=== PATIENT | female | born 1980 | race Caucasian/White ===

== ENCOUNTER 2016-04-23 16:40 | Inpatient (IN) | payer OTHER ==
[~2016-04-23] VITALS: Ht 167.6 cm; Wt 68.0 kg
[~2016-04-23 16:40] MED LIST: ASCO500C6 PO; CASTOR TOPICAL; CHOL500011 PO; CYAN100085 PO; FISH12002 PO; FURO40TA4 PO; IODINE PO; IRON 18 MG PO; LACT10SO27 PO; LACT1CAP38 PO; LEVO25TA5 PO; LIPOIC ACID PO; MULT1CAP33 PO; ONDA-53 PO; POTA-62 PO; RIFA550T3 PO; SPIR50TA2 PO; TRAM50TA2 PO; Tumeric PO; VALA100026 PO
[2016-04-23 16:44] VITALS: BP 109/74; PULSE 116; RESP 20; O2SAT 98
[2016-04-23] MEDS ORDERED: Ondansetron 8 mg ODT Tablet ONE (17:56)
[2016-04-23] MEDS ORDERED: 0.9% Sodium Chloride 1,000 ML IV ONE (17:56)
[2016-04-23] MEDS ORDERED: Ondansetron 2 mg/mL 2 mL Inj IV PRN (18:00)
--- NOTE | 2016-04-23 18:03 | ED.REPORT ---
HPI-Abd Pain F Under 40 Date of Service Apr 23, 2016 ED Provider: Rodolfo Gil DO History of Present Illness: Patient is a 35 y.o. F with end stage liver disease, liver cirrhosis, anemia. Onset last 2 days initially thought it was gas, now hurts all day long, feels bloated with diarrhea on lactulose, cannot walk, loss of focus due to pain, feels full. Made worse with movement, bending over, eating, Liver disease assocated with gastric bypass, and assocaited with ETOH Last meal fruit and toast 11 AM Last week started to have nausea went to Given Zofran and Hydrocodone 5-325 (taken 15-20 pills) 04/09 and 04/11 IV transfusion PRBC for anemia. Nursing Notes Stated Complaint: ABDOMINAL PAIN Chief Complaint: Female Abdominal Pain Nursing Notes Reviewed: Yes Allergies: Coded Allergies: No Known Allergies (Verified Allergy, Unknown, 04/09/16) Scheduled ([Iron 18 mg tablet]) 2 TAB PO DAILY ([Lipoic Acid]) 100 MG PO BID Ascorbic Acid (Vitamin C) 500 Mg Capsule.er 500 MG PO DAILY Cholecalciferol (Vitamin D3) (Vitamin D3) 5,000 Unit Tablet 5,000 UNIT PO DAILY Cyanocobalamin (Vitamin B-12) (Vitamin B-12) 1,000 Mcg/1 Ml Drops 1 DROP PO DAILY Fish Oil/Borage/Flax/Om3,6,9#1 ([place] 3-6-9 1,200 mg Softgel) 1,200 Mg Capsule 3 TAB PO DAILY Furosemide (Furosemide) 40 Mg Tablet 40 MG PO DAILY L. Rhamnosus GG/Inulin (Culturelle Capsule) 10 Billion Cell-200 Mg Cap.sprink 1 EACH PO DAILY Levothyroxine (Levothyroxine) 25 Mcg Tablet 25 MCG PO DAILY Multivitamin (Multivitamins) 1 Each Capsule 1 EACH PO DAILY Ondansetron (Ondansetron) 4 Mg Tablet 4 MG PO q12hrs Potassium Chloride ER (Potassium Chloride ER) 20 Meq Tablet.er 20 MEQ PO DAILY TAKE WITH FOOD Rifaximin (Xifaxan) 550 Mg Tablet 550 MG PO BID Spironolactone (Spironolactone) 50 Mg Tablet 50 MG PO DAILY Scheduled PRN Hydromorphone PF (Hydromorphone PF) 1 Mg/1 Ml Syringe 1 MG IVPUSH Q4H PRN PRN For Pain Tramadol (Tramadol) 50 Mg Tablet 50 MG PO q8 PRN PRN For Pain diphenhydrAMINE HCl (Benadryl) 25 Mg Capsule 25 MG PO Q6H PRN PRN For Itching oxyCODONE (oxyCODONE) 5 Mg Tablet 5-10 MG PO Q4H PRN PRN For Moderate Pain Miscellaneous Medications Lactulose (Lactulose) 10 Gm/15 Ml Solution 10 GM PO General Time Seen by MD: 17:45 Chief Complaint Abdominal pain, Nausea, Vomiting mild Past Medical History Past Medical History Liver cirrhosis Anemia hyporthyrodism Past Surgical History Gastric bypass Smoking History Unknown if Ever Smoker Social History Alcohol Use: Denies alcohol use Review of Systems Basic Review of Systems Eyes: Vision NL, No discharge Hematologic: No bleeding Allergy / Immune: No allergy Neurologic: NL mental status, No weakness, No numbness Psychiatric: Normal thought content Constitutional: Reports: Chills, Denies: Fever Respiratory: Reports: Dyspnea on exertion, Denies: Hemoptysis Cardiovascular: Denies: Chest pain GI: Reports: Abdominal pain, Anorexia, Diarrhea, Nausea, Vomiting, Denies: Bloody/tarry stool, Constipation, Dysphagia, Hematemesis, Hematochezia, Melena, Mucousy stool, Rectal pain Female: Denies: Dysuria, Flank pain, Pelvic pain Musculoskeletal: Reports: Back pain Complete sys rev & neg: except as marked. Physical Exam Initial Vital Signs Initial VS: Reviewed Head / Eyes: Atraumatic, Normocephalic, PERRL ENT: Mucous membranes moist Neck: Supple, Non-tender Lymphatic: No lymphadenopathy Extremities: Vascular intact, Neuro intact, No swelling, No tenderness Neurologic: Alert, Oriented, Nonfocal Psychiatric: Mood/affect normal, Behavior normal, Normal thought content General/Constitutional: Awake, Alert, No acute distress, Well appearing Respiratory / Chest: Breath sounds NL, Breath sounds = bilat, No respiratory distress, No rales, No rhonchi, No wheezing Cardiovascular: Heart rate NL, Regular rhythm, Heart sounds NL, Peripheral circulation NL Abdomen: Soft, McBurney's non-tender, No hernia, No palpable mass Tenderness/Guarding/Rebound: Positive: Guarding involuntary, Rebound diffuse, Tender diffuse, Tender epigastric Bowel Sounds / Distention: Positive: Bowel sounds hypoactive, Distention moderate (positive fluid wave) Trauma - General: Positive: Ecchymosis (present on abdomen, spider angioma present, no caput medusa) Head / Eyes: PERRL, EOMI Conjunctiva / Sclera: Positive: Icteric Color / Condition: Positive: Jaundice present Neurologic: Oriented X3, Speech NL, No motor deficits, No sensory deficits, Cerebellar NL Interpretation & Diagnostics Lab Results Interpretation Result Diagram: 05/08/16 0807 05/08/16 0807 Test 04/23/16 18:15 04/23/16 20:00 04/23/16 23:19 04/23/16 23:46 Lipase 20U/L (13-60) Urine Color [place] (YELLOW) Urine Appearance Cloudy (CLEAR,HAZY) Urine pH (5.0-8.0) Urine Specific [place] 1.018 (1.003-1.035) Urine Protein mg/dL (NEG,TRACE) Urine Glucose (UA) mg/dL (NEGATIVE) Urine Ketones mg/dL (NEGATIVE) Urine Occult Blood (NEGATIVE) Urine Nitrite (NEGATIVE) Urine Bilirubin Large (NEGATIVE) Urine Ictotest Positive (Negative) Urine Urobilinogen mg/dL (NORMAL) Urine Leukocyte Esterase (NEGATIVE) Urine RBC 0-2/hpf (0-2) Urine WBC 0-5/hpf (0-5) Urine Epithelial Cells Moderate/hpf (NONE-MOD) Urine Crystals Amorphous urates (NONE Urine Bacteria None/hpf (NONE-FEW) Urine Hyaline Casts None/lpf (NONE) Urine Granular Casts None seen (NONE SEEN) Urine Waxy Casts None seen (NONE SEEN) Urine Red Blood Cell Casts None seen (NONE SEEN) Urine White Blood Cell Casts None seen (NONE SEEN) Urine Mucus None seen (None Seen) Urine Trichomonas None seen (NONE SEEN) Urine Yeast None (NONE SEEN) Urinalysis Comment Color interference Urine Culture Reflexed Not indicated Body Fluid Albumin 0.4g/dL (.) Body Fluid Lactate Dehydrogenase 55U/L Peritoneal Fluid Glucose 105mg/dL Lactic Acid Level 1.9mmol/L (0.4-2.0) ECG Interpretation ECG Interpretation: Rate 102 NSR Normal [place] Do not agree with computer: No significant T wave abnormalities Time: 18:57 Interpreted by: ED physician CT Abd / Pelvis Interpretation IMPRESSION: Moderate ascites within the abdomen and pelvis. Cirrhosis, portal hypertension, varices. Varices are seen extending cephalad through the gastrohepatic ligament into the periesophageal lower chest. No definite acute disease is found. Mild anasarca, mild secondary mural thickening of the colon and small bowel. At the lung bases there is alveolar consolidation posteriorly. This could represent sequela of reduced inspiratory volume and retention of pulmonary secretions. Dictated by: Arley Glass M.D. on 04/23/2016 at 21:38 Approved by: Arley Glass M.D. on 04/23/2016 at 21:55 Interpretation / Wet Read by: Interpret - Radiologist US Focused non-OB Pelvis pocket of peritoneal fluid LLQ of abdomen Exam Performed by: ED physician Exam Type: Diagnostic Exam Interpreted by: ED physician, ED resident Procedures Procedure Notes: Diagnostic paracentesis Consent for operation or procedure: Risks and benefits discussed with patient and consent obtained Anesthesia: 5 cc of Lidocaine Patient positioned supine. Abdomen examined with ultrasound for appropriate site placement. Site marked and prepared with Chloraprep swab. Site draped with sterile dressing. Wheel of lidocaine placed. Lidocaine then introduced deep to the peritoneum. Paracentesis needle was placed through the skin into the abdominal cavity. The needle was withdrawn and the site cleaned and bandaged with bandaid. Samples were sent to the lab for analysis. Yellow colored was fluid removed Amount of fluid removed: 25 cc Estimated Blood Loss: minimal Complications: The patient tolerated the procedure well without complications. Plan: Await cell cout to determine if meets admission criteria for antibiotic threatment for SBP Re-Eval/Medical Decision Med Decision/Clinical Course Med Decision/Clinical Course: 35 y.o. F with know history of liver disease and anemia, recent exposure to Acetomenophen. Presented with two day history of worsening abdominal pain and bloating. Patient recently seen by UC for nausea and vomiting wher patient was given Zofran and Hydrocodone. Moderate ammount of ascieties noted an exam with positive fluid wave, postive peritoneal signs, no signs of encephalopathy physical exam. Symptoms are worrisome for spontaneous bacterial peritonitis, patient will be worked up for enteric infection, sepesis. Patient meets criteria for admission to hospital and IV antibiotic therapy for SBP. DDx spontaneous bacterial peroitonitis, ascietis due to liver disease, acute on chronic liver failure, diverticulitis, peritoneal abscess, maligancy, r/o pancreatitis CBC showed signs of anemia not significaly reduced from patient's baseline -ordered Crossmatch and Hold CMP AST elevated ALT normal Albumin low 2.5 Billirubin elevated, no significant elevation from base line Lipase 20 Lactic Acid elevated Procalcitonin elevated UA ordered negative for infection + billirubin Blood cultures ordered, pending CT abdomen and pelvis with contrast ordered to look for signs of infection Plan to complete diagnostic paracentesis of abdomen post CT Re-Evaluation/Progress #1: Time of Eval: 18:00 Patient Status: Condition unchanged Evaluation: Capillary refill delayed Re-Evaluation/Progress Note: Pain and nausea moderate relief with Zofran and Hydromorphone Re-Evaluation/Progress #2: Time of Eval: 19:00 Patient Status: Condition unchanged Re-Evaluation/Progress Note: Pain contines to be moderately controlled with medication VS stable Re-Evaluation/Progress #3: Time of Eval: 20:00 Re-Evaluation/Progress Note: Pain moderately controlled Repeat abdominal US shows collection of fluid LLQ Will wait to proceed with paracentesis until after CT Re-Evaluation/Progress #4: Time of Eval: 21:00 Patient Status: Condition improved Re-Evaluation/Progress Note: Pain well controlled Nausea well controlled Patient stated that her appetite is returning wet read of CT postive signs of perihepatic ascitic fluid Wating for formal CT report before making final decision for paracentesis Procalcitonin elevated 0.23 Re-Evaluation/Progress #5: Time of Eval: 00:15 Patient Status: Condition improved Re-Evaluation/Progress Note: Pain well controlled Nausea controlled Lab results for ascitic fluid postive for WBC consistent with SBP Discussed with patient need to start IV antibiotic therapy with Ceftrixone and need for admission to hospital for observation and treatment. Consultation #1: Referral / Consult Name: Ceasar Gonzalez MD Consulted With: On-call physician (GI) Requested Call at: 22:24 Call Returned at: 22:24 Application Lead: Will see patient, Agrees with plan Note: Reccomends diagnositic paracentesis Agrees with decision to admit for observation to start antibiotic therapy if cell counts return with diagnostic criteria for SBP Consultation #2: Consulted With: Hospitalist Requested Call at: 23:30 Call Returned at: 23:30 Application Lead: Will see patient, Agrees with eval, Agrees with plan, Accepts admit Note: Reccomend await results of periotneal fluid analysis and repeat lactic acid prior to decision on admission Counseled Regarding: Diagnosis, Lab results, Need for follow-up Discharge & Departure Primary Impression: Spontaneous bacterial peritonitis Additional Impressions: Abdominal pain Abdominal location: generalized Qualified Code: R10.84 - Generalized abdominal pain Ascites due to alcoholic cirrhosis Nausea Transaminitis Disposition: ADMITTED TO HOSPITAL Referrals: Michele Hernandez DO (PCP) Attending Statment I was saw and examined this patient with Dr. Salvador Timmons and I agree with the documentation as above. I was also present for the paracentesis procedure which I supervised and assisted Dr. Timmons with. SALVADOR TIMMONS DO Apr 23, 2016 18:03 AndRodolfo medina DO May 09, 2016 07:30 Urine Culture Reflexed Not indicated Body Fluid Total Protein 0.8g/dL Body Fluid Source Peritoneal fluid Body Fluid Color Yellow (Clear) Body Fluid Appearance Hazy Body Fluid WBC 1190/mm3 Body Fluid RBC 840/mm3 Body Fluid Polynuclear WBCs 72% Body Fluid Lymphocytes 4% Body Fluid Monocytes 20% Body Fluid Eosinophils 0% Body Fluid Basophils 0% Body Fluid Lactate Dehydrogenase 55U/L Peritoneal Fluid Glucose 105mg/dL Test 04/23/16 23:46 Lactic Acid Level 1.9mmol/L (0.4-2.0) ECG Interpretation ECG Interpretation: Rate 102 NSR Normal [place] Do not agree with computer: No significant T wave abnormalities Time: 18:57 Interpreted by: ED physician CT Abd / Pelvis Interpretation IMPRESSION: Moderate ascites within the abdomen and pelvis. Cirrhosis, portal hypertension, varices. Varices are seen extending cephalad through the gastrohepatic ligament into the periesophageal lower chest. No definite acute disease is found. Mild anasarca, mild secondary mural thickening of the colon and small bowel. At the lung bases there is alveolar consolidation posteriorly. This could represent sequela of reduced inspiratory volume and retention of pulmonary secretions. Dictated by: Arley Glass M.D. on 04/23/2016 at 21:38 Approved by: Arley Glass M.D. on 04/23/2016 at 21:55 Interpretation / Wet Read by: Interpret - Radiologist US Focused non-OB Pelvis pocket of peritoneal fluid LLQ of abdomen Exam Performed by: ED physician Exam Type: Diagnostic Exam Interpreted by: ED physician, ED resident Procedures Procedure Notes: Diagnostic paracentesis Consent for operation or procedure: Risks and benefits discussed with patient and consent obtained Anesthesia: 5 cc of Lidocaine Patient positioned supine. Abdomen examined with ultrasound for appropriate site placement. Site marked and prepared with Chloraprep swab. Site draped with sterile dressing. Wheel of lidocaine placed. Lidocaine then introduced deep to the peritoneum. Paracentesis needle was placed through the skin into the abdominal cavity. The needle was withdrawn and the site cleaned and bandaged with bandaid. Samples were sent to the lab for analysis. Yellow colored was fluid removed Amount of fluid removed: 25 cc Estimated Blood Loss: minimal Complications: The patient tolerated the procedure well without complications. Plan: Await cell cout to determine if meets admission criteria for antibiotic threatment for SBP Re-Eval/Medical Decision Med Decision/Clinical Course Med Decision/Clinical Course: 35 y.o. F with know history of liver disease and anemia, recent exposure to Acetomenophen. Presented with two day history of worsening abdominal pain and bloating. Patient recently seen by UC for nausea and vomiting wher patient was given Zofran and Hydrocodone. Moderate ammount of ascieties noted an exam with positive fluid wave, postive peritoneal signs, no signs of encephalopathy physical exam. Symptoms are worrisome for spontaneous bacterial peritonitis, patient will be worked up for enteric infection, sepesis. Patient meets criteria for admission to hospital and IV antibiotic therapy for SBP. DDx spontaneous bacterial peroitonitis, ascietis due to liver disease, acute on chronic liver failure, diverticulitis, peritoneal abscess, maligancy, r/o pancreatitis CBC showed signs of anemia not significaly reduced from patient's baseline -ordered Crossmatch and Hold CMP AST elevated ALT normal Albumin low 2.5 Billirubin elevated, no significant elevation from base line Lipase 20 Lactic Acid elevated Procalcitonin elevated UA ordered negative for infection + billirubin Blood cultures ordered, pending CT abdomen and pelvis with contrast ordered to look for signs of infection Plan to complete diagnostic paracentesis of abdomen post CT Re-Evaluation/Progress #1: Time of Eval: 18:00 Patient Status: Condition unchanged Evaluation: Capillary refill delayed Re-Evaluation/Progress Note: Pain and nausea moderate relief with Zofran and Hydromorphone Re-Evaluation/Progress #2: Time of Eval: 19:00 Patient Status: Condition unchanged Re-Evaluation/Progress Note: Pain contines to be moderately controlled with medication VS stable Re-Evaluation/Progress #3: Time of Eval: 20:00 Re-Evaluation/Progress Note: Pain moderately controlled Repeat abdominal US shows collection of fluid LLQ Will wait to proceed with paracentesis until after CT Re-Evaluation/Progress #4: Time of Eval: 21:00 Patient Status: Condition improved Re-Evaluation/Progress Note: Pain well controlled Nausea well controlled Patient stated that her appetite is returning wet read of CT postive signs of perihepatic ascitic fluid Wating for formal CT report before making final decision for paracentesis Procalcitonin elevated 0.23 Re-Evaluation/Progress #5: Time of Eval: 00:15 Patient Status: Condition improved Re-Evaluation/Progress Note: Pain well controlled Nausea controlled Lab results for ascitic fluid postive for WBC consistent with SBP Discussed with patient need to start IV antibiotic therapy with Ceftrixone and need for admission to hospital for observation and treatment. Consultation #1: Referral / Consult Name: Ceasar Gonzalez MD Consulted With: On-call physician (GI) Requested Call at: 22:24 Call Returned at: 22:24 Application Lead: Will see patient, Agrees with plan Note: Reccomends diagnositic paracentesis Agrees with decision to admit for observation to start antibiotic therapy if cell counts return with diagnostic criteria for SBP Consultation #2: Consulted With: Hospitalist Requested Call at: 23:30 Call Returned at: 23:30 Application Lead: Will see patient, Agrees with eval, Agrees with plan, Accepts admit Note: Reccomend await results of periotneal fluid analysis and repeat lactic acid prior to decision on admission Counseled Regarding: Diagnosis, Lab results, Need for follow-up Discharge & Departure Primary Impression: Abdominal pain Abdominal location: generalized Qualified Code: R10.84 - Generalized abdominal pain Additional Impressions: Ascites due to alcoholic cirrhosis Nausea Transaminitis Spontaneous bacterial peritonitis Disposition: ADMITTED TO HOSPITAL Referrals: Michele Hernandez DO (PCP) SALVADOR TIMMONS DO Apr 23, 2016 18:03
[2016-04-23] MEDS ORDERED: Ondansetron 8 mg ODT Tablet PO ONE (18:25)
[2016-04-23] MEDS ORDERED: Iohexol 300 mg/mL 30 mL Inj PO ONE (18:25)
[2016-04-23 18:32] LABS: EOSINOPHILS % (AUTO) 1.2 % (0-5)
[2016-04-23 18:40] LABS: BASOPHILS % (AUTO) 0.8 % (0-3); MONOCYTES % (AUTO) 17.4 % (4-12); Mean Corpuscular Hemoglobin 39.9 pg (27.0-35.0); Mean Corpuscular Volume 117.7 fL (81-100); NEUTROPHILS % (AUTO) 58.8 % (40-74); Platelet Count 113 bil/L (150-400)
[2016-04-23 18:58] LABS: Magnesium 1.7 mg/dL (1.6-2.6)
[2016-04-23] MEDS: HYDROmorphone 0.5 mg/0.5 mL iSecure Syringe IVPUSH PRN ×3 (18:58→23:42)
[2016-04-23 19:02] VITALS: BP 115/62; PULSE 98; RESP 13; O2SAT 99
[2016-04-23 20:38] LABS: APPEARANCE,URINE CLOUDY (CLEAR,HAZY); COLOR,URINE ORANGE (YELLOW)
[2016-04-23 20:39] LABS: ICTOTEST,URINE POSITIVE (Negative)
[2016-04-23 20:43] LABS: INR 1.54 ratio
[2016-04-23 20:57] VITALS: BP 109/54; PULSE 100; RESP 16; O2SAT 98
[2016-04-23] MEDS ORDERED: Potassium Chloride 20 mEq/15 mL 15mL Oral Soln PO ONE (21:20)
--- NOTE | 2016-04-23 21:57 | DRSVH ---
PROCEDURE: CT ABDOMEN AND PELVIS WITH CONTRAST ([id number]) INDICATIONS: abd pain TECHNIQUE: After the administration of oral and intravenous contrast, 5 mm thick sections acquired from the diap hragms to the symphysis. 5 mm thick coronal and sagittal reformats were performed. For radiation do se reduction, the following was used: automated exposure control, adjustment of mA and/or kV accordi ng to patient size. COMPARISON: None. FINDINGS: Image quality: Excellent. ABDOMEN: Lung bases: Lung bases are clear except for alveolar opacification with air bronchograms at each garth g base posteriorly, potentially a manifestation of pneumonia. Heart size is normal. Solid organs: Liver and spleen are asymmetric in size and enhancement, with mildly cirrhotic nodular margination of the liver and splenomegaly with the coronal length of the 16.0 cm. There is evidence of portal hypertension as indicated by varices extending through the gastrohepatic ligament into the esophageal margins. Gallbladder contains sludge. Biliary system is non-dilated. Pancreas enhances normally. No adrenal nodules. Kidneys are normal in size and enhancement, without hydronephrosis. Peritoneum and bowel: Stomach, small bowel, and colon loops are normal in caliber and wall thickness . No free air. A there is moderate ascites, without evidence of peritoneal enhancement or thickenin g. There is mild edema involving the small bowel and the colon, but this likely is related to anasar ca. Nodes and vessels: No retroperitoneal or mesenteric adenopathy. Aorta and inferior vena cava are no rmal in caliber. Miscellaneous: No ventral hernias. PELVIS: Genitourinary: Bladder wall thickness is normal. Miscellaneous: No inguinal hernias or adenopathy. Moderate ascites is present within the pelvis. Bones: No suspicious bony lesions. No vertebral body compression fractures. IMPRESSION: Moderate ascites within the abdomen and pelvis. Cirrhosis, portal hypertension, varices . Varices are seen extending cephalad through the gastrohepatic ligament into the periesophageal low er chest. No definite acute disease is found. Mild anasarca, mild secondary mural thickening of the colon and small bowel. At the lung bases there is alveolar consolidation posteriorly. This could represent sequela of reduc ed inspiratory volume and retention of pulmonary secretions. Dictated by: Arley Glass M.D. on 04/23/2016 at 21:38 Approved by: Arley Glass M.D. on 04/23/2016 at 21:55
[2016-04-23 23:42] VITALS: BP 112/51; PULSE 92; RESP 16; O2SAT 95
[2016-04-23 23:47] LABS: BFWBC 1190 /mm3
[2016-04-24] VITALS (11 sets, daily range): BP systolic 97–119; BP diastolic 51–97; PULSE 87–99; RESP 12–20; O2SAT 88–99
[2016-04-24] LABS: MONOCYTES,BODY FLUID 20 %; OTHER CELLS,BODY FLUID 4
[2016-04-24] MEDS ORDERED: cefTRIAXone Inj 1,000 MG in Dextrose 5% Minibag Plus 50 ML IV ONE (00:15)
[2016-04-24] MEDS ORDERED: Ondansetron 2 mg/mL 2 mL Inj IVPUSH PRN (00:20)
[2016-04-24] MEDS ORDERED: Alum-Mag Hydrox-Simeth 30 mL Suspension PO PRN ×2 (00:20→13:00)
[2016-04-24] MEDS: 0.9% Sodium Chloride 1,000 ML IV SCH ×2 (00:57→10:18)
[2016-04-24] MEDS ORDERED: ALBUMIN IV ONE (01:10)
--- NOTE | 2016-04-24 02:36 | NUR ---
Admit to room 248-2 Report received from Sherry Beavers AT 0025. Pt arrived on unit approximately at 0035 via gurney and transferred self without without difficulty to bed. No complaints at this time. Admission and med rec done by this RN. VSLopez. IV ABX ceftriaxone running on arrival. Hourly rounding in place.
--- NOTE | 2016-04-24 03:04 | PCM.HPMED ---
Subjective Date of Service Apr 24, 2016 Primary Provider: Admitting Physician: Dewey Singer MD Primary Care Physician: Michele Hernandez DO Attending Physician: Dewey Singer MD Admit Status: From the Emergency Department Chief Complaint: Abdominal pain, nausea History of Present Illness: 35-year-old female with history of end-stage liver disease, Rajan-en-Y gastric bypass surgery over 10 years ago presents with 1 week of nausea and abdominal pain acutely increasing in the last 2 days with abdominal distention. 2016 patient was seen in urgent care for nausea with dry heaves. She was given prescriptions for ondansetron and hydrocodone with acetaminophen. She had been doing okay with this treatment however in the last 2 days her abdomen has become more distended, she has had difficulty moving and bending. She has increased pain with eating and feels much more bloated. The day before admission patient was in pain the whole day. Pain level reaches 7.5/10 at its worst and at the time of examination abdominal pain level is 5.5/10. Patient has chronic anemia and has most recently had packed RBC blood transfusions on April 09 and April 11. Patient has been experiencing chills however this is more chronic than acute, she has been taking lactulose daily for which she has diarrhea not more than 3 episodes in a day. She did experience some mild lightheadedness related to her pain and pain medication and feels generally but not focally weak. 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 Real at [facility] in [place]. Review of Systems: A comprehensive review of systems was conducted with the patient and found to be negative except as above in the History of Present Illness. Allergies Coded Allergies: No Known Allergies (Verified Allergy, Unknown, 04/09/16) Home Medications 1. Lactulose 2. Tramadol 3. Furosemide 4. Spironolactone 5. Levothyroxine 6. Ondansetron 7. Xifaxan 8. Potassium 9. Vitamin C 10. Vitamin D 11. Vitamin B12 12. Fish oil 13. Culturelle Stools 14. Multivitamin 15. Iron PMH 1. End-stage liver disease 2. Liver cirrhosis 3. Anemia 4. Hypothyroidism Surgical History Rajan-en-Y gastric bypass surgery ~2005 Family History Hypothyroidism Social History Hx Alcohol Use: Yes Alcoholic Drinks Per Day: 1 drink 3 times per week, most recently greater than 1 month ago Hx Substance Use: No Hx Tobacco Use: No Smoking Status: Never Smoker Exam Vital Signs Vital Sign - Last Date Time Temp Pulse Resp B/P Pulse Ox O2 Delivery O2 Flow Rate FiO2 04/24/16 00:40 36.4 98 20 103/64 95 Room Air Exam General: No acute distress, well-developed, well-nourished, appropriately interactive HEENT: Normocephalic, atraumatic. External ears without defect. Pupils equal, round, and reactive to light and accommodation. Icteric sclerae, moist conjunctivae, and no lid lag. Oropharynx free of erythema, moist mucosa. Neck: Supple with full range of motion. No jugular venous distension. No bruits. No lymphadenopathy or thyromegaly. Cardiovascular: Regular rate and rhythm with III/ systolic murmur heard best at upper left sternal border. No rubs, or gallops appreciated Pulmonary: Clear to auscultation bilaterally with no crackles, wheezes, or rhonchi. Normal respiratory effort with no use of accessory muscles. Abdomen: Bowel tones present. Soft, mildly tender in lower quadrants bilaterally , distended. No masses appreciated. Extremities: Pale bruises over upper and lower extremities bilaterally no clubbing, cyanosis, edema, or lymphadenopathy appreciated. Skin: Patient appears yellow from jaundice. Normal temperature, turgor, and texture; no rash, ulcers, or subcutaneous nodules appreciated. Neurological: Cranial nerves grossly intact. Coordination, and sensory function within normal limits. No known gait impairment. Psychiatric: Normal mood and affect. Alert and oriented to person, place, and time. Lab and Diagnostics Labs Repeat lactic acid 1.9 Pro-calcitonin 0.30 Total bilirubin 13.6 Result Diagram: 04/23/16181404/23/161814 X-Rays, CTs and MRIs PROCEDURE: CT ABDOMEN AND PELVIS WITH CONTRAST ([id number]) IMPRESSION: Moderate ascites within the abdomen and pelvis. Cirrhosis, portal hypertension, varices. Varices are seen extending cephalad through the gastrohepatic ligament into the periesophageal lower chest. No definite acute disease is found. Mild anasarca, mild secondary mural thickening of the colon and small bowel. At the lung bases there is alveolar consolidation posteriorly. This could represent sequela of reduced inspiratory volume and retention of pulmonary secretions. Dictated by: Arley Glass M.D. 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 1. Spontaneous bacterial peritonitis, present on admission, acute Absolute neutrophil count greater than 850 Ceftriaxone 1 g given in the emergency department, 2 g daily ordered IV albumin given, 100 g. An additional dose of 70 g could be given on day 3 however this will be up to the discretion of GI and the hospitalist team. Dr. Gonzalez of GI consulted from the emergency department. GI consult ordered. Blood cultures pending, urine and sputum cultures ordered Pain control with IV hydromorphone 0.5 every 4 when necessary, home tramadol held for acute IV pain management this could be restarted when appropriate 2. End-stage liver disease, present on admission, acute on chronic Per outpatient records since November 2015 bilirubin levels have ranged from 10.1 -15.5 Continue lactulose 10 g daily this could be increased up to 30 g daily if patient is having formed stools per outpatient recommendation Continue rifaximin INR 1.54 Continue to monitor, CBC and CMP in the morning. Continue vitamin B 12 3. Ascites, present on admission, acute on chronic Paracentesis in emergency department extracted 25 mL of fluid, continue to monitor for necessity of therapeutic paracentesis Continue furosemide, potassium, and spironolactone 4. Hypothyroidism Continue levothyroxine High risk meds include IV Dilaudid DVT prophylaxis: SCDs, pharmacologic prophylaxis held due to advanced liver disease When necessary GI, bowel, pain medications ordered Patient Status: Patient is admitted under observation status with expected length of stay less than 2 midnights due to severity of presenting symptoms, and complexity of treatment plan. Pain Evaluation: Adequate Pain Control GI Prophylaxis: Not indicated VTE Prophylaxis: SCDs VTE Mechanical Devices: Intermittant Pneumatic CD Resuscitation Status: CPR: Attempt Resuscitation Attending Statement The patient was seen and examined together with Dr. Viera on 04/24 and I agree with the history, exam and plan as outlined in the note above. Shellie Viera DO Apr 24, 2016 01:51 Dewey Singer MD Apr 24, 2016 03:41
[2016-04-24] MEDS ORDERED: [UNRECOGNIZED DRUG - CODE] PO (03:58)
[2016-04-24] MEDS: Ondansetron 2 mg/mL 2 mL Inj IVPUSH PRN ×2 (06:30→15:11)
[2016-04-24] MEDS: HYDROmorphone 0.5 mg/0.5 mL iSecure Syringe IVPUSH PRN ×5 (06:39→23:30)
[2016-04-24] MEDS: Lactulose 20 Gm/30 mL 30 mL Syrup PO SCH (08:23)
[2016-04-24] MEDS: Lactobacillus Rhamnosus 10 Bil Unit Capsule PO SCH (08:24)
[2016-04-24] MEDS ORDERED: Cefotaxime Inj 2,000 MG in Dextrose 5% 100 ML IV SCH ×2 (08:30→18:00)
[2016-04-24] MEDS ORDERED: cefTRIAXone 2,000 mg/D5W 50 mL IV Minibag Plus IV SCH ×2 (08:30)
--- NOTE | 2016-04-24 08:32 | NUR ---
Isolation 0740 pt placed on contact isolation as she is reporting recent history of shingles w/o completion of antiviral course. to notify Addendum: 04/24/16 at 1538 by VIVI SEAY RN Per , pt does not need to be on contact isolation.
[2016-04-24 09:03] LABS: BASOPHILS % (AUTO) 1.1 % (0-3); EOSINOPHILS % (AUTO) 3.1 % (0-5); MONOCYTES % (AUTO) 15.4 % (4-12); Mean Corpuscular Hemoglobin 39.2 pg (27.0-35.0); Mean Corpuscular Volume 119.6 fL (81-100); NEUTROPHILS % (AUTO) 49.8 % (40-74); Platelet Count 94 bil/L (150-400)
[2016-04-24 09:19] LABS: INR 1.65 ratio
[2016-04-24 09:49] LABS: Magnesium 1.9 mg/dL (1.6-2.6); Phosphorus 3.3 mg/dL (2.5-4.9)
--- NOTE | 2016-04-24 09:56 | NUR ---
Labs/status notified that pt reports history of shingles about a week ago without completion of her course of oral antiviral. discussed with pt at bedside. notified of H&H 08/14.3 at 0925. to order PRBCs and to DC IV fluids.
[2016-04-24] MEDS: Potassium Chloride 20 mEq SR Tablet PO SCH (10:07)
--- NOTE | 2016-04-24 14:24 | NUR ---
Social Work-assessment: Data:EMR Reviewed. Pt is on day 1 of hospitalization for generalized abd pain per H&P. Pt's insurance is Let out of [facility] and PCP is Michele Hernandez DO. EMR Reviewed. SW met with pt at bedside to discuss discharge planning, SW role explained. Pt resides at home with her mom and grandfather in [place] where she remains independent with ADLs. Pt's mother helps her get to doctors appointment. SW discussed DPOA/ advanced directive paperwork, pt declining at this time. Per RN notes, pt has been up independent in his room. Pt's mother to provide transport home. SW provided phone number and plan on white board in room. No anticipated discharge needs. SW will continue to follow if needs arise. Assessment:Pt who is independent at baseline. Plan:Pt to discharge home when medically stable via POV. No anticipated discharge needs. SW will continue to follow if needs arise. ADA Silva
--- NOTE | 2016-04-24 15:39 | NUR ---
Status 1535 notified that pt is tolerating current PRBC transfusion, BP's trending low today. aware of K 3.3 this am - pt on kdur and aldactone with lasix. Notified that GI did stop by to see pt this afternoon.
--- NOTE | 2016-04-24 16:54 | CONS ---
[address] [address] CONSULTATION REPORT PATIENT: GAVI MARINELLI : 1980 MR#: [id number] ADMIT: 04/23/2016 JOB ID: [id number] DATE OF SERVICE: 04/24/16 It was a pleasure seeing this patient at [facility] GI service for evaluation for cirrhosis and spontaneous bacterial peritonitis. HISTORY OF PRESENT ILLNESS: This is a 35-year-old lady with end-stage liver disease who had gastric bypass surgery over 10 years ago and she had alcohol use after that. She has been followed by the sql programmer analyst in [facility] down at [place], [place] and has initiated transplant evaluation. She had an EGD in December of last year by that doctor and patient does notre call the result. However, I was informed that her baseline hemoglobin is around 8 and when the patient came to the ED, the numbers are essentially baseline per patient and ED doctor. However, she had 1-week history of nausea and abdominal pain which was slowly getting worse. In the two days prior to admission, abdominal pain was getting worse and she noticed increased abdominal distention. She went to urgent care for these problems and she was given Zofran and hydrocodone with Tylenol. This seemed to help the pain, however, it still caused her to be nauseated, difficulty moving, bending and because things were not getting any better, the patient came to the emergency department. In the emergency department, her pain was about 7-8/10 at its worst. She does have history of underlying chronic anemia and, again, last EGD in December 2015, and she had transfusion back on April 09 and on April 11, and her forester silviculture is Dr. Real at [facility] in [place]. In terms of her further review of system, she did experience some lightheadedness, dizziness, as well as some diarrhea as well. When I saw her this morning, she has significant improvement of her abdominal pain, improvement in nausea. She is not vomiting. No chest pain, shortness of breath, however, she was recently told she had shingles and she is being treated for this. PAST MEDICAL HISTORY: 1. End-stage liver disease with cirrhosis complicated with most likely portal hypertensive gastropathy with anemia requiring occasional blood transfusion. 2. Hypothyroidism. PAST SURGICAL HISTORY: 1. Rajan-en-Y gastric bypass. 2. Family history of hypothyroidism. SOCIAL HISTORY: Drinks one drink three times per week. Most recent was more than a month ago. Denies use of substance abuse, tobacco use. Never smoked. PHYSICAL EXAMINATION: Patient is alert, oriented, does appear comfortable. Temp 36.7, pulse 98, respiration 14, blood pressure 103/55. No asterixis . Head and neck: Does have icterus. Lungs: Clear. Cardiovascular: Regular rate and rhythm. Normal S1, S2. Abdomen: Mildly distended. Diffuse tenderness. No guarding. Decreased bowel sounds. Extremities: No pitting edema of the ankles. Skin: Shows some jaundice. MEDICATIONS: Include: 1. Hydromorphone. 2. Ceftriaxone 2 g. 3. Potassium. 4. Lasix. 5. Spironolactone. 6. Lactobacillus. 7. Rifaximin. 8. Lactulose. 9. B12. 10. Synthroid. 11. Zofran. 12. Valtrex. 13. Maalox. 14. Senna. LABORATORY DATA: Platelets are 94,000, hemoglobin 6, white count 5500. INR 1.65, BUN 8, creatinine 0.46, potassium 3.3, AST 17, ALT 63, alk phos 6.7, total bili 11.7, AST 51. Body fluids: Her white count from the peritoneal cavity os 1190. PMN 72%, albumin is pending, total protein is 0.8. She had a CT of the abdomen which showed moderate amount of fluid, cirrhosis, varices, mild anasarca, and some mural thickening of the colon and the small bowel considered to be from ascites. IMPRESSION: This is a lady with end-stage liver disease who has been followed by a forester silviculture down in [place]. She has cirrhosis presumed to be alcohol. With last alcohol more than a month ago, according to the ED note and to the hospitalist documentation. Unfortunately, we do not have any extensive history about her liver since she has been followed by the doctor in [place], but it does appear that she has evidence of spontaneous bacterial peritonitis. She was written for cefotaxime 2 g every 8 hours but it was not formulary. Therefore it was switched to ceftriaxone 2 g per day. On exam, she has no asterixis. Alert and oriented x3. Agree with Rifaximin 550 twice a day and lactulose. If she has diarrhea, would check Clostridium difficile. She does not have diarrhea currently. In terms of her SBP, ceftriaxone for five days. Then on the day before we stop the IV antibiotics, would recommend retapping to make sure the PMNs have decreased to less than 250 cells per cc. Because her total bilirubin is elevated at 11.7, I would recommend albumin 1.5 g/kg body weight today of albumin infusion and 1 g/kg per body weight on day number three. This is to prevent hepatorenal syndrome. There was a decrease in hemoglobin, but she denies any blood in the stools or black stools. I suspect that she probably has portal hypertensive gastropathy. Would like to get the result of the esophagogastroduodenoscopy report from December 2015. If the patient does not develop melena or unstable hemoglobin, would not proceed with an upper endoscopy. In the meantime, due to possible portal hypertensive gastroscopy and possible slow oozing, would consider acid suppression using Prilosec 20 mg twice a day. Finally, the patient will need antibiotic prophylaxis for spontaneous bacterial peritonitis (SBP) due to her total protein being only 0.8, and, of course, with a new diagnosis of SBP she could be given either Bactrim or Cipro. Kidney function currently is stable. Once the spontaneous bacterial peritonitis resolves, if she does have esophageal varices, propranolol should be started. However, we do not have that information, therefore, I will defer this to her primary forester silviculture in [place]. SOFI
--- NOTE | 2016-04-24 17:59 | NUR ---
GI 1700 GI aware that pt has not had BM today. states this is ok. Plan is to monitor SBP and continue IV antibiotics. Monitor labs. Pt stable this afternoon. to start pt on protonix.
[2016-04-24] MEDS: Pantoprazole 20 mg ER24 Tablet PO SCH (20:49)
--- NOTE | 2016-04-24 21:30 | NUR ---
Pain Patient states pain continuous 5/10 with temporary relief with ordered dilaudid text page obtained order for PO oxy as well w/effect
[2016-04-25] VITALS (9 sets, daily range): BP systolic 106–127; BP diastolic 48–73; PULSE 78–96; RESP 16–20; O2SAT 93–98
[2016-04-25] MEDS: HYDROmorphone 0.5 mg/0.5 mL iSecure Syringe IVPUSH PRN ×5 (05:26→22:36)
[2016-04-25 07:34] LABS: BASOPHILS % (AUTO) 2.6 % (0-3); EOSINOPHILS % (AUTO) 3.3 % (0-5); MONOCYTES % (AUTO) 13.9 % (4-12); Magnesium 1.7 mg/dL (1.6-2.6); Mean Corpuscular Hemoglobin 37.2 pg (27.0-35.0); Mean Corpuscular Volume 110.9 fL (81-100); NEUTROPHILS % (AUTO) 44.3 % (40-74); Phosphorus 3.1 mg/dL (2.5-4.9); Platelet Count 86 bil/L (150-400)
[2016-04-25] MEDS: cefTRIAXone 2,000 mg/D5W 50 mL IV Minibag Plus IV SCH ×2 (08:30)
[2016-04-25] MEDS: Pantoprazole 20 mg ER24 Tablet PO SCH ×2 (09:33→20:34)
[2016-04-25] MEDS: Potassium Chloride 20 mEq SR Tablet PO SCH (10:20)
[2016-04-25] MEDS: Lactulose 20 Gm/30 mL 30 mL Syrup PO SCH (10:22)
[2016-04-25] MEDS: Lactobacillus Rhamnosus 10 Bil Unit Capsule PO SCH (10:22)
[2016-04-25] MEDS ORDERED: 0.9% Sodium Chloride 250 ML ONE (11:04)
--- NOTE | 2016-04-25 12:34 | PCM.PNMED ---
Subjective Date of Service Apr 25, 2016 Subjective Patient notes improvement in abdominal discomfort. Denies any fevers chills. Denies any nausea or vomiting. Exam Vital Signs Vital Sign - Last Date Time Temp Pulse Resp B/P Pulse Ox O2 Delivery O2 Flow Rate FiO2 04/25/16 12:07 36.5 79 18 113/69 04/25/16 10:57 93 Room Air 04/24/16 06:03 2.00 Intake and Output 04/24/16 04/24/16 04/25/16 Cumulative From/Thru 14:59 22:59 06:59 04/23/16 16:44 - 04/25/16 06:18 Intake Total 970 ml 447 ml 2187 ml Output Total 1300 ml 450 ml 400 ml 2700 ml Balance -1300 ml 520 ml 47 ml -513 ml Intake Oral 550 ml 447 ml 1197 ml IV Total 20 ml 590 ml Packed Cells 400 ml 400 ml Output Urine Total 1300 ml 450 ml 400 ml 2700 ml # Bowel Movements 0 0 Exam Constitutional l: Jaundice young female in no acute distress Head: Normocephalic, atraumatic. . Eyes: PERRLADC. Icteric sclerae, Mouth: No lesions. Neck: Supple with full range of motion. No jugular venous distension. Cardiovascular: Regular rate and rhythm with III/ systolic murmur Pulmonary: Clear to auscultation bilaterally except some decreased breath sounds at her right base Abdomen: Soft, mildly distended, no tenderness to palpation, bowel sounds present Extremities: SCDs are on her lower extremities, no pedal edema appreciated Skin: Jaundice, no rashes noted Neurological: Alert and oriented 3, motor strength is intact bilaterally Psychiatric: Normal mood and affect. Lab and Diagnostics Laboratory Tests 72 Hours Test 04/23/16 18:15 04/23/16 20:00 04/23/16 23:09 04/23/16 23:19 White Blood Count 6.6th/mm3 (3.8-10.1) Red Blood Count 1.98mil/mm3 (3.90-5.20) Hemoglobin 7.9g/dL (12.0-15.6) Hematocrit 23.3% (35.0-46.0) Mean Corpuscular Volume 117.7fL (81-100) Mean Corpuscular Hemoglobin 39.9pg (27.0-35.0) Mean Corpuscular Hemoglobin Concent 33.9% (32.0-37.0) Red Cell Distribution Width 22.5% (12.3-15.4) Platelet Count 113bil/L (150-400) Neutrophils (%) (Auto) 58.8% (40-74) Lymphocytes (%) (Auto) 21.5% (14-46) Monocytes (%) (Auto) 17.4% (4-12) Eosinophils (%) (Auto) 1.2% (0-5) Basophils (%) (Auto) 0.8% (0-3) Prothrombin Time 16.6sec (8.1-12.5) Prothromb Time International Ratio 1.54ratio Sodium Level 131mEq/L (134-144) Potassium Level 3.3mEq/L (3.5-5.2) Chloride Level 94mEq/L (97-108) Carbon Dioxide Level 22mmol/L (18-29) Blood Urea Nitrogen 8mg/dL (6-20) Creatinine 0.51mg/dL (0.57-1.00) Estimat Glomerular Filtration Rate 199mL/min (>59) Glucose Level 117mg/dL (60-99) Lactic Acid Level 2.8mmol/L (0.4-2.0) Calcium Level 7.8mg/dL (8.5-10.1) Magnesium Level 1.7mg/dL (1.6-2.6) Total Bilirubin 13.6mg/dL (0.0-1.2) Aspartate Amino Transf (AST/SGOT) 67U/L (0-50) Alanine Aminotransferase (ALT/SGPT) 22U/L (0-32) Alkaline Phosphatase 87U/L (25-150) Total Protein 7.2g/dL (6.4-8.4) Albumin 2.5g/dL (3.4-5.0) Lipase 20U/L (13-60) Procalcitonin 0.23ng/mL (0.00-0.08) Urine Color [place] (YELLOW) Urine Appearance Cloudy (CLEAR,HAZY) Urine pH (5.0-8.0) Urine Specific [place] 1.018 (1.003-1.035) Urine Protein mg/dL (NEG,TRACE) Urine Glucose (UA) mg/dL (NEGATIVE) Urine Ketones mg/dL (NEGATIVE) Urine Occult Blood (NEGATIVE) Urine Nitrite (NEGATIVE) Urine Bilirubin Large (NEGATIVE) Urine Ictotest Positive (Negative) Urine Urobilinogen mg/dL (NORMAL) Urine Leukocyte Esterase (NEGATIVE) Urine RBC 0-2/hpf (0-2) Urine WBC 0-5/hpf (0-5) Urine Epithelial Cells Moderate/hpf (NONE-MOD) Urine Crystals Amorphous urates (NONE Urine Bacteria None/hpf (NONE-FEW) Urine Hyaline Casts None/lpf (NONE) Urine Granular Casts None seen (NONE SEEN) Urine Waxy Casts None seen (NONE SEEN) Urine Red Blood Cell Casts None seen (NONE SEEN) Urine White Blood Cell Casts None seen (NONE SEEN) Urine Mucus None seen (None Seen) Urine Trichomonas None seen (NONE SEEN) Urine Yeast None (NONE SEEN) Urinalysis Comment Color interference Urine Culture Reflexed Not indicated Body Fluid Total Protein 0.8g/dL Body Fluid Source Peritoneal fluid Body Fluid Color Yellow (Clear) Body Fluid Appearance Hazy Body Fluid WBC 1190/mm3 Body Fluid RBC 840/mm3 Body Fluid Polynuclear WBCs 72% Body Fluid Lymphocytes 4% Body Fluid Monocytes 20% Body Fluid Eosinophils 0% Body Fluid Basophils 0% Body Fluid Lactate Dehydrogenase 55U/L Peritoneal Fluid Glucose 105mg/dL Test 04/23/16 23:46 04/24/16 08:35 04/25/16 06:53 Lactic Acid Level 1.9mmol/L (0.4-2.0) Procalcitonin 0.30ng/mL (0.00-0.08) 0.23ng/mL (0.00-0.08) 0.12ng/mL (0.00-0.08) White Blood Count 5.5th/mm3 (3.8-10.1) 5.8th/mm3 (3.8-10.1) Red Blood Count 1.53mil/mm3 (3.90-5.20) 1.83mil/mm3 (3.90-5.20) Hemoglobin 6.0g/dL (12.0-15.6) 6.8g/dL (12.0-15.6) Hematocrit 18.3% (35.0-46.0) 20.3% (35.0-46.0) Mean Corpuscular Volume 119.6fL (81-100) 110.9fL (81-100) Mean Corpuscular Hemoglobin 39.2pg (27.0-35.0) 37.2pg (27.0-35.0) Mean Corpuscular Hemoglobin Concent 32.8% (32.0-37.0) 33.5% (32.0-37.0) Red Cell Distribution Width 22.6% (12.3-15.4) % (12.3-15.4) Platelet Count 94bil/L (150-400) 86bil/L (150-400) Neutrophils (%) (Auto) 49.8% (40-74) 44.3% (40-74) Lymphocytes (%) (Auto) 30.2% (14-46) 35.6% (14-46) Monocytes (%) (Auto) 15.4% (4-12) 13.9% (4-12) Eosinophils (%) (Auto) 3.1% (0-5) 3.3% (0-5) Basophils (%) (Auto) 1.1% (0-3) 2.6% (0-3) Prothrombin Time 17.8sec (8.1-12.5) Prothromb Time International Ratio 1.65ratio Sodium Level 135mEq/L (134-144) 135mEq/L (134-144) Potassium Level 3.3mEq/L (3.5-5.2) 3.6mEq/L (3.5-5.2) Chloride Level 97mEq/L (97-108) 101mEq/L (97-108) Carbon Dioxide Level 24mmol/L (18-29) 24mmol/L (18-29) Blood Urea Nitrogen 8mg/dL (6-20) 6mg/dL (6-20) Creatinine 0.46mg/dL (0.57-1.00) 0.38mg/dL (0.57-1.00) Estimat Glomerular Filtration Rate 224mL/min (>59) 279mL/min (>59) Glucose Level 92mg/dL (60-99) 85mg/dL (60-99) Calcium Level 8.3mg/dL (8.5-10.1) 8.0mg/dL (8.5-10.1) Phosphorus Level 3.3mg/dL (2.5-4.9) 3.1mg/dL (2.5-4.9) Magnesium Level 1.9mg/dL (1.6-2.6) 1.7mg/dL (1.6-2.6) Total Bilirubin 11.7mg/dL (0.0-1.2) 9.5mg/dL (0.0-1.2) Aspartate Amino Transf (AST/SGOT) 51U/L (0-50) 47U/L (0-50) Alanine Aminotransferase (ALT/SGPT) 17U/L (0-32) 13U/L (0-32) Alkaline Phosphatase 63U/L (25-150) 61U/L (25-150) Total Protein 6.7g/dL (6.4-8.4) 5.6g/dL (6.4-8.4) Albumin 3.3g/dL (3.4-5.0) 2.7g/dL (3.4-5.0) Result Diagram: 04/25/16 0653 04/25/1653 X-Rays, CTs and MRIs PROCEDURE: CT ABDOMEN AND PELVIS WITH CONTRAST ([id number]) IMPRESSION: Moderate ascites within the abdomen and pelvis. Cirrhosis, portal hypertension, varices. Varices are seen extending cephalad through the gastrohepatic ligament into the periesophageal lower chest. No definite acute disease is found. Mild anasarca, mild secondary mural thickening of the colon and small bowel. At the lung bases there is alveolar consolidation posteriorly. This could represent sequela of reduced inspiratory volume and retention of pulmonary secretions. Dictated by: Arley Glass M.D. 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 1. Spontaneous bacterial peritonitis, present on admission, acute Absolute neutrophil count greater than 850 Ceftriaxone 1 g given in the emergency department, 2 g daily ordered IV albumin given, 100 g yesterday. An additional dose of 70 g could be given on day [address] Gonzalez of GI consulted from the emergency department. GI consult ordered. Blood cultures pending, urine and sputum cultures ordered Pain control with IV hydromorphone 0.5 every 4 when necessary, As per GI: n terms of her SBP, I have noticed the patient was on cefotaxime. Since cefotaxime was already given, I would just continue the cefotaxime instead of the ceftriaxone. This should be continued for five days. Then on the day before we stop the IV antibiotics, would recommend retapping to make sure the PMNs have decreased to less than 250 cells per cc. Because her total bilirubin is elevated at 11.7, I would recommend albumin 1.5 g/kg body weight today of albumin infusion and 1 g/kg per body weight on day number three. This is to prevent hepatorenal syndrome. 2. End-stage liver disease, present on admission, acute on chronic Per outpatient records since November 2015 bilirubin levels have ranged from 10.1 -15.5 Continue lactulose 10 g daily this could be increased up to 30 g daily if patient is having formed stools per outpatient recommendation Continue rifaximin INR 1.54 Continue to monitor, CBC and CMP in the morning. Continue vitamin B 12 3. Ascites, present on admission, acute on chronic Paracentesis in emergency department extracted 25 mL of fluid, continue to monitor for necessity of therapeutic paracentesis Continue furosemide, potassium, and spironolactone 4. Hypothyroidism Continue levothyroxine High risk meds include IV Dilaudid DVT prophylaxis: SCDs, pharmacologic prophylaxis held due to advanced liver disease When necessary GI, bowel, pain medications ordered Patient Status: Patient is admitted under observation status with expected length of stay less than 2 midnights due to severity of presenting symptoms, and complexity of treatment plan. GI Prophylaxis: Not indicated VTE Prophylaxis: SCDs VTE Mechanical Devices: Intermittant Pneumatic CD Resuscitation Status: CPR: Attempt Resuscitation Time spent 30 minutes Latasha Boone MD Apr 25, 2016 12:34
[2016-04-25] MEDS ORDERED: Triamcinolone 0.1% 30 Gm Cream TOPICAL PRN (14:20)
--- NOTE | 2016-04-25 16:36 | PCM.PNMED ---
Subjective Date of Service Apr 25, 2016 Subjective Patient still complains of abdominal discomfort which is better than her statement however no significant improvement versus yesterday. She has no bowel movement for the past 24 hours. Exam Vital Signs Vital Sign - Last Date Time Temp Pulse Resp B/P Pulse Ox O2 Delivery O2 Flow Rate FiO2 04/25/16 16:24 Supplement Oxygen 04/25/16 15:32 36.7 91 18 108/67 04/25/16 10:57 93 04/24/16 06:03 2.00 Intake and Output 04/24/16 04/24/16 04/25/16 Cumulative From/Thru 15:00 23:00 07:00 04/23/16 16:44 - 04/25/16 06:18 Intake Total 970 ml 447 ml 2187 ml Output Total 1300 ml 450 ml 400 ml 2700 ml Balance -1300 ml 520 ml 47 ml -513 ml Intake Oral 550 ml 447 ml 1197 ml IV Total 20 ml 590 ml Packed Cells 400 ml 400 ml Output Urine Total 1300 ml 450 ml 400 ml 2700 ml # Bowel Movements 0 0 Exam Physical examination: Patient is alert oriented comfortable. Head and neck icterus Lungs clear Cardiovascular regular rate and rhythm, S1-S2 Abdomen soft diffuse tenderness no guarding rebound or firmness increased distention with normoactive bowel sounds Skin shows jaundice Lab and Diagnostics Result Diagram: 04/25/1665204/25/16652 X-Rays, CTs and MRIs PROCEDURE: CT ABDOMEN AND PELVIS WITH CONTRAST ([id number]) IMPRESSION: Moderate ascites within the abdomen and pelvis. Cirrhosis, portal hypertension, varices. Varices are seen extending cephalad through the gastrohepatic ligament into the periesophageal lower chest. No definite acute disease is found. Mild anasarca, mild secondary mural thickening of the colon and small bowel. At the lung bases there is alveolar consolidation posteriorly. This could represent sequela of reduced inspiratory volume and retention of pulmonary secretions. Dictated by: Arley Glass M.D. 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 Minimal evidence of encephalopathy. Agree with Rifaximin 550 twice a day and lactulose. If she has diarrhea, would check Clostridium difficile. She does not have diarrhea currently. In terms of her SBP, ceftriaxone for five days. Then on the day before we stop the IV antibiotics, would recommend retapping to make sure the PMNs have decreased to less than 250 cells per cc. Because her total bilirubin is elevated at 11.7, I would recommend albumin 1.5 g/kg body weight today of albumin infusion and 1 g/kg per body weight on day number three. This is to prevent hepatorenal syndrome. Again there seems to be evidence of anemia. However there is no stool output. Therefore she is having issues with GI bleeding. There was evidence of slight increase in abdominal distention with persistent abdominal pain and hemoglobin that is not responding appropriately after 1 unit of blood. This raises the possibility that there could be a bleeding into the abdomen however if that is the case will see tachycardia decreased blood pressure etc. However there is minimal evidence that would support bleeding into the peritoneum. Continue Prilosec 20 mg twice a day. We will see how things are tomorrow and if there is increased distention with lack of hemoglobin response, consider doing a CT scan of the abdomen to see if there is any kind of retroperitoneal bleeding or bleeding into the peritoneum. Finally, the patient will need antibiotic prophylaxis for spontaneous bacterial peritonitis (SBP) due to her total protein being only 0.8, and, of course, with a new diagnosis of SBP she could be given either Bactrim or Cipro. GI Prophylaxis: Not indicated VTE Prophylaxis: SCDs VTE Mechanical Devices: Intermittant Pneumatic CD Resuscitation Status: CPR: Attempt Resuscitation Ceasar Gonzalez MD Apr 25, 2016 16:36 4. Hypothyroidism Continue levothyroxine High risk meds include IV Dilaudid DVT prophylaxis: SCDs, pharmacologic prophylaxis held due to advanced liver disease When necessary GI, bowel, pain medications ordered Patient Status: Patient is admitted under observation status with expected length of stay less than 2 midnights due to severity of presenting symptoms, and complexity of treatment plan. GI Prophylaxis: Not indicated VTE Prophylaxis: SCDs VTE Mechanical Devices: Intermittant Pneumatic CD Resuscitation Status: CPR: Attempt Resuscitation Ceasar Gonzalez MD Apr 25, 2016 16:36
[2016-04-25] MEDS: Ondansetron 2 mg/mL 2 mL Inj IVPUSH PRN (17:29)
--- NOTE | 2016-04-25 18:51 | NUR ---
Pain/nausea Pt c/o generalized abdominal pain up to "6/10" after activity. She is receiving IV dilaudid q4 hours and PO oxycodone q4 hours with good results. Provider is aware. She is also complaining of nausea and has been given zofran x2 during this shift. Her nausea is intermittent and she is having dry heaves. She is tolerating a general diet.
[2016-04-25 22:55] LABS: BASOPHILS % (AUTO) 2.1 % (0-3); EOSINOPHILS % (AUTO) 2.4 % (0-5); MONOCYTES % (AUTO) 13.4 % (4-12); Mean Corpuscular Hemoglobin 36.8 pg (27.0-35.0); NEUTROPHILS % (AUTO) 53.2 % (40-74); Platelet Count 92 bil/L (150-400)
[2016-04-26 00:33] VITALS: BP 116/71; PULSE 90; RESP 16; O2SAT 98
[2016-04-26] MEDS: HYDROmorphone 0.5 mg/0.5 mL iSecure Syringe IVPUSH PRN ×2 (05:43→10:35)
[2016-04-26 05:52] VITALS: BP 105/61; PULSE 88; RESP 16; O2SAT 96
--- NOTE | 2016-04-26 06:01 | NUR ---
Pain / Sedation Pt has had minimal nausea, but consistently reports pain of 6/10. Oxycodone and dilaudid have been given regularly. However during the night, pt presented with increasing sedation and disorientation upon waking. Educated patient about sedative effects of narcotics, pt conveys understanding of only taking when needed. VSS and pt is sleeping well despite less pain meds tonight.
[2016-04-26] MEDS: Ondansetron 2 mg/mL 2 mL Inj IVPUSH PRN ×4 (08:17→20:10)
[2016-04-26] MEDS: Pantoprazole 20 mg ER24 Tablet PO SCH ×2 (10:49→19:52)
[2016-04-26] MEDS: Potassium Chloride 20 mEq SR Tablet PO SCH (10:49)
[2016-04-26] MEDS: Lactobacillus Rhamnosus 10 Bil Unit Capsule PO SCH (10:50)
[2016-04-26] MEDS: Lactulose 20 Gm/30 mL 30 mL Syrup PO SCH (10:51)
[2016-04-26] MEDS: cefTRIAXone 2,000 mg/D5W 50 mL IV Minibag Plus IV SCH ×2 (10:52)
[2016-04-26] MEDS ORDERED: Albumin 25% 50 GM in IV Premix 1 EACH IV ONE (11:05)
[2016-04-26] MEDS: Polyethylene Glycol (PEG) 17 Gm Powder PO SCH (11:08)
--- NOTE | 2016-04-26 11:55 | NUR ---
Social Work Note Continued Discharge Planning: D/A: The Pt is a 35 y/o female that was admitted on 04/23/16 for generalized abdominal pain, R/O spontaneous bacterial peritonitis. The Pt lives mostly independent with her mother and grandfather on [place], with her mother assisting with transportation to medical appointments. GI consultation completed, recommending five days of IV antibiotics with the possibility of a CT scan. SW will continue to follow. P: The Pt is not ready to discharge and will need an additional five days of IV antibiotics in the hospital. SW will continue to follow.
[2016-04-26] MEDS ORDERED: 0.9% Sodium Chloride 250 ML ONE (12:30)
[2016-04-26] MEDS ORDERED: Furosemide 10 mg/mL 4 mL Inj IVPUSH ONE (13:20)
--- NOTE | 2016-04-26 13:26 | PCM.PNMED ---
Subjective Date of Service Apr 26, 2016 Subjective Patient is a low bit more lethargic and confused today per patient and mother who is at bedside. Patient also notes low bit more upper abdominal pain and feels like she is little bit more distended. We did discover that her dose of lactulose here is 10 g but at home she takes 30 g. Did not have a bowel movement since yesterday. Exam Vital Signs Vital Sign - Last Date Time Temp Pulse Resp B/P Pulse Ox O2 Delivery O2 Flow Rate FiO2 04/26/16 08:38 Supplement Oxygen 04/26/16 05:52 36.9 88 16 105/61 96 04/24/16 06:03 2.00 Intake and Output 04/25/16 04/25/16 04/26/16 Cumulative From/Thru 14:59 22:59 06:59 04/23/16 16:44 - 04/26/16 06:52 Intake Total 2325 ml 800 ml 5312 ml Output Total 1800 ml 450 ml 4950 ml Balance 525 ml 350 ml 362 ml Intake Oral 1500 ml 800 ml 3497 ml IV Total 500 ml 1090 ml Packed Cells 325 ml 725 ml Output Urine Total 1800 ml 450 ml 4950 ml # Bowel Movements 1 1 2 Exam Constitutional: Slightly little bit more drowsy than yesterday but is answering questions appropriately Head, normocephalic atraumatic Eyes: Sclerae are anicteric Mouth: No lesions Chest: Decreased breath sounds at her bases Cor: Regular rate and rhythm S1-S2 with 3/6 systolic ejection murmur Abdomen: Slight tenderness in the epigastrium no rebound no guarding slightly distended bowel sounds are present Extremity: Trace pedal edema Neuro: She is alert but slightly drowsier than yesterday and oriented 3, motor strength intact bilaterally Lab and Diagnostics Result Diagram: 04/25/16 2245 04/26/16 1145 X-Rays, CTs and MRIs PROCEDURE: CT ABDOMEN AND PELVIS WITH CONTRAST ([id number]) IMPRESSION: Moderate ascites within the abdomen and pelvis. Cirrhosis, portal hypertension, varices. Varices are seen extending cephalad through the gastrohepatic ligament into the periesophageal lower chest. No definite acute disease is found. Mild anasarca, mild secondary mural thickening of the colon and small bowel. At the lung bases there is alveolar consolidation posteriorly. This could represent sequela of reduced inspiratory volume and retention of pulmonary secretions. Dictated by: Arley Glass M.D. 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 1. Spontaneous bacterial peritonitis, present on admission, acute Absolute neutrophil count greater than 850 Ceftriaxone 1 g given in the emergency department, 2 g daily ordered IV albumin given, 100 g yesterday. An additional dose of 70 g could be given on day [address] Gonzalez of GI consulted from the emergency department. GI consult ordered. Blood cultures pending, urine and sputum cultures ordered Pain control with IV hydromorphone 0.5 every 4 when necessary, As per GI: In terms of her SBP, I have noticed the patient was on cefotaxime. Since cefotaxime was already given, I would just continue the cefotaxime instead of the ceftriaxone. This should be continued for five days. Then on the day before we stop the IV antibiotics, would recommend retapping to make sure the PMNs have decreased to less than 250 cells per cc. Because her total bilirubin is elevated at 11.7, I would recommend albumin 1.5 g/kg body weight today of albumin infusion and 1 g/kg per body weight on day number three. This is to prevent hepatorenal syndrome. We will proceed with albumin 50 g infusion today as per GI. We will give IV Lasix with associated to get a unit of PRBCs yesterday. 2. End-stage liver disease, present on admission, acute on chronic Per outpatient records since November 2015 bilirubin levels have ranged from 10.1 -15.5 Continue lactulose 10 g daily this could be increased up to 30 g daily if patient is having formed stools per outpatient recommendation Continue rifaximin INR 1.54 Continue to monitor, CBC and CMP in the morning. Daily ammonia monitoring Continue vitamin B 12 3. Ascites, present on admission, acute on chronic Paracentesis in emergency department extracted 25 mL of fluid, continue to monitor for necessity of therapeutic paracentesis Continue furosemide, potassium, and spironolactone 4. Hypothyroidism Continue levothyroxine 5. Elevated ammonia level today consistent with hepatic encephalopathy, acute, not present on admission We will go ahead and give lactulose 30 g by mouth every hour until has 2-3 loose stools and then change dosing to 30 g 3 times a day Check daily ammonia levels and follow clinically High risk meds include IV Dilaudid DVT prophylaxis: SCDs, pharmacologic prophylaxis held due to advanced liver disease When necessary GI, bowel, pain medications ordered Patient Status: Patient is admitted under observation status with expected length of stay less than 2 midnights due to severity of presenting symptoms, and complexity of treatment plan. GI Prophylaxis: Not indicated VTE Prophylaxis: SCDs VTE Mechanical Devices: Intermittant Pneumatic CD Resuscitation Status: CPR: Attempt Resuscitation Time spent GI Prophylaxis: Not indicated VTE Prophylaxis: SCDs VTE Mechanical Devices: Intermittant Pneumatic CD Resuscitation Status: CPR: Attempt Resuscitation Time spent 30 minutes Latasha Boone MD Apr 26, 2016 13:26
[2016-04-26 14:12] VITALS: BP 113/65; PULSE 91; RESP 18; O2SAT 96
[2016-04-26] MEDS: Lactulose 20 Gm/30 mL 30 mL Syrup PO PRN ×2 (16:12→19:53)
--- NOTE | 2016-04-26 16:46 | DRSVH ---
[facility] [address] [place] [address] Echocardiogram Report Name: GAVI MARINELLI EStudy Date: 04/26/2016 Height: 66 in Hospital Exam Location: [facility] Weight: 150 lb Gender: Female BSA: 1.8 m2 : 1980 Age: 35 yrs BP: 105/61 mmHg Reason For Study: SYSTOLIC MURMUR Ordering Physician: HOSPITALIST [facility] Performed By: Trevon Hernandez Referring Physician: Michele Hernandez Interpretation Summary 1) Normal left ventricular thickness, size, wall motion, diastolic function, and systolic function (EF 60-65%). 2) Normal right ventricular size and function. 3) Mildly increased flow through the LVOT, but no obstruction present. Suspect this is due to high flow state (i.e anemia). 4) No significant valvular abnormalities. 5) Incidental finding of abdominal ascites is noted. 6) No prior Echo available for comparison. Procedure: A two-dimensional transthoracic echocardiogram with color flow and Doppler was performed. The study quality was technically good. There is no prior echocardiogram noted for this patient. The patient was in normal sinus rhythm during the exam. Left Ventricle: The left ventricle is normal in size. There is normal left ventricular wall thickness. The LVOT velocity is 1.75 m/s. The left ventricular outflow velocity with valsalva is .80 m/s. The ejection fraction is estimated to be 60-65%. There are no focal wall motion abnormalities. Right Ventricle: The right ventricle is normal in size and function. Atria: The left atrium is severely dilated. Right atrial size is normal. The interatrial septum is intact with no evidence for an atrial septal defect. Mitral Valve: The mitral valve is normal in structure and function. There is trace mitral regurgitation. Aortic Valve: The aortic valve is normal in structure and function. The aortic valve is trileaflet. The aortic valve opens well. No aortic regurgitation is present. Tricuspid Valve: The tricuspid valve is normal in structure and function. No tricuspid regurgitation. Pulmonary artery pressures cannot be estimated because of the lack of a measurable TR jet velocity. Pulmonic Valve: The pulmonic valve is normal in structure and function. There is trace pulmonic regurgitation. Great Vessels: The aortic root is normal size. The dimensions of the ascending aorta are normal. No Doppler or imaging evidence of an aortic coarctation. The pulmonary artery is normal size. The IVC is of normal diameter and collapses greater than 50% with a sniff. This suggests a low right atrial pressure of 3 mm Hg. Pericardium/ Pleura There is no pericardial effusion. There is no pleural effusion. Incidental finding of abdominal ascites is noted. MMode/2D Measurements & Calculations LVIDd: 5.9 cm RA long axis LVOT diam: 2.2 cm LVIDs: 3.6 cm LA A2 area: 28.1 cm AoV Opening FS: 38.8 % LA A4 area: 31.1 cm RA area EPSS: 1.1 cm LA length (vol) Ao root diam IVSd: 0.74 cm : 17.8 cm LVPWd: 0.70 cm LA vol: 121.6 ml RA vol Aortic Jxn: 2.4 cm LA vol index : 48.2 ml asc Aorta Diam RA : 27.2 mm2 Ao Arch Diam (Prox IVC diam: 1.9 cm Trans): 2.5 cm LV bowser. diameter/BSA LV sys. diameter/BSA RVD1 (basal) (cm/m^2): 3.3 (cm/m^2): 2.0 Doppler Measurements & Calculations Ao V2 max MV E max cuong MV E/A: 1.5 PA V2 max : 203.2 cm/sec : 90.2 cm/sec Med Peak E' Cuong : 100.2 cm/sec Ao max P.5 mmHg MV A max cuong PA mean PG Ao mean P.0 mmHg : 60.6 cm/sec E/E' med: 7.5 LVOT Max Cuong Lat Peak E' Cuong PA Accel Time : 175.8 cm/sec : 0.11 sec E/E' lat: 6.0 GER(I,D): 2.9 cm E/e' average sev ratio: 0.79 Pulm A Revs Dur MV A dur : 0.12 sec MV dec time Ao V2 mean LV V1 max PG PA V2 mean : 0.20 sec : 142.8 cm/sec : 72.5 cm/sec Ao V2 VTI: 45.4 cm LV V1 VTI : 35.8 cm GER(V,D): 3.2 cm2 GER indexed to BSA Pulm Jaun Revs Dur - MV A (cm^2/m^2): 1.6 Dur: -0.02 msec Reading Physician:04:45 PM
--- NOTE | 2016-04-26 16:50 | PCM.PNMED ---
Subjective Date of Service Apr 26, 2016 Subjective GI service progress note: This is a 35-year-old female with end-stage liver disease with initiation of transplant evaluation, alcoholism, chronic anemia with history of transfusions, hypothyroidism, and history of Rajan-en-Y gastric bypass who presented to the GI service on 04/24/2016 for abdominal pain and distention. CT of her abdomen during this hospital stay showed moderate amount of fluid, cirrhosis, varices, mild anasarca, mural thickening of the colon in the small bowel from ascites. Patient is on ceftriaxone 2 g per day (day 3 of 5) for spontaneous bacterial peritonitis. Today, the patient states her abdominal pain is still present but improved since admit. She states her abdomen is still distended but denies any worsening of this. She states that she did have a small, soft bowel movement yesterday that was not black or red. She has had nausea but no vomiting. She denies any fevers, chills, shortness of breath, chest pain or pressure. Earlier today, it was reported that she was not more drowsy and confused. however currently she is back to baseline. I saw her at 4:46 PM. She has not had any bowel movement. Exam Vital Signs Vital Sign - Last Date Time Temp Pulse Resp B/P Pulse Ox O2 Delivery O2 Flow Rate FiO2 04/26/16 05:52 36.9 88 16 105/61 96 Room Air 04/24/16 06:03 2.00 Intake and Output 04/25/16 04/25/16 04/26/16 Cumulative From/Thru 15:00 23:00 07:00 04/23/16 16:44 - 04/26/16 06:52 Intake Total 2325 ml 800 ml 5312 ml Output Total 1800 ml 450 ml 4950 ml Balance 525 ml 350 ml 362 ml Intake Oral 1500 ml 800 ml 3497 ml IV Total 500 ml 1090 ml Packed Cells 325 ml 725 ml Output Urine Total 1800 ml 450 ml 4950 ml # Bowel Movements 1 1 2 Exam General: No acute distress, appropriately interactive HEENT: Normocephalic, atraumatic. External ears without defect. Scleral icterus present. Neck: Supple with full range of motion. Cardiovascular: Regular rate and rhythm, 3/6 holosystolic murmur heard best at right sternal borer. No rubs, or gallops appreciated Pulmonary: Clear to auscultation bilaterally with no crackles, wheezes, or rhonchi. Normal respiratory effort with no use of accessory muscles. Abdomen: Bowel tones hypoactive, Abdomen distended but unchanged. Diffuse tenderness present without rebound or guarding. this is actually some improvement from yesterday. Skin: Normal temperature, turgor, and texture. Crusted over lesions on left lower back without erythema that do not cross the midline and follow dermatomal pattern. The crusted over lesions are not tender to palpation. Neurological: Cranial nerves grossly intact. . Psychiatric: Normal mood and affect. Alert and oriented to person, place, and time. Lab and Diagnostics Result Diagram: 04/25/16 2245 04/25/16 0653 X-Rays, CTs and MRIs PROCEDURE: CT ABDOMEN AND PELVIS WITH CONTRAST ([id number]) IMPRESSION: Moderate ascites within the abdomen and pelvis. Cirrhosis, portal hypertension, varices. Varices are seen extending cephalad through the gastrohepatic ligament into the periesophageal lower chest. No definite acute disease is found. Mild anasarca, mild secondary mural thickening of the colon and small bowel. At the lung bases there is alveolar consolidation posteriorly. This could represent sequela of reduced inspiratory volume and retention of pulmonary secretions. Dictated by: Arley Glass M.D. on 04/23/2016 at 21:38 Assessment & Plan This is a 35-year-old female with history of end-stage liver disease, Rajan-en-Y gastric bypass surgery over 10 years ago presents with 1 week of nausea and abdominal pain acutely increasing in the last 2 days with abdominal distention. End-stage liver disease: -Rifaximin 500mg BID and Lactulose was increased today. -If diarrhea persistent: cdiff test needed. Spontaneous bacterial peritonitis: -Ceftriaxone day 3/5. -Tomorrow will need to retab to make sure PMNs are < 250 cell/cc.when re- tapping her, recommend therapeutic. -Bilirubin 11.7. Reccomend Albumin 1.0 g/kg body weight. -Will need prophylaxis for SBP as total protein only .8. Either Bactrim or Cipro. Chronic anemia: -Patient had received two units PRBC's this hospital stay. -Continue Prilosec 20mg BID. - Hemoglobin responded appropriately. No blood in the stools or black stools reported. Constipation Advanced to increase activity and give her one more enema every shift for 3 shifts or till BM. I have Seen and examined this patient at 4:46 PM today. GI Prophylaxis: Not indicated VTE Prophylaxis: SCDs VTE Mechanical Devices: Intermittant Pneumatic CD Resuscitation Status: CPR: Attempt Resuscitation Justo Renae DO Apr 26, 2016 07:56 Ceasar Gonzalez MD Apr 26, 2016 16:50
--- NOTE | 2016-04-26 17:44 | NUR ---
GI Pt complaining of nausea intermittently, and occasionally having dry heaves. Given zofran x2 today with good results. She had not had a BM yet this shift and was given PRN lactulose and then had one small BM after. Encouraged pt to get up and ambulate. Plan is to give pt an enema. Addendum: 04/26/16 at 1835 by FRANCI KEE RN Enema given. Pt had one small, soft BM after. Continue to monitor.
[2016-04-26 18:21] VITALS: BP 113/67; PULSE 91; RESP 17; O2SAT 94
[2016-04-26 22:22] VITALS: BP 114/58; PULSE 92; RESP 16; O2SAT 95
--- NOTE | 2016-04-27 05:37 | NUR ---
GI Pt had immediate emesis after taking evening medications, zofran effective for nausea, and ok from MD Nelson to give oxycodone dose early to replace lost oxy. Pt had moderate sized BM soon after, states some abd relief post void. Pt has reported less pain this shift r/t GI than in past days. Pt states they are feeling better.
[2016-04-27 06:00] VITALS: BP 92/46; PULSE 98; RESP 16; O2SAT 94
[2016-04-27 07:22] LABS: BASOPHILS % (AUTO) 1.5 % (0-3); EOSINOPHILS % (AUTO) 2.6 % (0-5); MONOCYTES % (AUTO) 13.3 % (4-12); Mean Corpuscular Hemoglobin 35.9 pg (27.0-35.0); Mean Corpuscular Volume 110.3 fL (81-100); NEUTROPHILS % (AUTO) 50.4 % (40-74); Platelet Count 76 bil/L (150-400)
[2016-04-27] MEDS ORDERED: 0.9% Sodium Chloride 100 ML ONE (08:21)
[2016-04-27 08:25] VITALS: BP 110/64; PULSE 101; O2SAT 95
--- NOTE | 2016-04-27 08:25 | PCM.PNMED ---
Subjective Date of Service Apr 27, 2016 Subjective GI service progress note: This is a 35-year-old female with end-stage liver disease with initiation of transplant evaluation, alcoholism, chronic anemia with history of transfusions, hypothyroidism, and history of Rajan-en-Y gastric bypass who presented to the GI service on 04/24/2016 for abdominal pain and distention. CT of her abdomen during this hospital stay showed moderate amount of fluid, cirrhosis, varices, mild anasarca, mural thickening of the colon in the small bowel from ascites. Patient is on ceftriaxone 2 g per day (day 4 of 5) for spontaneous bacterial peritonitis. Retap planned for today. Today, the patient states that her abdominal pain is at baseline. She states that her abdominal distension has decreased.. She has had two bowel movements overnight described as diarrhea. She denies any fevers, chills, shortness of breath, chest pain or pressure. Yesterday, it was reported that she was somewhat drowsy and confused. She is currently at baseline. Exam Vital Signs Vital Sign - Last Date Time Temp Pulse Resp B/P Pulse Ox O2 Delivery O2 Flow Rate FiO2 04/27/16 06:00 37.2 98 16 92/46 94 Room Air 04/24/16 06:03 2.00 Intake and Output 04/26/16 04/26/16 04/27/16 Cumulative From/Thru 15:00 23:00 07:00 04/23/16 16:44 - 04/27/16 06:34 Intake Total 1237 ml 400 ml 6949 ml Output Total 3200 ml 650 ml 8800 ml Balance -1963 ml -250 ml -1851 ml Intake Oral 960 ml 400 ml 4857 ml IV Total 277 ml 1367 ml Packed Cells 725 ml Output Urine Total 3200 ml 600 ml 8750 ml Emesis 50 ml 50 ml # Bowel Movements 2 3 7 Exam General: No acute distress, appropriately interactive HEENT: Normocephalic, atraumatic. External ears without defect. Scleral icterus present. Neck: Supple with full range of motion. Cardiovascular: Regular rate and rhythm, 3/6 holosystolic murmur heard best at right sternal borer. No rubs, or gallops appreciated Pulmonary: Clear to auscultation bilaterally with no crackles, wheezes, or rhonchi. Normal respiratory effort with no use of accessory muscles. Abdomen: Bowel tones hypoactive, Abdomen distended but unchanged. Diffuse tenderness present without rebound or guarding and this is somewhat improved since yesterday. Skin: Normal temperature, turgor, and texture. Crusted over lesions on left lower back without erythema that do not cross the midline and follow dermatomal pattern. The crusted over lesions are not tender to palpation. Neurological: Cranial nerves grossly intact. . Psychiatric: Normal mood and affect. Alert and oriented to person, place, and time. Lab and Diagnostics Result Diagram: 04/27/16 0700 04/27/16 0700 X-Rays, CTs and MRIs PROCEDURE: CT ABDOMEN AND PELVIS WITH CONTRAST ([id number]) IMPRESSION: Moderate ascites within the abdomen and pelvis. Cirrhosis, portal hypertension, varices. Varices are seen extending cephalad through the gastrohepatic ligament into the periesophageal lower chest. No definite acute disease is found. Mild anasarca, mild secondary mural thickening of the colon and small bowel. At the lung bases there is alveolar consolidation posteriorly. This could represent sequela of reduced inspiratory volume and retention of pulmonary secretions. Dictated by: Arley Glass M.D. on 04/23/2016 at 21:38 Assessment & Plan This is a 35-year-old female with history of end-stage liver disease, Rajan-en-Y gastric bypass surgery over 10 years ago presents with 1 week of nausea, abdominal pain, and abdominal distension that is improving. End-stage liver disease: -Rifaximin 500mg BID and Lactulose was increased today. -Will order cdiff Spontaneous bacterial peritonitis: -Ceftriaxone day 3/5. -Will retap today to make sure PMNs are < 250 cell/cc.when re-tapping her, recommend therapeutic. -Bilirubin 11.7. Recommend Albumin 1.0 g/kg body weight. -Will need prophylaxis for SBP as total protein only .8. Either Bactrim or Cipro. Chronic anemia: -Overnight hemoglobin dropped to 7.0 (from 8.9 yesterday). However repeat hemoglobin came back 9. -Patient had received two units PRBC's this hospital stay. -Continue Prilosec 20mg BID. Constipation Advanced to increase activity and give her one more enema every shift for 3 shifts or till BM. I have seen and examined this patient. Agree with above. GI Prophylaxis: Not indicated VTE Prophylaxis: SCDs VTE Mechanical Devices: Intermittant Pneumatic CD Resuscitation Status: CPR: Attempt Resuscitation Justo Renae DO Apr 27, 2016 08:25 Ceasar Gonzalez MD Apr 28, 2016 16:00
[2016-04-27] MEDS: cefTRIAXone 2,000 mg/D5W 50 mL IV Minibag Plus IV SCH ×2 (08:29)
[2016-04-27] MEDS: Polyethylene Glycol (PEG) 17 Gm Powder PO SCH (08:30)
[2016-04-27] MEDS ORDERED: Lactulose 20 Gm/30 mL 30 mL Syrup PO SCH (08:30)
[2016-04-27] MEDS: Lactulose 20 Gm/30 mL 30 mL Syrup PO SCH ×3 (08:31→20:04)
[2016-04-27] MEDS: Pantoprazole 20 mg ER24 Tablet PO SCH ×2 (08:31→20:22)
[2016-04-27] MEDS: Potassium Chloride 20 mEq SR Tablet PO SCH (08:32)
[2016-04-27] MEDS: Lactobacillus Rhamnosus 10 Bil Unit Capsule PO SCH (08:33)
[2016-04-27] MEDS: Ondansetron 2 mg/mL 2 mL Inj IVPUSH PRN ×2 (08:43→20:24)
[2016-04-27 09:12] LABS: INR 1.54 ratio
[2016-04-27 10:10] VITALS: BP 113/67; PULSE 90; RESP 12; O2SAT 96
--- NOTE | 2016-04-27 10:48 | NUR ---
Rounds notified of 4 loose/soft bm's over past [address] order for cdiff. MD to d/c miralax. Continues on rifaximin and lactulose 30gm TID. aware of plt 76 - notified of pt gums bleeding. Notified that pt reports itching, generalized, and requests cream other than steroid that is currently at bedside. Pain controlled with po oxycodone. Paracentesis ordered for today. Addendum: 04/27/16 at 1137 by VIVI SEAY RN Per felisha SIMS to whitcel sputum culture at this time. Addendum: 04/27/16 at 1256 by VIVI SEAY RN Due to cdiff pending, pt on contact precautions
[2016-04-27] MEDS ORDERED: diphenhydrAMINE 25 mg Capsule PO PRN (11:15)
--- NOTE | 2016-04-27 11:50 | PCM.PNMED ---
Subjective Date of Service Apr 27, 2016 Subjective Patient generally felt better Afebrile overnight Denied nausea vomiting, c/o mild abdominal pain, RUQ to rt flank Denied black or bloody stools Plan to get therapeutic/diagnostic paracentesis today Day4 of Rocephin today Complaint GENERALIZED itchiness, not controlled with topical steroid had frequent BM with lactulose, didn't report particular smells, color changes of stool Exam Vital Signs Vital Sign - Last Date Time Temp Pulse Resp B/P Pulse Ox O2 Delivery O2 Flow Rate FiO2 04/27/16 10:10 36.6 90 12 113/67 96 Room Air 04/24/16 06:03 2.00 Intake and Output 04/26/16 04/26/16 04/27/16 Cumulative From/Thru 15:00 23:00 07:00 04/23/16 16:44 - 04/27/16 06:34 Intake Total 1237 ml 400 ml 6949 ml Output Total 3200 ml 650 ml 8800 ml Balance -1963 ml -250 ml -1851 ml Intake Oral 960 ml 400 ml 4857 ml IV Total 277 ml 1367 ml Packed Cells 725 ml Output Urine Total 3200 ml 600 ml 8750 ml Emesis 50 ml 50 ml # Bowel Movements 2 3 7 Exam Young female pleasant Jaundiced, icteric sclera, no flapping tremors Alert and oriented 3 Comfortable laying down on the bed no JVD, MMM, no LAD RRR, nl s1, s2 no mrg CTAB, no w,c S,ND,NT,normoactive BS+ warm, no edema, pulses 2/2 IVs and Medications Medications Reviewed: Medications were reviewed in detail Lab and Diagnostics Result Diagram: 04/27/16 0700 04/27/16 0700 X-Rays, CTs and MRIs PROCEDURE: CT ABDOMEN AND PELVIS WITH CONTRAST ([id number]) IMPRESSION: Moderate ascites within the abdomen and pelvis. Cirrhosis, portal hypertension, varices. Varices are seen extending cephalad through the gastrohepatic ligament into the periesophageal lower chest. No definite acute disease is found. Mild anasarca, mild secondary mural thickening of the colon and small bowel. At the lung bases there is alveolar consolidation posteriorly. This could represent sequela of reduced inspiratory volume and retention of pulmonary secretions. Dictated by: Arley Glass M.D. 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 acute, active 1. Spontaneous bacterial peritonitis, present on admission, acute, Absolute neutrophil count greater than 850 -s/p Ceftriaxone 1 g started, 4/5days course today, clinically improving. -IV albumin given, 100 g on D1,D3 -appreciate GI input -Pain control with IV hydromorphone 0.5 every 4 when necessary, -plan per GI is to get repeat paracentesis today to verify clearance, also for therapeutic purpose 2. decompensated End-stage liver disease, present on admission, acute on chronic. Per outpatient records since November 2015 bilirubin levels have ranged from 10.1-15.5, -INR stable today, No signs of HE -Continue lactulose 10 g daily this could be increased up to 30 g daily if patient is having formed stools per outpatient recommendation -Continue rifaximin -Continue to monitor, CBC and CMP in the morning. Daily ammonia monitoring -Continue vitamin B 12 3. Ascites, present on admission, acute on chronic Paracentesis in emergency department extracted 25 mL of fluid, continue to monitor for necessity of therapeutic paracentesis Continue furosemide, potassium, and spironolactone -plan as above 4. Elevated ammonia level today consistent with hepatic encephalopathy, acute, not present on admission -lactulose 30 g 3 times a day Check daily ammonia levels and follow clinically chronic, stable 5. Hypothyroidism Continue levothyroxine High risk meds include IV Dilaudid DVT prophylaxis: SCDs, pharmacologic prophylaxis held due to advanced liver disease When necessary GI, bowel, pain medications ordered dispo: finish abx tomorrow, if stable then consider d/c tomorrow home diet: 2g sodium Full Code GI Prophylaxis: Not indicated VTE Prophylaxis: SCDs VTE Mechanical Devices: Intermittant Pneumatic CD Resuscitation Status: CPR: Attempt Resuscitation Time spent 35min Eric Merrill MD Apr 27, 2016 11:50
--- NOTE | 2016-04-27 13:38 | NUR ---
Social Work Note - Readiness for Discharge: D/A: The Pt is a 35 y/o female that is on day 4 of hospitalization for generalization abdominal pain, r/o spontaneous bacterial peritonitis, as per EMR. GI involved, recommending 5 days of IV antibiotics in the hospital and will likely be ready for discharge this Monday. No SW needs identified at this time, SW to follow if needs arise. P: Pt not medically stable for discharge, in need of 5 days of IV antibiotics in the hospital. Pt will likely be ready for D/C on 29 April. No SW needs identified at this time, SW to follow if needs arise. Susan Lares, [employer] Certified [employer] ADA Silva
[2016-04-27 13:40] VITALS: BP 109/65; PULSE 90; RESP 11; O2SAT 99
--- NOTE | 2016-04-27 15:07 | NUR ---
NUTRITION ASSESSMENT: ASSESS: 35 YO female admitted for generalized abd. pain with spontaneous bacterial peritonitis. Pt to have repeat paracentesis today. Pt with po intake of 25-50% of meals. PMHx: Decompensated ESLD, Ascites, hepatic encephalopathy, liver cirrhosis, anveen-en-y gastric bypass surgery in 2005. LABS: Reviewed. K+ 3.4, total bili 9.0, Ammonia 106, Alb 2.8 MEDS: Reviewed. GI: BM x 3 today. CURRENT WT: 68.1 kg. DIET: Heart Healthy, 2 gm sodium. PO 25-50% of meals. EST. NEEDS: 0174-7940 kcals (30-35 kcals/kg BW), 80-100 g protein (1.2-1.5 g/kg BW) NUTRITION DIAGNOSIS: 1.) Increased nutrient needs related to increased demand for nutrients as evidenced by acute on chronic liver disease. 2.) Inadequate oral intake related to decreased appetite as evidenced by po intake of 25-50% of meals x 4 days. NUTRITION INTERVENTION: 1.) Will start sending Ensure at breakfast, magic cup a lunch and Gelatein plus at dinner to encourage adequate po intake. MONITOR / EVAL: PO intake, labs, nutritional status. Follow per moderate nutritional risk guidelines. Addendum: 04/27/16 at [address] Will send Ensure at breakfast and lunch and gelatein plus at dinner as pt with lactose allergy and magic cups contain lactose.
--- NOTE | 2016-04-27 15:57 | NUR ---
Paracentesis Per US, unable to do paracentesis today but Syd can do tomorrow. notified via cook page. also notified that no labs with paracentesis have been ordered. Cell count with diff of ascitic fluid ordered. Verified that US saw order for tomorrow am. States that paracentesis will be at 1300 04/28/16.
--- NOTE | 2016-04-27 16:32 | NUR ---
GI Per GI, pt should have 3 to 5 loose stools/day on lactulose. Hospitalist notified that pt reports already having 6 to 7 loose stools during day shift with current lactulose dosing. MD to add comment to specify when to hold medication. MD aware that paracentesis scheduled for tomorrow at 1300, per US.
[2016-04-27 18:31] VITALS: BP 114/62; PULSE 94; RESP 12; O2SAT 94
[2016-04-27 20:16] VITALS: BP 114/67; PULSE 93; RESP 15; O2SAT 96
[2016-04-27] MEDS: diphenhydrAMINE 25 mg Capsule PO PRN (22:46)
[2016-04-28 01:44] VITALS: BP 101/59; PULSE 99; RESP 12; O2SAT 93
--- NOTE | 2016-04-28 03:57 | NUR ---
PAIN P: Pt receiving 10mg Roxicodone q4h PRN, though pt requesting as often as can be given. Pt received dose at 1730. Pt c/o 6.5/10 pain at 1930. I: Contacted MD for one time dose of 5mg Roxicodone, given at 2000. E: Pt reported slight decrease in pain, but enough to get to 2130. Pt requested at 0130 pain medications when vitals were to be taken. Pt requesting again at 0530. Will continue to assess pain. Hourly rounding in place.
[2016-04-28 06:05] VITALS: BP 94/51; PULSE 89; RESP 14; O2SAT 93
[2016-04-28 07:29] LABS: EOSINOPHILS % (AUTO) 3.2 % (0-5); MONOCYTES % (AUTO) 15.2 % (4-12); Mean Corpuscular Hemoglobin 37.4 pg (27.0-35.0); Mean Corpuscular Volume 112.3 fL (81-100); NEUTROPHILS % (AUTO) 48.7 % (40-74); Platelet Count 85 bil/L (150-400)
--- NOTE | 2016-04-28 07:30 | NUR ---
lactulose/pain p - 0730 notified that pt is reporting 9 to 10 loose stools in the past 24 hours. Currently on 30gm lactulose TID and rifaximin. 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 usually 5/10 pain to abdomen. i - MD states he will update lactulose dosing/frequency. No change to pain regimen at this time. e - will continue to monitor and educate pt on need to report changes in bowel movements/frequency and pain management
[2016-04-28 07:54] LABS: Phosphorus 3.9 mg/dL (2.5-4.9)
[2016-04-28] MEDS ORDERED: 0.9% Sodium Chloride 100 ML ONE (08:22)
[2016-04-28 08:30] VITALS: BP 101/52; PULSE 82; RESP 10; O2SAT 93
[2016-04-28] MEDS: Polyethylene Glycol (PEG) 17 Gm Powder PO SCH (08:30)
[2016-04-28] MEDS: cefTRIAXone 2,000 mg/D5W 50 mL IV Minibag Plus IV SCH ×2 (08:35)
[2016-04-28] MEDS: Ondansetron 2 mg/mL 2 mL Inj IVPUSH PRN ×3 (08:36→22:01)
[2016-04-28] MEDS: Potassium Chloride 20 mEq SR Tablet PO SCH (08:37)
[2016-04-28] MEDS: Lactobacillus Rhamnosus 10 Bil Unit Capsule PO SCH (08:37)
[2016-04-28] MEDS: Pantoprazole 20 mg ER24 Tablet PO SCH ×2 (08:38→19:32)
[2016-04-28] MEDS: Lactulose 20 Gm/30 mL 30 mL Syrup PO SCH ×2 (10:50→19:31)
--- NOTE | 2016-04-28 10:58 | PCM.PNMED ---
Subjective Date of Service Apr 28, 2016 Subjective pt remained stable overnight, afebrile, Pain was relatively controlled but still required q4 oxycodone 10mg plan to get paracentesis at 1pm today, benadryl helped her itchiness, bilirubin trended down day5 of Ceftriaxone today pt had more than 8BM yesterday with lactulose so dose was changed to 20g bid Exam Vital Signs Vital Sign - Last Date Time Temp Pulse Resp B/P Pulse Ox O2 Delivery O2 Flow Rate FiO2 04/28/16 08:30 36.7 82 10 101/52 93 Room Air 04/24/16 06:03 2.00 Intake and Output 04/27/16 04/27/16 04/28/16 Cumulative From/Thru 15:00 23:00 07:00 04/23/16 16:44 - 04/28/16 06:07 Intake Total 1270 ml 520 ml 8739 ml Output Total 750 ml 500 ml 50731 ml Balance 520 ml 20 ml -1311 ml Intake Oral 1200 ml 480 ml 6537 ml IV Total 70 ml 40 ml 1477 ml Packed Cells 725 ml Output Urine Total 750 ml 500 ml 73017 ml Emesis 50 ml # Bowel Movements 7 2 16 Exam Young female pleasant Jaundiced, icteric sclera, no flapping tremors Alert and oriented 3 Comfortable laying down on the bed no JVD, MMM, no LAD RRR, nl s1, s2 no mrg CTAB, no w,c S,ND,mild diffuse tenderness,normoactive BS+ warm, no edema, pulses 2/2 IVs and Medications Medications Reviewed: Medications were reviewed in detail Lab and Diagnostics Result Diagram: 04/28/1664404/28/1645 X-Rays, CTs and MRIs PROCEDURE: CT ABDOMEN AND PELVIS WITH CONTRAST ([id number]) IMPRESSION: Moderate ascites within the abdomen and pelvis. Cirrhosis, portal hypertension, varices. Varices are seen extending cephalad through the gastrohepatic ligament into the periesophageal lower chest. No definite acute disease is found. Mild anasarca, mild secondary mural thickening of the colon and small bowel. At the lung bases there is alveolar consolidation posteriorly. This could represent sequela of reduced inspiratory volume and retention of pulmonary secretions. Dictated by: Arley Glass M.D. 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 acute, active 1. Spontaneous bacterial peritonitis, present on admission, acute, Absolute neutrophil count greater than 850 -s/p Ceftriaxone 1 g started, 5/5days course finishing today, clinically improving, will switch to ppx dose with qd tomorrow. -s/p IV albumin given, 100 g on D1,D3, recommended albumin infusion again after 2nd tap per GI -appreciate GI input -Pain control with IV hydromorphone 0.5 every 4 when necessary, -Repeat paracentesis today to verify clearance of infection, also for therapeutic purpose 2. decompensated End-stage liver disease, present on admission, acute on chronic. Per outpatient records since November 2015 bilirubin levels have ranged from 10.1-15.5, -INR stable, No signs of HE -Continue lactulose 20 g bid titrate to BM>3/d -Continue rifaximin -Continue to monitor, CBC and CMP in the morning. Daily ammonia monitoring -Continue vitamin B 12 3. Ascites, present on admission, acute on chronic Paracentesis in emergency department extracted 25 mL of fluid, continue to monitor for necessity of therapeutic paracentesis Continue furosemide, potassium, and spironolactone -plan as above 4. Elevated ammonia level today consistent with hepatic encephalopathy, acute, not present on admission -lactulose as above chronic, stable 5. Hypothyroidism, continue levothyroxine High risk meds include IV Dilaudid DVT prophylaxis: SCDs, pharmacologic prophylaxis held due to advanced liver disease When necessary GI, bowel, pain medications ordered dispo: given persistent sx, procedure planned will monitor one more day in house , possible d/c in 1-2days. diet: 2g sodium Full Code GI Prophylaxis: Not indicated VTE Prophylaxis: SCDs VTE Mechanical Devices: Intermittant Pneumatic CD Resuscitation Status: CPR: Attempt Resuscitation Time spent 35min Eric Merrill MD Apr 28, 2016 10:58
--- NOTE | 2016-04-28 11:02 | NUR ---
pain p - pt reporting increased RLQ pain 08/06. tearful. has been requiring around the clock prn oxycodone. RR assessed to be 10, sats stable on RA, no lethargy, A&Ox4 i - MD notified regarding pain and RR. MD to order 1mg morphine IV. To continue to monitor sats. Educated pt on RR. Addendum: 04/28/16 at 1149 by VIVI SEAY RN E - pt states improved pain following IV morphine. Did have episode of emesis at 1145. Had been earlier pre-medicated with 8 of zofran. pt states feeling ok after episode of emesis and beleives it may have been triggered by eating. will continue to monitor, respiratory status stable
[2016-04-28 12:17] VITALS: BP 113/68; PULSE 76; RESP 10; O2SAT 96
--- NOTE | 2016-04-28 13:43 | NUR ---
emesis P - pt has had 2 episodes of nausea with emesis (no otis blood noted) today I - 1300 GI notified and examined pt at bedside. 8 of zofran given. E - pt states nausea is improved, will continue to monitor
--- NOTE | 2016-04-28 14:13 | NUR ---
paracentesis per US, not enough fluid to perform exam. GI notified at 1405. Also notified GI of episodes of emesis w/o bleeding, current lactulose dose/frequency, continued abdominal pain, negative cdiff. GI assessed pt at bedside. To continue to monitor. Addendum: 04/28/16 at 1516 by VIVI SEAY RN hospitalist notified of inability to complete paracentesis at 1430. Notified that pt has not yet had a BM today as well as episodes of emesis, notified that miralax was held this MD santiago to discontinue medication. to continue to monitor.
--- NOTE | 2016-04-28 14:46 | PCM.PNMED ---
Subjective Date of Service Apr 28, 2016 Subjective GI service progress note: This is a 35-year-old female with end-stage liver disease with initiation of transplant evaluation, alcoholism, chronic anemia with history of transfusions, hypothyroidism, and history of Rajan-en-Y gastric bypass who presented to the GI service on 04/24/2016 for abdominal pain and distention. CT of her abdomen during this hospital stay showed moderate amount of fluid, cirrhosis, varices, mild anasarca, mural thickening of the colon in the small bowel from ascites. Patient is on ceftriaxone 2 g per day (day of 5) for spontaneous bacterial peritonitis. Retap was planned for today but fluid was not sufficient. Today, the patient states that her abdominal pain is somewhat worse. She states that her abdominal distension is unchanged.. She has had two bowel movements overnight that are described as diarrhea. She had two episodes of vomiting without blood that occurred after morphine. She denies any fevers, chills, shortness of breath, chest pain or pressure, melena, hematochezia. Exam Vital Signs Vital Sign - Last Date Time Temp Pulse Resp B/P Pulse Ox O2 Delivery O2 Flow Rate FiO2 04/28/16 12:17 36.4 76 10 113/68 96 Room Air 04/24/16 06:03 2.00 Intake and Output 04/27/16 04/27/16 04/28/16 Cumulative From/Thru 14:59 22:59 06:59 04/23/16 16:44 - 04/28/16 06:07 Intake Total 1270 ml 520 ml 8739 ml Output Total 750 ml 500 ml 00054 ml Balance 520 ml 20 ml -1311 ml Intake Oral 1200 ml 480 ml 6537 ml IV Total 70 ml 40 ml 1477 ml Packed Cells 725 ml Output Urine Total 750 ml 500 ml 13188 ml Emesis 50 ml # Bowel Movements 7 2 16 Exam General: No acute distress, appropriately interactive HEENT: Normocephalic, atraumatic. External ears without defect. Scleral icterus present. Neck: Supple with full range of motion. Cardiovascular: Regular rate and rhythm, 3/6 holosystolic murmur heard best at right sternal borer. No rubs, or gallops appreciated Pulmonary: Clear to auscultation bilaterally with no crackles, wheezes, or rhonchi. Normal respiratory effort with no use of accessory muscles. Abdomen: Bowel tones hypoactive, Abdomen distended but unchanged. Diffuse tenderness present without rebound or guarding and this is similar to yesterday. Skin: Normal temperature, turgor, and texture. Crusted over lesions on left lower back without erythema that do not cross the midline and follow dermatomal pattern. The crusted over lesions are not tender to palpation. Neurological: Cranial nerves grossly intact. . Psychiatric: Normal mood and affect. Alert and oriented to person, place, and time. Lab and Diagnostics Result Diagram: 04/28/1664404/28/16644 X-Rays, CTs and MRIs PROCEDURE: CT ABDOMEN AND PELVIS WITH CONTRAST ([id number]) IMPRESSION: Moderate ascites within the abdomen and pelvis. Cirrhosis, portal hypertension, varices. Varices are seen extending cephalad through the gastrohepatic ligament into the periesophageal lower chest. No definite acute disease is found. Mild anasarca, mild secondary mural thickening of the colon and small bowel. At the lung bases there is alveolar consolidation posteriorly. This could represent sequela of reduced inspiratory volume and retention of pulmonary secretions. Dictated by: Arley Glass M.D. 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 End-stage liver disease: -Rifaximin 500mg BID and Lactulose was increased today. -Cdiff negative Spontaneous bacterial peritonitis: -Ceftriaxone day 5. -Patient was not able to be retapped today as there was not enough fluid. We have reviewed the ultrasound with radiology and they will repeat looking for fluid around liver. When we do retap goal is for PMNs to be < 250 cell/cc.when re-tapping her, recommend therapeutic. -Bilirubin 11.7. Recommend Albumin 1.0 g/kg body weight. -Will need prophylaxis for SBP as total protein only .8. Either Bactrim or Cipro. Chronic anemia: -Overnight hemoglobin today 7.6. Will recheck. -Patient had received two units PRBC's this hospital stay. -Continue Prilosec 20mg BID. - No blood in the stools or black stools reported. Constipation: -Patient had multiple bowel movements overnight. I have seen and examined the patient. Agree with above. GI Prophylaxis: Not indicated VTE Prophylaxis: SCDs VTE Mechanical Devices: Intermittant Pneumatic CD Resuscitation Status: CPR: Attempt Resuscitation Justo Renae DO Apr 28, 2016 14:45 Ceasar Gonzalez MD May 04, 2016 09:04
--- NOTE | 2016-04-28 17:22 | NUR ---
Bowel movement P - pt states no bowel movement this shift I - GI notified. Per Dr. Juan (taking over for Dr. Gonzalez), continue to monitor and give scheduled lactulose this evening, reassess in am. Pt notified of plan. E- No enema or additional lactulose at this time. No further nausea/vomiting at this time.
--- NOTE | 2016-04-28 17:24 | DRSVH ---
PROCEDURE: US ABDOMEN, LIMITED ([id number]) INDICATIONS: SBP retap recommended by GI TECHNIQUE: Real-time focused scanning was performed of the abdomen, with image documentation. COMPARISON: None. FINDINGS: All 4 quadrants were scanned and there is trace ascites within the pelvis. IMPRESSION: Trace ascites within the pelvis and no paracentesis was performed. Dictated by: Syd Llanes RRA Interpreted: Sumi Horton MD on 04/28/2016 at 17:15 Transcribed by: DESTINY on 04/28/2016 at 17:15 Approved by: Sumi Horton MD, PhD on 04/29/2016 at 15:19
[2016-04-28 17:25] VITALS: BP 105/68; PULSE 85; RESP 10; O2SAT 95
--- NOTE | 2016-04-28 19:02 | NUR ---
GI update Per request of this evening, pt to have repeat diagnostic US around the liver for paracentesis tomorrow 04/29/16. Dr. Gonzalez aware of no BM yet today. Notified of results of repeat H&H this afternoon - improved. Per Dr. Gonzalez, does not want any further H&H unless pt has blood in stool or vomit. MD aware of continued abdominal pain today, and notified that pt was able to ambulate in halls. Notified Dr. Gonzalez that both IV rocephin and po cipro ordered for tomorrow am. Per Dr. gonzalez he would like pt to receive IV antibiotic, not po. All above information communicated to night court magistrate. TORB placed in chart for repeat US.
--- NOTE | 2016-04-28 20:31 | NUR ---
Abdominal USD received phone call from Beatrice of [facility] department at 1929, regarding results of repeat abdominal USD, reported "trace fluid seen on RUQ and no fluid on LUQ", will inform AM shift. Addendum: 04/29/16 at 0436 by MELVI BURROUGHS RN Abdominal USD 1929, received phone call from Beatrice from [facility], regarding request to do repeat abd USD,around liver, as per Dr. Gonzalez's request, stated that it was done earlier today, order placed for am abdominal USD.
[2016-04-28 22:09] VITALS: BP 115/62; PULSE 93; RESP 14; O2SAT 95
[2016-04-28] MEDS: diphenhydrAMINE 25 mg Capsule PO PRN (23:22)
[2016-04-29 05:57] VITALS: BP 110/61; PULSE 101; RESP 14; O2SAT 94
[2016-04-29 07:38] LABS: BASOPHILS % (AUTO) 1.8 % (0-3); EOSINOPHILS % (AUTO) 2.4 % (0-5); MONOCYTES % (AUTO) 15.9 % (4-12); Mean Corpuscular Hemoglobin 37.2 pg (27.0-35.0); Mean Corpuscular Volume 113.8 fL (81-100); NEUTROPHILS % (AUTO) 50.2 % (40-74); Platelet Count 79 bil/L (150-400)
[2016-04-29] MEDS: Ondansetron 2 mg/mL 2 mL Inj IVPUSH PRN ×3 (07:38→21:18)
[2016-04-29 07:45] VITALS: BP 98/54; PULSE 82; RESP 16; O2SAT 94
[2016-04-29 08:20] LABS: Phosphorus 3.8 mg/dL (2.5-4.9)
[2016-04-29] MEDS: Pantoprazole 20 mg ER24 Tablet PO SCH ×2 (08:21→20:13)
[2016-04-29] MEDS: Potassium Chloride 20 mEq SR Tablet PO SCH (08:22)
[2016-04-29] MEDS: Lactulose 20 Gm/30 mL 30 mL Syrup PO SCH ×3 (08:23→20:14)
[2016-04-29] MEDS: Lactobacillus Rhamnosus 10 Bil Unit Capsule PO SCH (08:23)
[2016-04-29] MEDS: cefTRIAXone 2,000 mg/D5W 50 mL IV Minibag Plus IV SCH ×2 (08:24)
[2016-04-29] MEDS: Polyethylene Glycol (PEG) 17 Gm Powder PO SCH (08:30)
--- NOTE | 2016-04-29 10:24 | DRSVH ---
PROCEDURE: US ABDOMEN, LIMITED ([id number]) INDICATIONS: REPEAT DX US AROUND LIVER FOR PARACENTESIS TECHNIQUE: Real-time focused scanning was performed of the abdomen, with image documentation. COMPARISON: [facility], , [facility], 04/28/2016, 13:19. FINDINGS: Compared to prior examination, there appears to be more fluid present within the pelvis whi ch may be amenable to ultrasound guided diagnostic paracentesis. Small amount of perihepatic fluid r edemonstrated. IMPRESSION: Slight increase in volume of fluid within the pelvis and fluid is possibly amenable to pa racentesis. Dictated by: Syd POWER Interpreted: Elizabet Greene MD on 04/29/2016 at 10:22 Transcribed by: KATRINA on 04/29/2016 at 10:23 Approved by: Elizabet Greene M.D. on 04/29/2016 at 14:55
--- NOTE | 2016-04-29 11:55 | PCM.PNMED ---
Subjective Date of Service Apr 29, 2016 Subjective Patient still complaining of sharp pain on the right flank and back which she has shingles pt has poor appetite, no n/v overnight plan to repeat paracentesis today, it was canceled yesterday because of trace ascites h/h dropped gain, had huge soft dark BM overnight Exam Vital Signs Vital Sign - Last Date Time Temp Pulse Resp B/P Pulse Ox O2 Delivery O2 Flow Rate FiO2 04/29/16 07:45 36.3 82 16 98/54 94 Room Air 04/24/16 06:03 2.00 Intake and Output 04/28/16 04/28/16 04/29/16 Cumulative From/Thru 15:00 23:00 07:00 04/23/16 16:44 - 04/29/16 05:59 Intake Total 970 ml 250 ml 9959 ml Output Total 700 ml 1200 ml 81671 ml Balance 270 ml -950 ml -1991 ml Intake Oral 900 ml 250 ml 7687 ml IV Total 70 ml 1547 ml Packed Cells 725 ml Output Urine Total 300 ml 1200 ml 11296 ml Emesis 400 ml 450 ml # Voids 2 2 # Bowel Movements 16 Exam Young female pleasant Jaundiced, icteric sclera, no flapping tremors Alert and oriented 3 Comfortable laying down on the bed no JVD, MMM, no LAD RRR, nl s1, s2 no mrg CTAB, no w,c S,ND,NTnormoactive BS+ warm, no edema, pulses 2/2 Rt flank, healed scattered rash, no crust, opened lesions IVs and Medications Medications Reviewed: Medications were reviewed in detail Lab and Diagnostics Result Diagram: 04/29/1615 04/29/16 0715 X-Rays, CTs and MRIs PROCEDURE: CT ABDOMEN AND PELVIS WITH CONTRAST ([id number]) IMPRESSION: Moderate ascites within the abdomen and pelvis. Cirrhosis, portal hypertension, varices. Varices are seen extending cephalad through the gastrohepatic ligament into the periesophageal lower chest. No definite acute disease is found. Mild anasarca, mild secondary mural thickening of the colon and small bowel. At the lung bases there is alveolar consolidation posteriorly. This could represent sequela of reduced inspiratory volume and retention of pulmonary secretions. Dictated by: Arley Glass M.D. 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 acute, active #Spontaneous bacterial peritonitis, present on admission, acute, Absolute neutrophil count greater than 850 -s/p Ceftriaxone 1 g started, 5/5days course finishing today, clinically improving, will switch to ppx dose with [id number] qd tomorrow. -s/p IV albumin given, 100 g on D1,D3, recommended albumin infusion per GI -appreciate GI input -Pain control with IV hymorphone 0.5 every 4 when necessary, -Repeat paracentesis today to verify clearance of infection, also for therapeutic purpose #Decompensated End-stage liver disease, present on admission, acute on chronic. Per outpatient records since November 2015 bilirubin levels have ranged from 10.1 -15.5, -INR stable, No signs of HE -Continue lactulose 20 g bid titrate to BM>3/d -Continue rifaximin -Continue to monitor, CBC and CMP in the morning. Daily ammonia monitoring -Continue vitamin B 12 #Ascites, present on admission, acute on chronic Paracentesis in emergency department extracted 25 mL of fluid, continue to monitor for necessity of therapeutic paracentesis Continue furosemide, potassium, and spironolactone -plan as above #Elevated ammonia level today consistent with hepatic encephalopathy, acute, not present on admission, lactulose as above #VZV infection, POA, continue valtrex, will finish 7days course #acute on chronic anemia, POA, will send FOBT today given possible GIB, transfuse target hgb>7, chronic, stable #Hypothyroidism, continue levothyroxine High risk meds include IV Dilaudid DVT prophylaxis: SCDs, pharmacologic prophylaxis held due to advanced liver disease When necessary GI, bowel, pain medications ordered dispo: given persistent sx, procedure planned, possible d/c in 1-2days. diet: 2g sodium Full Code GI Prophylaxis: Not indicated VTE Prophylaxis: SCDs VTE Mechanical Devices: Intermittant Pneumatic CD Resuscitation Status: CPR: Attempt Resuscitation Time spent 35min Eric Merrill MD Apr 29, 2016 11:55
--- NOTE | 2016-04-29 13:34 | PCM.PNMED ---
Subjective Date of Service Apr 29, 2016 Subjective GI service progress note: This is a 35-year-old female with end-stage liver disease with appointment at [facility] in [place] in two weeks for transplant evaluation, alcoholism, chronic anemia with history of transfusions, hypothyroidism, and history of Rajan -en-Y gastric bypass who presented to the GI service on 04/24/2016 for abdominal pain and distention. CT of her abdomen during this hospital stay showed moderate amount of fluid, cirrhosis, varices, mild anasarca, mural thickening of the colon in the small bowel from ascites. SBP and patient completed course of ceftriaxone . Retap was planned for yesterday but fluid was not sufficient. They will try again today. I visited the patient in the afternoon and she stated that her abdominal pain had improved. In the evening, Dr. Juan and I saw the patient who described right upper quadrant pain. She states that her abdominal distension is unchanged.. She had several bowel movements overnight. She had some nausea this morning. She denies any fevers, chills, shortness of breath, chest pain or pressure, melena, hematochezia. Exam Vital Signs Vital Sign - Last Date Time Temp Pulse Resp B/P Pulse Ox O2 Delivery O2 Flow Rate FiO2 04/29/16 09:00 Supplement Oxygen 04/29/16 07:45 36.3 82 16 98/54 94 04/24/16 06:03 2.00 Intake and Output 04/28/16 04/28/16 04/29/16 Cumulative From/Thru 15:00 23:00 07:00 04/23/16 16:44 - 04/29/16 05:59 Intake Total 970 ml 250 ml 9959 ml Output Total 700 ml 1200 ml 49512 ml Balance 270 ml -950 ml -1991 ml Intake Oral 900 ml 250 ml 7687 ml IV Total 70 ml 1547 ml Packed Cells 725 ml Output Urine Total 300 ml 1200 ml 11651 ml Emesis 400 ml 450 ml # Voids 2 2 # Bowel Movements 16 Exam General: No acute distress, appropriately interactive HEENT: Normocephalic, atraumatic. External ears without defect. Scleral icterus present. Neck: Supple with full range of motion. Cardiovascular: Regular rate and rhythm, 3/6 holosystolic murmur heard best at right sternal borer. No rubs, or gallops appreciated Pulmonary: Clear to auscultation bilaterally with no crackles, wheezes, or rhonchi. Normal respiratory effort with no use of accessory muscles. Abdomen: Bowel tones hypoactive, Abdomen distended but unchanged. Mild tenderness in right upper quadrant without rebound or guarding.. Skin: Normal temperature, turgor, and texture. Crusted over lesions on left lower back without erythema that do not cross the midline and follow dermatomal pattern. The crusted over lesions are not tender to palpation. Neurological: Cranial nerves grossly intact. . Psychiatric: Normal mood and affect. Alert and oriented to person, place, and time. Lab and Diagnostics Result Diagram: 04/29/1671404/29/16714 X-Rays, CTs and MRIs PROCEDURE: CT ABDOMEN AND PELVIS WITH CONTRAST ([id number]) IMPRESSION: Moderate ascites within the abdomen and pelvis. Cirrhosis, portal hypertension, varices. Varices are seen extending cephalad through the gastrohepatic ligament into the periesophageal lower chest. No definite acute disease is found. Mild anasarca, mild secondary mural thickening of the colon and small bowel. At the lung bases there is alveolar consolidation posteriorly. This could represent sequela of reduced inspiratory volume and retention of pulmonary secretions. Dictated by: Arley Glass M.D. 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 End-stage liver disease: -Rifaximin 500mg BID and Lactulose was increased today. -Cdiff negative Abdominal pain: -This is likely due to gallbladder. Initial CT showed slude in the gallbladder. She also has had weight loss and received ceftriaxone which all can lead to gallbladder pathology. -Recommend U/S of the abdomen tomorrow. If pain worsens would recommend HIDA scan. -Patient is receiving valacyclovir for zoster. If pain persists would further evaluate rash. Chronic macrocytic anemia: -Vit B12, Folate, TSH ordered. -Could consider outpatient hematology referral. Spontaneous bacterial peritonitis: -Ceftriaxone stopped. She received 6 days of this. -Retap showed resolution of SBP -Will need prophylaxis for SBP as total protein only .8. Either Bactrim or Cipro. Chronic anemia: -Overnight hemoglobin today 7.8. CBC in am. -Patient had received two units PRBC's this hospital stay. -Continue Prilosec 20mg BID. Constipation: -Patient had bowel movements overnight. GI Prophylaxis: Not indicated VTE Prophylaxis: SCDs VTE Mechanical Devices: Intermittant Pneumatic CD Resuscitation Status: CPR: Attempt Resuscitation Attending Statement Patient seen and examined. Agree with assessment and plan as described by Dr Renae. SBP resolved. Stopped the ceftriaxone. Known for inducing biliary sludge. Right back and flank symptoms could be gallbladder. Shingles possible but perhaps less likely. Recommend u/s if symptoms persist +/- HIDA. Recommend macrocytic anemia w/u. Please do not submit a physician charge for this follow up note. Justo Renae DO Apr 29, 2016 13:34 Santi Juan MD Apr 29, 2016 22:07
--- NOTE | 2016-04-29 14:56 | NUR ---
Social Work Note - Continued Discharge Planning: D/A: The Pt is a 35 y/o female that is now on day 6 of hospitalization for generalized abdominal pain, r/o SBP. The Pt was discussed in rounds, today is day 5 of IV ABX. Paracentesis to be completed today. Radiology involved. SW will continue to follow. PT: The Pt is not ready for discharge, paracentesis to be completed today. Pt will likely discharge home with family to provide POV transportation when medically stable. SW will continue to follow. [employer] Technician BETTE Thibodeaux
--- NOTE | 2016-04-29 15:12 | NUR ---
GI Pt complained of nausea in the morning before breakfast and she was given IV zofran x1. She reported this was helpful. She had one loose BM so far this shift and a stool sample was sent to the lab to check for occult blood. No observable signs of blood in her stool. Given lactulose TID as per orders. Pt is having a poor appetite and for the most part eats around 25% of her meals. Addendum: 04/29/16 at 1840 by FRANCI KEE RN Stool sample positive for occult blood. Hospitalist notified.
--- NOTE | 2016-04-29 15:44 | DRSVH ---
PROCEDURE: US GUIDED PARACENTESIS, PRIMARY ([id number]) INDICATIONS: ascites TECHNIQUE: The indications, alternatives, benefits, risks, and complications of the procedure were explained to the patient. Written informed consent was obtained and placed in the chart. The abdomen and pelvis were examined sonographically, and an appropriate site was chosen for paracentesis. The skin was pre pared and draped in the usual sterile fashion, and 1% lidocaine was infiltrated from the skin down th rough the peritoneal surface. A 19-gauge catheter-covered needle was then introduced into the perito arun space, the catheter was advanced and the needle was withdrawn, and thereafter peritoneal fluid w as withdrawn. The catheter was then removed and a dressing was applied. The fluid was discarded if the clinician did not order diagnostic testing of the fluid. COMPARISON: None. FINDINGS: Access site: Left lower quadrant Needle: One-Step centesis catheter with introducer needle. Fluid volume and description: 60 cc of clear peritoneal fluid Fluid sent for diagnostic testing: Multiple chemistries. Medications: 1% lidocaine for local anaesthesia. Complications: None. IMPRESSION: Successful ultrasound-guided paracentesis. Dictated by: Syd POWER Interpreted: Elizabet Greene MD on 04/29/2016 at 15:35 Approved by: Syd POWER Interpreted: Elizabet Greene MD on 04/29/2016 at 15:36
[2016-04-29 17:25] VITALS: BP 100/66; PULSE 89; RESP 14; O2SAT 98
[2016-04-29 18:16] LABS: BFWBC 290 /mm3; MONOCYTES,BODY FLUID 52 %; OTHER CELLS,BODY FLUID 14
--- NOTE | 2016-04-29 21:21 | NUR ---
NAUSEA/PAIN Per pt request, received 4 mg Zofran at 2014 to prevent nausea r/t medications. Gave pt lactulose first and pt vomited 5 minutes after that drinking that. Pt waited 10 minutes, then took rest of medications at 2029. At 2114, pt vomited again. Vomit consisted of undigested food, greeny-orange in color, no otis blood. Gave pt another 4 mg of Zofran to prevent further nausea. Overall, pt reports no nausea until immediately before vomiting and also reports no vomit previously with medication administration, only nausea. Pt consistently takes 10 mg Roxicodone q4h. At shift change, pt had breakthrough roy, onetime morphine dose ordered. Gave Roxicodone at 2029. Reassess at 2114, pt continues to have 5-6/[address] Nelson. No response yet. Will continue to monitor for need for increased pain medications. Addendum: 04/30/16 at 0006 by KIEL OLSON RN Pt has not vomited since 2114. ordered 0.5mg dilaudid IV for breakthrough pain. Gave one dose to pt at 0. Hourly rounding in place.
[2016-04-29 21:45] VITALS: BP 106/60; PULSE 82; RESP 14; O2SAT 100
[2016-04-29] MEDS: diphenhydrAMINE 25 mg Capsule PO PRN (21:46)
[2016-04-29] MEDS: HYDROmorphone 0.5 mg/0.5 mL iSecure Syringe IVPUSH PRN (23:28)
[2016-04-30 06:12] VITALS: BP 110/63; PULSE 94; RESP 14; O2SAT 95
[2016-04-30 07:18] LABS: BASOPHILS % (AUTO) 1.7 % (0-3); EOSINOPHILS % (AUTO) 2.6 % (0-5); MONOCYTES % (AUTO) 18.2 % (4-12); Mean Corpuscular Hemoglobin 38.1 pg (27.0-35.0); Mean Corpuscular Volume 114.9 fL (81-100); Platelet Count 79 bil/L (150-400)
[2016-04-30] MEDS: HYDROmorphone 0.5 mg/0.5 mL iSecure Syringe IVPUSH PRN (07:25)
[2016-04-30] MEDS: Ondansetron 2 mg/mL 2 mL Inj IVPUSH PRN ×2 (07:25→15:08)
[2016-04-30] MEDS: Lactulose 20 Gm/30 mL 30 mL Syrup PO SCH ×3 (08:00→21:07)
[2016-04-30] MEDS: Pantoprazole 20 mg ER24 Tablet PO SCH ×2 (08:01→19:41)
[2016-04-30] MEDS: Potassium Chloride 20 mEq SR Tablet PO SCH (08:01)
[2016-04-30] MEDS: Lactobacillus Rhamnosus 10 Bil Unit Capsule PO SCH (08:05)
[2016-04-30] MEDS: Polyethylene Glycol (PEG) 17 Gm Powder PO SCH (08:06)
[2016-04-30 08:25] LABS: Magnesium 2.1 mg/dL (1.6-2.6); Phosphorus 3.8 mg/dL (2.5-4.9)
[2016-04-30 08:55] VITALS: BP 110/63; PULSE 86; RESP 16; O2SAT 95
--- NOTE | 2016-04-30 09:53 | PCM.PNMED ---
Subjective Date of Service Apr 30, 2016 Subjective pt was still symptomatic yesterday with nausea, vomiting, lt flank pain, required additional pain med tried gabapentin with morphine, which helped Exam Vital Signs Vital Sign - Last Date Time Temp Pulse Resp B/P Pulse Ox O2 Delivery O2 Flow Rate FiO2 04/30/16 06:12 37.1 94 14 110/63 95 Room Air 04/24/16 06:03 2.00 Intake and Output 04/29/16 04/29/16 04/30/16 Cumulative From/Thru 15:00 23:00 07:00 04/23/16 16:44 - 04/30/16 06:12 Intake Total 1014 ml 770 ml 23431 ml Output Total 1000 ml 1800 ml 09053 ml Balance 14 ml -1030 ml -3007 ml Intake Oral 960 ml 720 ml 9367 ml IV Total 54 ml 50 ml 1651 ml Packed Cells 725 ml Output Urine Total 1000 ml 1100 ml 43750 ml Stool Total 300 ml 300 ml Emesis 400 ml 850 ml # Voids 1 3 # Bowel Movements 1 17 Exam Young female pleasant Jaundiced, icteric sclera, no flapping tremors Alert and oriented 3 Comfortable laying down on the bed no JVD, MMM, no LAD RRR, nl s1, s2 no mrg CTAB, no w,c S,ND,NTnormoactive BS+ warm, no edema, pulses 2/2 Rt flank, healed scattered rash, no crust, opened lesions IVs and Medications Medications Reviewed: Medications were reviewed in detail Lab and Diagnostics Result Diagram: 04/29/16 1340 04/30/16 0656 X-Rays, CTs and MRIs PROCEDURE: CT ABDOMEN AND PELVIS WITH CONTRAST ([id number]) IMPRESSION: Moderate ascites within the abdomen and pelvis. Cirrhosis, portal hypertension, varices. Varices are seen extending cephalad through the gastrohepatic ligament into the periesophageal lower chest. No definite acute disease is found. Mild anasarca, mild secondary mural thickening of the colon and small bowel. At the lung bases there is alveolar consolidation posteriorly. This could represent sequela of reduced inspiratory volume and retention of pulmonary secretions. Dictated by: Arley Glass M.D. 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 acute, active #abdominal pain from Spontaneous bacterial peritonitis, present on admission, acute, Absolute neutrophil count greater than 850, repeat paracentesis 3 showed [id number]. -in general pain improved but still symptomatic, might be med induced-CFX, valtrex, biliary tract dz given sludge, shingles -s/p Ceftriaxone 1 g for 5days course, switched to ppx dose with qd, repeat tap showed resolved BP, clinically stable -s/p IV albumin given, 100 g on D1,D3, recommended albumin infusion per GI -appreciate GI input -Pain control with IV hymorphone 0.5 every 4 when necessary, #Decompensated End-stage liver disease, present on admission, acute on chronic. Per outpatient records since November 2015 bilirubin levels have ranged from 10.1 -15.5, -INR stable, bilirubin trending down, no signs of HE -Continue lactulose 20 g bid titrate to BM>3/d -Continue rifaximin -Continue to monitor, CBC and CMP in the morning. Daily ammonia monitoring -Continue vitamin B 12 #Ascites, present on admission, acute on chronic, s/p Paracentesis on admission , repeated 04/29 diagnostic, trace ascites on repeat US. -Continue furosemide, potassium, and spironolactone -plan as above #Elevated ammonia level today consistent with hepatic encephalopathy, acute, not present on admission, lactulose as above #VZV infection, POA, continue valtrex, finish 10days course today, this seems causing more pain as postherpetic neuralgia -try gabapentin 400 tid if it helps. #acute on chronic anemia, POA, will send FOBT today given possible GIB, transfuse target hgb>7, chronic, stable #Hypothyroidism, continue levothyroxine High risk meds include IV Dilaudid DVT prophylaxis: SCDs, pharmacologic prophylaxis held due to advanced liver disease When necessary GI, bowel, pain medications ordered dispo: given persistent sx, procedure planned, possible d/c in 1-2days. diet: 2g sodium Full Code ADDENDUM>I was reported about new findings on abd US which shows acalculus cholecystitis. discussed with night RN Humberto, Pt is still clinically stable, eating her diner at the moment. Given stable hemodynamics, no fever, it is unlikely emergent case, will speak to surgeon tomorrow AM for possible surgery despite high risks from cirrhosis, will obtain INR tomorrow morning as well, keep in NPO after MN. If pt becomes acute ill with fever, hypotension, acute abdomen on exam, Gen surg has to be contacted STAT. GI Prophylaxis: Not indicated VTE Prophylaxis: SCDs VTE Mechanical Devices: Intermittant Pneumatic CD Resuscitation Status: CPR: Attempt Resuscitation Time spent 35min Eric Merrill MD Apr 30, 2016 08:34
--- NOTE | 2016-04-30 10:30 | NUR ---
US US mckenzie came to room to perform ultrasound on pt. Mckenzie said she is unable to perform scan due to the fact that the patient ate breakfast. Mckenzie stated patient needed to be NPO from food 6hrs prior to scan. Mckenzie said she would come back at 1830 today to perform ultrasound scan. Dr Guadarrama paged and made aware of this change. Addendum: 04/30/16 at 1844 by JS ESTEBAN RN Radiologist called and reported pt has cholecystitis. Pg dr guadarrama with results.
[2016-04-30 15:13] VITALS: BP 109/70; PULSE 75; RESP 16; O2SAT 98
--- NOTE | 2016-04-30 15:19 | PROG NOTE ---
[address] [address] PROGRESS NOTE PATIENT: GAVI MARINELLI : 1980 MR#: [id number] ADMIT: 04/23/2016 JOB ID: [id number] DATE: 04/30/2016 SUBJECTIVE: No significant events overnight. The patient is still having some right upper quadrant and right flank discomfort. She ate breakfast this morning and does not recall a major fluctuation in the symptoms with the meal but this derailed her ultrasound and she is now n.p.o. and waiting for ultrasound later on this afternoon. OBJECTIVE: Vitals are stable. The patient is conversational, in no distress. Has some mild discomfort in the right upper quadrant on exam. No guarding. LABORATORY DATA: White count is 3.5. Hemoglobin is 7.4. MCV is almost 115. Platelets are 79. B12 and folate are pending. TSH was normal at 2.010. Creatinine is 0.3. Bilirubin is 8.9. AST was 55, ALT 16, alk phos 52, albumin 2.9. Procalcitonin level was 0.8. No INR was done today. Total protein in the fluid from her tap yesterday was 2.1. ASSESSMENT AND RECOMMENDATIONS: A 35-year-old female with cirrhosis. Etiology of her cirrhosis is unknown to me. There is a report that it was alcohol related and that she last had alcohol a month ago. I did not directly question her on these issues. She reports a remote Rajan-en-Y gastric bypass from years ago. She recently had SBP and this has spontaneously resolved. Based on her low protein in the fluid on her tap at admission, she is being treated with prophylactic antibiotic at this point. As to the severe macrocytic anemia, there is no evidence of any GI bleeding at this point. 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 At the very least, B12 and folate are pending and I would suggest she have a hematology consultation at some point here. As to the right upper quadrant and right back discomfort ultrasound is pending for today. Depending on the findings, she may still need a HIDA scan as previously outlined. Based on the latest numbers we have in the chart for her, her discriminant function is 27.8. This should certainly continue to be followed, with a complete set of labs including CMP, PT/INR, CBC daily. Please note that today's note is a no-charge visit. Please do not apply a physician charge for today for me.
[2016-04-30] MEDS: HYDROmorphone 1 mg/mL Inj IVPUSH PRN ×2 (16:56→23:37)
[2016-04-30 17:26] VITALS: BP 112/65; PULSE 83; RESP 18; O2SAT 98
--- NOTE | 2016-04-30 18:43 | DRSVH ---
PROCEDURE: US ABDOMEN, LIMITED ([id number]) INDICATIONS: RUQ, Rt flank pain possible cholecystitis TECHNIQUE: Real-time focused scanning was performed of the abdomen, with image documentation. COMPARISON: [facility], , ABDOMEN LTD, 04/29/2016, 7:19. FINDINGS: Sludge is present within the gallbladder lumen. Gallbladder wall is thickened measuring 3. 1 mm. Patient exhibits tenderness over the gallbladder. Small amount of pericholecystic fluid. IMPRESSION: Gallbladder sludge. Findings suggestive of cholecystitis. Findings discussed with the patient's nurse , Zulma, on 04.30.16 at 1842 hrs. She understood the urgent nature of the findings and agreed to commun icate them to the patient's clinician as soon as possible. Dictated by: Brennan Hazel M.D. on 04/30/2016 at 18:39 Approved by: Brennan Hazel M.D. on 04/30/2016 at 18:42
[2016-04-30] MEDS ORDERED: HYDROmorphone 1 mg/mL Inj IVPUSH PRN (19:00)
--- NOTE | 2016-04-30 19:30 | NUR ---
NPO/Diagnosis Dr Merrill called and placed pt on NPO status due to potential surgery in am. Also was told it was okay to tell patient diagnosis since he would not be up to do it himself tonight. Pt teaching was done about diagnosis and was "relieved that they know what is going on with her". Pt stated she wants to get better for travel to [facility] next Monday.
[2016-04-30 23:00] VITALS: BP 110/65; PULSE 81; RESP 17; O2SAT 97
[2016-05-01 03:01] VITALS: BP 110/64; PULSE 89; RESP 17; O2SAT 96
[2016-05-01] MEDS: HYDROmorphone 1 mg/mL Inj IVPUSH PRN ×5 (04:06→22:18)
[2016-05-01 06:33] VITALS: BP 114/56; PULSE 86; RESP 16; O2SAT 96
[2016-05-01 07:17] LABS: BASOPHILS % (AUTO) 2.5 % (0-3); EOSINOPHILS % (AUTO) 2.5 % (0-5); MONOCYTES % (AUTO) 13.9 % (4-12); Mean Corpuscular Hemoglobin 37.9 pg (27.0-35.0); Mean Corpuscular Volume 116.3 fL (81-100); NEUTROPHILS % (AUTO) 46.1 % (40-74); Platelet Count 92 bil/L (150-400)
[2016-05-01 07:27] VITALS: BP 122/58; PULSE 92; RESP 14; O2SAT 96
[2016-05-01 07:35] LABS: INR 1.5 ratio
[2016-05-01] MEDS: Potassium Chloride 20 mEq SR Tablet PO SCH (07:41)
[2016-05-01] MEDS: Pantoprazole 20 mg ER24 Tablet PO SCH ×2 (07:42→20:37)
[2016-05-01] MEDS: Lactulose 20 Gm/30 mL 30 mL Syrup PO SCH ×3 (07:43→20:30)
[2016-05-01] MEDS: Lactobacillus Rhamnosus 10 Bil Unit Capsule PO SCH (07:46)
[2016-05-01] MEDS: Polyethylene Glycol (PEG) 17 Gm Powder PO SCH (07:47)
[2016-05-01 08:30] LABS: Phosphorus 3.7 mg/dL (2.5-4.9)
[2016-05-01] MEDS: Ondansetron 2 mg/mL 2 mL Inj IVPUSH PRN ×2 (09:52→14:07)
--- NOTE | 2016-05-01 10:00 | NUR ---
Nausea pain C/o nausea. PRN 4 mg Zofran given as ordered with effective results. Dr. Juan at bed side. family at bed side.
--- NOTE | 2016-05-01 10:49 | NUR ---
Loose stool Patient refused scheduled Miralax this morning and received scheduled Lactulose as ordered. 2 loose stools after Lactulose given. Paged Dr Merrill. awaiting call back.
--- NOTE | 2016-05-01 11:14 | NUR ---
New orders New orders received for fluids, discontinue Miralax, and hold 1430 Lactulose due to loose stool, Keep NPO.
[2016-05-01] MEDS: Dextrose 5% 0.45% NaCl 1,000 ML IV SCH (11:44)
[2016-05-01 11:55] VITALS: BP 116/68; PULSE 85; O2SAT 96
--- NOTE | 2016-05-01 13:21 | PCM.PNMED ---
Subjective Date of Service May 01, 2016 Subjective pt still has persistent pain on RUQ, relatively tolerated meds, diet last night kept NPO after MN given cholecystitis on US consulted this AM Exam Vital Signs Vital Sign - Last Date Time Temp Pulse Resp B/P Pulse Ox O2 Delivery O2 Flow Rate FiO2 05/01/16 07:27 37.0 92 14 122/58 96 Room Air Intake and Output 04/30/16 04/30/16 05/01/16 Cumulative From/Thru 15:00 23:00 07:00 04/23/16 16:44 - 05/01/16 06:33 Intake Total 600 ml 700 ml 89194 ml Output Total 1400 ml 200 ml 51332 ml Balance -800 ml 500 ml -3307 ml Intake Oral 600 ml 700 ml 10241 ml IV Total 1651 ml Packed Cells 725 ml Output Urine Total 650 ml 200 ml 18287 ml Stool Total 600 ml 900 ml Emesis 150 ml 1000 ml # Voids 3 # Bowel Movements 1 18 Exam Young female pleasant Jaundiced, icteric sclera, no flapping tremors Alert and oriented 3 Comfortable laying down on the bed no JVD, MMM, no LAD RRR, nl s1, s2 no mrg CTAB, no w,c S,ND,NTnormoactive BS+ warm, no edema, pulses 2/2 Rt flank, healed scattered rash, no crust, opened lesions IVs and Medications Medications Reviewed: Medications were reviewed in detail Lab and Diagnostics Result Diagram: 04/30/16 0656 05/01/16 0650 X-Rays, CTs and MRIs PROCEDURE: CT ABDOMEN AND PELVIS WITH CONTRAST ([id number]) IMPRESSION: Moderate ascites within the abdomen and pelvis. Cirrhosis, portal hypertension, varices. Varices are seen extending cephalad through the gastrohepatic ligament into the periesophageal lower chest. No definite acute disease is found. Mild anasarca, mild secondary mural thickening of the colon and small bowel. At the lung bases there is alveolar consolidation posteriorly. This could represent sequela of reduced inspiratory volume and retention of pulmonary secretions. Dictated by: Arley Glass M.D. 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 acute, active #abdominal pain from SBP and acalculous cholecystitis, present on admission, acute, underwent paracentesis on adm, met criteria for SBP, started on abx, Repeat paracentesis 04/29 showed [id number]. patient had persistent RUQ pain after finishing abx for SBP, found to have acalculous cholecystitis on 04/30, likely explains her persistent sx. -appreciate GI, general surgery input -s/p Ceftriaxone 1 g for 5days course, switched to ppx dose with qd, repeat tap showed resolved BP, clinically stable -s/p IV albumin given, 100 g on D1,D3, recommended albumin infusion per GI -Pain control with IV hymorphone 0.5 every 4 when necessary, #Decompensated End-stage liver disease, present on admission, acute on chronic. Per outpatient records since November 2015 bilirubin levels have ranged from 10.1 -15.5, -INR stable, bilirubin trending down, no signs of HE -Continue lactulose 20 g bid titrate to BM>3/d -Continue rifaximin -Continue to monitor, CBC and CMP in the morning. Daily ammonia monitoring -Continue vitamin B 12 #Ascites, present on admission, acute on chronic, s/p Paracentesis on admission , repeated 04/29 diagnostic, trace ascites on repeat US. -Continue furosemide, potassium, and spironolactone -plan as above #Elevated ammonia level today consistent with hepatic encephalopathy, acute, not present on admission, lactulose as above #VZV infection, POA, continue valtrex, finish 10days course today, this seems causing more pain as postherpetic neuralgia -try gabapentin 400 tid if it helps. #acute on chronic anemia, POA, will send FOBT today given possible GIB, transfuse target hgb>7, chronic, stable #Hypothyroidism, continue levothyroxine High risk meds include IV Dilaudid DVT prophylaxis: SCDs, pharmacologic prophylaxis held due to advanced liver disease When necessary GI, bowel, pain medications ordered dispo: based on surgery vs no surgery diet: 2g sodium Full Code GI Prophylaxis: Not indicated VTE Prophylaxis: SCDs VTE Mechanical Devices: Intermittant Pneumatic CD Resuscitation Status: CPR: Attempt Resuscitation Time spent 35min Eric Merrill MD May 01, 2016 09:52
--- NOTE | 2016-05-01 13:36 | NUR ---
New Orders Verbal orders received to resume heart healthy diet. patient is aware.
--- NOTE | 2016-05-01 16:20 | NUR ---
Nausea Nausea twice this shift so far after having few bites of lunch and after walking in the [address]. Dr guadarrama aware. PRN anti-emetic given with effective results.
[2016-05-01 16:33] VITALS: BP 105/68; PULSE 94; RESP 15; O2SAT 100
--- NOTE | 2016-05-01 18:09 | CONS ---
[address] [address] CONSULTATION REPORT PATIENT: GAVI MARINELLI : 1980 MR#: [id number] ADMIT: 04/23/2016 JOB ID: [id number] DATE OF SERVICE: 05/01/2016 REASON FOR CONSULTATION: Kindly asked by Dr. Juan and the hospital service to see this 35-year-old female with possible gallbladder disease. HISTORY OF PRESENT ILLNESS: The patient has been in the hospital since the , treated for what was thought to be spontaneous bacterial peritonitis in the setting of end-stage liver disease. There is now some consideration as to whether her SBP was secondary to gallstone disease. She has a history of a Rajan-en-Y gastric bypass in [place] several years ago with good weight loss results. She does not remember being told whether or not she had steatohepatitis at that time. However, my understanding is that she has end-stage liver disease primarily related to alcohol intake which is now down to one drink three times per week with her last drink having been five weeks ago. She tells me that she has chronic right upper quadrant pain not related to diet, sometimes affected by position. She was treated with ceftriaxone for spontaneous bacterial peritonitis this admission. Her baseline liver disease is followed by Dr. Real, her university relations vice president up in [place], with reported bilirubin of 10-15 back in 2016, known portal hypertension. According to Dr. Juan, she has not seen a liver transplantation team yet and that given her alcohol use five weeks ago she would not be very high up on the list. Currently, she tells me that she has been eating without abdominal pain, that her abdominal pain is focused primarily on the right and somewhat back towards the shoulder blade. PAST MEDICAL HISTORY: As above. Rajan-en-Y gastric bypass around 2015, known hypothyroidism, liver cirrhosis with end-stage liver disease presumably secondary to alcohol use. MEDICATIONS: 1. Lactulose. 2. Tramadol. 3. Furosemide. 4. Spironolactone. 5. Levothyroxine. 6. Ondansetron. 7. Xifaxan. 8. Potassium. 9. Multiple vitamins. ALLERGIES: None. SOCIAL HISTORY: The patient is seen in the hospital with her mother at the bedside. Negative tobacco. PHYSICAL EXAMINATION: Jaundiced woman in no acute distress, though she becomes tearful as we talked. PHYSICAL EXAMINATION: Vital signs: Temperature is 37, pulse is 85, blood pressure is 116/68, room air saturation is 96, BMI is 24. She is jaundiced. Her abdomen is soft, with a well-healed upper midline incision without hernias. She is not tender to the left of the midline. On the right side, both in the upper and lower abdomen, she is mildly tender to palpation, no real Enriquez's sign, no tenderness to percussion. I cannot palpate her gallbladder though her liver edge does seem firm. LABORATORY DATA: Hematocrit is 23, white count is 4.3, platelet count is 92,000. INR is 1.5, bilirubin is 9.3, AST is 68, ALT is 19, alkaline phosphatase is 64, total ammonia is 101, albumin is 3.3. IMAGING: CT scan from April 23 demonstrates moderate ascites, cirrhosis with evidence of portal hypertension with varices in the abdomen. She did have an abdominal ultrasound on April 30 that demonstrated gallbladder sludge and a gallbladder wall that was thickened to 3.11 mm. IMPRESSION AND PLAN: I am not convinced that the patient has either acute or chronic cholecystitis. She certainly has calculous disease with her sludge, but the gallbladder wall thickening at 3.1 mm is consistent with chronic ascites as well as acute or chronic inflammation. I am not certain of the usefulness of a HIDA scan in this case as I believe that she does not have completely obstructed cystic duct but that result of the HIDA scan will likely be affected by her cholestasis as well as the narcotics that she has received for pain. I have spent half an hour with her and her mother going over the risks of gallbladder surgery in a setting like this, explaining that there is no promise that it would address all of her right upper quadrant and right abdominal pain, and also the fact that this being Monday afternoon I would not take on such a challenging case even if I thought she would benefit from the surgery. I have recommended after discussion with Dr. Juan that we place her on IV Zosyn to see if this resolves her right upper quadrant pain. One of my partners will see her tomorrow and at that time give further consideration to either HIDA scan versus surgery versus transfer to a tertiary care where they have TIPS available in anticipation of probable surgery. Thirty minutes were spent with the patient and mother in [id number] discussion as well as coordination of care with Dr. Juan and hospitalist service.
--- NOTE | 2016-05-01 18:26 | PROG NOTE ---
[address] [address] PROGRESS NOTE PATIENT: GAVI MARINELLI : 1980 MR#: [id number] ADMIT: 04/23/2016 JOB ID: [id number] DATE: 05/01/2016 SUBJECTIVE: The patient was intermittently tearful. Her mom was at the bedside. She is still having intermittent right upper quadrant discomfort. Her ultrasound demonstrated sludge in the gallbladder with a wall thick at 3.1 mm. There is tenderness over the gallbladder with a small amount of pericholecystic fluid. OBJECTIVE: Vitals are stable. The patient is tearful at times. Still has some tenderness in the right upper quadrant region. LABORATORY DATA: White count 4.3, hemoglobin 7.7, platelets 92, INR 1.50, bilirubin 9.3, creatinine 0.30. Sodium 136, albumin 3.3. Ultrasound as above. ASSESSMENT AND PLAN: A 35-year-old female with cirrhosis. She has a history of alcohol abuse and last drank five weeks ago. She is status post Rajan-en-Y bypass. She was recently successfully treated for spontaneous bacterial peritonitis and I think in hind site this is probably a consequence of gallbladder dysfunction and cholecystitis. Her current discriminant function is 28. I asked Dr. Hernandez if he would mind consulting with the patient and her mom. I explained that surgery would be far from ideal in her as she would be at higher risk for complications of surgery and even dying as a consequence of surgery. I would leave HIDA scan imaging for confirmation of acute cholecystitis versus another trial of antibiotic to the discretion of Dr. Hernandez. Her macrocytic anemia workup is still pending. This quite conceivably could all just be simply a function of her alcohol use. Dr. Gonzalez should be returning tomorrow to continue GI care while in-house.
--- NOTE | 2016-05-01 18:32 | NUR ---
Full liquid Diet Patient is not tolerating heart healthy diet, has been nauseated and vomited twice this shift. PRN Zofran given as ordered with effective results. Paged Dr guadarrama and received orders for Full liquid diet. patient aware. Doctor also aware that patient had 4-5 loose stools this shift and orders to hold Lactulose tonight. C/o pain to abdomen 08/06. PRN pain management has been effective.
[2016-05-01 22:15] VITALS: BP 115/67; PULSE 94; RESP 16; O2SAT 98
[2016-05-01] MEDS: diphenhydrAMINE 25 mg Capsule PO PRN (22:18)
--- NOTE | 2016-05-02 01:29 | NUR ---
Pain/Nausea Pt has had 6/10 pain, pt states that pain is managed though, and is requesting dilaudid and oxycodone as if scheduled. Pt not exhibiting oversedation and is tolerating narcs well. Pt hasn't had any c/o nausea tonight, and has been able to slowly eat and drink w/o issue.
[2016-05-02 06:08] VITALS: BP 110/64; PULSE 84; RESP 18; O2SAT 98
[2016-05-02 07:36] LABS: BASOPHILS % (AUTO) 1.4 % (0-3); EOSINOPHILS % (AUTO) 2.6 % (0-5); MONOCYTES % (AUTO) 11.4 % (4-12); Mean Corpuscular Hemoglobin 38.5 pg (27.0-35.0); Mean Corpuscular Volume 116.5 fL (81-100); Platelet Count 89 bil/L (150-400)
[2016-05-02 07:58] LABS: Magnesium 1.9 mg/dL (1.6-2.6)
[2016-05-02] MEDS: Dextrose 5% 0.45% NaCl 1,000 ML IV SCH (08:37)
[2016-05-02] MEDS: Pantoprazole 20 mg ER24 Tablet PO SCH ×2 (08:37→20:55)
--- NOTE | 2016-05-02 09:02 | PCM.PNSURG ---
Subjective Date of Service: May 02, 2016 Visit Information: Reason for Visit: Generlized Abd Pain, r/o Spontaneous Bacterial Peritonitis Date of Admission: Apr 23, 2016 at 23:47 Hospital Day #9 Subjective: Patient is doing well this morning, pain improved s/p paracentesis. Continues to have intermittent RUQ pain not related to meals. She is tolerating a liquid diet and endorses right sided pain secondary to recent diagnosis of shingles on that side. Postop General: No Complaints Pain Management: IV Push, Good Pain Control Objective Vital Sign- Last 8 Hours Date Time Temp Pulse Resp B/P Pulse Ox O2 Delivery O2 Flow Rate FiO2 05/02/16 06:08 37.0 84 18 110/64 98 Room Air Intake and Output- Last 8 Hour 05/02/16 Cumulative From/Thru 07:00 04/23/16 16:44 - 05/02/16 06:08 Intake Total 1082 ml 83810 ml Output Total 39615 ml Balance 1082 ml -2075 ml Intake Oral 500 ml 68649 ml IV Total 582 ml 2233 ml Packed Cells 725 ml Output Urine Total 67165 ml Stool Total 900 ml Emesis 1000 ml # Voids 3 6 # Bowel Movements 1 22 General: Alert, Oriented X3 Abdomen: Soft (mildly tender to palpation on the right, no rebound or guarding. ), Non-distended, No masses Extremities: Warm Catheters: None Result Diagram: 05/02/16 0700 05/02/16 0700 Lab & Micro Results: Laboratory Tests Test 05/01/16 11:05 05/02/16 07:00 Sodium Level 136mEq/L (134-144) 135mEq/L (134-144) Potassium Level 3.7mEq/L (3.5-5.2) 4.0mEq/L (3.5-5.2) Chloride Level 101mEq/L (97-108) 102mEq/L (97-108) Carbon Dioxide Level 19mmol/L (18-29) 22mmol/L (18-29) Blood Urea Nitrogen 3mg/dL (6-20) 3mg/dL (6-20) Creatinine < 0.30mg/dL (0.57-1.00) 0.30mg/dL (0.57-1.00) Estimat Glomerular Filtration Rate 367mL/min (>59) 367mL/min (>59) Glucose Level 94mg/dL (60-99) 102mg/dL (60-99) Calcium Level 8.8mg/dL (8.5-10.1) 8.6mg/dL (8.5-10.1) Total Bilirubin 9.3mg/dL (0.0-1.2) 8.6mg/dL (0.0-1.2) Aspartate Amino Transf (AST/SGOT) 68U/L (0-50) 56U/L (0-50) Alanine Aminotransferase (ALT/SGPT) 19U/L (0-32) 16U/L (0-32) Alkaline Phosphatase 64U/L (25-150) 60U/L (25-150) Ammonia 101ug/dL (18-53) Total Protein 7.0g/dL (6.4-8.4) 6.3g/dL (6.4-8.4) Albumin 3.3g/dL (3.4-5.0) 3.0g/dL (3.4-5.0) White Blood Count 4.9th/mm3 (3.8-10.1) Red Blood Count 2.00mil/mm3 (3.90-5.20) Hemoglobin 7.7g/dL (12.0-15.6) Hematocrit 23.3% (35.0-46.0) Mean Corpuscular Volume 116.5fL (81-100) Mean Corpuscular Hemoglobin 38.5pg (27.0-35.0) Mean Corpuscular Hemoglobin Concent 33.0% (32.0-37.0) Red Cell Distribution Width % (12.3-15.4) Platelet Count 89bil/L (150-400) Neutrophils (%) (Auto) 54.0% (40-74) Lymphocytes (%) (Auto) 30.4% (14-46) Monocytes (%) (Auto) 11.4% (4-12) Eosinophils (%) (Auto) 2.6% (0-5) Basophils (%) (Auto) 1.4% (0-3) Phosphorus Level 4.0mg/dL (2.5-4.9) Magnesium Level 1.9mg/dL (1.6-2.6) Microbiology 04/23/16 Blood Culture - Final, Complete NO GROWTH AFTER 5 DAYS 04/29/16 Gram Stain - Final, Resulted 04/29/16 Culture & Sensitivity - Preliminary, Resulted 04/29/16 Anaerobic Culture - Preliminary, Resulted 04/29/16 Stool Occult Blood (ANGELINA) - Final, Complete 04/23/16 Urine Culture - Final, Complete No growth (<1,000 organisms/mL) Diagnostics: US ABDOMEN, LIMITED (04/30/16) IMPRESSION: Gallbladder sludge. Findings suggestive of cholecystitis. Findings discussed with the patient's nurse, Zulma, on 04.30.16 at 1842 hrs. She understood the urgent nature of the findings and agreed to communicate them to the patient's clinician as soon as possible. Dictated by: Brennan Hazel M.D. on 04/30/2016 at 18:39 Approved by: Brennan Hazel M.D. on 04/30/2016 at 18:42 . Assessment & Plan Impression 35 y/o female with end-stage liver disease secondary to alcohol use and gastric bypass admitted on 04/24 for SBP now with persistent RUQ pain and concern for cholecystitis due to gallbladder sludge and wall thickening on US. Problems: Plan Possible chronic cholecystitis in setting of end-stage liver disease with portal hypertension and varices, thrombocytopenia and a MELD score of 19. Abdominal ultrasound showing gallbladder sludge and mild wall thickening consistent with chronic ascites as well as acute or chronic inflammation. Patient notes improvement in abdominal pain following paracentesis and pain is unrelated to meals. Clinical picture further complicated by recent diagnosis of shingles on the right side consistent with patient's pain pattern. Due to the multifactorial nature of her pain and indeterminate imaging findings of cholecystitis, recommend advancing diet as tolerated and follow up evaluation as an outpatient with possible referral to the [facility] for definitive surgical intervention and/or transplant. VTE Prophylaxis: SCDs Resuscitation Status: CPR: Attempt Resuscitation Attending Statement: I personally interviewed and examined the pt, and I agree with Dr. Hayward's assessment and plan. MELD score of 19. Abx for SBP. Cayla Hayward DO May 02, 2016 09:02 Elvin Marcum MD May 02, 2016 17:26
--- NOTE | 2016-05-02 09:29 | PCM.PNMED ---
Subjective Date of Service May 02, 2016 Subjective pt was able to tolerated liquid diet, w/o n,v still on almost standing dilaudid, oxycodone for pain c/o mild Rt flank/RUQ pain, hasn't resolved consulted surgery yesterday Exam Vital Signs Vital Sign - Last Date Time Temp Pulse Resp B/P Pulse Ox O2 Delivery O2 Flow Rate FiO2 05/02/16 06:08 37.0 84 18 110/64 98 Room Air Intake and Output 05/01/16 05/01/16 05/02/16 Cumulative From/Thru 15:00 23:00 07:00 04/23/16 16:44 - 05/02/16 06:08 Intake Total 950 ml 1082 ml 54019 ml Output Total 800 ml 01167 ml Balance 150 ml 1082 ml -2075 ml Intake Oral 950 ml 500 ml 40998 ml IV Total 582 ml 2233 ml Packed Cells 725 ml Output Urine Total 800 ml 73216 ml Stool Total 900 ml Emesis 1000 ml # Voids 3 6 # Bowel Movements 3 1 22 Exam Young female pleasant Jaundiced, icteric sclera, no flapping tremors Alert and oriented 3 Comfortable laying down on the bed no JVD, MMM, no LAD RRR, nl s1, s2 no mrg CTAB, no w,c S,ND,NTnormoactive BS+ warm, no edema, pulses 2/2 Rt flank, healed scattered rash, no crust, opened lesions IVs and Medications Medications Reviewed: Medications were reviewed in detail Lab and Diagnostics Result Diagram: 05/02/16 0700 05/02/16 0700 X-Rays, CTs and MRIs PROCEDURE: CT ABDOMEN AND PELVIS WITH CONTRAST ([id number]) IMPRESSION: Moderate ascites within the abdomen and pelvis. Cirrhosis, portal hypertension, varices. Varices are seen extending cephalad through the gastrohepatic ligament into the periesophageal lower chest. No definite acute disease is found. Mild anasarca, mild secondary mural thickening of the colon and small bowel. At the lung bases there is alveolar consolidation posteriorly. This could represent sequela of reduced inspiratory volume and retention of pulmonary secretions. Dictated by: Arley Glass M.D. 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 acute, active #abdominal pain from SBP and acalculous cholecystitis, present on admission, acute, underwent paracentesis on adm, met criteria for SBP, started on abx, Repeat paracentesis 04/29 showed VCG185. patient had persistent RUQ pain after finishing abx for SBP, found to have acalculous cholecystitis on 04/30, likely explains her persistent sx. -appreciate GI, general surgery input, no surgery given no good benefit,high risks, recommended medical management, possible HIDA scan. -s/p Ceftriaxone 1 g for 5days course, switched to ppx dose with [id number] qd, repeat tap showed resolved BP, clinically stable, will consider zosyn if that helps after discussion with GI today. -s/p IV albumin given, 100 g on D1,D3, recommended albumin infusion per GI -Pain control with IV hymorphone 0.5 every 4 when necessary, encouraged to limit iv pain meds today to get ready for d/c -empirically started Ursodiol 05/01 despite no clear benefits, appreciate GI input. #Decompensated End-stage liver disease, present on admission, acute on chronic. Per outpatient records since November 2015 bilirubin levels have ranged from 10.1 -15.5, -INR stable, bilirubin trending down, no signs of HE -Continue lactulose 20 g bid titrate to BM>3/d -Continue rifaximin -Continue to monitor, CBC and CMP in the morning. Daily ammonia monitoring -Continue vitamin B 12 #Ascites, present on admission, acute on chronic, s/p Paracentesis on admission , repeated 04/29 diagnostic, trace ascites on repeat US. -Continue furosemide, potassium, and spironolactone -plan as above #Elevated ammonia level today consistent with hepatic encephalopathy, acute, not present on admission, lactulose as above #VZV infection, POA, continue valtrex, finish 10days course today, tried gabapentin, minimally helped Rt flank pain, so stopped. #acute on chronic anemia, POA, will send FOBT today given possible GIB, transfuse target hgb>7, chronic, stable #Hypothyroidism, continue levothyroxine High risk meds include IV Dilaudid DVT prophylaxis: SCDs, pharmacologic prophylaxis held due to advanced liver disease When necessary GI, bowel, pain medications ordered dispo: d/c in 1-2days if symptoms controlled diet: 2g sodium Full Code GI Prophylaxis: Not indicated VTE Prophylaxis: SCDs VTE Mechanical Devices: Intermittant Pneumatic CD Resuscitation Status: CPR: Attempt Resuscitation Time spent 35min Eric Merrill MD May 02, 2016 09:23
[2016-05-02] MEDS: Potassium Chloride 20 mEq SR Tablet PO SCH (10:16)
[2016-05-02] MEDS: Lactobacillus Rhamnosus 10 Bil Unit Capsule PO SCH (10:17)
[2016-05-02] MEDS: Lactulose 20 Gm/30 mL 30 mL Syrup PO SCH ×2 (10:17→13:57)
[2016-05-02] MEDS: Ondansetron 2 mg/mL 2 mL Inj IVPUSH PRN (10:25)
[2016-05-02] MEDS: HYDROmorphone 1 mg/mL Inj IVPUSH PRN ×4 (10:30→23:28)
[2016-05-02 14:24] VITALS: BP 141/98; PULSE 96; RESP 18; O2SAT 100
--- NOTE | 2016-05-02 15:00 | NUR ---
Social Work Note - Continued Discharge Planning: D/A: The Pt is now on day 9 of hospitalization for generalized abdominal pain, r/o SBP. The Pt discussed in rounds today, Pt is not ready for discharge at this time. reports that he will follow-up with GI today. Updated surgery progress notes from 05/02/16 recommend follow-up evaluation as an OtPt with possible referral to the for definitive surgical intervention and/or transplant. SW will continue to follow. P: The Pt is not medically ready for discharge at this time, Pt likely to discharge home with family providing POV transportation when medically stable. SW will continue to follow. Susan Lares MSW Senior Credit Officer ADA Silva
--- NOTE | 2016-05-02 16:30 | NUR ---
NUTRITION FOLLOW-UP: ASSESS: 35 YO female admitted for generalized abd. pain with spontaneous bacterial peritonitis. Pt s/p paracentesis. Pt was on a full liquid diet but since pt has been tolerating full liquid diet without nausea, diet has been advanced to soft today. PMHx: Decompensated ESLD, Ascites, hepatic encephalopathy, liver cirrhosis, naveen-en-y gastric bypass surgery in 2005. LABS: Reviewed. Ammonia 103 (05/01), Alb 3.0 (05/02) MEDS: Reviewed. GI: BM x 1 today. CURRENT WT: 68 kg. DIET: Soft, Heart Healthy, 2 gm sodium, Ensure at breakfast and lunch, gelatein plus at dinner. PO intake 25-50% of meals. EST. NEEDS: 3254-3723 kcals (30-35 kcals/kg BW), 80-100 g protein (1.2-1.5 g/kg BW) NUTRITION DIAGNOSIS: 1.) Increased nutrient needs related to increased demand for nutrients as evidenced by acute on chronic liver disease--PERSISTS. 2.) Inadequate oral intake related to decreased appetite as evidenced by po intake of 25-50% of meals x 9 days-PERSISTS. NUTRITION INTERVENTION: 1.) Continue to send Ensure at breakfast and lunch, gelatein plus at dinner. MONITOR / EVAL: PO intake, labs, nutritional status. Follow per moderate nutritional risk guidelines.
[2016-05-02] MEDS: Ondansetron 8 mg ODT Tablet PO SCH (16:43)
[2016-05-02] MEDS ORDERED: Piperacillin-Tazo 3.375 Gm Inj 3.375 GM in Dextrose 5% Minibag Plus 50 ML IV ONE (16:55)
--- NOTE | 2016-05-02 17:19 | PCM.PNMED ---
Subjective Date of Service May 02, 2016 Subjective Complains of abdominal pain. Decreased appetite. No significant improvement of the abdominal pain. Over the weekend, cholecystitis diagnosed. Exam Vital Signs Vital Sign - Last Date Time Temp Pulse Resp B/P Pulse Ox O2 Delivery O2 Flow Rate FiO2 05/02/16 16:49 Supplement Oxygen 05/02/16 14:24 36.9 96 18 141/98 100 Intake and Output 05/01/16 05/01/16 05/02/16 Cumulative From/Thru 15:00 23:00 07:00 04/23/16 16:44 - 05/02/16 06:08 Intake Total 950 ml 1082 ml 43625 ml Output Total 800 ml 67562 ml Balance 150 ml 1082 ml -2075 ml Intake Oral 950 ml 500 ml 47167 ml IV Total 582 ml 2233 ml Packed Cells 725 ml Output Urine Total 800 ml 46602 ml Stool Total 900 ml Emesis 1000 ml # Voids 3 6 # Bowel Movements 3 1 22 Exam Patient is alert and oriented comfortable Head and neck icterus Lungs clear Cardiovascular regular rate and rhythm normal S1 and S2 Abdomen soft and distended upper quadrant tenderness no guarding rebound firmness normoactive bowel sounds Skin jaundice Lab and Diagnostics Result Diagram: 05/02/16 0700 05/02/16 0700 X-Rays, CTs and MRIs PROCEDURE: CT ABDOMEN AND PELVIS WITH CONTRAST ([id number]) IMPRESSION: Moderate ascites within the abdomen and pelvis. Cirrhosis, portal hypertension, varices. Varices are seen extending cephalad through the gastrohepatic ligament into the periesophageal lower chest. No definite acute disease is found. Mild anasarca, mild secondary mural thickening of the colon and small bowel. At the lung bases there is alveolar consolidation posteriorly. This could represent sequela of reduced inspiratory volume and retention of pulmonary secretions. Dictated by: Arley Glass M.D. 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 She has a diagnosis of acute cholecystitis based on ultrasound with thickened gallbladder wall with pericholecystic fluids. It appears she may have developed this or during hospitalization or the cholecystitis overly when CT was done CT did not reveal evidence of cholecystitis last week. Currently she is receiving antibiotics however she still having pain. SBP has resolved based on cell count. Neurologically patient is alert and oriented 3. Continue lactulose and rifaximin. She still has the abdominal pain most likely due to her cholecystitis. Ultrasound showing thickened gallbladder wall with pericholecystic fluid. Surgery was referred and I spoke with Dr. Marcum who is covering the surgical service. If the patient wants surgery, recommend transfer to tertiary care center. I spoke to the patient about transfer however she did not want to be transferred. I talked for about interventional radiology putting a drain on the gallbladder. Options were discussed in detail. Pros and cons were discussed about each method including surgery interventional radiology and antibiotics.She wants to try antibiotics first. Treatment of choices cholecystectomy. Next best is IR. However she wants to try antibiotics first. Please consider HIDA scan however I will defer this to the surgical services. SBP - patient will need prophylaxis. Consider Cipro or Bactrim orally as outpatient. Have her follow-up with her primary profiler hand in [place]. She denies blood in the stools or black stools. Hemoglobin stable. Minimal evidence of GI bleeding. GI Prophylaxis: Not indicated VTE Prophylaxis: SCDs VTE Mechanical Devices: Intermittant Pneumatic CD Resuscitation Status: CPR: Attempt Resuscitation Ceasar Gonzalez MD May 02, 2016 17:19
--- NOTE | 2016-05-02 18:13 | NUR ---
Nausea Pt continuing to have nausea. Given IV zofran before breakfast and the patient was able to tolerate about 25% of her breakfast tray. She had some dry heaving after taking her oral medications. She had only taken a few bites of lunch before taking her oxycodone and then she vomited. Doctor aware. Pt complained that drinking lactulose was increasing her nausea. Hospitalist discontinued lactulose and added scheduled zofran before meals. Pt was given PO zofran prior to dinner. Diet was advanced to general per the patient's request. Will monitor for s/s of nausea.
[2016-05-02] MEDS ORDERED: 0.9% Sodium Chloride 250 ML ONE (19:06)
[2016-05-02 20:58] VITALS: BP 111/62; PULSE 89; RESP 17; O2SAT 99
[2016-05-03] MEDS ORDERED: Piperacillin-Tazo 3.375 Gm Inj 3.375 GM in Dextrose 5% Minibag Plus 50 ML IV SCH (00:30)
[2016-05-03] MEDS: diphenhydrAMINE 25 mg Capsule PO PRN (00:51)
[2016-05-03 01:54] VITALS: BP 118/66; PULSE 95; RESP 18; O2SAT 98
[2016-05-03] MEDS: Dextrose 5% 0.45% NaCl 1,000 ML IV SCH ×2 (03:00→23:00)
[2016-05-03 05:56] VITALS: BP 98/67; PULSE 87; RESP 17; O2SAT 98
--- NOTE | 2016-05-03 06:22 | NUR ---
NPO Pt NPO since midnight. Last narcotic was given at 0200 for HIDA scan which requires 6 hours without before procedure can be done. Pt handling pain well so far.
[2016-05-03] MEDS: Ondansetron 8 mg ODT Tablet PO SCH ×3 (07:44→17:45)
--- NOTE | 2016-05-03 07:45 | NUR ---
Nuc Med Nuc med tech called and stated they would be up in about an hour and half to take pt down for scan. They asked if all her meds could be held. Told them I would still give her Zofran, and Synthroid. Tech was ok with that. Will call pharmacy when she returns to have her Zosen re timed. Addendum: 05/03/16 at 0842 by JS ESTEBAN RN Pt transported to Nuc [facility] via .
[2016-05-03 08:10] LABS: Vitamin B12 >1999 pg/mL (211-946)
[2016-05-03 08:48] LABS: BASOPHILS % (AUTO) 1.6 % (0-3); EOSINOPHILS % (AUTO) 3.2 % (0-5); Mean Corpuscular Hemoglobin 38.6 pg (27.0-35.0); Mean Corpuscular Volume 118.3 fL (81-100); NEUTROPHILS % (AUTO) 56.7 % (40-74); Platelet Count 93 bil/L (150-400)
[2016-05-03 09:18] LABS: Magnesium 1.9 mg/dL (1.6-2.6); Phosphorus 3.8 mg/dL (2.5-4.9)
--- NOTE | 2016-05-03 09:49 | PCM.PNMED ---
Subjective Date of Service May 03, 2016 Exam Vital Signs Vital Sign - Last Date Time Temp Pulse Resp B/P Pulse Ox O2 Delivery O2 Flow Rate FiO2 05/03/16 05:56 36.7 87 17 98/67 98 Room Air Intake and Output 05/02/16 05/02/16 05/03/16 Cumulative From/Thru 15:00 23:00 07:00 04/23/16 16:44 - 05/03/16 05:56 Intake Total 1864 ml 862 ml 05243 ml Output Total 1100 ml 1400 ml 32157 ml Balance 764 ml -538 ml -1849 ml Intake Oral 880 ml 600 ml 55190 ml IV Total 984 ml 262 ml 3479 ml Packed Cells 725 ml Output Urine Total 800 ml 1400 ml 68628 ml Stool Total 900 ml Emesis 300 ml 1300 ml # Voids 6 # Bowel Movements 22 Lab and Diagnostics Result Diagram: 05/03/16 0840 05/03/16 0840 X-Rays, CTs and MRIs PROCEDURE: CT ABDOMEN AND PELVIS WITH CONTRAST ([id number]) IMPRESSION: Moderate ascites within the abdomen and pelvis. Cirrhosis, portal hypertension, varices. Varices are seen extending cephalad through the gastrohepatic ligament into the periesophageal lower chest. No definite acute disease is found. Mild anasarca, mild secondary mural thickening of the colon and small bowel. At the lung bases there is alveolar consolidation posteriorly. This could represent sequela of reduced inspiratory volume and retention of pulmonary secretions. Dictated by: Arley Glass M.D. on 04/23/2016 at 21:38 Assessment & Plan GASTROENTEROLOGY PROGRESS NOTE Ms. Odell is a pleasant 35 year old woman with an unfortunate history of end stage liver disease with cirrhosis complicated with portal hypertension, varices , splenomegaly, and ascites secondary to alcohol intake, with a distant history of Rajan-en-Y gastric bypass, that presented to [facility] 04/24/2016 with severe abdominal pain, nausea, and vomiting. She was admitted for evaluation and treatment for suspected SBP. She was later found to have acute cholecystitis based on ultrasound that revealed a thickened gallbladder wall with pericholecystic fluid and sludge Assessments - Abdominal pain likely secondary to underlying gallbladder disease - Acute cholecystitis - Spontaneous bacterial peritonitis - Cirrhosis, portal hypertension, varices, secondary to end stage liver disease due to alcohol consumption - MELD 20; 19.6% est 3-month mortality Plan - Await results of HIDA completed 05/03/16 - SBP prophylaxis: Cipro or Bactrim for outpatient - Follow up with outpatient GI in [place], with consideration for outpatient referral request to - Continue Zosyn - Continue Lasix, Aldactone, ursodiol Discussions have been made with patient regarding transfer to a tertiary care center, and at this time, she declines. She wishes to pursue with antibiotics, and then possibly gallbladder drain placement with IR. Patient is a high-risk candidate for interventions, and she is high risk for developing sepsis. Thank you for this most interesting consult, we will happily follow along with you while the patient is hospitalized. Total time: 45 minutes GI Prophylaxis: Not indicated VTE Prophylaxis: SCDs VTE Mechanical Devices: Intermittant Pneumatic CD Resuscitation Status: CPR: Attempt Resuscitation Kathryn Mishra DO May 03, 2016 09:49
[2016-05-03] MEDS: Lactobacillus Rhamnosus 10 Bil Unit Capsule PO SCH (10:54)
[2016-05-03] MEDS: Pantoprazole 20 mg ER24 Tablet PO SCH ×2 (10:55→19:54)
[2016-05-03] MEDS: Potassium Chloride 20 mEq SR Tablet PO SCH (10:58)
[2016-05-03] MEDS: Piperacillin-Tazo 3.375 Gm Inj 3.375 GM in Dextrose 5% Minibag Plus 50 ML IV SCH ×2 (11:16→19:54)
[2016-05-03 11:39] VITALS: BP 133/77; PULSE 85; RESP 16; O2SAT 100
--- NOTE | 2016-05-03 11:47 | PCM.PNMED ---
Subjective Date of Service May 03, 2016 Subjective nausea and vomiting improved with pre meal zofran and lactulose being held. still has persistent pain on RUQ, opioid were held prior to HIDA scan this AM trial of zosyn started, cipro was stopped this AM explained difficult situation, pt seemed to understand. Exam Vital Signs Vital Sign - Last Date Time Temp Pulse Resp B/P Pulse Ox O2 Delivery O2 Flow Rate FiO2 05/03/16 11:39 37.0 85 16 133/77 100 Room Air Intake and Output 05/02/16 05/02/16 05/03/16 Cumulative From/Thru 15:00 23:00 07:00 04/23/16 16:44 - 05/03/16 05:56 Intake Total 1864 ml 862 ml 32032 ml Output Total 1100 ml 1400 ml 67519 ml Balance 764 ml -538 ml -1849 ml Intake Oral 880 ml 600 ml 54710 ml IV Total 984 ml 262 ml 3479 ml Packed Cells 725 ml Output Urine Total 800 ml 1400 ml 21112 ml Stool Total 900 ml Emesis 300 ml 1300 ml # Voids 6 # Bowel Movements 22 Exam Young female pleasant Jaundiced, icteric sclera, no flapping tremors Alert and oriented 3 Comfortable laying down on the bed no JVD, MMM, no LAD RRR, nl s1, s2 no mrg CTAB, no w,c S,ND,NTnormoactive BS+ warm, no edema, pulses 2/2 Rt flank, healed scattered rash, no crust, opened lesions IVs and Medications Medications Reviewed: Medications were reviewed in detail Lab and Diagnostics Result Diagram: 05/03/16 0840 05/03/16 0840 X-Rays, CTs and MRIs PROCEDURE: CT ABDOMEN AND PELVIS WITH CONTRAST ([id number]) IMPRESSION: Moderate ascites within the abdomen and pelvis. Cirrhosis, portal hypertension, varices. Varices are seen extending cephalad through the gastrohepatic ligament into the periesophageal lower chest. No definite acute disease is found. Mild anasarca, mild secondary mural thickening of the colon and small bowel. At the lung bases there is alveolar consolidation posteriorly. This could represent sequela of reduced inspiratory volume and retention of pulmonary secretions. Dictated by: Arley Glass M.D. 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 acute, active #abdominal pain from SBP and acalculous cholecystitis, present on admission, acute, underwent paracentesis on adm, met criteria for SBP, started on abx, Repeat paracentesis 04/29 showed [id number]. patient had persistent RUQ pain after finishing abx for SBP, found to have acalculous cholecystitis on 04/30, likely explains her persistent sx. -appreciate GI, general surgery input, no surgery given no good benefit,high risks, recommended medical management, HIDA scan today to confirm -s/p Ceftriaxone 1 g for 5days course, switched to ppx dose with qd, repeat tap showed resolved BP, clinically stable, zosyn trial started 05/03 likely to continue 1-2days to see any clinical improvement. -s/p IV albumin given, 100 g on D1,D3, recommended albumin infusion per GI -Pain control with IV hymorphone 0.5 every 4 when necessary, encouraged to limit iv pain meds today to get ready for d/c -empirically started Ursodiol 05/01 despite no clear benefits, appreciate GI input. #Decompensated End-stage liver disease, present on admission, acute on chronic. Per outpatient records since November 2015 bilirubin levels have ranged from 10.1 -15.5, -INR stable, bilirubin trending down, no signs of HE -held lactulose today, given possibility causing n/v, will resume if pt starts developing of signs of HE -Continue rifaximin -Continue to monitor, CBC and CMP in the morning. Daily ammonia monitoring -Continue vitamin B 12 #Ascites, present on admission, acute on chronic, s/p Paracentesis on admission , repeated 04/29 diagnostic, trace ascites on repeat US. -Continue furosemide, potassium, and spironolactone -plan as above #Elevated ammonia level today consistent with hepatic encephalopathy, acute, not present on admission, lactulose as above #VZV infection, POA, continue valtrex, finish 10days course today, tried gabapentin, minimally helped Rt flank pain, so stopped. #acute on chronic anemia, POA, will send FOBT today given possible GIB, transfuse target hgb>7, chronic, stable #Hypothyroidism, continue levothyroxine High risk meds include IV Dilaudid DVT prophylaxis: SCDs, pharmacologic prophylaxis held due to advanced liver disease When necessary GI, bowel, pain medications ordered dispo: d/c in 1-2days, with follow up with vs transfer to tertiary hospital diet: 2g sodium Full Code GI Prophylaxis: Not indicated VTE Prophylaxis: SCDs VTE Mechanical Devices: Intermittant Pneumatic CD Resuscitation Status: CPR: Attempt Resuscitation Time spent 35min Eric Merrill MD May 03, 2016 11:47
--- NOTE | 2016-05-03 12:14 | NUR ---
Social Work Note - Continued Discharge Planning: D/A: The Pt is a 35 y/o female that is now on day 10 of hospitalization for generalized abdominal pain. Progress note from 05/02 reflects that surgery, radiology, and antibiotics were discussed with the Pt, Pt is choosing to try antibiotics first. Also recommending for the Pt to follow-up with her case hardener in [place]. Pt discussed in rounds, Pt is not ready for discharge and will be placed on a trial of Zosyn for 1-2 days with the possibility of transfer to a tertiary facility. SW will continue to follow. P: Pt is not ready for discharge at this time, Pt placed on trial of Zosyn for 1-2 days. SW will continue to follow. Susan Lares, SKID MACHINE OPERATOR Associate Financial Representative Steffanie Ryan
--- NOTE | 2016-05-03 13:28 | PCM.PNMED ---
Subjective Date of Service May 03, 2016 Subjective GASTROENTEROLOGY PROGRESS NOTE Overnight: no acute events Today: Patient returned from HIDA scan, reports that she feels well. Denies any nausea, vomiting, fever, chills. Tolerating po intake well. States abdominal pain is still present of RUQ region, but much improved. Worsens with movement, does not worsen with po intake. States she is in good spirits, and reports that her mentation is clearer. Exam Vital Signs Vital Sign - Last Date Time Temp Pulse Resp B/P Pulse Ox O2 Delivery O2 Flow Rate FiO2 05/03/16 05:56 36.7 87 17 98/67 98 Room Air Intake and Output 05/02/16 05/02/16 05/03/16 Cumulative From/Thru 15:00 23:00 07:00 04/23/16 16:44 - 05/03/16 05:56 Intake Total 1864 ml 862 ml 02725 ml Output Total 1100 ml 1400 ml 10871 ml Balance 764 ml -538 ml -1849 ml Intake Oral 880 ml 600 ml 31162 ml IV Total 984 ml 262 ml 3479 ml Packed Cells 725 ml Output Urine Total 800 ml 1400 ml 33618 ml Stool Total 900 ml Emesis 300 ml 1300 ml # Voids 6 # Bowel Movements 22 Exam General: AAOx3, pleasant and cooperative; no acute distress HENT: Atraumatic, sclera icteric; mucus membranes moist Cardiac: Regular rate and rhythm Respiratory: Clear to auscultation bilaterally; adequate air flow all [place] Abdomen: Soft, nondistended; mild tenderness RUQ and RLQ Extremities: No edema Skin: Jaundiced; Multiple sites ecchymosis BLLE, BLUE; resolving herpetic lesions of right rib line/right side abdomen without active bleeding r surrounding erythema Neuro: CNII-XII grossly intact; speech without slur; Facial expressions symmetric Psych: Appropriate mood, affect, and responses to questioning Lab and Diagnostics Result Diagram: 05/03/16 0840 05/03/16 0840 X-Rays, CTs and MRIs PROCEDURE: CT ABDOMEN AND PELVIS WITH CONTRAST ([id number]) IMPRESSION: Moderate ascites within the abdomen and pelvis. Cirrhosis, portal hypertension, varices. Varices are seen extending cephalad through the gastrohepatic ligament into the periesophageal lower chest. No definite acute disease is found. Mild anasarca, mild secondary mural thickening of the colon and small bowel. At the lung bases there is alveolar consolidation posteriorly. This could represent sequela of reduced inspiratory volume and retention of pulmonary secretions. Dictated by: Arley Glass M.D. on 04/23/2016 at 21:38 Assessment & Plan GASTROENTEROLOGY PROGRESS NOTE Ms. Odell is a pleasant 35 year old woman with an unfortunate history of end stage liver disease with cirrhosis complicated with portal hypertension, varices , splenomegaly, and ascites secondary to alcohol intake, with a distant history of Rajan-en-Y gastric bypass, that presented to [facility] 04/24/2016 with severe abdominal pain, nausea, and vomiting. She was admitted for evaluation and treatment for suspected SBP. She was later found to have acute cholecystitis based on ultrasound that revealed a thickened gallbladder wall with pericholecystic fluid and sludge. Assessments - Abdominal pain likely secondary to underlying gallbladder disease, complicated with existing shingles outbreak and possible post-herpetic neuralgia - Acute and chronic cholecystitis - Spontaneous bacterial peritonitis - Cirrhosis, portal hypertension, varices, secondary to end stage liver disease due to alcohol consumption - MELD 20; 19.6% est 3-month mortality Plan - Await results of HIDA completed 05/03/16 - SBP prophylaxis: Cipro or Bactrim for outpatient - Follow up with outpatient GI in [place], with consideration for outpatient referral request to - Continue Zosyn - Continue Lasix, Aldactone, ursodiol, rifaximin - Appreciate time and recommendations from surgical team as case progresses Discussions have been made with patient regarding transfer to a tertiary care center, and at this time, she declines. She wishes to pursue with antibiotics, and then possibly gallbladder drain placement with IR, if indicated. Patient is a high-risk candidate for interventions, and she is high risk for developing sepsis. Current stable. Thank you for this most interesting consult, we will happily follow along with you while the patient is hospitalized. Total time: 45 minutes I have seen and examined the patient with the resident. HIDA scan was reviewed. EF of 1%. Abdominal pain was reproduced with CCK. It appears the gallbladder is not working. Again I expressed to her that she should be transferred to a tertiary care center and evaluated for cholecystitis and abdominal pain by surgery service or IR service. She continues to have abdominal pain and uses dialogue at every 4 hours and abdominal examination shows tenderness in the right upper quadrant and epigastric area with positive Enriquez sign. She said she will think about it and get back to the hospitalist service team. I informed the hospitalist service team Dr. guadarrama and he agreed to speak with the patient and arrange transfer if the patient wishes. Pain Evaluation: Adequate Pain Control GI Prophylaxis: Not indicated VTE Prophylaxis: SCDs VTE Mechanical Devices: Intermittant Pneumatic CD Resuscitation Status: CPR: Attempt Resuscitation Kathryn Mishra DO May 03, 2016 09:50 Ceasar Gonzalez MD May 04, 2016 09:09
[2016-05-03] MEDS: HYDROmorphone 1 mg/mL Inj IVPUSH PRN ×3 (13:37→21:33)
[2016-05-03 14:05] VITALS: BP 116/66; PULSE 83; RESP 16; O2SAT 97
--- NOTE | 2016-05-03 15:13 | DRSVH ---
PROCEDURE: NM HIDA SCAN WITH CCK PHARMACEUTICAL: 5.4 mCi Tc-99m mebrofenin IV; 1.4 mcg CCK IV. INDICATIONS: 35 year-old female with acalculous cholecystitis. TECHNIQUE: Following intravenous administration of Tc-99m mebrofenin, sequential anterior abdominal images were obtained. To evaluate the contractile response of the gallbladder in response to Cholecystokinin (CC K), sincalide (0.02 g/kg) was administered by slow intravenous infusion approximately 60 minutes aft er the administration of the radiopharmaceutical. Sequential imaging was continued for [address] the start of CCK infusion. Gallbladder ejection fraction was calculated. COMPARISON: [facility], , [employer] [facility], 04/30/2016, 18:11. FINDINGS: Biliary scan: There is normal tracer uptake and excretion by the liver. There is normal visualizati on of the intrahepatic ducts, common bile duct, and gallbladder. There is normal tracer transit into the duodenum. CCK stimulation: There is negligible contractile response of the gallbladder to CCK infusion. The c alculated gallbladder ejection fraction is 1%; normal values are above 35%. It has been shown that any patient abdominal pain after CCK administration is related to the rate of CCK injection, rather than to any underlying gallbladder disease (Clinical Nuclear Medicine 2012; 37: 63-70. Journal of Nuclear Medicine 2014; 55: 1-9). IMPRESSION: Negligible gallbladder ejection fraction, consistent with acalculous cholecystitis in con junction with recent ultrasound findings. Dictated by: Rajiv Onofre M.D. on 05/03/2016 at 15:08 Approved by: Rajiv Onofre M.D. on 05/03/2016 at 15:12
--- NOTE | 2016-05-03 17:00 | NUR ---
Face sheet Darlin SAUL faxed face sheet to [facility] per MD request.
[2016-05-03 17:51] VITALS: BP 99/52; PULSE 79; RESP 16; O2SAT 98
[2016-05-03 22:25] VITALS: BP 100/61; PULSE 78; RESP 16; O2SAT 96
[2016-05-04] MEDS: HYDROmorphone 1 mg/mL Inj IVPUSH PRN ×6 (02:26→23:53)
[2016-05-04] MEDS: Piperacillin-Tazo 3.375 Gm Inj 3.375 GM in Dextrose 5% Minibag Plus 50 ML IV SCH ×3 (02:26→18:04)
[2016-05-04 02:33] VITALS: BP 98/48; PULSE 81; RESP 16; O2SAT 92
--- NOTE | 2016-05-04 03:16 | NUR ---
Pain / Sedation Pt continues to request pain meds consistently. Pt requests that they be woken up to receive pain meds always as early as possible. Pt will often be quite sedated and difficult to wake, so it doesn't seem appropriate to medicate in presence of such sedation. Continuing to educate patient about oversedation, patient appears receptive, but then continues to request more narcotics. Pt will be heavily sleeping, but upon rousing, patient will clutch abdomen and state severe pain. Pt does not appear in any distress until staff is present when patient begins to c/o pain. Will continue to monitor and educate.
[2016-05-04 06:14] VITALS: BP 96/41; PULSE 71; RESP 16; O2SAT 94
--- NOTE | 2016-05-04 07:00 | NUR ---
Hypotension Hospitalist notified of hypotension. Per hospitalist, Lasix held at this time. Will continue to monitor.
[2016-05-04 07:34] VITALS: BP 96/49; PULSE 75
[2016-05-04] MEDS: Ondansetron 8 mg ODT Tablet PO SCH (07:39)
[2016-05-04] MEDS: Lactobacillus Rhamnosus 10 Bil Unit Capsule PO SCH (07:40)
[2016-05-04] MEDS: Pantoprazole 20 mg ER24 Tablet PO SCH ×2 (07:40→19:54)
[2016-05-04] MEDS: Potassium Chloride 20 mEq SR Tablet PO SCH (07:40)
[2016-05-04 08:19] LABS: BASOPHILS % (AUTO) 1.6 % (0-3); EOSINOPHILS % (AUTO) 3.1 % (0-5); MONOCYTES % (AUTO) 12.9 % (4-12); Mean Corpuscular Hemoglobin 38.8 pg (27.0-35.0); NEUTROPHILS % (AUTO) 46.4 % (40-74); Platelet Count 95 bil/L (150-400)
[2016-05-04 08:42] LABS: Magnesium 1.9 mg/dL (1.6-2.6)
[2016-05-04 10:55] VITALS: BP 94/51; PULSE 75; RESP 16; O2SAT 96
--- NOTE | 2016-05-04 11:08 | NUR ---
[facility] Pt's face sheet faxed to [facility] by KG Saeed.
[2016-05-04] MEDS ORDERED: HYDR1DIS3 IVPUSH (13:55)
[2016-05-04] MEDS ORDERED: OXYC5TAB72 PO (13:55)
[2016-05-04] MEDS ORDERED: DIPH25CA6 PO (13:55)
--- NOTE | 2016-05-04 14:00 | PCM.DIMED ---
Discharge Instructions Date of Service May 04, 2016 Dates of Hospitalization Apr 23, 2016 at 23:47 Discharge Diagnosis Discharge Diagnosis decompensated liver cirrhosis with ascites, SBP, hx of HE acalculous cholecystitis Patient Instructions You were hospitalized with intractable abdominal pain, nausea, vomiting, treated for infection in your belly, you were found to have Gall Bladder inflammation, which potentially needs surgical intervention. Please note that detailed discharge options were discussed in details with you and your mother. You have decided that you will seek medical care once you are discharged from the hospital. Follow-up plan please follow up with Dr.Maiyen Real primary GI doctor in [facility] clinic once you are stabilized with your current problem. Follow-up with PCP in: 2 weeks Eric Merrill MD May 04, 2016 14:00
--- NOTE | 2016-05-04 14:19 | PCM.DC.MED ---
Discharge Summary Date of Service May 04, 2016 Dates of Hospitalization Date of Hospital Admission Apr 23, 2016 at 23:47 Providers: Admitting Physician: Dewey Singer MD Primary Care Physician: Michele Hernandez DO Attending Physician: Dewey Singer MD Diagnosis at Time of Discharge Diagnosis at Time of Discharge decompensated liver cirrhosis with ascites, SBP, hx of HE acalculous cholecystitis Consultations Gastroenterology General surgery Procedures XRay, CTs & MRIs PROCEDURE: CT ABDOMEN AND PELVIS WITH CONTRAST ([id number]) IMPRESSION: Moderate ascites within the abdomen and pelvis. Cirrhosis, portal hypertension, varices. Varices are seen extending cephalad through the gastrohepatic ligament into the periesophageal lower chest. No definite acute disease is found. Mild anasarca, mild secondary mural thickening of the colon and small bowel. At the lung bases there is alveolar consolidation posteriorly. This could represent sequela of reduced inspiratory volume and retention of pulmonary secretions. Dictated by: Arley Glass M.D. 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 2016 patient was seen in urgent care for nausea with dry heaves. She was given prescriptions for ondansetron and hydrocodone with acetaminophen. She had been doing okay with this treatment however in the last 2 days her abdomen has become more distended, she has had difficulty moving and bending. She has increased pain with eating and feels much more bloated. The day before admission patient was in pain the whole day. Pain level reaches 7.5/10 at its worst and at the time of examination abdominal pain level is 5.5/10. Patient has chronic anemia and has most recently had packed RBC blood transfusions on April 09 and April 11. Patient has been experiencing chills however this is more chronic than acute, she has been taking lactulose daily for which she has diarrhea not more than 3 episodes in a day. She did experience some mild lightheadedness related to her pain and pain medication and feels generally but not focally weak. Her clinical director is Dr. Real at [facility] in [place]. 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 will update d/c summary on the day of discharge acute problems. 1.Abdominal pain from SBP and acalculous cholecystitis, pt underwent paracentesis on admission, which showed WBC>1000, met criteria for SBP, started on [id number] for 5days. Repeat paracentesis on 04/29 showed [id number]. during this course, pt required IV dilaudid 1mg almost q4h, pain was persistent. Initial CT abd didn't show any acute findings. However, given persistent RUQ pain, abd US obtained which showed sludges in GB lumen and GB wall thickening 3.1mm with positive sonographic alonso sign. Follow up HIDA scan on 05/02 showed EF1%. Patient was consulted by General Surgery, and and GI, , consensus was that patient will need surgical intervention, recommended transfer to tertiary hospital. Since patient was admitted, pt was never febrile on abx. Patient was started on ciprofloxacin 500mg qd for ppx dose, then changed to zosyn since 05/03 in the hope that medical management would work. Patient remained clinically stable on zosyn, however, had persistent RUQ pain with frequent opioid requirement(Oxycodone 10mg q4h, dilaudid 1mg q4h). Patient was consulted with Surgeon at [facility] , and Dr.Karen Simmons at [facility], Both physician stated that patient is unlikely a candidate for surgery given high risks of surgery with coagulopathy. Finally, [facility] Administrator Dr.Bhattacharya Mauricio at [facility] was consulted, reviewed images as well, recommended medical management with zosyn for 5-7days, then early follow up in liver center at , [id number], #Decompensated cirrhosis, Per outpatient records since November 2015 bilirubin levels have ranged from 10.1-15.5, patient was admitted with [id number]. CT abd on admission showed Moderate ascites within the abdomen and pelvis. Cirrhosis, portal hypertension, varices, pt was treated for SBP as mentioned above, Patient didn't show any signs of HE. There was no episode of GIB although h/h has been wax and wane with positive FOBT. Of note, patient's nausea and vomiting subsided for past 2days with pre-meal zofran 8mg qac and holding lactulose. However, still mentating okay with Exam Vital Signs (Last) Date Time Temp Pulse Resp B/P Pulse Ox O2 Delivery O2 Flow Rate FiO2 05/04/16 10:55 36.8 75 16 94/51 96 Room Air Exam Young female pleasant Jaundiced, icteric sclera, no flapping tremors Alert and oriented 3 Comfortable laying down on the bed no JVD, MMM, no LAD RRR, nl s1, s2 no mrg CTAB, no w,c S,ND,NTnormoactive BS+ warm, no edema, pulses 2/2 Rt flank, healed scattered rash, no crust, opened lesions Test 04/23/16 18:15 04/23/16 20:00 04/23/16 23:19 04/23/16 23:46 Lipase 20U/L (13-60) Urine Color [place] (YELLOW) Urine Appearance Cloudy (CLEAR,HAZY) Urine pH (5.0-8.0) Urine Specific [place] 1.018 (1.003-1.035) Urine Protein mg/dL (NEG,TRACE) Urine Glucose (UA) mg/dL (NEGATIVE) Urine Ketones mg/dL (NEGATIVE) Urine Occult Blood (NEGATIVE) Urine Nitrite (NEGATIVE) Urine Bilirubin Large (NEGATIVE) Urine Ictotest Positive (Negative) Urine Urobilinogen mg/dL (NORMAL) Urine Leukocyte Esterase (NEGATIVE) Urine RBC 0-2/hpf (0-2) Urine WBC 0-5/hpf (0-5) Urine Epithelial Cells Moderate/hpf (NONE-MOD) Urine Crystals Amorphous urates (NONE Urine Bacteria None/hpf (NONE-FEW) Urine Hyaline Casts None/lpf (NONE) Urine Granular Casts None seen (NONE SEEN) Urine Waxy Casts None seen (NONE SEEN) Urine Red Blood Cell Casts None seen (NONE SEEN) Urine White Blood Cell Casts None seen (NONE SEEN) Urine Mucus None seen (None Seen) Urine Trichomonas None seen (NONE SEEN) Urine Yeast None (NONE SEEN) Urinalysis Comment Color interference Urine Culture Reflexed Not indicated Body Fluid Albumin 0.4g/dL (.) Body Fluid Lactate Dehydrogenase 55U/L Peritoneal Fluid Glucose 105mg/dL Lactic Acid Level 1.9mmol/L (0.4-2.0) Test 04/29/16 13:40 04/29/16 14:45 04/30/16 06:56 05/01/16 06:50 Thyroid Stimulating Hormone (TSH) 2.010uIU/mL (0.450-4.500) Free Thyroxine 1.17ng/dL (0.82-1.77) Body Fluid Source Peritoneal fluid Body Fluid Color Yellow (Clear) Body Fluid Appearance Clear Body Fluid WBC 290/mm3 Body Fluid RBC 900/mm3 Body Fluid Polynuclear WBCs 2% Body Fluid Lymphocytes 31% Body Fluid Monocytes 52% Body Fluid Eosinophils 0% Body Fluid Basophils 1% Body Fluid Total Protein 2.1g/dL Vitamin B12 Level >1999pg/mL (211-946) Folate 12.9ng/mL (>3.0) Procalcitonin 0.08ng/mL (0.00-0.08) Hematology Comments Prothrombin Time 16.2sec (8.1-12.5) Prothromb Time International Ratio 1.50ratio Test 05/01/16 11:05 05/04/16 08:01 Ammonia 101ug/dL (18-53) White Blood Count 3.8th/mm3 (3.8-10.1) Red Blood Count 2.06mil/mm3 (3.90-5.20) Hemoglobin 8.0g/dL (12.0-15.6) Hematocrit 24.3% (35.0-46.0) Mean Corpuscular Volume 118.0fL (81-100) Mean Corpuscular Hemoglobin 38.8pg (27.0-35.0) Mean Corpuscular Hemoglobin Concent 32.9% (32.0-37.0) Red Cell Distribution Width % (12.3-15.4) Platelet Count 95bil/L (150-400) Neutrophils (%) (Auto) 46.4% (40-74) Lymphocytes (%) (Auto) 35.7% (14-46) Monocytes (%) (Auto) 12.9% (4-12) Eosinophils (%) (Auto) 3.1% (0-5) Basophils (%) (Auto) 1.6% (0-3) Sodium Level 136mEq/L (134-144) Potassium Level 4.0mEq/L (3.5-5.2) Chloride Level 103mEq/L (97-108) Carbon Dioxide Level 20mmol/L (18-29) Blood Urea Nitrogen 3mg/dL (6-20) Creatinine 0.39mg/dL (0.57-1.00) Estimat Glomerular Filtration Rate 271mL/min (>59) Glucose Level 98mg/dL (60-99) Calcium Level 8.3mg/dL (8.5-10.1) Phosphorus Level 4.0mg/dL (2.5-4.9) Magnesium Level 1.9mg/dL (1.6-2.6) Total Bilirubin 8.0mg/dL (0.0-1.2) Aspartate Amino Transf (AST/SGOT) 50U/L (0-50) Alanine Aminotransferase (ALT/SGPT) 14U/L (0-32) Alkaline Phosphatase 58U/L (25-150) Total Protein 6.4g/dL (6.4-8.4) Albumin 3.0g/dL (3.4-5.0) Discharge Medications Discharge Medications ([Iron 18 mg tablet]) 2 TAB PO DAILY (Reported) ([Lipoic Acid]) 100 MG PO BID (Reported) Ascorbic Acid (Vitamin C) 500 Mg Capsule.er 500 MG PO DAILY (Reported) Cholecalciferol (Vitamin D3) (Vitamin D3) 5,000 Unit Tablet 5,000 UNIT PO DAILY (Reported) Ciprofloxacin (Ciprofloxacin) 500 Mg Tablet 500 MG PO DAILY Prescribed by: CINTHYA WILLINGHAM MD Cyanocobalamin (Vitamin B-12) (Vitamin B-12) 1,000 Mcg/1 Ml Drops 1 DROP PO DAILY (Reported) Fish Oil/Borage/Flax/Om3,6,9#1 ([place] 3-6-9 1,200 mg Softgel) 1,200 Mg Capsule 3 TAB PO DAILY (Reported) Furosemide (Furosemide) 40 Mg Tablet 40 MG PO DAILY (Reported) L. Rhamnosus GG/Inulin (Culturelle Capsule) 10 Billion Cell-200 Mg Cap.sprink 1 EACH PO DAILY (Reported) Levothyroxine (Levothyroxine) 25 Mcg Tablet 25 MCG PO DAILY (Reported) Multivitamin (Multivitamins) 1 Each Capsule 1 EACH PO DAILY (Reported) Ondansetron (Ondansetron) 4 Mg Tablet 4 MG PO q12hrs (Reported) Potassium Chloride ER (Potassium Chloride ER) 20 Meq Tablet.er 20 MEQ PO DAILY ( Reported) TAKE WITH FOOD Rifaximin (Xifaxan) 550 Mg Tablet 550 MG PO BID (Reported) Spironolactone (Spironolactone) 50 Mg Tablet 50 MG PO DAILY (Reported) As needed Tramadol (Tramadol) 50 Mg Tablet 50 MG PO q8 PRN PRN For Pain (Reported) diphenhydrAMINE HCl (Benadryl) 25 Mg Capsule 25 MG PO Q4 PRN PRN For Itching Prescribed by: CINTHYA WILLINGHAM MD oxyCODONE (oxyCODONE) 5 Mg Tablet 5 MG PO Q4H PRN PRN For Pain Prescribed by: CINTHYA WILLINGHAM MD Miscellaneous Medications Lactulose (Lactulose) 10 Gm/15 Ml Solution 10 GM PO (Reported) Followup Plan Disposition: [facility] hospital Follow-up plan please follow up with Dr.Maiyen Real primary GI doctor in [facility] once you are stabilized with your current problem. Patient Instructions You were hospitalized with intractable abdominal pain, nausea, vomiting, treated for infection in your belly, you were found to have Gall Bladder inflammation, which potentially needs surgical intervention. Please note that detailed discharge options were discussed in details with you and your mother. You have decided that you will seek medical care once you are discharged from the hospital. Follow-up with PCP in: 2 weeks Time spent 65min Eric Pickering MD May 04, 2016 14:19 Eric Pickering MD May 04, 2016 14:19 3 TAB PO DAILY (Reported) Furosemide (Furosemide) 40 Mg Tablet 40 MG PO DAILY (Reported) L. Rhamnosus GG/Inulin (Culturelle Capsule) 10 Billion Cell-200 Mg Cap.sprink 1 EACH PO DAILY (Reported) Levothyroxine (Levothyroxine) 25 Mcg Tablet 25 MCG PO DAILY (Reported) Multivitamin (Multivitamins) 1 Each Capsule 1 EACH PO DAILY (Reported) Ondansetron (Ondansetron) 4 Mg Tablet 4 MG PO q12hrs (Reported) Potassium Chloride ER (Potassium Chloride ER) 20 Meq Tablet.er 20 MEQ PO DAILY ( Reported) TAKE WITH FOOD Rifaximin (Xifaxan) 550 Mg Tablet 550 MG PO BID (Reported) Spironolactone (Spironolactone) 50 Mg Tablet 50 MG PO DAILY (Reported) As needed Hydromorphone PF (Hydromorphone PF) 1 Mg/1 Ml Syringe 1 MG IVPUSH Q4H PRN PRN For Pain Prescribed by: ERIC PICKERING MD Tramadol (Tramadol) 50 Mg Tablet 50 MG PO q8 PRN PRN For Pain (Reported) diphenhydrAMINE HCl (Benadryl) 25 Mg Capsule 25 MG PO Q6H PRN PRN For Itching Prescribed by: ERIC PICKERING MD oxyCODONE (oxyCODONE) 5 Mg Tablet 5-10 MG PO Q4H PRN PRN For Moderate Pain Prescribed by: ERIC PICKERING MD Miscellaneous Medications Lactulose (Lactulose) 10 Gm/15 Ml Solution 10 GM PO (Reported) Followup Plan Disposition: Tertiary hospital Follow-up plan please follow up with Dr.Maiyen Real primary GI doctor in [facility] once you are stabilized with your current problem. Patient Instructions You were hospitalized with intractable abdominal pain, nausea, vomiting, treated for infection in your belly, you were found to have Gall Bladder inflammation, which potentially needs surgical intervention. Please note that detailed discharge options were discussed in details with you and your mother. You have decided that you will seek medical care once you are discharged from the hospital. Follow-up with PCP in: 2 weeks Time spent 65min Eric Pickering MD May 04, 2016 14:19
--- NOTE | 2016-05-04 14:39 | PCM.PNMED ---
Subjective Date of Service May 04, 2016 Subjective pt is clinically stable, pain continued, for which required dilaudid, oxycodone almost q4h no n/v so far, tolerating diet well. Exam Vital Signs Vital Sign - Last Date Time Temp Pulse Resp B/P Pulse Ox O2 Delivery O2 Flow Rate FiO2 05/04/16 10:55 36.8 75 16 94/51 96 Room Air Intake and Output 05/03/16 05/03/16 05/04/16 Cumulative From/Thru 15:00 23:00 07:00 04/23/16 16:44 - 05/03/16 18:23 Intake Total 1129 ml 567 ml 94301 ml Output Total 2550 ml 51532 ml Balance -1421 ml 567 ml -2703 ml Intake Oral 1100 ml 500 ml 86941 ml IV Total 29 ml 67 ml 3575 ml Packed Cells 725 ml Output Urine Total 2550 ml 99338 ml Stool Total 900 ml Emesis 1300 ml # Voids 6 # Bowel Movements 1 2 25 Exam Young female pleasant Jaundiced, icteric sclera, no flapping tremors Alert and oriented 3 Comfortable laying down on the bed no JVD, MMM, no LAD RRR, nl s1, s2 no mrg CTAB, no w,c S,ND,NTnormoactive BS+ warm, no edema, pulses 2/2 Rt flank, healed scattered rash, no crust, opened lesions IVs and Medications Medications Reviewed: Medications were reviewed in detail Lab and Diagnostics Result Diagram: 05/04/16 0801 05/04/16 0801 X-Rays, CTs and MRIs PROCEDURE: CT ABDOMEN AND PELVIS WITH CONTRAST ([id number]) IMPRESSION: Moderate ascites within the abdomen and pelvis. Cirrhosis, portal hypertension, varices. Varices are seen extending cephalad through the gastrohepatic ligament into the periesophageal lower chest. No definite acute disease is found. Mild anasarca, mild secondary mural thickening of the colon and small bowel. At the lung bases there is alveolar consolidation posteriorly. This could represent sequela of reduced inspiratory volume and retention of pulmonary secretions. Dictated by: Arley Glass M.D. 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 acute, active #abdominal pain from SBP and acalculous cholecystitis, present on admission, acute, underwent paracentesis on adm, met criteria for SBP, started on abx, Repeat paracentesis 04/29 showed [id number]. patient had persistent RUQ pain after finishing abx for SBP, found to have acalculous cholecystitis on 04/30, likely explains her persistent sx. HIDA scan confirmed EF1%. -after consulting multiple providers in multiple facilities, GI, Gen surg, distribution operation supervisor, consensus is to continue medical management and early FU at liver center by the time of d/c. -s/p Ceftriaxone 1 g for 5days course, switched to ppx dose with [id number] qd, repeat tap showed resolved BP, clinically stable, zosyn trial started 05/03, plan to finish 5-7days, plan to d/c next Monday. -s/p IV albumin given, 100 g on D1,D3, -Pain control with IV hymorphone 0.5 every 4 when necessary, encouraged to limit iv pain meds today to get ready for d/c -empirically started Ursodiol 05/01 despite no clear benefits, appreciate GI input. #Decompensated End-stage liver disease, present on admission, acute on chronic. Per outpatient records since November 2015 bilirubin levels have ranged from 10.1 -15.5, -INR stable, bilirubin trending down, no signs of HE -held lactulose 05/03, given possibility causing n/v, given controlled n/v, no BM , will resume it today target BM>3/d -Continue rifaximin -Continue to monitor, CBC and CMP in the morning. Daily ammonia monitoring -Continue vitamin B 12 #Ascites, present on admission, acute on chronic, s/p Paracentesis on admission , repeated 04/29 diagnostic, trace ascites on repeat US. -Continue furosemide, potassium, and spironolactone -plan as above #Elevated ammonia level today consistent with hepatic encephalopathy, acute, not present on admission, lactulose as above #VZV infection, POA, continue valtrex, finish 10days course today, tried gabapentin, minimally helped Rt flank pain, so stopped. #acute on chronic anemia, POA, will send FOBT today given possible GIB, transfuse target hgb>7, chronic, stable #Hypothyroidism, continue levothyroxine High risk meds include IV Dilaudid DVT prophylaxis: SCDs, pharmacologic prophylaxis held due to advanced liver disease When necessary GI, bowel, pain medications ordered dispo: will continue medical tx for now.plan to d/c next Monday. diet: 2g sodium Full Code GI Prophylaxis: Not indicated VTE Prophylaxis: SCDs VTE Mechanical Devices: Intermittant Pneumatic CD Resuscitation Status: CPR: Attempt Resuscitation Time spent 35min Eric Merrill MD May 04, 2016 14:39
[2016-05-04] MEDS: Lactulose 20 Gm/30 mL 30 mL Syrup PO PRN ×2 (15:50→22:35)
--- NOTE | 2016-05-04 16:04 | NUR ---
Social Work Note - Continue Discharge Planning: D/A: The Pt is a 35 y/o female that is now on day 11 of hospitalization for generalized abdominal pain, r/o SBP. SW met with the Pt, Pt reported that she finished her 1-2 day trial of antibiotics and is agreeable for transfer if a facility is available. The Pt reported that the MD will be in contact with Susan for possible transfer for her condition. SW t/c to Nursing, Nursing reports that has no beds, [facility] also unable to take the Pt. Updated progress notes reflect that the Pt will likely be discharged on Monday due to IV antibiotics. No SW needs identified at this time. P: The Pt to discharge home when medically with family providing POV transportation. No SW needs identified at this time. Susan Lares MSW Data Warehouse Specialist ADA Silva
[2016-05-04] MEDS: Dextrose 5% 0.45% NaCl 1,000 ML IV SCH (17:59)
[2016-05-04 18:07] VITALS: BP 91/53; PULSE 76; RESP 12; O2SAT 99
--- NOTE | 2016-05-04 18:21 | NUR ---
Hypotension Pt still hypotensive at 91/53. Pt is asymptomatic. Hospitalist notified.
[2016-05-04 22:19] VITALS: BP 99/64; PULSE 69; RESP 16; O2SAT 95
[2016-05-05] MEDS: Piperacillin-Tazo 3.375 Gm Inj 3.375 GM in Dextrose 5% Minibag Plus 50 ML IV SCH ×3 (02:54→19:31)
[2016-05-05] MEDS: HYDROmorphone 1 mg/mL Inj IVPUSH PRN ×5 (03:58→20:11)
--- NOTE | 2016-05-05 05:00 | NUR ---
Pain/vomiting Pt continues to request PO Oxycodone and IV Dilaudid q4hrs for 6/10 pain. No breakthrough pain reported when given as requested. Vomited x1 this shift and no antinausea meds needed per Pt. "It usually goes away after I get it out." No other reports of nausea or vomiting. Care ongoing.
[2016-05-05 06:08] VITALS: BP 94/51; PULSE 83; RESP 16; O2SAT 97
[2016-05-05] MEDS: Dextrose 5% 0.45% NaCl 1,000 ML IV SCH (06:15)
[2016-05-05 07:43] LABS: BASOPHILS % (AUTO) 1.6 % (0-3); EOSINOPHILS % (AUTO) 2.6 % (0-5); MONOCYTES % (AUTO) 14.2 % (4-12); Mean Corpuscular Hemoglobin 38.9 pg (27.0-35.0); Mean Corpuscular Volume 121.1 fL (81-100); NEUTROPHILS % (AUTO) 50.2 % (40-74); Platelet Count 90 bil/L (150-400)
[2016-05-05 08:06] LABS: Phosphorus 4.8 mg/dL (2.5-4.9)
[2016-05-05] MEDS: Pantoprazole 20 mg ER24 Tablet PO SCH ×2 (09:06→21:04)
[2016-05-05] MEDS: Potassium Chloride 20 mEq SR Tablet PO SCH (09:06)
[2016-05-05] MEDS: Lactobacillus Rhamnosus 10 Bil Unit Capsule PO SCH (09:16)
[2016-05-05] MEDS: Lactulose 20 Gm/30 mL 30 mL Syrup PO PRN (09:18)
--- NOTE | 2016-05-05 11:56 | PCM.PNMED ---
Subjective Date of Service May 05, 2016 Subjective pt still required almost every 4hours dilaudid, no n,v, no BM yesterday with lactulose not confused, pleasant, afebrile, bili is still trending down. Exam Vital Signs Vital Sign - Last Date Time Temp Pulse Resp B/P Pulse Ox O2 Delivery O2 Flow Rate FiO2 05/05/16 07:34 Supplement Oxygen 05/05/16 06:08 37.0 83 16 94/51 97 Intake and Output 05/04/16 05/04/16 05/05/16 Cumulative From/Thru 15:00 23:00 07:00 04/23/16 16:44 - 05/05/16 05:51 Intake Total 963 ml 2010 ml 584 ml 62099 ml Output Total 1700 ml 68405 ml Balance 963 ml 310 ml 584 ml -846 ml Intake Oral 300 ml 1460 ml 60185 ml IV Total 663 ml 550 ml 584 ml 5372 ml Packed Cells 725 ml Output Urine Total 1700 ml 13635 ml Stool Total 900 ml Emesis 1300 ml # Voids 4 1 11 # Bowel Movements 25 Exam Young female pleasant Jaundiced, icteric sclera, no flapping tremors Alert and oriented 3 Comfortable laying down on the bed no JVD, MMM, no LAD RRR, nl s1, s2 no mrg CTAB, no w,c S,ND,NTnormoactive BS+ warm, no edema, pulses 2/2 Rt flank, healed scattered rash, no crust, opened lesions IVs and Medications Medications Reviewed: Medications were reviewed in detail Lab and Diagnostics Result Diagram: 05/05/16 0720 05/05/16 0720 X-Rays, CTs and MRIs PROCEDURE: CT ABDOMEN AND PELVIS WITH CONTRAST ([id number]) IMPRESSION: Moderate ascites within the abdomen and pelvis. Cirrhosis, portal hypertension, varices. Varices are seen extending cephalad through the gastrohepatic ligament into the periesophageal lower chest. No definite acute disease is found. Mild anasarca, mild secondary mural thickening of the colon and small bowel. At the lung bases there is alveolar consolidation posteriorly. This could represent sequela of reduced inspiratory volume and retention of pulmonary secretions. Dictated by: Arley Glass M.D. 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 acute, active #abdominal pain from SBP and acalculous cholecystitis, present on admission, acute, underwent paracentesis on adm, met criteria for SBP, started on abx, Repeat paracentesis 04/29 showed [id number]. patient had persistent RUQ pain after finishing abx for SBP, found to have acalculous cholecystitis on 04/30, likely explains her persistent sx. HIDA scan confirmed EF1%. -after consulting multiple providers in multiple facilities, GI, Gen surg, coat tailor, consensus is to continue medical management and early FU at liver [place] by the time of d/c. -s/p Ceftriaxone 1 g for 5days course, switched to ppx dose with [id number] qd, repeat tap showed resolved SBP, zosyn trial started 05/03, plan to finish 5-7days , plan to d/c next Monday. -s/p IV albumin given, 100 g on D1,D3 of paracentesis -Pain control with IV hymorphone 0.5 every 4 when necessary, encouraged to limit iv pain meds -empirically started Ursodiol 05/01 despite no clear benefits, appreciate GI input. #Decompensated End-stage liver disease, present on admission, acute on chronic. Per outpatient records since November 2015 bilirubin levels have ranged from 10.1 -15.5, -INR stable, bilirubin trending down, no signs of HE -held lactulose 05/03, given possibility causing n/v, given controlled n/v, no BM , will resume it today target BM>3/d -Continue rifaximin -Continue to monitor, CBC and CMP in the morning. Daily ammonia monitoring -Continue vitamin B 12 #Ascites, present on admission, acute on chronic, s/p Paracentesis on admission , repeated 04/29 diagnostic, trace ascites on repeat US. -Continue furosemide, potassium, and spironolactone -plan as above #Elevated ammonia level today consistent with hepatic encephalopathy, acute, not present on admission, lactulose as above #VZV infection, POA, continue valtrex, finish 10days course today, tried gabapentin, minimally helped Rt flank pain, so stopped. #acute on chronic anemia, POA, will send FOBT today given possible GIB, transfuse target hgb>7, chronic, stable #Hypothyroidism, continue levothyroxine High risk meds include IV Dilaudid DVT prophylaxis: SCDs, pharmacologic prophylaxis held due to advanced liver disease When necessary GI, bowel, pain medications ordered dispo: will continue medical tx for now.plan to d/c next Monday. diet: 2g sodium Full Code GI Prophylaxis: Not indicated VTE Prophylaxis: SCDs VTE Mechanical Devices: Intermittant Pneumatic CD Resuscitation Status: CPR: Attempt Resuscitation Time spent 35min Eric Merrill MD May 05, 2016 11:56
--- NOTE | 2016-05-05 13:48 | NUR ---
Pain Pt c/o R flank pain, rating at 6/10. PRN Dilaudid and Oxycodone effective for pain. Pt has denied any nausea today. Pt up ambulating with steady gait. Pt calm and coop with care, cont to monitor.
[2016-05-05 14:21] VITALS: BP 104/51; PULSE 86; RESP 16; O2SAT 100
[2016-05-05 20:15] VITALS: BP 110/68; PULSE 88; RESP 18; O2SAT 99
[2016-05-06] MEDS: HYDROmorphone 1 mg/mL Inj IVPUSH PRN ×5 (00:48→22:14)
[2016-05-06 00:55] VITALS: BP 94/53; PULSE 81; RESP 19; O2SAT 95
[2016-05-06] MEDS: Piperacillin-Tazo 3.375 Gm Inj 3.375 GM in Dextrose 5% Minibag Plus 50 ML IV SCH ×3 (03:10→18:46)
[2016-05-06] MEDS: Dextrose 5% 0.45% NaCl 1,000 ML IV SCH (05:43)
--- NOTE | 2016-05-06 06:09 | NUR ---
Shift note/pain Continue to alternate oxycodone and dilaudid for pain did sleep 5hrs uninterrupted .Lots of urine ouput no BM
[2016-05-06 06:23] VITALS: BP 100/40; PULSE 94; RESP 19; O2SAT 94
--- NOTE | 2016-05-06 08:00 | NUR ---
NUTRITION FOLLOW-UP: ASSESS: 35 YO female admitted for generalized abd. pain with spontaneous bacterial peritonitis. Pt s/p paracentesis. Pt has been tolerating a general diet at 50-100%. She continues to have some n/v. PMHx: Decompensated ESLD, Ascites, hepatic encephalopathy, liver cirrhosis, naveen-en-y gastric bypass surgery in 2005. LABS: Reviewed. (05/05) Bun 3, Middleware Consultant .38, Ca 8.3, T. bili 7.4, Alb 2.8 MEDS: Reviewed. Zofran, lactulose, B12, Lasix, Senna GI: BM x 3 05/03 CURRENT WT: 68 kg (05/01), BMI 24.2kg/m2, admit wt 68.1kg DIET: General. PO 50-100% EST. NEEDS: 8803-5969 kcals (30-35 kcals/kg BW), 80-100 g protein (1.2-1.5 g/kg BW) NUTRITION DIAGNOSIS: 1.) Increased nutrient needs related to increased demand for nutrients as evidenced by acute on chronic liver disease--PERSISTS. 2.) Inadequate oral intake related to decreased appetite as evidenced by po intake of 25-50% of meals x 9 days-IMPROVING NUTRITION INTERVENTION: 1.) Continue to send Ensure at breakfast and lunch, gelatein plus at dinner. MONITOR / EVAL: wt, GI, PO intake, labs, nutritional status. Follow per moderate nutritional risk guidelines.
[2016-05-06 08:12] LABS: BASOPHILS % (AUTO) 0.8 % (0-3); MONOCYTES % (AUTO) 13.1 % (4-12); Mean Corpuscular Hemoglobin 39.2 pg (27.0-35.0); Mean Corpuscular Volume 119.4 fL (81-100); NEUTROPHILS % (AUTO) 59.2 % (40-74); Platelet Count 98 bil/L (150-400)
[2016-05-06 08:43] LABS: Magnesium 1.7 mg/dL (1.6-2.6); Phosphorus 3.9 mg/dL (2.5-4.9)
[2016-05-06] MEDS: Potassium Chloride 20 mEq SR Tablet PO SCH (08:52)
[2016-05-06] MEDS: Pantoprazole 20 mg ER24 Tablet PO SCH ×2 (08:52→20:27)
[2016-05-06] MEDS: Lactobacillus Rhamnosus 10 Bil Unit Capsule PO SCH (09:11)
[2016-05-06 10:11] VITALS: BP 111/60; PULSE 80; RESP 18; O2SAT 98
--- NOTE | 2016-05-06 10:47 | PCM.PNMED ---
Subjective Date of Service May 06, 2016 Subjective no overnight event, tolerated half dose of dilaudid, although RUQ pain is persistent eating well, no n,v Exam Vital Signs Vital Sign - Last Date Time Temp Pulse Resp B/P Pulse Ox O2 Delivery O2 Flow Rate FiO2 05/06/16 10:11 36.6 80 18 111/60 98 Room Air Intake and Output 05/05/16 05/05/16 05/06/16 Cumulative From/Thru 15:00 23:00 07:00 04/23/16 16:44 - 05/06/16 06:22 Intake Total 499 ml 1569 ml 1908 ml 33120 ml Output Total 775 ml 1300 ml 1300 ml 53492 ml Balance -276 ml 269 ml 608 ml -245 ml Intake Oral 250 ml 1356 ml 1200 ml 73966 ml IV Total 249 ml 213 ml 708 ml 6542 ml Packed Cells 725 ml Output Urine Total 775 ml 1300 ml 1300 ml 84140 ml Stool Total 900 ml Emesis 1300 ml # Voids 11 # Bowel Movements 0 0 25 Exam Young female pleasant Jaundiced, icteric sclera, no flapping tremors Alert and oriented 3 Comfortable laying down on the bed no JVD, MMM, no LAD RRR, nl s1, s2 no mrg CTAB, no w,c S,ND,NTnormoactive BS+ warm, no edema, pulses 2/2 Rt flank, healed scattered rash, no crust, opened lesions IVs and Medications Medications Reviewed: Medications were reviewed in detail Lab and Diagnostics Result Diagram: 05/06/16 0805/06/16 08 X-Rays, CTs and MRIs PROCEDURE: CT ABDOMEN AND PELVIS WITH CONTRAST ([id number]-7102) IMPRESSION: Moderate ascites within the abdomen and pelvis. Cirrhosis, portal hypertension, varices. Varices are seen extending cephalad through the gastrohepatic ligament into the periesophageal lower chest. No definite acute disease is found. Mild anasarca, mild secondary mural thickening of the colon and small bowel. At the lung bases there is alveolar consolidation posteriorly. This could represent sequela of reduced inspiratory volume and retention of pulmonary secretions. Dictated by: Arley Glass M.D. 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 acute, active #abdominal pain from SBP and acalculous cholecystitis, present on admission, acute, underwent paracentesis on adm, met criteria for SBP, started on abx, Repeat paracentesis 04/29 showed [id number]. patient had persistent RUQ pain after finishing abx for SBP, found to have acalculous cholecystitis on 04/30, likely explains her persistent sx. HIDA scan confirmed EF1%. -after consulting multiple providers in multiple facilities, GI, Gen surg, client services vice president, consensus is to continue medical management and early FU at liver center by the time of d/c. -s/p Ceftriaxone 1 g for 5days course, switched to ppx dose with [id number] qd, repeat tap showed resolved SBP, zosyn trial started 05/03, plan to finish 5-7days , plan to d/c next Monday. -s/p IV albumin given, 100 g on D1,D3 of paracentesis -Pain control with IV hymorphone 0.5 every 4 when necessary, encouraged to limit iv pain meds -empirically started Ursodiol 05/01 despite no clear benefits, appreciate GI input. #Decompensated End-stage liver disease, present on admission, acute on chronic. Per outpatient records since November 2015 bilirubin levels have ranged from 10.1 -15.5, -INR stable, bilirubin trending down, no signs of HE -held lactulose 05/03, given possibility causing n/v, given controlled n/v, no BM , resume it standing today -Continue rifaximin -Continue to monitor, CBC and CMP in the morning. Daily ammonia monitoring -Continue vitamin B 12 #Ascites, present on admission, acute on chronic, s/p Paracentesis on admission , repeated 04/29 diagnostic, trace ascites on repeat US. -Continue furosemide, potassium, and spironolactone -plan as above -will consider therapeutic tab if it becomes more uncomfortable. #Elevated ammonia level today consistent with hepatic encephalopathy, acute, not present on admission, lactulose as above #VZV infection, POA, continue valtrex, finish 10days course today, tried gabapentin, minimally helped Rt flank pain, so stopped. #acute on chronic anemia, POA, will send FOBT today given possible GIB, transfuse target hgb>7, chronic, stable #Hypothyroidism, continue levothyroxine High risk meds include IV Dilaudid DVT prophylaxis: SCDs, pharmacologic prophylaxis held due to advanced liver disease When necessary GI, bowel, pain medications ordered dispo: will continue medical tx for now.plan to d/c next Monday. diet: 2g sodium Full Code ADDENDUM Patient was referred to [facility], liver transplant clinic Ada, coordinator, T>[phone] F>[phone] All of relevant medical records on this admission at [facility] and from office were faxed to above number GI Prophylaxis: Not indicated VTE Prophylaxis: SCDs VTE Mechanical Devices: Intermittant Pneumatic CD Resuscitation Status: CPR: Attempt Resuscitation Time spent 35min Eric Merrill MD May 06, 2016 10:47
[2016-05-06] MEDS: Polyethylene Glycol (PEG) 17 Gm Powder PO SCH (11:51)
--- NOTE | 2016-05-06 13:44 | NUR ---
[facility] REFERRAL/PAIN DR. PICKERING IN CONTACT WITH HEPATOLOGY/LIVER TRANSPLANT DEPARTMENT, DOCUMENTS SENT THRU FAX TODAY. MESSAGE LEFT TO [facility] ([phone]) TO SET UP APPOINTMENT AT THEIR CLINIC. PATIENT STILL SEEKING PAIN MEDS REGULARLY DESPITE OF EDUCATION TO TRY AND WEAN HER OFF THE IV PAIN MEDS. PAIN SCALE OF 7/10. OXYCODONE 10 MG & IV DILAUDID ALTERNATELY GIVEN FOR RELIEF OF PAIN. WILL CONTINUE TO MONITOR. MOTHER AT BEDSIDE VERY SUPPORTIVE. Addendum: 05/06/16 at 1556 by ELISHA TAVERAS RN Received a call from [facility] ([facility]) scheduling department will give us a call back for the date and time of appointment.
[2016-05-06] MEDS: Lactulose 20 Gm/30 mL 30 mL Syrup PO SCH ×2 (14:30→20:27)
--- NOTE | 2016-05-06 14:43 | NUR ---
Social Work Note - Continued Discharge Planning: D/A: The Pt is a 35 y/o female that was is now on day 13 of hospitalization for generalized abdominal pain. The Pt is currently on a Zosyn trial, scheduled to be completed by Monday. Updated progress note state that the Pt was referred to the [facility], Liver Transplant Clinic. Nursing is attempting to establish an appointment for the Pt on Monday or the soonest available. SW will continue to follow. P: The Pt is not medically stable for discharge, will likely discharge on Monday following Zosyn trial. Nursing is working on setting up a follow-up appointment at [facility]s Liver Transplant Clinic. SW will continue to follow. ADA Petit LICSW Addendum: 05/06/16 at 1611 by LAW PEPE SS WANDER t/c from [facility] regarding Pt's upcoming discharge. RN informed that the Pt will likely discharge on Monday and that the medical team is trying to establish a follow-up appointment at [facility]s Liver Transplant Clinic for Monday or the soonest available. ADA Petit Lead Nurse
[2016-05-06 16:00] VITALS: BP 106/62; PULSE 82; RESP 18; O2SAT 98
--- NOTE | 2016-05-06 21:26 | NUR ---
Emesis pt vomited 250ml after she took lactulose. pt state the lactulose is not staying in her stomach. she doesn't want to take medication for it. will continue to monitor.
[2016-05-06 22:02] VITALS: BP 119/53; PULSE 81; RESP 17; O2SAT 97
[2016-05-07] MEDS: HYDROmorphone 1 mg/mL Inj IVPUSH PRN ×3 (02:25→20:11)
[2016-05-07] MEDS: Piperacillin-Tazo 3.375 Gm Inj 3.375 GM in Dextrose 5% Minibag Plus 50 ML IV SCH ×3 (03:26→18:46)
--- NOTE | 2016-05-07 05:31 | NUR ---
pain/Activity pt complaints of 5-6 right side abdominal pain. Administered PRN Dilaudid IVP and oxycodone PO around the clock q4hr per pt request. pt report pain reduced, and state " I'm okay." But, didn't reach her goal 06/06. pt ambulated in the hallway with family member. gait steady. will continue to monitor.
[2016-05-07 06:40] VITALS: BP 99/48; PULSE 75; RESP 17; O2SAT 96
--- NOTE | 2016-05-07 07:30 | NUR ---
pain/nausea MD at bedside and notified of pt's continued nausea with 2 episodes of emesis overnight. Continues on scheduled zofran. MD states to hold lactulose for now as pt states this is what instigates the nausea. Will go ahead with metamucil and miralax and rifaximin this am. To monitor stools today. MD notified that pt continues to request prn dilaudid and oxy around the clock. To continue to monitor.
[2016-05-07] MEDS: Polyethylene Glycol (PEG) 17 Gm Powder PO SCH (08:03)
[2016-05-07] MEDS: Pantoprazole 20 mg ER24 Tablet PO SCH ×2 (08:08→19:50)
[2016-05-07] MEDS: Potassium Chloride 20 mEq SR Tablet PO SCH (08:08)
[2016-05-07] MEDS: Lactobacillus Rhamnosus 10 Bil Unit Capsule PO SCH (08:10)
[2016-05-07 08:28] LABS: EOSINOPHILS % (AUTO) 3.2 % (0-5); MONOCYTES % (AUTO) 14.3 % (4-12); Mean Corpuscular Hemoglobin 39.5 pg (27.0-35.0); Mean Corpuscular Volume 119.5 fL (81-100); NEUTROPHILS % (AUTO) 49.5 % (40-74); Platelet Count 100 bil/L (150-400)
[2016-05-07] MEDS: Lactulose 20 Gm/30 mL 30 mL Syrup PO SCH (08:30)
[2016-05-07 09:17] LABS: Magnesium 1.8 mg/dL (1.6-2.6)
--- NOTE | 2016-05-07 10:02 | PCM.PNMED ---
Subjective Date of Service May 07, 2016 Subjective pt developed with nausea with lactulose yesterday, had multiple BM still remained alert oriented. pain has persistent, but tolerated 0.5 dilaudid Exam Vital Signs Vital Sign - Last Date Time Temp Pulse Resp B/P Pulse Ox O2 Delivery O2 Flow Rate FiO2 05/07/16 06:40 37.1 75 17 99/48 96 Room Air Intake and Output 05/06/16 05/06/16 05/07/16 Cumulative From/Thru 15:00 23:00 07:00 04/23/16 16:44 - 05/07/16 06:43 Intake Total 1715 ml 763 ml 65613 ml Output Total 1100 ml 1075 ml 64900 ml Balance 615 ml -312 ml 58 ml Intake Oral 1625 ml 300 ml 85538 ml IV Total 90 ml 463 ml 7095 ml Packed Cells 725 ml Output Urine Total 1100 ml 825 ml 90768 ml Stool Total 900 ml Emesis 250 ml 1550 ml # Voids 11 # Bowel Movements 2 2 29 Exam Young female pleasant Jaundiced, icteric sclera, no flapping tremors Alert and oriented 3 Comfortable laying down on the bed no JVD, MMM, no LAD RRR, nl s1, s2 no mrg CTAB, no w,c S,ND,NTnormoactive BS+ warm, no edema, pulses 2/2 Rt flank, healed scattered rash, no crust, opened lesions IVs and Medications Medications Reviewed: Medications were reviewed in detail Lab and Diagnostics Result Diagram: 05/07/1681105/07/16811 X-Rays, CTs and MRIs PROCEDURE: CT ABDOMEN AND PELVIS WITH CONTRAST ([id number]) IMPRESSION: Moderate ascites within the abdomen and pelvis. Cirrhosis, portal hypertension, varices. Varices are seen extending cephalad through the gastrohepatic ligament into the periesophageal lower chest. No definite acute disease is found. Mild anasarca, mild secondary mural thickening of the colon and small bowel. At the lung bases there is alveolar consolidation posteriorly. This could represent sequela of reduced inspiratory volume and retention of pulmonary secretions. Dictated by: Arley Glass M.D. 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 acute, active #abdominal pain from SBP and acalculous cholecystitis, present on admission, acute, underwent paracentesis on adm, met criteria for SBP, started on abx, Repeat paracentesis 04/29 showed [id number]. patient had persistent RUQ pain after finishing abx for SBP, found to have acalculous cholecystitis on 04/30, likely explains her persistent sx. HIDA scan confirmed EF1%. -after consulting multiple providers in multiple facilities, GI, Gen surg, track template maker, consensus is to continue medical management and early FU at liver center by the time of d/c. -s/p Ceftriaxone 1 g for 5days course, switched to ppx dose with qd, repeat tap showed resolved SBP, zosyn trial started 05/03, plan to finish 5-7days , plan to d/c next Monday. -s/p IV albumin given, 100 g on D1,D3 of paracentesis -Pain control with IV hymorphone 0.5 every 4 when necessary, will try q6h prn today -empirically started Ursodiol 05/01 despite no clear benefits, appreciate GI input. #Decompensated End-stage liver disease, present on admission, acute on chronic. Per outpatient records since November 2015 bilirubin levels have ranged from 10.1 -15.5, -INR stable, bilirubin trending down, no signs of HE -held lactulose 05/03, given possibility causing n/v, but no pt didn't have BM so resumed it again yesterday but not tolerated well, so hold again today. -Continue rifaximin -Continue to monitor, CBC and CMP in the morning. Daily ammonia monitoring -Continue vitamin B 12 #Ascites, present on admission, acute on chronic, s/p Paracentesis on admission , repeated 04/29 diagnostic, trace ascites on repeat US. -Continue furosemide, potassium, and spironolactone -plan as above -will consider therapeutic tab if it becomes more uncomfortable. #Elevated ammonia level today consistent with hepatic encephalopathy, acute, not present on admission, lactulose as above #VZV infection, POA, continue valtrex, finish 10days course today, tried gabapentin, minimally helped Rt flank pain, so stopped. #acute on chronic anemia, POA, will send FOBT today given possible GIB, transfuse target hgb>7, chronic, stable #Hypothyroidism, continue levothyroxine High risk meds include IV Dilaudid DVT prophylaxis: SCDs, pharmacologic prophylaxis held due to advanced liver disease When necessary GI, bowel, pain medications ordered dispo: will continue medical tx for now.plan to d/c next Monday. diet: 2g sodium Full Code ADDENDUM Patient was referred to [facility] on 05/06 to liver transplant clinic Ada, coordinator, T>[phone] F>[phone] All of relevant medical records on this admission at [facility] and from office were faxed to above number GI Prophylaxis: Not indicated VTE Prophylaxis: SCDs VTE Mechanical Devices: Intermittant Pneumatic CD Resuscitation Status: CPR: Attempt Resuscitation Time spent 35min Eric Merrill MD May 07, 2016 10:02
[2016-05-07 10:16] VITALS: BP 111/60; PULSE 77; RESP 12; O2SAT 96
--- NOTE | 2016-05-07 10:22 | NUR ---
Nutrition Pt requesting low sugar or sugar free ensure. Track Repairer contacted. Track Repairer Ana Lilia will update pt's tray to sugar free ensure and gelatein,
[2016-05-07] MEDS ORDERED: Potassium Chloride 20 mEq/15 mL 15mL Oral Soln PO ONE (11:00)
--- NOTE | 2016-05-07 11:03 | NUR ---
labs/skin/activity notified of K 3.2 which was prior to admin of am lasix and kdur. notified of small raised non tender lump to pt's right lower back. Will continue to monitor. Pt up in halls ambulating with mom this am. Addendum: 05/07/16 at 1428 by VIVI SEAY RN assessed nodule on pt's lower right back and right axillary region. To monitor for pain/growth/change. Pt and mom aware to monitor.
[2016-05-07] MEDS: Dextrose 5% 0.45% NaCl 1,000 ML IV SCH (11:26)
[2016-05-07 14:30] VITALS: BP 96/54; PULSE 76; RESP 11; O2SAT 98
[2016-05-07 17:40] VITALS: BP 110/62; PULSE 88; RESP 12; O2SAT 100
[2016-05-07] MEDS: Ondansetron 2 mg/mL 2 mL Inj IVPUSH PRN (19:54)
[2016-05-07 22:12] VITALS: BP 110/64; PULSE 69; RESP 20; O2SAT 99
[2016-05-08] MEDS: Dextrose 5% 0.45% NaCl 1,000 ML IV SCH ×2 (03:22→23:31)
[2016-05-08] MEDS: Piperacillin-Tazo 3.375 Gm Inj 3.375 GM in Dextrose 5% Minibag Plus 50 ML IV SCH ×3 (03:22→19:19)
[2016-05-08] MEDS: Ondansetron 2 mg/mL 2 mL Inj IVPUSH PRN ×3 (03:31→19:30)
--- NOTE | 2016-05-08 05:35 | NUR ---
NAUSEA Pt had emesis x1 this shift. Pt states this has been the worse of her nausea in awhile. Along with TID PO Zofran, gave pt 4mg IV Zofran x2 to improve nausea. Pt reports effective. Hourly rounding.
[2016-05-08 07:10] VITALS: BP 97/56; PULSE 78; RESP 14; O2SAT 95
[2016-05-08] MEDS: Pantoprazole 20 mg ER24 Tablet PO SCH ×2 (08:27→20:06)
[2016-05-08] MEDS: Potassium Chloride 20 mEq SR Tablet PO SCH (08:27)
[2016-05-08] MEDS: Lactobacillus Rhamnosus 10 Bil Unit Capsule PO SCH (08:28)
[2016-05-08] MEDS: Polyethylene Glycol (PEG) 17 Gm Powder PO SCH (08:28)
[2016-05-08 08:36] LABS: BASOPHILS % (AUTO) 2.2 % (0-3); EOSINOPHILS % (AUTO) 2.7 % (0-5); MONOCYTES % (AUTO) 13.9 % (4-12); Mean Corpuscular Hemoglobin 39.6 pg (27.0-35.0); Mean Corpuscular Volume 120.3 fL (81-100); NEUTROPHILS % (AUTO) 43.1 % (40-74); Platelet Count 102 bil/L (150-400)
[2016-05-08 09:03] LABS: Magnesium 1.8 mg/dL (1.6-2.6); Phosphorus 3.4 mg/dL (2.5-4.9)
[2016-05-08] MEDS: HYDROmorphone 1 mg/mL Inj IVPUSH PRN ×2 (09:28→22:16)
[2016-05-08 10:06] VITALS: BP 97/55; PULSE 69; RESP 14; O2SAT 100
--- NOTE | 2016-05-08 10:39 | NUR ---
Morning Rounds Staffed patient's case with Dr. Live and case management. Plan is for possible discharge on Monday05/09/16, but will need confirmed appointment with prior to discharge.
[2016-05-08 14:26] VITALS: BP 107/63; PULSE 67; RESP 14; O2SAT 98
--- NOTE | 2016-05-08 14:33 | NUR ---
Social Work Note -readiness for discharge: Data:EMR Reviewed. Pt is on day 15 of hospitalization for generalized abd pain per H&P. Per MD, anticipate pt may be able to discharge home tomorrow. Pt continues on zosyn anticipated to be completed Tuesday 05/09. SW updated by RN in morning rounds that RN will follow up with [facility] tomorrow regarding Liver Transplant clinic and work on appointment. Pt up ambulating in the hallways with her mother, independent. No anticipated discharge needs. SW will continue to follow. Assessment:Pt who is independent at baseline. Plan:Pt to discharge home with family when medically stable via POV. Zosyn trial to be completed tomorrow. Nursing is working on setting up a follow-up appointment at [facility]s Liver Transplant Clinic. SW will continue to follow. ADA Silva
--- NOTE | 2016-05-08 16:45 | PCM.PNMED ---
Subjective Date of Service May 08, 2016 Subjective Patient was seen and examined at bedside today. Patient denies any chest pain, shortness of breath, nausea, vomiting, diarrhea. Exam Vital Signs Vital Sign - Last Date Time Temp Pulse Resp B/P Pulse Ox O2 Delivery O2 Flow Rate FiO2 05/08/16 14:26 36.8 67 14 107/63 98 Room Air Intake and Output 05/07/16 05/07/16 05/08/16 Cumulative From/Thru 15:00 23:00 07:00 04/23/16 16:44 - 05/08/16 06:37 Intake Total 1681 ml 817 ml 20226 ml Output Total 430 ml 300 ml 1025 ml 14412 ml Balance -430 ml 1381 ml -208 ml 801 ml Intake Oral 1200 ml 240 ml 66852 ml IV Total 481 ml 577 ml 8153 ml Packed Cells 725 ml Output Urine Total 400 ml 300 ml 900 ml 90833 ml Stool Total 900 ml Emesis 30 ml 125 ml 1705 ml # Voids 11 # Bowel Movements 29 Exam Physical Exam: GEN: Patient was awake, alert, responding appropriately to questions HEENT: PERRLA, EOMI, Neck soft supple, trachea midline, nomocephalic/atraumatic CV: +S1/S2, RRR, systolic murmur auscultated Respiratory: CTAB, no wheezes, rales, rhonchi GI: +bowel sounds x4, distended, compressible, mild TTP EXT: no c/c/e Neuro: CN II-XII grossly intact Psych: mood and affect were appropriate IVs and Medications Medications Reviewed: Medications were reviewed in detail Lab and Diagnostics Result Diagram: 05/08/16 0805/08/16 0807 X-Rays, CTs and MRIs PROCEDURE: CT ABDOMEN AND PELVIS WITH CONTRAST ([id number]) IMPRESSION: Moderate ascites within the abdomen and pelvis. Cirrhosis, portal hypertension, varices. Varices are seen extending cephalad through the gastrohepatic ligament into the periesophageal lower chest. No definite acute disease is found. Mild anasarca, mild secondary mural thickening of the colon and small bowel. At the lung bases there is alveolar consolidation posteriorly. This could represent sequela of reduced inspiratory volume and retention of pulmonary secretions. Dictated by: Arley Glass M.D. 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 acute, active #abdominal pain from SBP and acalculous cholecystitis, present on admission, acute, underwent paracentesis on adm, met criteria for SBP, started on abx, Repeat paracentesis 04/29 showed [id number]. patient had persistent RUQ pain after finishing abx for SBP, found to have acalculous cholecystitis on 04/30, likely explains her persistent sx. HIDA scan confirmed EF1%. -after consulting multiple providers in multiple facilities, GI, Gen surg, radio station manager, consensus is to continue medical management and early FU at liver center by the time of d/c. -s/p Ceftriaxone 1 g for 5days course, switched to ppx dose with [id number] qd, repeat tap showed resolved SBP, zosyn trial started 05/03, plan to finish 5-7days , plan to d/c next Monday. -s/p IV albumin given, 100 g on D1,D3 of paracentesis -Pain control with IV hymorphone 0.5 every 4 when necessary, will try q6h prn today -empirically started Ursodiol 05/01 despite no clear benefits, appreciate GI input. #Decompensated End-stage liver disease, present on admission, acute on chronic. Per outpatient records since November 2015 bilirubin levels have ranged from 10.1 -15.5, -INR stable, bilirubin trending down, no signs of HE -held lactulose 05/03, given possibility causing n/v, but no pt didn't have BM so resumed it again yesterday but not tolerated well, so hold again today. -Continue rifaximin -Continue to monitor, CBC and CMP in the morning. Daily ammonia monitoring -Continue vitamin B 12 #Ascites, present on admission, acute on chronic, s/p Paracentesis on admission , repeated 04/29 diagnostic, trace ascites on repeat US. -Continue furosemide, potassium, and spironolactone -plan as above -will consider therapeutic tab if it becomes more uncomfortable. #Elevated ammonia level today consistent with hepatic encephalopathy, acute, not present on admission, lactulose as above #VZV infection, POA, continue valtrex, finish 10days course today, tried gabapentin, minimally helped Rt flank pain, so stopped. #acute on chronic anemia, POA, will send FOBT today given possible GIB, transfuse target hgb>7, chronic, stable #Hypothyroidism, continue levothyroxine High risk meds include IV Dilaudid DVT prophylaxis: SCDs, pharmacologic prophylaxis held due to advanced liver disease When necessary GI, bowel, pain medications ordered diet: 2g sodium Full Code dispo: will continue medical tx for now.plan to d/c tomorrow Monday05/08/2016. Patient was referred to the [facility] on 05/06/16 to the liver transplant clinic. Eirc coordinator telephone number [phone] fax number [phone]. He must have an appointment prior to discharge. Patient should be followed up by Dr. Real. All of her medical records from this admission have been faxed to Dr. Real's office. The plan is to discharge the patient home tomorrow with follow-up with Dr. Real. If the patient does not have a follow-up appointment she will not be able to be discharged. Patient will need close monitoring and follow-up upon discharge. GI Prophylaxis: Not indicated VTE Prophylaxis: SCDs VTE Mechanical Devices: Intermittant Pneumatic CD Resuscitation Status: CPR: Attempt Resuscitation Time spent Less than 30 minutes Laure Live DO May 08, 2016 16:45
[2016-05-08 17:53] VITALS: BP 111/65; PULSE 78; RESP 14; O2SAT 99
--- NOTE | 2016-05-08 18:10 | NUR ---
Shift Note Patient had one bout of emesis earlier in the shift, she was given PO Zofran TID and had PRN Zofran 8mg once this shift. Patient reports decreased appetite and nausea when she does try to eat. The one bout of emesis earlier this shift occurred when patient was trying to ingest scheduled Metamucil. Agreed to hold additional scheduled Metamucil until patient's nausea has subsided and she feels able to take it and keep it down, she was able to keep down 2nd dose, but still holding 3rd scheduled at this time of 1809. Patient has tried to rely mostly on PO pain medication, has only had IV Dilaudid once this shift. Patient does report overall feeling better, other than nausea and decreased appetite. Patient ambulated in the halls with her mother.
[2016-05-08 22:11] VITALS: BP 94/49; PULSE 77; RESP 16; O2SAT 95
[2016-05-08] MEDS: diphenhydrAMINE 25 mg Capsule PO PRN (22:16)
--- NOTE | 2016-05-09 02:25 | NUR ---
Pain/Nausea Pt had nausea and emesis at shift change, Zofran effective for relief, nausea appeared to be r/t Metamucil, may be appropriate to hold for now. Pt has also had one bout of increased pain, dilaudid prn given in addition to q4 oxycodone that has been requested consistently, pt able to sleep well, no additional pain flare ups.
[2016-05-09] MEDS: Piperacillin-Tazo 3.375 Gm Inj 3.375 GM in Dextrose 5% Minibag Plus 50 ML IV SCH ×2 (03:59→12:24)
[2016-05-09 06:13] VITALS: BP 103/59; PULSE 92; RESP 14; O2SAT 96
[2016-05-09 07:36] LABS: BASOPHILS % (AUTO) 1.4 % (0-3); EOSINOPHILS % (AUTO) 1.9 % (0-5); MONOCYTES % (AUTO) 14.7 % (4-12); Mean Corpuscular Hemoglobin 39.6 pg (27.0-35.0); Mean Corpuscular Volume 121.4 fL (81-100); NEUTROPHILS % (AUTO) 62.4 % (40-74); Platelet Count 104 bil/L (150-400)
[2016-05-09] MEDS: Pantoprazole 20 mg ER24 Tablet PO SCH (07:53)
[2016-05-09] MEDS: Potassium Chloride 20 mEq SR Tablet PO SCH (07:54)
[2016-05-09] MEDS: Polyethylene Glycol (PEG) 17 Gm Powder PO SCH (07:55)
[2016-05-09] MEDS: Lactobacillus Rhamnosus 10 Bil Unit Capsule PO SCH (08:07)
--- NOTE | 2016-05-09 08:07 | NUR ---
Med not scanning Pt med Lactobacillus 10mil is not scanning. Administered by manual scan.
[2016-05-09] MEDS: HYDROmorphone 1 mg/mL Inj IVPUSH PRN ×2 (10:19→16:10)
--- NOTE | 2016-05-09 10:47 | NUR ---
Dr Real [facility] called Dr Real office to schedule a follow up appointment with them at . Pt will not discharge today unless appointment is scheduled. Addendum: 05/09/16 at 1328 by JS ESTEBAN RN Contacted Eric at Liver clinic. He stated that the info had been passed along to the doctor. At this point the doctor has to review the chart information, then she will deem when it's necessary to get pt in for appointment. Doctor will contact scheduling, and they will call [facility] to schedule appointment.
[2016-05-09 11:54] VITALS: BP 100/63; PULSE 84; RESP 16; O2SAT 98
--- NOTE | 2016-05-09 14:47 | PCM.DIMED ---
Discharge Instructions Date of Service May 09, 2016 Dates of Hospitalization Apr 23, 2016 at 23:47 Discharge Diagnosis Discharge Diagnosis decompensated liver cirrhosis with ascites, acute SBP, hx of HE acalculous cholecystitis Diet Low fat, Low Sodium, Heart Healthy Activity Limited until seen by PCP Call your provider Fever or Chills, Shortness of breath, Bleeding, Chest pain, Vomitting, Excessive diarrhea, Weakness (unilateral) Patient Instructions You were hospitalized with intractable abdominal pain, nausea, vomiting, treated for SBP ( infection of fluid in your belly) , you were found to have Gall Bladder inflammation,treated with IV antibiotics( Zosyn) . which potentially needs surgical intervention. surgeon recommended you get your elective surgery at a tertiary hospital. please follow up at liver clinic with Dr Luly Sheriff on 05/12/16 at 2 PM . Follow-up plan please follow up with liver clinic at with Dr Luly Sheriff on at 2 PM. will call you to confirm appointment.Please call coordinator Miriam if you do not hear from them in the next 24 hrs. please follow up with Dr.Maiyen Real primary GI doctor in [facility] on 05/31/16 . Follow-up Provider: Michele Hernandez DO Follow-up with PCP in: 2 weeks Follow-up in: Other ( follow up at with Dr Luly Sheriff on at 2 PM) Maurice Ojeda MD May 09, 2016 14:47
[2016-05-09] MEDS ORDERED: OXYC5TAB72 PO (14:55)
[2016-05-09] MEDS ORDERED: DIPH25CA6 PO (14:55)
--- NOTE | 2016-05-09 15:16 | NUR ---
Social Work Note - Readiness for Discharge: D/A: The Pt is a 35 y/o female that is now on day 16 of hospitalization for generalized abdominal pain. The Pt will complete her trial of IV Abx Zosyn today. The Pt has been referred to 's Liver Transplant clinic, currently waiting on confirmation regarding a follow-up appointment. No SW needs identified. P: The Pt is medically ready for discharge today, currently waiting on an appointment confirmation from [facility]. No SW needs identified at this time, SW to follow if needs arise. Susan Lares, KEY HOLDER [employer] [facility]
--- NOTE | 2016-05-09 15:31 | PCM.DC.MED ---
Discharge Summary Date of Service May 09, 2016 Dates of Hospitalization Date of Hospital Admission Apr 23, 2016 at 23:47 Date of Discharge: May 09, 2016 Providers: Admitting Physician: Dewey Singer MD Primary Care Physician: Michele Hernandez DO Attending Physician: Dewey Singer MD Diagnosis at Time of Discharge Diagnosis at Time of Discharge decompensated liver cirrhosis with ascites, acute SBP, hx of HE acalculous cholecystitis Consultations Gastroenterology General surgery Procedures XRay, CTs & MRIs PROCEDURE: CT ABDOMEN AND PELVIS WITH CONTRAST ([id number]) IMPRESSION: Moderate ascites within the abdomen and pelvis. Cirrhosis, portal hypertension, varices. Varices are seen extending cephalad through the gastrohepatic ligament into the periesophageal lower chest. No definite acute disease is found. Mild anasarca, mild secondary mural thickening of the colon and small bowel. At the lung bases there is alveolar consolidation posteriorly. This could represent sequela of reduced inspiratory volume and retention of pulmonary secretions. Dictated by: Arley Glass M.D. on 04/23/2016 at 21:38 PROCEDURE: NM HIDA SCAN WITH CCK PHARMACEUTICAL: 5.4 mCi Tc-99m mebrofenin IV; 1.4 mcg CCK IV. INDICATIONS: 35 year-old female with acalculous cholecystitis. TECHNIQUE: Following intravenous administration of Tc-99m mebrofenin, sequential anterior abdominal images were obtained. To evaluate the contractile response of the gallbladder in response to Cholecystokinin (CCK), sincalide (0.02 g/kg) was administered by slow intravenous infusion approximately 60 minutes after the administration of the radiopharmaceutical. Sequential imaging was continued for 30 minutes after the start of CCK infusion. Gallbladder ejection fraction was calculated. COMPARISON: [facility], , ABD[facility]EN LTD, 04/30/2016, 18:11. FINDINGS: Biliary scan: There is normal tracer uptake and excretion by the liver. There is normal visualization of the intrahepatic ducts, common bile duct, and gallbladder. There is normal tracer transit into the duodenum. CCK stimulation: There is negligible contractile response of the gallbladder to CCK infusion. The calculated gallbladder ejection fraction is 1%; normal values are above 35%. It has been shown that any patient abdominal pain after CCK administration is related to the rate of CCK injection, rather than to any underlying gallbladder disease (Clinical Nuclear Medicine 2012; 37: 63-70. Journal of Nuclear Medicine 2014; 55: 1-9). IMPRESSION: Negligible gallbladder ejection fraction, consistent with acalculous cholecystitis in conjunction with recent ultrasound findings. Dictated by: Rajiv Onofre M.D. 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 2016 patient was seen in urgent care for nausea with dry heaves. She was given prescriptions for ondansetron and hydrocodone with acetaminophen. She had been doing okay with this treatment however in the last 2 days her abdomen has become more distended, she has had difficulty moving and bending. She has increased pain with eating and feels much more bloated. The day before admission patient was in pain the whole day. Pain level reaches 7.5/10 at its worst and at the time of examination abdominal pain level is 5.5/10. Patient has chronic anemia and has most recently had packed RBC blood transfusions on April 09 and April 11. Patient has been experiencing chills however this is more chronic than acute, she has been taking lactulose daily for which she has diarrhea not more than 3 episodes in a day. She did experience some mild lightheadedness related to her pain and pain medication and feels generally but not focally weak. Her social worker clinical is Dr. Real at [facility] in [place]. 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 acute, active # abdominal pain from SBP and acalculous cholecystitis, present on admission, acute, -underwent paracentesis on adm, met criteria for SBP, started on abx, Repeat paracentesis 04/29 showed [id number]. patient had persistent RUQ pain after finishing abx for SBP, found to have acalculous cholecystitis on 04/30, likely explains her persistent sx. HIDA scan confirmed EF1%. -after consulting multiple providers in multiple facilities, GI, Gen surg, orientation and mobility specialist, consensus is to continue medical management and early FU at liver center for follow-up and arranging elective cholecystectomy. -Follow-up arranged with liver clinic at with Dr Luly Sheriff on at 2 PM -s/p Ceftriaxone 1 g for 5days course, switched to ppx dose with [id number] qd upon discharge. , repeat tap showed resolved SBP, zosyn trial started 05/03, completed antibiotic today 05/09/16 -s/p IV albumin given, 100 g on D1,D3 of paracentesis -Pain control oxycodone 5 mg by mouth when necessary -empirically started Ursodiol 05/01 despite no clear benefits, appreciate GI input. # Decompensated End-stage liver disease, present on admission, acute on chronic. Per outpatient records since November 2015 bilirubin levels have ranged from 10.1-15.5, -INR stable, bilirubin trending down, no signs of HE -Continue with lactulose -Continue rifaximin -Continue vitamin B 12 #Ascites, present on admission, acute on chronic, s/p Paracentesis on admission , repeated 04/29 diagnostic, trace ascites on repeat US. -Continue furosemide, potassium, and spironolactone -plan as above #Elevated ammonia level today consistent with hepatic encephalopathy, acute, not present on admission, lactulose as above #VZV infection, POA, continue valtrex, finish 10days course today, tried gabapentin, minimally helped Rt flank pain, so stopped. #acute on chronic anemia, POA, will send FOBT today given possible GIB, transfuse target hgb>7, chronic, stable #Hypothyroidism, continue levothyroxine diet: 2g sodium Full Code dispo: Discharged home. Condition on discharge stable. Follow-up arranged with liver clinic at with Dr Luly Sheriff on at 2 PM Eric coordinator telephone number [phone] fax number [phone]. Patient should be followed up by Dr. Real appointment arranged for 06/01/16. Exam Vital Signs (Last) Date Time Temp Pulse Resp B/P Pulse Ox O2 Delivery O2 Flow Rate FiO2 05/09/16 11:54 36.9 84 16 100/63 98 Room Air Exam GEN: Patient was awake, alert, responding appropriately to questions HEENT deeply jaundiced CV: +S1/S2, RRR, systolic murmur auscultated Respiratory: CTAB, no wheezes, rales, rhonchi GI: +bowel sounds x4, distended, compressible, mild TTP EXT: no c/c/e Neuro: CN II-XII grossly intact Psych: mood and affect were appropriate Test 04/23/16 18:15 04/23/16 20:00 04/23/16 23:19 04/23/16 23:46 Lipase 20U/L (13-60) Urine Color [place] (YELLOW) Urine Appearance Cloudy (CLEAR,HAZY) Urine pH (5.0-8.0) Urine Specific [place] 1.018 (1.003-1.035) Urine Protein mg/dL (NEG,TRACE) Urine Glucose (UA) mg/dL (NEGATIVE) Urine Ketones mg/dL (NEGATIVE) Urine Occult Blood (NEGATIVE) Urine Nitrite (NEGATIVE) Urine Bilirubin Large (NEGATIVE) Urine Ictotest Positive (Negative) Urine Urobilinogen mg/dL (NORMAL) Urine Leukocyte Esterase (NEGATIVE) Urine RBC 0-2/hpf (0-2) Urine WBC 0-5/hpf (0-5) Urine Epithelial Cells Moderate/hpf (NONE-MOD) Urine Crystals Amorphous urates (NONE Urine Bacteria None/hpf (NONE-FEW) Urine Hyaline Casts None/lpf (NONE) Urine Granular Casts None seen (NONE SEEN) Urine Waxy Casts None seen (NONE SEEN) Urine Red Blood Cell Casts None seen (NONE SEEN) Urine White Blood Cell Casts None seen (NONE SEEN) Urine Mucus None seen (None Seen) Urine Trichomonas None seen (NONE SEEN) Urine Yeast None (NONE SEEN) Urinalysis Comment Color interference Urine Culture Reflexed Not indicated Body Fluid Albumin 0.4g/dL (.) Body Fluid Lactate Dehydrogenase 55U/L Peritoneal Fluid Glucose 105mg/dL Lactic Acid Level 1.9mmol/L (0.4-2.0) Test 04/29/16 13:40 04/29/16 14:45 04/30/16 06:56 05/01/16 06:50 Thyroid Stimulating Hormone (TSH) 2.010uIU/mL (0.450-4.500) Free Thyroxine 1.17ng/dL (0.82-1.77) Body Fluid Source Peritoneal fluid Body Fluid Color Yellow (Clear) Body Fluid Appearance Clear Body Fluid WBC 290/mm3 Body Fluid RBC 900/mm3 Body Fluid Polynuclear WBCs 2% Body Fluid Lymphocytes 31% Body Fluid Monocytes 52% Body Fluid Eosinophils 0% Body Fluid Basophils 1% Body Fluid Total Protein 2.1g/dL Vitamin B12 Level >1999pg/mL (211-946) Folate 12.9ng/mL (>3.0) Procalcitonin 0.08ng/mL (0.00-0.08) Prothrombin Time 16.2sec (8.1-12.5) Prothromb Time International Ratio 1.50ratio Test 05/01/16 11:05 05/06/16 08:01 05/08/16 08:07 05/09/16 07:10 Ammonia 101ug/dL (18-53) Hematology Comments Phosphorus Level 3.4mg/dL (2.5-4.9) Magnesium Level 1.8mg/dL (1.6-2.6) White Blood Count 3.7th/mm3 (3.8-10.1) Red Blood Count 1.87mil/mm3 (3.90-5.20) Hemoglobin 7.4g/dL (12.0-15.6) Hematocrit 22.7% (35.0-46.0) Mean Corpuscular Volume 121.4fL (81-100) Mean Corpuscular Hemoglobin 39.6pg (27.0-35.0) Mean Corpuscular Hemoglobin Concent 32.6% (32.0-37.0) Red Cell Distribution Width 19.8% (12.3-15.4) Platelet Count 104bil/L (150-400) Neutrophils (%) (Auto) 62.4% (40-74) Lymphocytes (%) (Auto) 19.3% (14-46) Monocytes (%) (Auto) 14.7% (4-12) Eosinophils (%) (Auto) 1.9% (0-5) Basophils (%) (Auto) 1.4% (0-3) Sodium Level 134mEq/L (134-144) Potassium Level 4.0mEq/L (3.5-5.2) Chloride Level 101mEq/L (97-108) Carbon Dioxide Level 18mmol/L (18-29) Blood Urea Nitrogen 4mg/dL (6-20) Creatinine 0.30mg/dL (0.57-1.00) Estimat Glomerular Filtration Rate 367mL/min (>59) Glucose Level 94mg/dL (60-99) Calcium Level 8.2mg/dL (8.5-10.1) Total Bilirubin 7.8mg/dL (0.0-1.2) Aspartate Amino Transf (AST/SGOT) 50U/L (0-50) Alanine Aminotransferase (ALT/SGPT) 13U/L (0-32) Alkaline Phosphatase 58U/L (25-150) Total Protein 6.2g/dL (6.4-8.4) Albumin 2.9g/dL (3.4-5.0) Discharge Medications Discharge Medications ([Iron 18 mg tablet]) 2 TAB PO DAILY (Reported) ([Lipoic Acid]) 100 MG PO BID (Reported) Ascorbic Acid (Vitamin C) 500 Mg Capsule.er 500 MG PO DAILY (Reported) Cholecalciferol (Vitamin D3) (Vitamin D3) 5,000 Unit Tablet 5,000 UNIT PO DAILY (Reported) Cyanocobalamin (Vitamin B-12) (Vitamin B-12) 1,000 Mcg/1 Ml Drops 1 DROP PO DAILY (Reported) Fish Oil/Borage/Flax/Om3,6,9#1 ([place] 3-6-9 1,200 mg Softgel) 1,200 Mg Capsule 3 TAB PO DAILY (Reported) Furosemide (Furosemide) 40 Mg Tablet 40 MG PO DAILY (Reported) L. Rhamnosus GG/Inulin (Culturelle Capsule) 10 Billion Cell-200 Mg Cap.sprink 1 EACH PO DAILY (Reported) Levothyroxine (Levothyroxine) 25 Mcg Tablet 25 MCG PO DAILY (Reported) Multivitamin (Multivitamins) 1 Each Capsule 1 EACH PO DAILY (Reported) Ondansetron (Ondansetron) 4 Mg Tablet 4 MG PO q12hrs (Reported) Potassium Chloride ER (Potassium Chloride ER) 20 Meq Tablet.er 20 MEQ PO DAILY ( Reported) TAKE WITH FOOD Rifaximin (Xifaxan) 550 Mg Tablet 550 MG PO BID (Reported) Spironolactone (Spironolactone) 50 Mg Tablet 50 MG PO DAILY (Reported) As needed Tramadol (Tramadol) 50 Mg Tablet 50 MG PO q8 PRN PRN For Pain (Reported) diphenhydrAMINE HCl (Benadryl) 25 Mg Capsule 25 MG PO Q4 PRN PRN For Itching Prescribed by: MAURICE OJEDA MD oxyCODONE (oxyCODONE) 5 Mg Tablet 5 MG PO Q4H PRN PRN For Pain Prescribed by: MAURICE OJEDA MD Miscellaneous Medications Lactulose (Lactulose) 10 Gm/15 Ml Solution 10 GM PO (Reported) Followup Plan Disposition: home Follow-up plan please follow up with liver clinic at with Dr Luly Sheriff on at 2 PM. will call you to confirm appointment.Please call coordinator Miriam if you do not hear from them in the next 24 hrs. please follow up with Dr.Maiyen Real primary GI doctor in [facility] on 05/31/16 . Discharge Diet: Low fat, Low Sodium, Heart Healthy Discharge Activity: Limited until seen by PCP Patient Instructions You were hospitalized with intractable abdominal pain, nausea, vomiting, treated for SBP ( infection of fluid in your belly) , you were found to have Gall Bladder inflammation,treated with IV antibiotics( Zosyn) . which potentially needs surgical intervention. surgeon recommended you get your elective surgery at a tertiary hospital. please follow up at liver clinic with Dr Luly Sheriff on 05/12/16 at 2 PM . Follow-up Provider: Michele Hernandez DO Follow-up with PCP in: 2 weeks Follow-up in: Other ( follow up at with Dr Luly Sheriff on at 2 PM) Time spent 50 minutes coordinating discharge copies to: Michele Hernandez DO Maurice Ojeda MD May 09, 2016 15:31 Maurice Ojeda MD May 09, 2016 15:31
[2016-05-09] MEDS ORDERED: CIPR-198 PO (15:38)
--- NOTE | 2016-05-09 16:54 | NUR ---
Discharge Pt appt made for 05/12/16 at [facility]. Pt also has follow up appt with Dr Real on 06/01/16. Pt steady gait, up and dressed on own. A&O x 3. IV dc'd, catheter intact. All discharge info, including meds understood by pt and mother. All belongings accounted for. RN brought pt down to car via wc with mother. No questions upon dc.
[2016-07-07] MEDS ORDERED: RIFA550T3 PO (08:43)
[2016-07-07] MEDS ORDERED: OMEP20CA11 PO (08:43)
== END 2016-05-09 16:30 | disposition home or self-care (01) | DRG 372 ==
LOC: SED 16:40 → MOC 23:47 → OBSVTOIN 23:47
PROVIDERS: ADMIT Hospitalist; ATTEND Hospitalist
PROC: 0W9G3ZX Drainage of Peritoneal Cavity, Percutaneous Approach, Diagnostic (ICD-10-PCS; principal; 2016-04-23)
PROC: 30233N1 Transfusion of Nonautologous Red Blood Cells into Peripheral Vein, Percutaneous Approach (ICD-10-PCS; 2016-04-24)
PROC: 30233N1 Transfusion of Nonautologous Red Blood Cells into Peripheral Vein, Percutaneous Approach (ICD-10-PCS; 2016-04-25)
PROC: 0W9G3ZX Drainage of Peritoneal Cavity, Percutaneous Approach, Diagnostic (ICD-10-PCS; 2016-04-29)
DX: K65.2 Spontaneous bacterial peritonitis (principal); K76.6 Portal hypertension; K70.31 Alcoholic cirrhosis of liver with ascites; K72.90 Hepatic failure, unspecified without coma; E03.9 Hypothyroidism, unspecified; Z98.84 Bariatric surgery status; Z98.0 Intestinal bypass and anastomosis status; K31.89 Other diseases of stomach and duodenum; D64.9 Anemia, unspecified; K59.00 Constipation, unspecified; K81.9 Cholecystitis, unspecified; F10.20 Alcohol dependence, uncomplicated

== ENCOUNTER 2016-06-27 11:56 | Emergency (ER) | payer OTHER ==
[~2016-06-27] VITALS: Ht 167.6 cm; Wt 65.9 kg
[~2016-06-27 11:56] MED LIST changes: -CASTOR TOPICAL; +CIPR-198 PO; +DIPH25CA6 PO; -IODINE PO; +OXYC5TAB72 PO; -Tumeric PO; -VALA100026 PO
[2016-06-27 12:01] VITALS: BP 108/62; PULSE 80; RESP 16; O2SAT 79; O2SAT 97
--- NOTE | 2016-06-27 12:21 | ED.REPORT ---
HPI-General Illness Date of Service June 27, 2016 ED Provider: Samantha Rios MD. Patient is a 35 year old female with a history of liver cirrhosis who was hospitalized on 06/21/16 due to a gallbladder infection, who presents to the ED complaining of right upper quadrant abdominal pain. Associated symptoms include pain that radiates into her back. Patient rates the pain as an 8/10 and describes the pain as stabbing. She reports that these symptoms are similar to what she felt when she had the gallbladder infection and that it improved with antibiotics. The patient was seen at earlier, who recommended she come to the ED. Nursing Notes Stated Complaint: ABD PAIN,NAUSEA,SENT BY [facility] Chief Complaint: Female Abdominal Pain Nursing Notes Reviewed: Yes Allergies: Coded Allergies: No Known Allergies (Verified Allergy, Unknown, 06/27/16) Scheduled ([Iron 18 mg tablet]) 2 TAB PO DAILY ([Lipoic Acid]) 100 MG PO BID Ascorbic Acid (Vitamin C) 500 Mg Capsule.er 500 MG PO DAILY Cholecalciferol (Vitamin D3) (Vitamin D3) 5,000 Unit Tablet 5,000 UNIT PO DAILY Ciprofloxacin (Ciprofloxacin) 500 Mg Tablet 500 MG PO DAILY Cyanocobalamin (Vitamin B-12) (Vitamin B-12) 1,000 Mcg/1 Ml Drops 1 DROP PO DAILY Fish Oil/Borage/Flax/Om3,6,9#1 ([place] 3-6-9 1,200 mg Softgel) 1,200 Mg Capsule 3 TAB PO DAILY Furosemide (Furosemide) 40 Mg Tablet 40 MG PO DAILY L. Rhamnosus GG/Inulin (Culturelle Capsule) 10 Billion Cell-200 Mg Cap.sprink 1 EACH PO DAILY Levothyroxine (Levothyroxine) 25 Mcg Tablet 25 MCG PO DAILY Multivitamin (Multivitamins) 1 Each Capsule 1 EACH PO DAILY Ondansetron (Ondansetron) 4 Mg Tablet 4 MG PO q12hrs Potassium Chloride ER (Potassium Chloride ER) 20 Meq Tablet.er 20 MEQ PO DAILY TAKE WITH FOOD Rifaximin (Xifaxan) 550 Mg Tablet 550 MG PO BID Spironolactone (Spironolactone) 50 Mg Tablet 50 MG PO DAILY Scheduled PRN Tramadol (Tramadol) 50 Mg Tablet 50 MG PO q8 PRN PRN For Pain diphenhydrAMINE HCl (Benadryl) 25 Mg Capsule 25 MG PO Q4 PRN PRN For Itching oxyCODONE (oxyCODONE) 5 Mg Tablet 5 MG PO Q4H PRN PRN For Pain Miscellaneous Medications Lactulose (Lactulose) 10 Gm/15 Ml Solution 10 GM PO General Time Seen by MD: 12:20 Chief Complaint Abdominal pain Hx Obtained From: Patient Arrived By: Walk-in Location: : Abdomen Quality: Stabbing Radiation: : Back Severity: Current: Pain level 8 out of 10 Recent Healthcare: Recent doctor visit, Recent hospitalization Similar Sx Previous: Yes Past Medical History Past Medical History Notes: Fax for [facility]: Dr. 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 programming coordinator: [facility] at [facility] Past Medical History Liver cirrhosis Anemia hyporthyrodism alcoholic hepatitis Past Surgical History Gastric bypass Smoking History Never Smoker Social History Alcohol Use: Denies alcohol use (for the past 4 months) Other Social History: Good social support Ambulatory Status Independent Review of Systems deccreased appetite Full Review of Systems Respiratory: Denies: Non-productive cough, Shortness of breath GI: Reports: Abdominal pain, Nausea Female: Reports: Flank pain Musculoskeletal: Reports: Back pain Complete sys rev & neg: except as marked. Physical Exam Vital Signs Vital Signs Date Time Temp Pulse Resp B/P Pulse Ox O2 Delivery O2 Flow Rate FiO2 06/27/16 12:01 37.1 80 16 108/62 79 Room Air Initial VS: Reviewed General/Constitutional: Awake, Alert Head / Eyes: Atraumatic, Normocephalic, PERRL, EOMI Respiratory / Chest: Atraumatic, Breath sounds NL, Breath sounds = bilat, No respiratory distress Cardiovascular: Heart rate NL, Regular rhythm Heart Sounds / Murmur: Positive: Systolic murmur present.. (IV/) Abdomen: No guarding, No rebound minimally distended diffusely tender, worse in the RUQ Lower Extremity / Pelvis / MS: Atraumatic, No edema Skin: Atraumatic, No rash, Warm, Dry dramatically jaundice spider hemangioma Neurologic: Oriented X3, Speech NL, No motor deficits, No sensory deficits Psychiatric: Affect NL, Mood NL Interpretation & Diagnostics Interpretation & Diagnostics: Bedside Ultrasound: shows moderate ascites only Lab Results Interpretation Result Diagram: 5/1/17 1224 06/27/16 1224 Test 06/27/16 12:24 06/27/16 12:55 06/27/16 14:25 White Blood Count 3.8th/mm3 (3.8-10.1) Red Blood Count 1.83mil/mm3 (3.90-5.20) Hemoglobin 7.4g/dL (12.0-15.6) Hematocrit 22.5% (35.0-46.0) Mean Corpuscular Volume 123.0fL (81-100) Mean Corpuscular Hemoglobin 40.4pg (27.0-35.0) Mean Corpuscular Hemoglobin Concent 32.9% (32.0-37.0) Red Cell Distribution Width 13.4% (12.3-15.4) Platelet Count 117bil/L (150-400) Neutrophils (%) (Auto) 48.8% (40-74) Lymphocytes (%) (Auto) 32.3% (14-46) Monocytes (%) (Auto) 13.5% (4-12) Eosinophils (%) (Auto) 2.7% (0-5) Basophils (%) (Auto) 2.4% (0-3) Sodium Level 137mEq/L (134-144) Potassium Level 3.7mEq/L (3.5-5.2) Chloride Level 103mEq/L (97-108) Carbon Dioxide Level 16mmol/L (18-29) Blood Urea Nitrogen 8mg/dL (6-20) Creatinine 0.35mg/dL (0.57-1.00) Estimat Glomerular Filtration Rate 307mL/min (>59) Glucose Level 93mg/dL (60-99) Calcium Level 8.4mg/dL (8.5-10.1) Magnesium Level 2.1mg/dL (1.6-2.6) Total Bilirubin 12.5mg/dL (0.0-1.2) Aspartate Amino Transf (AST/SGOT) 77U/L (0-50) Alanine Aminotransferase (ALT/SGPT) 29U/L (0-32) Alkaline Phosphatase 78U/L (25-150) Total Protein 6.9g/dL (6.4-8.4) Albumin 3.4g/dL (3.4-5.0) Lipase 58U/L (13-60) Lactic Acid Level 1.3mmol/L (0.4-2.0) Ammonia 184ug/dL (18-53) Body Fluid Source Pleural fluid Body Fluid Color Straw (Clear) Body Fluid Appearance Clear Body Fluid WBC 71/mm3 Body Fluid RBC 39844/mm3 Body Fluid Polynuclear WBCs 0% Body Fluid Lymphocytes 99% Body Fluid Monocytes 1% Body Fluid Eosinophils 0% Body Fluid Basophils 0% Procedures Procedure Notes: Paracentesis Procedure: Procedure Performed by: ED physician at 1355 Consent / Setup / Site Prep: Consent from patient, Hand hygiene observed Indication: Diagnostic Local Anesthesia: Mepivacaine .5% Skin Preparation Agent: Chloraprep Guidance / Aspirate Character: Ultrasound guidance Complications: None Post-Procedure: Condition improved, Tolerated procedure well, Patient stable Re-Eval/Medical Decision Med Decision/Clinical Course 35-year-old woman with cirrhosis and end-stage liver disease on liver transplant list with known acalculous cholecystitis and ejection fraction of less than 1%. Not able to have surgery due to her liver disease. Presents with increasing right upper quadrant pain. Labs do not suggest acute infection. In consultation with her top trimmer at [facility], diagnostic paracentesis was performed. Absolute neutrophil count is minimal in peritoneal fluid. Cultures currently pending. At this point, no evidence of spontaneous bacterial peritonitis or acute cholecystitis. Pain is likely related to dysfunctional gallbladder without evidence of acute infection. She is responded well to 10 mg of oral oxycodone. Reviewed concerns with addiction and pain medication. Plan discharge home, copy of notes will go to her top trimmer at [facility]. Should she get worse, she will consider presenting to either [facility] or [facility] emergency department so she is closer to hepatology teams should she actually need admission. All questions are answered. Source of Hx: Old records Time of Eval: 12:59 Patient Status: Pain improved Consultation #1: Call Returned at: 13:33 Note: Discussed patient's case with the Nurse Daily Sales Audit Clerk, who is zoraida to find Dr. Matson or Dr. Denton to call back. Consultation #2: Call Returned at: 13:42 Note: Consult with Dr. Xiomy Denton , who recommends that the patient have a diagnositc paracentesis. If it is okay, he felt that she can go home with pain medication Counseled Regarding: Diagnosis, Lab results Discharge & Departure Primary Impression: Abdominal pain Additional Impressions: End stage liver disease Dysfunctional gallbladder Ruled Out: Spontaneous bacterial peritonitis, Acute cholecystitis Disposition: Home Discharge Condition All VS Reviewed: Yes Condition: Stable Additional Instructions: Thank you for hanging out with me in the ER today. I appreciate your patience with your long visit. I am not finding any evidence of acute infection and no evidence of infection of the accumulated peritoneal fluid. you responded nicely to 10 mg of oxycodone. I am going to send you home with a prescription for oxycodone 5 mg, 1-3 every 6 hours as needed for acute pain. Please use them as sparingly as possible. I will send a copy of your ER note from today to Dr Denton. Please contact the liver clinic and programming coordinator to see when they want to see next. I wish you the very best. Referrals: Michele Hernandez DO (PCP) Josselyn Attestation Portions of this note were transcribed by Haley Figueroa. I, Dr. Rios personally performed the history, physical exam and medical decision-making; I reviewed and confirmed the accuracy of the information in the transcribed note. Signed by: Josselyn Walter, 06/27/16 and 1300 copies to: Michele Hernandez Shawna L MD June 27, 2016 12:21 Tabatha Figueroa June 27, 2016 12:34
[2016-06-27] MEDS ORDERED: HYDROmorphone 1 mg/mL Inj IVPUSH ONE (12:30)
[2016-06-27] MEDS ORDERED: 0.9% Sodium Chloride 1,000 ML IV ONE (12:30)
[2016-06-27] MEDS ORDERED: HYDROmorphone 1 mg/mL Inj IVPUSH PRN (12:30)
[2016-06-27] MEDS ORDERED: Ondansetron 2 mg/mL 2 mL Inj IVPUSH ONE (12:30)
[2016-06-27 12:49] LABS: BASOPHILS % (AUTO) 2.9 % (0-3); EOSINOPHILS % (AUTO) 2.1 % (0-5); MONOCYTES % (AUTO) 13.1 % (4-12); Mean Corpuscular Hemoglobin 40.4 pg (27.0-35.0); NEUTROPHILS % (AUTO) 49.3 % (40-74); Platelet Count 117 bil/L (150-400)
[2016-06-27 13:15] VITALS: BP 105/52; PULSE 80; RESP 13; O2SAT 100
[2016-06-27 13:22] LABS: Magnesium 2.1 mg/dL (1.6-2.6)
[2016-06-27 14:15] VITALS: BP 104/54; PULSE 83; RESP 14; O2SAT 97
[2016-06-27 14:26] LABS: BASOPHILS % (AUTO) 2.4 % (0-3); EOSINOPHILS % (AUTO) 2.7 % (0-5); MONOCYTES % (AUTO) 13.5 % (4-12); NEUTROPHILS % (AUTO) 48.8 % (40-74)
[2016-06-27 15:47] LABS: BFWBC 71 /mm3
[2016-06-27 15:52] LABS: MONOCYTES,BODY FLUID 1 %; OTHER CELLS,BODY FLUID 3
[2016-06-27] MEDS ORDERED: OXYC-474 PO (16:36)
[2016-06-27 16:51] VITALS: BP 117/78; PULSE 86; RESP 14; RESP 16; O2SAT 99
[2016-07-07] MEDS ORDERED: RIFA550T3 PO (08:43)
[2016-07-07] MEDS ORDERED: OMEP20CA11 PO (08:43)
== END 2016-06-27 16:52 | disposition home or self-care (01) ==
LOC: SED 11:56
DX: K72.90 Hepatic failure, unspecified without coma (principal); K82.8 Other specified diseases of gallbladder; E03.9 Hypothyroidism, unspecified
CPT/HCPCS: 36415; 49083; 80053; 82140; 83605; 83690; 83735; 85025; 87040; 87070; 87075; 87205; 89051; 96361; 96374; 96375; 99285; J1170; J2405; J7030

== ENCOUNTER 2016-09-04 11:23 | Inpatient (IN) | payer OTHER ==
[~2016-09-04] VITALS: Ht 167.6 cm; Wt 79.3 kg
[~2016-09-04 11:23] MED LIST changes: -DIPH25CA6 PO; +OMEP20CA11 PO; +OXYC-474 PO; -TRAM50TA2 PO
[2016-09-04 11:37] VITALS: BP 111/62; PULSE 90; RESP 17; O2SAT 98
--- NOTE | 2016-09-04 11:39 | ED.REPORT ---
HPI-General Illness Date of Service Sep 04, 2016 ED Provider: Deni Alvarez MD Pt is a 35 year old female with a history of "alcoholic cirrhosis" currently on the liver transplant list at [facility] who presents to the ED with concerns of worsening diffuse abdominal pain over the last couple of days. She reports that she had no medication to alleviate her pain, and she was unable to get a hold of her primary doctor. She states that this happens often and is associated with increasing abdominal girth. Pt denies any bleeding, vomiting, fevers, or chills. Pt admits to an extensively distended abdomen as well as nausea. She reports that while she has ascites that they are often unsuccessful in performing paracentesis as "most of the swelling is in her tissue". Nursing Notes Stated Complaint: ABDOMINAL PAIN Chief Complaint: Female Abdominal Pain Nursing Notes Reviewed: Yes Allergies: Coded Allergies: No Known Allergies (Verified Allergy, Unknown, 07/07/16) Scheduled ([Iron 18 mg tablet]) 2 TAB PO DAILY ([Lipoic Acid]) 100 MG PO BID Ascorbic Acid (Vitamin C) 500 Mg Capsule.er 500 MG PO DAILY Cholecalciferol (Vitamin D3) (Vitamin D3) 5,000 Unit Tablet 5,000 UNIT PO DAILY Ciprofloxacin (Ciprofloxacin) 500 Mg Tablet 500 MG PO DAILY Cyanocobalamin (Vitamin B-12) (Vitamin B-12) 1,000 Mcg/1 Ml Drops 1 DROP PO DAILY Fish Oil/Borage/Flax/Om3,6,9#1 ([place] 3-6-9 1,200 mg Softgel) 1,200 Mg Capsule 3 TAB PO DAILY Furosemide (Furosemide) 40 Mg Tablet 40 MG PO DAILY L. Rhamnosus GG/Inulin (Culturelle Capsule) 10 Billion Cell-200 Mg Cap.sprink 1 EACH PO DAILY Levothyroxine (Levothyroxine) 25 Mcg Tablet 25 MCG PO DAILY Multivitamin (Multivitamins) 1 Each Capsule 1 EACH PO DAILY Omeprazole (Omeprazole) 20 Mg Capsule.dr 20 MG PO BID Ondansetron (Ondansetron) 4 Mg Tablet 4 MG PO q12hrs Potassium Chloride ER (Potassium Chloride ER) 20 Meq Tablet.er 20 MEQ PO DAILY TAKE WITH FOOD Rifaximin (Xifaxan) 550 Mg Tablet 550 MG PO BID Rifaximin (Xifaxan) 550 Mg Tablet 550 MG PO BID Spironolactone (Spironolactone) 50 Mg Tablet 50 MG PO DAILY Scheduled PRN Oxycodone (Roxicodone) 5 Mg Tablet 5-15 MG PO Q4H PRN PRN For Pain oxyCODONE (oxyCODONE) 5 Mg Tablet 5 MG PO Q4H PRN PRN For Pain Miscellaneous Medications Lactulose (Lactulose) 10 Gm/15 Ml Solution 10 GM PO General Time Seen by MD: 11:38 Chief Complaint Abdominal pain Hx Obtained From: Patient Arrived By: Walk-in Sudden in Onset?: No Symptom Duration: Since onset Location: : Abdomen Quality: Painful Severity: Current: Moderate Severity: Maximum: Severe Similar Sx Previous: Yes Past Medical History Past Medical History Notes: Fax for [facility] clinic: Dr. 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 community engagement coordinator: [phone] [facility] Past Medical History Liver cirrhosis Anemia hyporthyrodism alcoholic hepatitis Past Surgical History Gastric bypass Smoking History Never Smoker Social History Alcohol Use: Denies alcohol use Other Social History: Good social support Ambulatory Status Independent Review of Systems Full Review of Systems Constitutional: Reports: Weakness - generalized, Denies: Chills, Fever, Malaise Respiratory: Denies: Non-productive cough, Shortness of breath, Wheezing Cardiovascular: Denies: Chest pain, Syncope GI: Reports: Abdominal pain, Nausea, Denies: Constipation, Diarrhea, Vomiting Female: Denies: Dysuria, Flank pain, Urinary urgency Musculoskeletal: Denies: Back pain, Neck pain Skin: Denies Rash Neurologic: Denies: Change LOC, Dizziness Complete sys rev & neg: except as marked. Physical Exam Vital Signs Vital Signs Date Time Temp Pulse Resp B/P Pulse Ox O2 Delivery O2 Flow Rate FiO2 09/04/16 13:47 93 18 103/71 97 Room Air 09/04/16 12:22 104 22 114/79 98 Room Air 09/04/16 11:37 36.8 90 17 111/62 98 Room Air Initial VS: Reviewed Head / Eyes: Atraumatic, Normocephalic, PERRL ENT: Mucous membranes moist, Conjunctiva normal, No scleral icterus Neck: Supple, Non-tender, Full range of motion Respiratory: Breath sounds normal, Clear to auscultation, No respiratory distress Cardiovascular: Regular rate & rhythm, Heart sounds normal, Intact distal pulses Skin: Warm, Dry, No cyanosis Neurologic: Alert, Oriented, Nonfocal General/Constitutional: Awake, Alert, No acute distress Jaundiced Scleral icterus Bowel Sounds / Distention: Positive: Distention moderate Interpretation & Diagnostics Lab Results Interpretation Result Diagram: 09/04/16 1140 09/04/16 1140 Test 09/04/16 11:40 White Blood Count 5.7th/mm3 (3.8-10.1) Red Blood Count 2.13mil/mm3 (3.90-5.20) Hemoglobin 8.5g/dL (12.0-15.6) Hematocrit 26.8% (35.0-46.0) Mean Corpuscular Volume 125.8fL (81-100) Mean Corpuscular Hemoglobin 39.9pg (27.0-35.0) Mean Corpuscular Hemoglobin Concent 31.7% (32.0-37.0) Red Cell Distribution Width 16.0% (12.3-15.4) Platelet Count 101bil/L (150-400) Neutrophils (%) (Auto) 68.8% (40-74) Lymphocytes (%) (Auto) 19.4% (14-46) Monocytes (%) (Auto) 8.3% (4-12) Eosinophils (%) (Auto) 1.2% (0-5) Basophils (%) (Auto) 1.6% (0-3) Prothrombin Time 16.9sec (8.1-12.5) Prothromb Time International Ratio 1.57ratio Sodium Level 133mEq/L (134-144) Potassium Level 3.7mEq/L (3.5-5.2) Chloride Level 98mEq/L (97-108) Carbon Dioxide Level 18mmol/L (18-29) Blood Urea Nitrogen 8mg/dL (6-20) Creatinine < 0.30mg/dL (0.57-1.00) Estimat Glomerular Filtration Rate 367mL/min (>59) Glucose Level 148mg/dL (60-99) Lactic Acid Level 4.1mmol/L (0.4-2.0) Calcium Level 8.6mg/dL (8.5-10.1) Magnesium Level 2.0mg/dL (1.6-2.6) Total Bilirubin 21.5mg/dL (0.0-1.2) Aspartate Amino Transf (AST/SGOT) 100U/L (0-50) Alanine Aminotransferase (ALT/SGPT) 32U/L (0-32) Alkaline Phosphatase 98U/L (25-150) Ammonia 134ug/dL (18-53) Total Protein 7.2g/dL (6.4-8.4) Albumin 3.0g/dL (3.4-5.0) Lipase 27U/L (13-60) Lab Results Interpretation: Bedside Ultrasound: moderate ascites without any fluid pockets amenable to paracentesis at the bedside Re-Eval/Medical Decision Med Decision/Clinical Course Pt is a 35 year old female with a history of "alcoholic cirrhosis" currently on the liver transplant list at [facility] who presents to the ED with concerns of worsening diffuse abdominal pain over the last couple of days. She reports that she had no medication to alleviate her pain, and she was unable to get a hold of her primary doctor. She states that this happens often and is associated with increasing abdominal girth. Pt denies any bleeding, vomiting, fevers, or chills. Pt admits to an extensively distended abdomen as well as nausea. She reports that while she has ascites that they are often unsuccessful in performing paracentesis as "most of the swelling is in her tissue". Here in the emergency Department the patient is afebrile, hemodynamically stable and in no apparent distress. Examination as above reveals significant distension of her abdomen however bedside ultrasound reveals no fluid pocket amenable to paracentesis. Surprisingly there is not as much ascitic fluid as I would expect based upon the appearance of her belly. CBC: No leukocytosis Hematocrit 26.8, stable from baseline INR: 1.57, at baseline Renal function, stable No significant electrolyte abnormality Total Bilirubin 21.5, slightly increased Lactic acid 4.[address] abdomen and pelvis: At this time the patient is afebrile without leukocytosis. She reports that the abdominal distention and pain is similar to previous episodes and therefore my suspicion for spontaneous bacterial peritonitis is relatively low. I do not feel that immediately starting. Antibiotics is indicated for this reason. She is requiring quite a bit of pain and nausea management with IV hydromorphone, Zofran and Reglan. She would benefit from abdominal paracentesis for diagnostic and therapeutic reasons however this procedure would best be performed by interventional radiology given that I do not think he can be safely done at bedside. Patient was discussed with the admitting hospitalist accepted for further management. Source of Hx: Old records Time of Eval: 14:36 Re-Evaluation/Progress Note: Pt is rechecked and informed of her diagnosis and the plan to admit her at this time. She understands and agrees, all questions are addressed. Counseled Regarding: Diagnosis, Lab results, When/why to return to ED Discharge & Departure Primary Impression: Abdominal pain Abdominal location: generalized Qualified Code: R10.84 - Generalized abdominal pain Additional Impressions: Liver failure Liver failure chronicity: subacute Hepatic coma status: without hepatic coma Qualified Code: K72.00 - Acute and subacute hepatic failure without coma Jaundice Ascites Ascites type: due to alcoholic cirrhosis Qualified Code: K70.31 - Alcoholic cirrhosis of liver with ascites Total bilirubin, elevated Hyperammonemia Anemia Anemia type: unspecified type Qualified Code: D64.9 - Anemia, unspecified Elevated lactic acid level Disposition: Home Discharge Condition All VS Reviewed: Yes Condition: Stable Referrals: Michlee Hernandez DO (PCP) Crit Care Except Billable Proc Time Spent: 75-104 minutes Services Performed: Patient management by me, Time spent at bedside, Reviewing test results, Reviewing imaging, Discussing patient care, Documentation in record, Time with fam/surrogate Scribe Attestation Portions of this note were transcribed by Neha Sesay. I, Dr. Alvarez personally performed the history, physical exam and medical decision-making; I reviewed and confirmed the accuracy of the information in the transcribed note. Signed by: Josselyn Mayorga, 09/04/2016 [Time]. copies to: Michele Hernandez Beck O MD Sep 04, 2016 11:39 CORKY SESAY Sep 04, 2016 12:35
[2016-09-04] MEDS ORDERED: Ondansetron 2 mg/mL 2 mL Inj IVPUSH ONE ×2 (11:45→12:20)
[2016-09-04 11:48] LABS: BASOPHILS % (AUTO) 1.6 % (0-3); EOSINOPHILS % (AUTO) 1.2 % (0-5); MONOCYTES % (AUTO) 8.3 % (4-12); Mean Corpuscular Hemoglobin 39.9 pg (27.0-35.0); Mean Corpuscular Volume 125.8 fL (81-100); NEUTROPHILS % (AUTO) 68.8 % (40-74); Platelet Count 101 bil/L (150-400)
[2016-09-04] MEDS: HYDROmorphone 0.5 mg/0.5 mL iSecure Syringe IVPUSH PRN ×4 (12:04→13:46)
[2016-09-04 12:09] LABS: INR 1.57 ratio
[2016-09-04 12:14] LABS: Lipase 27 U/L (13-60)
[2016-09-04 12:22] VITALS: BP 114/79; PULSE 104; RESP 22; O2SAT 98
[2016-09-04 13:47] VITALS: BP 103/71; PULSE 93; RESP 18; O2SAT 97
[2016-09-04] MEDS ORDERED: 0.9% Sodium Chloride 1,000 ML IV ONE (14:00)
[2016-09-04] MEDS ORDERED: HYDROmorphone 1 mg/mL Inj IVPUSH ONE (14:15)
[2016-09-04] MEDS ORDERED: MetoCLOpramide 5 mg/mL 2 mL Inj IVPUSH PRN (14:15)
[2016-09-04 14:43] VITALS: BP 107/81; PULSE 97; RESP 14; O2SAT 97
[2016-09-04] MEDS ORDERED: FURO-128 PO (14:52)
[2016-09-04] MEDS ORDERED: POTA20TA16 PO (14:52)
[2016-09-04] MEDS ORDERED: RIFA550T3 PO (14:52)
--- NOTE | 2016-09-04 14:53 | DRSVH ---
PROCEDURE: CT ABDOMEN AND PELVIS WITH CONTRAST ([id number]) INDICATIONS: Abdominal pain and history of end-stage liver disease. TECHNIQUE: After the administration of oral and intravenous contrast, 5 mm thick sections acquired from the diap hragms to the symphysis. 5 mm thick coronal and sagittal reformats were performed. For radiation do se reduction, the following was used: automated exposure control, adjustment of mA and/or kV accordi ng to patient size. COMPARISON: [facility], CT, CT ABD PELVIS W CON, 04/23/2016, 20:23. FINDINGS: Image quality: Excellent. ABDOMEN: Lung bases: There is a small left pleural effusion. There is bibasilar consolidation in the lower l obes, left greater than right, as well as within the inferior left lingula and right middle lobe. He art size is enlarged. There are gastroesophageal varices noted. Solid organs: There is a nodular hepatic contour redemonstrated consistent with cirrhosis. There are 2 small hypodense foci redemonstrated within the right hepatic lobe which appear similar to the prio r study. There multiple calcified gallstones within the gallbladder with mild nonspecific prominence of the gallbladder wall. No definite biliary ductal dilatation. The spleen is enlarged, measuring up to 16.8 cm in craniocaudal dimension. There are splenic varices. Pancreas demonstrates no focal lesions. No adrenal nodules. Kidneys are normal in size and enhancement, without hydronephrosis. Peritoneum and bowel: There is moderate to large amount of ascites in the abdomen and pelvis. There are multiple segments of mild bowel wall thickening involving the small and large bowel loops. Nodes and vessels: No retroperitoneal or mesenteric adenopathy. Aorta and inferior vena cava are no rmal in caliber. There are multiple varices anteriorly within the abdomen. Miscellaneous: No ventral hernias. PELVIS: Genitourinary: Bladder wall thickness is normal. An IUD is demonstrated centrally in the uterus. Miscellaneous: No inguinal hernias or adenopathy. Bones: No suspicious bony lesions. No vertebral body compression fractures. IMPRESSION: 1. Nodular cirrhotic liver redemonstrated with a few small low-density foci which are too small to c haracterize but likely represents 2. Findings consistent with portal hypertension including gastroesophageal and splenic varices, sple nomegaly, and large amount of ascites. 3. Cholelithiasis without definite CT evidence of cholecystitis. Evaluation is limited in the prese nce of ascites. Recommend correlation clinically and further evaluation with ultrasound if indicated . 4. Multiple segments of bowel wall thickening involving the small and large bowel. Findings may be reactive secondary to ascites versus sequelae of an infectious or inflammatory enterocolitis. 5. Small left pleural effusion with persistent bibasilar consolidation/atelectasis. Dictated by: Huy Parson M.D. on 09/04/2016 at 14:43 Approved by: Huy Parson M.D. on 09/04/2016 at 14:52
[2016-09-04] MEDS ORDERED: Ondansetron 2 mg/mL 2 mL Inj IVPUSH PRN (15:00)
[2016-09-04] MEDS ORDERED: Alum-Mag Hydrox-Simeth 30 mL Suspension PO PRN (15:00)
--- NOTE | 2016-09-04 16:00 | NUR ---
admitted to room 1011 from ER accompanied by family(Mom and pt's Boyfriend). Pt alert, pain fairly well controlled right now, VSS, ambulatory with steady gait, but appears quite frail and tires quickly. Jaundiced, with severe abd ascites. BTs tympanic, denies nausea. Plan is for US guided paracentesis
[2016-09-04 16:11] VITALS: BP 132/74; PULSE 105; RESP 20; O2SAT 96
[2016-09-04 16:28] LABS: APPEARANCE,URINE HAZY (CLEAR,HAZY); COLOR,URINE ORANGE (YELLOW)
[2016-09-04 16:31] LABS: ICTOTEST,URINE POSITIVE (Negative)
--- NOTE | 2016-09-04 16:56 | NUR ---
Case Management D: [facility] Prescription monitoring information placed in chart. Dr Pratt notified.
[2016-09-04] MEDS ORDERED: cefTRIAXone Inj 2,000 MG in Dextrose 5% Minibag Plus 50 ML IV SCH (17:00)
--- NOTE | 2016-09-04 17:30 | PCM.HPMED ---
Subjective Date of Service Sep 04, 2016 Primary Provider: Admitting Physician: John Huber MD Primary Care Physician: Michele Hernandez DO Attending Physician: John Huber MD Chief Complaint: Abdominal pain History of Present Illness: Kristine Odell is a 35-year-old woman with past medical history significant for end-stage liver disease, Rajan-en-Y gastric bypass surgery over 10 years ago who presents to [facility] emergency department for several days worth of nausea and abdominal pain. She does chronically have some abdominal discomfort and nausea due to her end-stage liver disease but this is worsened per heard. The patient notes that the pain is worsened with any sort of movement. She denies any fevers, chills, sugars of breath, chest pain. The etiology of her anterior liver disease is not entirely clear at this point. It is believed to be secondary to alcoholic liver disease in combination with her gastric bypass surgery. The patient is followed by [facility] with Dr Luly Sheriff and is on the transplant list for her liver. The patient noted that her abdominal distention has increased her last few days. She also noticed that her lower extremity edema has worsened as well. Her merchandise shopper is Dr. Real at [facility] in [place]. He was previously admitted in March 2016 for acute spontaneous bacteria peritonitis as well as acalculous cholecystitis. During the prior admission for SBP the patient was afebrile and her main complaints were nausea, increased abdominal girth, and abdominal pain. In the emergency department her vital signs were stable she was afebrile. She was treated with pain medications and antiemetics but no antibiotics were given. Patient underwent CT scan which showed a large amount of ascites however upon ultrasound no safe pocket was found by ED physician to attempt a paracentesis. She is being admitted for a diagnostic paracentesis that you performed by radiology. Review of Systems: A comprehensive review of systems was performed and is negative except as noted above in history present illness. Allergies Coded Allergies: No Known Allergies (Verified Allergy, Unknown, 07/07/16) Home Medications Discharge Medications ([Iron 18 mg tablet]) 2 TAB PO DAILY (Reported) ([Lipoic Acid]) 100 MG PO BID (Reported) Ascorbic Acid (Vitamin C) 500 Mg Capsule.er 500 MG PO DAILY (Reported) Cholecalciferol (Vitamin D3) (Vitamin D3) 5,000 Unit Tablet 5,000 UNIT PO DAILY (Reported) Cyanocobalamin (Vitamin B-12) (Vitamin B-12) 1,000 Mcg/1 Ml Drops 1 DROP PO DAILY (Reported) Fish Oil/Borage/Flax/Om3,6,9#1 ([place] 3-6-9 1,200 mg Softgel) 1,200 Mg Capsule 3 TAB PO DAILY (Reported) Furosemide (Furosemide) 40 Mg Tablet 40 MG PO DAILY (Reported) L. Rhamnosus GG/Inulin (Culturelle Capsule) 10 Billion Cell-200 Mg Cap.sprink 1 EACH PO DAILY (Reported) Levothyroxine (Levothyroxine) 25 Mcg Tablet 25 MCG PO DAILY (Reported) Multivitamin (Multivitamins) 1 Each Capsule 1 EACH PO DAILY (Reported) Ondansetron (Ondansetron) 4 Mg Tablet 4 MG PO q12hrs (Reported) Potassium Chloride ER (Potassium Chloride ER) 20 Meq Tablet.er 20 MEQ PO DAILY ( Reported) TAKE WITH FOOD Rifaximin (Xifaxan) 550 Mg Tablet 550 MG PO BID (Reported) Spironolactone (Spironolactone) 50 Mg Tablet 50 MG PO DAILY (Reported) As needed Tramadol (Tramadol) 50 Mg Tablet 50 MG PO q8 PRN PRN For Pain (Reported) diphenhydrAMINE HCl (Benadryl) 25 Mg Capsule 25 MG PO Q4 PRN PRN For Itching Prescribed by: CINTHYA WILLINGHAM MD oxyCODONE (oxyCODONE) 5 Mg Tablet 5 MG PO Q4H PRN PRN For Pain Prescribed by: CINTHYA WILLINGHAM MD [facility] 1. End-stage liver disease 2. Liver cirrhosis 3. Anemia 4. Hypothyroidism Surgical History Rajan-en-Y gastric bypass surgery ~2005 Family History Hypothyroidism Social History Hx Alcohol Use: Yes (past history of alcoholism) Hx Substance Use: No Hx Tobacco Use: No Smoking Status: Never Smoker Exam Vital Signs Vital Sign - Last Date Time Temp Pulse Resp B/P Pulse Ox O2 Delivery O2 Flow Rate FiO2 09/04/16 14:43 97 14 107/81 97 Nasal Cannula 2 09/04/16 11:37 36.8 Exam General: No acute distress, likely ill-appearing woman laying comfortably in hospital bed HEENT: Normocephalic, atraumatic. External ears without defect. Pupils equal, round, and reactive to light and accommodation. Icteric sclerae, moist conjunctivae, and no lid lag. Oropharynx free of erythema, moist mucosa. Neck: Supple with full range of motion. No jugular venous distension. No bruits. No lymphadenopathy or thyromegaly. Cardiovascular: Regular rate and rhythm with III/ systolic murmur heard best at upper left sternal border. No rubs, or gallops appreciated Pulmonary: Clear to auscultation bilaterally with no crackles, wheezes, or rhonchi. Normal respiratory effort with no use of accessory muscles. Abdomen: Bowel tones present. Soft, mildly tender in lower quadrants bilaterally , significantly distended. No masses appreciated. Positive rebound tenderness. Extremities: Pale bruises over upper and lower extremities bilaterally no clubbing, cyanosis, edema, or lymphadenopathy appreciated. Skin: Patient appears yellow from jaundice. Normal temperature, turgor, and texture; no rash, ulcers, or subcutaneous nodules appreciated. Neurological: Cranial nerves grossly intact. Coordination, and sensory function within normal limits. No known gait impairment. Psychiatric: Normal mood and affect. Alert and oriented to person, place, and time. Lab and Diagnostics Result Diagram: 09/04/16 1140 09/04/16 1140 X-Rays, CTs and MRIs CT ABDOMEN AND PELVIS WITH CONTRAST IMPRESSION: 1. Nodular cirrhotic liver redemonstrated with a few small low-density foci which are too small to characterize but likely represents 2. Findings consistent with portal hypertension including gastroesophageal and splenic varices, splenomegaly, and large amount of ascites. 3. Cholelithiasis without definite CT evidence of cholecystitis. Evaluation is limited in the presence of ascites. Recommend correlation clinically and further evaluation with ultrasound if indicated. 4. Multiple segments of bowel wall thickening involving the small and large bowel. Findings may be reactive secondary to ascites versus sequelae of an infectious or inflammatory enterocolitis. 5. Small left pleural effusion with persistent bibasilar consolidation/ atelectasis. Dictated by: Huy Parson M.D. on 09/04/2016 at 14:43 Assessment & Plan Kristine Odell is a 35-year-old woman with past medical history significant for end-stage liver disease, Rajan-en-Y gastric bypass surgery over 10 years ago who presents to [facility] emergency department for several days worth of nausea and abdominal pain. Abdominal pain, present on admission, acute on chronic -Differential includes recurrent spontaneous pectoral peritonitis however the patient is on chronic prophylaxis, acalculous cholecystitis, cholecystitis, bowel perforation, infective enterocolitis -Discussed the case with the on-call radiologist who agreed to evaluate the patient for a diagnostic and possibly therapeutic paracentesis -Discussed case with Dr. Gonzalez of GI who strongly suggested that the patient be evaluated with a paracentesis prior to any antibiotics being initiated. Agreed to see patient in the a.m. -We will hold off on antibiotics at this point given the above concerns however , should the patient decompensates should have a low threshold to initiate broad -spectrum antibiotics. -Discussed case with Dr. Eckert who recommended Meropenem if we proceed with antibiotics. -Per Dr. Gonzalez patient would likely benefit from an albumin infusion tomorrow. -Blood cultures, urine cultures, sputum cultures ordered and pending. -Pain control with IV Dilaudid. End-stage liver disease with portal hypertension, present on admission, acute on chronic -Current bilirubin of 21.5 is significantly higher than has ever been noted previously. -Continue lactulose 10 g daily this could be increased up to 30 g daily if patient is having formed stools per outpatient recommendation -Continue rifaximin -Continue to monitor, CBC and CMP in the morning. -Continue vitamin B 12 Ascites, present on admission, acute on chronic -Per patient report a paracentesis in the past have been difficult and had only been able to gather a small amount of fluid -Continue furosemide, potassium, and spironolactone Lactic acidosis, as on admission, acute - Hypothyroidism -Continue levothyroxine High risk meds include IV Dilaudid DVT prophylaxis: SCDs, pharmacologic prophylaxis held due to advanced liver disease and impending When necessary GI, bowel, pain medications ordered CODE STATUS: FULL CODE The patient is admitted with inpatient status with anticipated length of stay > 2 midnights due to the severity of symptoms, likelihood of decompensation and complexity of treatment. Resuscitation Status: CPR: Attempt Resuscitation Attending Statement The patient was seen by myself and also discussed with Dr. Pratt on 2016 and I agree with the history, exam and plan as outlined in the note above. Veronica Pratt DO Sep 04, 2016 15:58 John Huber MD Sep 04, 2016 21:29
[2016-09-04] MEDS ORDERED: IRON18TA PO (17:43)
[2016-09-04] MEDS ORDERED: Potassium Chloride 20 mEq SR Tablet PO SCH (17:54)
[2016-09-04] MEDS: 0.9% Sodium Chloride 1,000 ML IV SCH (18:11)
[2016-09-04] MEDS: HYDROmorphone 1 mg/mL Inj IVPUSH PRN (19:06)
[2016-09-04 19:08] LABS: Bilirubin, Direct 8.2 mg/dL (0.0-0.3)
--- NOTE | 2016-09-04 19:26 | CONS ---
[address] [address] CONSULTATION REPORT PATIENT: GAVI MARINELLI : 1980 MR#: [id number] ADMIT: 09/04/2016 JOB ID: [id number] DATE OF SERVICE: 09/04/2016 REASON FOR CONSULT: It was a pleasure seeing the patient at [facility] for evaluation of abdominal pain This is a 35-year-old lady who has a history of end-stage liver disease, presumed to be alcohol, with gastric bypass surgery 10 years ago and has been followed by Dr. Real at [facility] in [place]. Patient was also seen at [facility] and she informed me that she is listed for transplant, and I have contacted [facility], gave them my phone number for them to contact me because of her transplant status. Patient also has a history of portal hypertensive gastropathy and she also has a history of SBP. The SBP was noted back in March of this year. However, later on, there was a question of acalculous cholecystitis with thickened gallbladder wall at 3.1 mm. Cholecystic fluids and EF of 1% noted on HIDA scan. Ultrasound showed sludge and gallbladder wall of 3.1 mm and pericholecystic fluids at the time. Because of these findings, Surgery was consulted at the time and they recommended IV Zosyn and if patient needed surgery, they wanted to transfer her to a tertiary care center. She became stable and they recommended surgical evaluation at the [facility]. Patient was later told that she is too high of a risk for surgery. She has this chronic abdominal pain and it appears that she came to the emergency department back in June. But again, chronic abdominal pain has been reported. Back in June,June 27, she came into the emergency department and she came in with complaint of right upper quadrant pain. She was told that there was no evidence of acute cholecystitis, SBP, and the pain was due to dysfunctional gallbladder. She was given 10 mg of oxycodone and she was sent home. She was asked to go to [facility] to see her director of enrollment. She was also asked to go to the emergency department in [facility] or the [facility] for continued care at the time. For the past week or so, she noticed increased distention of the abdomen, as well as worsening abdominal pain. From baseline abdominal pain to maybe 5, her abdominal pain starting last Monday became about 9-10, sharp, crampy, consistent. Nothing seems to make it better or worse other than staying very still. Her appetite has been intermittent during this time. Occasionally she is able to eat more than usual. Sometimes she was not able to eat. During this time, her bowel patterns did not change. She usually passes pasty stools without any blood or black stools. However, it is always dark, attributed to the iron supplements that she said she takes. They also noted increased lower extremity edema as well. Because of worsening distention, worsening abdominal pain, again nothing seems to make it better or worse. With high intensity, nonradiating. Associated with nausea, no overt vomiting. She denied any fevers or chills. She felt weak with low energy. She came to the emergency department and her vital signs were stable and afebrile. The patient underwent CT scan which revealed cirrhotic liver, portal hypertension, gallstone without definitive CT evidence of cholecystitis, significant amount of ascites. Multiple segments of small bowel wall thickening, as well as a large bowel wall thickening. Small left pleural effusion was noted as well. There are also multiple calcified gallstones which are new within the gallbladder with mild nonspecific prominence of gallbladder wall. Note because of all these findings patient was transferred to the hospital floor for further medical treatment. PAST MEDICAL HISTORY: 1. End-stage liver disease with cirrhosis. 2. Anemia. 3. Hypothyroidism. PAST SURGICAL HISTORY: Rajan-en-Y gastric bypass surgery. FAMILY HISTORY: Hypothyroidism. SOCIAL HISTORY: She used to drink in the past. No substance use. Never smoked. MEDICATIONS: Here, include iron, sodium, spironolactone, Zofran, multivitamin, lactobacillus, B12, vitamin D3, vitamin C, rifaximin, potassium, Synthroid, Lasix, and Cipro. PHYSICAL EXAMINATION: Patient is alert, oriented x3 and appropriate. Temp 37.2, pulse 105, respiration 20, blood pressure 132/74. Head and neck: Does have icterus. Patient has asterixis. No lymphadenopathy. Lungs clear. Cardiovascular: Tachy, S1-S2. Abdomen soft, diffusely tender, distended significantly with decreased bowel sounds. She has no guarding, involuntary. However, she does have diffuse rebound. Extremities: 1+ pitting edema of the ankles. Radial pulses bilateral and intact. Skin shows significant jaundice. LABORATORY DATA: White count 5700, hemoglobin 8.5, platelets of 101,000. INR of 1.57. Lactate 4.1, total bili 21.5. Calcium 8.6, BUN 8, creatinine 0.3. Sodium 133. Ammonia 134. AST 100, ALT 32, alk phos 98. Albumin 3, lipase 27. CT scan as described above. IMPRESSION: 1. This is a 35-year-old lady with end-stage liver disease with significantly more jaundice with some encephalopathy. 2. I suspect the source of the infection is the gallbladder. Spontaneous bacterial peritonitis is still a possibility, but based on the CT scan, she also has thickened gallbladder wall as well as thickened small and large colon, but these could be secondary to ascites. She does appear that she has underlying infection somewhere. 3. She does seem to have some evidence of encephalopathy. I would continue the lactulose 10 cc twice a day and rifaximin 550 twice a day. I think the encephalopathy is probably caused by an underlying infection. 4. There is some pleural effusion on the CT scan. She is not coughing and she is not short of breath. However, would get full chest x-ray, PA and lateral, to make sure she does not have any underlying pneumonia. She has no chest pain or shortness of breath, but defer cardiopulmonary issue to the primary care service. 5. There is evidence of anemia. Hemoglobin 8.5. However, she denies any melena or change in bowel patterns. She has no hematemesis. I would place the patient on IV Protonix twice a day because of underlying portal hypertension. Would avoid medications such as vitamin C multivitamin which could cause ulcers. So, in terms of the vitamins, I would hold off until she is improved. Also, would avoid oral potassium as well because of a potential that this could be causing ulcers. She is on Lasix and spironolactone. I think it is wilson to continue that for now, but I think she is going to need a therapeutic paracentesis as well as analysis with CBC with differential, total protein, and albumin level. Will need to culture and Gram stain this as well. Recommend infectious disease consult if it is not done already. I was informed that Dr. Eckert from infectious disease is involved and meropenem was planned after the paracentesis per the resident. 6. I think she has an underlying infection. This could be SBP versus cholecystitis. However, because they did see thickened bowel wall on the CT scan, I think she should have stool culture as well as C. difficile, especially because she has been on Cipro. 7. would recommend getting an ultrasound, as well as another HIDA scan. 8. Recommend getting a chest x-ray, panculture including blood cultures, urine cultures, chest x-ray. 9. If the ascites is indeed infected, I would recommend giving her albumin two bottles, 25% three times a day for the next three days. 10. Based on the imaging, there seems to be no evidence of Budd-Chiari or portal vein thrombosis. They did not mention anything like this. However, would recommend getting a Doppler ultrasound of the inferior vena cava as well as the portal veins. MTDD
[2016-09-04 19:56] VITALS: BP 113/57; PULSE 116; RESP 18; O2SAT 92
[2016-09-04] MEDS: Lactobacillus Rhamnosus 10 Bil Unit Capsule PO SCH (20:03)
[2016-09-04] MEDS: Pantoprazole 40 mg ER24 Tablet PO SCH (20:26)
[2016-09-05] VITALS (19 sets, daily range): BP systolic 96–123; BP diastolic 42–65; PULSE 78–114; RESP 14–20; O2SAT 88–96
[2016-09-05] MEDS: 0.9% Sodium Chloride 1,000 ML IV SCH ×2 (03:40→14:09)
--- NOTE | 2016-09-05 04:02 | NUR ---
Pain Patient c/o mild pain at start of shift, sleeping soundly at this time. Denies Nausea, CP, and SOB. Care continues.
[2016-09-05] MEDS: HYDROmorphone 1 mg/mL Inj IVPUSH PRN ×4 (05:19→23:29)
[2016-09-05 05:35] LABS: BASOPHILS % (AUTO) 0.9 % (0-3); EOSINOPHILS % (AUTO) 0.6 % (0-5); MONOCYTES % (AUTO) 12.3 % (4-12); Mean Corpuscular Hemoglobin 39.9 pg (27.0-35.0); Mean Corpuscular Volume 124.3 fL (81-100); NEUTROPHILS % (AUTO) 66.3 % (40-74); Platelet Count 80 bil/L (150-400)
[2016-09-05 05:58] LABS: Magnesium 1.7 mg/dL (1.6-2.6); Phosphorus 3.1 mg/dL (2.5-4.9)
[2016-09-05] MEDS: Pantoprazole 40 mg ER24 Tablet PO SCH (07:03)
[2016-09-05] MEDS ORDERED: Potassium Chloride 20 mEq SR Tablet PO ONE (07:10)
[2016-09-05] MEDS ORDERED: Potassium Chloride Inj 20 MEQ in Dextrose 5% 250 ML IV ONE (07:10)
[2016-09-05] MEDS: Lactobacillus Rhamnosus 10 Bil Unit Capsule PO SCH (08:30)
[2016-09-05] MEDS ORDERED: Ascorbic Acid 500 mg Tablet PO SCH (08:30)
[2016-09-05] MEDS: 0.9% Sodium Chloride 250 ML IV SCH (08:36)
--- NOTE | 2016-09-05 09:45 | NUR ---
RECEIVED FROM [facility] FOR PARACENTESIS. BLOOD RUNNING IN LEFT ARM.
--- NOTE | 2016-09-05 10:10 | NUR ---
PROCEDURE STARTED. TOLERATING WELL
--- NOTE | 2016-09-05 10:10 | DRSVH ---
PROCEDURE: US ABDOMEN DOPPLER INDICATIONS: portal thrombosis? TECHNIQUE: Real-time scanning was performed of the abdominal and retroperitoneal organs, with image documentatio n. COMPARISON: None. FINDINGS: Liver length: 16.74 cm Gallbladder Wall Thickness: 5-6 mm CHD: 5.40 mm CBD: 5.60 mm Spleen length: 15.08 cm Right kidney length: 11.80 cm Left kidney length: 11.96 cm Aorta(Proximal): 1.93 cm Aorta(Mid): 2.09 cm Aorta(Distal): Obscured by shadowing bowel gas/body habitus RCIA: Obscured by shadowing bowel gas/body habitus LCIA: Obscured by shadowing bowel gas/body habitus Liver: Liver is coarsely echogenic. Doppler examination of the hepatic veins, hepatic artery, splen ic vein and portal veins demonstrate antegrade flow. Hepatic artery resistive index measures 0.55. Ma in portal vein measures 15 mm in diameter without intraluminal thrombus. Gallbladder: Large amount of sludge is present. There is gallbladder wall thickening and pericholecys tic fluid. No sonographic Enriquez sign. Biliary ducts: Intrahepatic bile ducts are non-dilated. Extrahepatic bile duct caliber is normal. Normal is 6-7 mm or less in diameter, or 10 mm or less post-cholecystectomy. Pancreas: Visualized portions of the pancreas are sonographically normal. Pancreatic tail not well-s een. Spleen: Spleen is enlarged measuring 15 cm Kidneys: Kidneys are normal in size and echotexture. No hydronephrosis or nephrolithiasis. No tobias d masses. Aorta: Visualized aorta is normal in caliber at less than 3 cm. Iliacs: Proximal common iliac arteries are normal in caliber at less than 2.5 cm. IVC: Intrahepatic inferior vena cava is patent. Miscellaneous: There is ascites. IMPRESSION: Gallbladder sludge with wall thickening and pericholecystic fluid, suspicious for acute cholecystitis . However no sonographic Enriquez sign or biliary ductal dilatation, therefore please correlate clinica lly and with LFTs. Main portal vein appears patent without intraluminal thrombus. Normal liver Doppler examination. Moderate ascites Splenomegaly. Dictated by: Jakub Watson M.D. on 09/05/2016 at 10:02 Approved by: Jakub Watson M.D. on 09/05/2016 at 10:08
--- NOTE | 2016-09-05 10:47 | DRSVH ---
PROCEDURE: US GUIDED PARACENTESIS, PRIMARY ([id number]) INDICATIONS: ?SBP, liver failure. TECHNIQUE: The indications, alternatives, benefits, risks, and complications of the procedure were explained to the patient. Written informed consent was obtained and placed in the chart. The abdomen and pelvis were examined sonographically, and an appropriate site was chosen for paracentesis. The skin was pre pared and draped in the usual sterile fashion, and 1% lidocaine was infiltrated from the skin down th rough the peritoneal surface. A 19-gauge catheter-covered needle was then introduced into the perito arun space, the catheter was advanced and the needle was withdrawn, and thereafter peritoneal fluid w as withdrawn. The catheter was then removed and a dressing was applied. The fluid was discarded if the clinician did not order diagnostic testing of the fluid. COMPARISON: [facility], [place], US GUIDED PARACENTESIS, 04/29/2016, 13:55. FINDINGS: Access site: Right lower quadrant Needle: One-Step centesis catheter with introducer needle. Fluid volume and description: 1700 yellow cloudy Fluid sent for diagnostic testing: Yes Medications: 1% lidocaine for local anaesthesia. Complications: None. IMPRESSION: Successful ultrasound-guided paracentesis. Dictated by: Lacey Guzman M.D. on 09/05/2016 at 10:45 Approved by: Lacey Guzman M.D. on 09/05/2016 at 10:45
--- NOTE | 2016-09-05 11:15 | NUR ---
TRANSFERED TO [facility]. REPORT GIVEN
[2016-09-05 11:29] LABS: BFWBC 4775 /mm3
[2016-09-05 11:34] LABS: MONOCYTES,BODY FLUID 20 %; OTHER CELLS,BODY FLUID 0
[2016-09-05] MEDS: Meropenem Inj 1,000 MG in 0.9% Sodium Chloride 100 ML IV SCH ×2 (11:41→19:54)
--- NOTE | 2016-09-05 12:51 | PCM.PNMED ---
Subjective Date of Service Sep 05, 2016 Subjective Continues to have diffuse abdominal pain but worse at RUQ. Febrile overnight temp 38.4.. Hemoglobin drop to 5.9 noted. Hypokalemia of 2.9. Lactate improved. Diagnostic paracentesis revealed SBP Exam Vital Signs Vital Sign - Last Date Time Temp Pulse Resp B/P Pulse Ox O2 Delivery O2 Flow Rate FiO2 09/05/16 12:48 100 09/05/16 12:13 94 Room Air 09/05/16 12:11 37.3 18 103/59 09/04/16 14:43 2 Intake and Output 09/04/16 09/04/16 09/05/16 Cumulative From/Thru 15:00 23:00 07:00 09/04/16 11:37 - 09/05/16 05:37 Intake Total 1000 ml 200 ml 625 ml 1825 ml Output Total 100 ml 750 ml 850 ml Balance 1000 ml 100 ml -125 ml 975 ml Intake Oral 200 ml 625 ml 825 ml IV Total 1000 ml 1000 ml Output Urine Total 100 ml 750 ml 850 ml # Bowel Movements 0 0 0 Exam General: No acute distress, likely ill-appearing woman laying comfortably in hospital bed HEENT: Normocephalic, atraumatic. External ears without defect. Pupils equal, round, and reactive to light and accommodation. deeply Icteric sclerae, moist conjunctivae, and no lid lag. Oropharynx free of erythema, moist mucosa. Neck: Supple with full range of motion. No jugular venous distension. No bruits. No lymphadenopathy or thyromegaly. Cardiovascular: Regular rate and rhythm with III/ systolic murmur heard best at upper left sternal border. No rubs, or gallops appreciated Pulmonary: Clear to auscultation bilaterally with no crackles, wheezes, or rhonchi. Normal respiratory effort with no use of accessory muscles. Abdomen: Bowel tones present. Soft, mildly tender in lower quadrants bilaterally , significantly distended. No masses appreciated. diffuse tendness but marked at RUQ. Extremities: Pale bruises over upper and lower extremities bilaterally no clubbing, cyanosis, edema, or lymphadenopathy appreciated. Skin: Patient appears yellow from jaundice. Normal temperature, turgor, and texture; no rash, ulcers, or subcutaneous nodules appreciated. Neurological: Cranial nerves grossly intact. Coordination, and sensory function within normal limits. No known gait impairment. Psychiatric: Normal mood and affect. Alert and oriented to person, place, and time. IVs and Medications Medications Reviewed: Medications were reviewed in detail Lab and Diagnostics Result Diagram: 09/05/16 0500 09/05/16 0500 X-Rays, CTs and MRIs CT ABDOMEN AND PELVIS WITH CONTRAST IMPRESSION: 1. Nodular cirrhotic liver redemonstrated with a few small low-density foci which are too small to characterize but likely represents 2. Findings consistent with portal hypertension including gastroesophageal and splenic varices, splenomegaly, and large amount of ascites. 3. Cholelithiasis without definite CT evidence of cholecystitis. Evaluation is limited in the presence of ascites. Recommend correlation clinically and further evaluation with ultrasound if indicated. 4. Multiple segments of bowel wall thickening involving the small and large bowel. Findings may be reactive secondary to ascites versus sequelae of an infectious or inflammatory enterocolitis. 5. Small left pleural effusion with persistent bibasilar consolidation/ atelectasis. Dictated by: Huy Parson M.D. on 09/04/2016 at 14:43 PROCEDURE: US ABDOMEN DOPPLER INDICATIONS: portal thrombosis? TECHNIQUE: Real-time scanning was performed of the abdominal and retroperitoneal organs, with image documentation. . IMPRESSION: Gallbladder sludge with wall thickening and pericholecystic fluid, suspicious for acute cholecystitis. However no sonographic Enriquez sign or biliary ductal dilatation, therefore please correlate clinically and with LFTs. Main portal vein appears patent without intraluminal thrombus. Normal liver Doppler examination. Moderate ascites Splenomegaly. Dictated by: Jakub Watson M.D. on 09/05/2016 at 10:02 PROCEDURE: US GUIDED PARACENTESIS, PRIMARY ([id number]) INDICATIONS: ?SBP, liver failure. Fluid volume and description: 1700 yellow cloudy IMPRESSION: Successful ultrasound-guided paracentesis. Dictated by: Lacey Guzman M.D. 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 # sepsis due to SBP and acute cholecystitis -albumin boluses ordered -Antibiotics meropenem started -Paracentesis consistent with SBP ,ANC 523.US consistent with acute cholecystitis with pericholecystic fluid # suspected Acute cholecystitis -US consistent with acute cholecystitis with pericholecystic fluid -awaitng HIDA scan -discussed with surgery Dr Ramos. patient is high risk for surgery and needs to be transferred to [facility] if surgery indicated. call placed to her GI/ media relations intern Dr daylin robles at . Awaiting call back. Patient was managed conservatively with IV antibiotics on prior episode in March. She was discharged for elective cholecystectomy but deferred due to high risk for surgery # Acute SBP -Diagnostic paracenteses done. 1.7 L ascitic fluid removed 09/05. ANC 523 -Started on meropenem # Severe anemia,acute on chronic -Due to suspected upper GI bleed. Patient states she had dark loose stool for the last few days but resolved now -Hb drop to 5.9 from 8.5 noted -2 PRBC. Patient currently on transplant list. Anemia severe and symptomatic. Benefit of transfusion outweighs risk of sensitization. Patient verbalize understanding -protonix switched to IV -GI on board .may need repeat EGD if Hb drops again # Decompensated End-stage liver disease with portal hypertension, present on admission, acute on chronic -Decompensated due to multiple factors( severe anemia, acute cholecystitis,SBP) -initial bilirubin of 21.5 is significantly higher than has ever been noted previously. -Continue lactulose 10 g daily this could be increased up to 30 g daily if patient is having formed stools per outpatient recommendation -Continue rifaximin -Continue vitamin B 12 # Ascites, present on admission, acute on chronic -Per patient report a paracentesis in the past have been difficult and had only been able to gather a small amount of fluid -Continue furosemide, potassium, and spironolactone # Lactic acidosis, as on admission, resolved -Initial lactate 4.1.improved to 1.5 # Hypothyroidism -Continue levothyroxine High risk meds include IV Dilaudid DVT prophylaxis: SCDs, pharmacologic prophylaxis held due to advanced liver disease and impending When necessary GI, bowel, pain medications ordered CODE STATUS: FULL CODE disposition:possible transfer to tertiary center Resuscitation Status: CPR: Attempt Resuscitation Maurice Ojeda MD Sep 05, 2016 12:51 CODE STATUS: FULL CODE The patient is admitted with inpatient status with anticipated length of stay > 2 midnights due to the severity of symptoms, likelihood of decompensation and complexity of treatment. Resuscitation Status: CPR: Attempt Resuscitation Maurice Ojeda MD Sep 05, 2016 12:51
--- NOTE | 2016-09-05 12:51 | PCM.PNMED ---
Subjective Date of Service Sep 05, 2016 Subjective Patient had just returned from paracentesis at the time of our visit. 1.7 L was removed, she was feeling much better. She was glad to feel like she could breathe again. She was smiling and ambulating around the room. She continues to have diffuse abdominal pain. Exam Vital Signs Vital Sign - Last Date Time Temp Pulse Resp B/P Pulse Ox O2 Delivery O2 Flow Rate FiO2 09/05/16 12:13 94 Room Air 09/05/16 12:11 37.3 100 18 103/59 09/04/16 14:43 2 Intake and Output 09/04/16 09/04/16 09/05/16 Cumulative From/Thru 15:00 23:00 07:00 09/04/16 11:37 - 09/05/16 05:37 Intake Total 1000 ml 200 ml 625 ml 1825 ml Output Total 100 ml 750 ml 850 ml Balance 1000 ml 100 ml -125 ml 975 ml Intake Oral 200 ml 625 ml 825 ml IV Total 1000 ml 1000 ml Output Urine Total 100 ml 750 ml 850 ml # Bowel Movements 0 0 0 Exam General: No acute distress, well-developed, well-nourished, jaundiced, appropriately interactive HEENT: Normocephalic, atraumatic. External ears without defect. Icteric sclerae , moist conjunctivae, and no lid lag. Neck: Supple with full range of motion. No jugular venous distension. No lymphadenopathy or thyromegaly. Cardiovascular: Regular rate and rhythm with III/ systolic murmur heard best at upper left sternal border, no rubs or gallops appreciated Pulmonary: Clear to auscultation bilaterally with no crackles, wheezes, or rhonchi. Normal respiratory effort with no use of accessory muscles. Abdomen: Bowel tones present. Soft, diffusely tender, nondistended (just after paracentesis). No masses appreciated. Extremities: No clubbing, cyanosis, edema, or lymphadenopathy appreciated. Skin: Jaundice, normal temperature, turgor, and texture; no rash, ulcers, or subcutaneous nodules appreciated. Neurological: Cranial nerves grossly intact. Normal muscle strength, tone, and bulk. No gait impairment. Psychiatric: Normal mood and affect. Alert and oriented to person, place, and time. Lab and Diagnostics Result Diagram: 09/05/16 0500 09/05/16 0500 X-Rays, CTs and MRIs CT ABDOMEN AND PELVIS WITH CONTRAST IMPRESSION: 1. Nodular cirrhotic liver redemonstrated with a few small low-density foci which are too small to characterize but likely represents 2. Findings consistent with portal hypertension including gastroesophageal and splenic varices, splenomegaly, and large amount of ascites. 3. Cholelithiasis without definite CT evidence of cholecystitis. Evaluation is limited in the presence of ascites. Recommend correlation clinically and further evaluation with ultrasound if indicated. 4. Multiple segments of bowel wall thickening involving the small and large bowel. Findings may be reactive secondary to ascites versus sequelae of an infectious or inflammatory enterocolitis. 5. Small left pleural effusion with persistent bibasilar consolidation/ atelectasis. Dictated by: Huy Parson M.D. on 09/04/2016 at 14:43 Additional Diagnostics US GUIDED PARACENTESIS, PRIMARY FINDINGS: Access site: Right lower quadrant Needle: One-Step centesis catheter with introducer needle. Fluid volume and description: 1700 yellow cloudy Fluid sent for diagnostic testing: Yes Medications: 1% lidocaine for local anaesthesia. Complications: None. IMPRESSION: Successful ultrasound-guided paracentesis. Dictated by: Lacey Guzman M.D. on 09/05/2016 at 10:45 US ABDOMEN DOPPLER IMPRESSION: Gallbladder sludge with wall thickening and pericholecystic fluid, suspicious for acute cholecystitis. However no sonographic Enriquez sign or biliary ductal dilatation, therefore please correlate clinically and with LFTs. Main portal vein appears patent without intraluminal thrombus. Normal liver Doppler examination. Moderate ascites Splenomegaly. Dictated by: Jakub Watson M.D. 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 1. I suspect the source of the infection is the gallbladder. Spontaneous bacterial peritonitis is still a possibility, but based on the CT scan, she also has thickened gallbladder wall as well as thickened small and large colon, but these could be secondary to ascites. Case discussed with infectious disease. Meropenem treatment initiated this morning. 2. On admission she has some evidence of encephalopathy and an ammonia level of 134. I would continue the lactulose 10 cc twice a day and rifaximin 550 twice a day. I think the encephalopathy is probably caused by an underlying infection. 3. There is some pleural effusion on the CT scan. She is not coughing and she is not short of breath. However, would get full chest x-ray, PA and lateral , to make sure she does not have any underlying pneumonia. She has no chest pain or shortness of breath, but defer cardiopulmonary issue to the primary care service. 4. There is evidence of anemia. Hemoglobin 8.5 on admission (09/04/16), decreased down to 5.9 the following morning (09/05/16) with one dark stool per nursing report. She has no hematemesis. Patient on IV Protonix 40 mg twice a day because of underlying portal hypertension. Would avoid medications such as vitamin C multivitamin which could cause ulcers. So, in terms of the vitamins, I would hold off until she is improved. Also, would avoid oral potassium as well because of a potential that this could be causing ulcers. She is on Lasix and spironolactone. I think it is wilson to continue that for now. 5. She had therapeutic paracentesis showing 4775 white blood cells 70% PMN. Gram stain shows few polys, no organisms seen. Culture and albumin pending. 6. If patient develops diarrhea though threshold for stool PCR including C. difficile, especially because she has been on Cipro. 7. Ultrasound performed today showing gallbladder sludge, thickened wall, pericholecystic fluid. Normal liver Doppler examination, moderate ascites, splenomegaly HIDA scan tomorrow. 8. Recommend getting a chest x-ray, panculture including urine recommended. Blood cultures pending. 9. Albumin two bottles, 25% three times a day for the next three days. 10. Based on the imaging, there seems to be no evidence of Budd-Chiari or portal vein thrombosis. They did not mention anything like this. However, would recommend getting a Doppler ultrasound of the inferior vena cava as well as the portal veins. 11. Dr. Eckert from infectious disease is involved and meropenem was given after the paracentesis. 12. Recommend octreotide drip for 5 days. 13. Daily INR checks I saw and examined the patient. Agree with above. Resuscitation Status: CPR: Attempt Resuscitation copies to: Ceasar Gonzalez MD, Erika R DO Sep 05, 2016 12:51 Ceasar Gonzalez MD Sep 07, 2016 14:14
--- NOTE | 2016-09-05 16:23 | NUR ---
Social Work: Screening/Multi-Disciplinary Rounds D: EMR reviewed. Pt is a 35 y/o female admitted for ESLD, abscites, and abdominal pain. Per MD in AM rounds, pt to receive paracentesis today and [place] tomorrow at 1200pm. SW met with pt at bedside and explained role, wrote phone number on white board. SW confirmed pt's insurance is [employer]) and PCP is Michele Hernnadez MD. Pt gave verbal consent to contact pt's mother Trinidad Cohen ([phone]) for discharge planning. Pt is currently on waitlist for liver transplant at [facility]. Pt will likely screen in for assessment due to prior ETOH use. Pt confirmed she will transport home with mother via POV when medically stable. Per AM rounds, SW does not anticipate any discharge needs but will continue to follow if needs arise. A: Pt will likely screen in for assessment due to prior ETOH use. P: Pt will likely screen in for assessment due to prior ETOH use. Pt confirmed she will transport home with mother via POV when medically stable. Per AM rounds, WANDER does not anticipate any discharge needs but will continue to follow if needs arise. ADA [place]
[2016-09-05] MEDS: Pantoprazole 4 mg/mL 10 mL Inj IVPUSH SCH (18:29)
--- NOTE | 2016-09-05 19:00 | NUR ---
NPO pt was told that she was strict NPO for procedure, however on her way to procedure pt took a couple sip of a smoothie that family brought in. HIDA test rescheduled for tomorrow at 0730 am. Oncoming RN aware
--- NOTE | 2016-09-05 19:03 | CONS ---
[address] [address] CONSULTATION REPORT PATIENT: GAVI MARINELLI : 1980 MR#: [id number] ADMIT: 09/04/2016 JOB ID: [id number] DATE OF SERVICE: 09/05/2016 REASON FOR CONSULTATION: Possible SBP and/or acute cholecystitis. I thank Dr. Ojeda for this timely consult. HISTORY OF PRESENT ILLNESS: The patient is an unfortunate, 35-year-old woman who about 10 years ago underwent a gastric bypass for morbid obesity which was successful. She subsequently though had issues with alcohol abuse and overuse and has developed cirrhosis. This is decompensated cirrhosis characterized by profound hyperbilirubinemia and ascites as well as what sounds like gastric varices, according to notes in the chart. She was admitted to this facility back in March of this year for concerns regarding SBP. During the course of that admission, the team became more concerned that she had gallbladder disease on the basis of a HIDA scan, persistent right upper quadrant pain and other issues. She was eventually discharged but followed up at [facility] for possible cholecystitis, but after an extensive evaluation, they also decided that it just was not absolutely a certain diagnosis and that she did not require a cholecystectomy, partly on the basis of the fact that this would entail extremely high risk. At that point, the patient underwent a course of intravenous broad-spectrum antibiotics using Zosyn and improved and, since that time, has been more or less stable though she has had issues involving the necessity for transfusions for anemia as well as continued right upper quadrant pain, but she has gotten along reasonably well without removal of her gallbladder. She remains on the transplant list for liver transplantation. The patient was readmitted to this facility on September 04 complaining of abdominal pain, nausea and intermittent dry heaves. She noted that the pain was especially severe in the right upper quadrant, but this was similar to the pain she had had for many weeks and, in fact, a few months prior but just more so. She did not have any overt fevers, chills or sweats at the time of admission yesterday. I was contacted yesterday regarding antibiotic choice in this patient who is on chronic Cipro for SBP prophylaxis and, in fact, has a history of SBP in the past. I suggested that if the patient had only pain with nausea and vomiting, but no other symptoms we could safely wait on antibiotics at least until a paracentesis with cultures could be done, but that if she worsened in any way or developed fevers, meropenem should be started. Overnight, the patient has had some lower grade fevers and a persistence of her distended abdomen from ascites and right upper quadrant pain. She has continued to have nausea but has actually been quite hungry as well. A HIDA scan was planned for today, but had to be canceled and will be done tomorrow. This morning, I discussed the case in person with Dr. Gonzalez of GI. We felt that in view of her fevers, that meropenem should be started and the paracentesis done as soon as possible as it has not been completed yesterday. In addition, I would recommend that the blood cultures be done prior to the initiation of antibiotics. Because of her long history of pretreatment with SBP prophylaxis, I had recommended meropenem as the drug of choice and that has been started today. PAST MEDICAL HISTORY: 1. End-stage liver disease with ascites. 2. Anemia requiring transfusions. 3. Hypothyroidism. 4. Status post Rajan-en-Y for morbid obesity about 10 years ago. 5. History of SBP. SOCIAL HISTORY: The patient was a heavy alcohol user but quit some time ago and is currently abstinent awaiting liver transplant. She is not a cigarette smoker. She recently moved here from [place] (was actually born in [place] but she has not been in that region for many years). FAMILY HISTORY: The family history is negative for TB in 1st or 2nd-degree relatives. REVIEW OF SYSTEMS: Today, the patient has no significant headache or visual change. No sore throat. She has minimal cough. No shortness of breath. She does have nausea but no vomiting, and she is actually asking for food as she is quite hungry. She has chronic right upper quadrant pain which seems about at baseline. She notes her abdominal distention is a lot better following today's 3.3 L paracentesis. She does not have a Barron catheter. She does not have any particular pain in the joints though she does report a bit of knee pain bilaterally, and she does note that she has very significant peripheral edema which is constant. She has had some fevers but no shaking chills. No sweats. Remainder of the review of systems is negative. PHYSICAL EXAMINATION: Reveals an afebrile woman who was febrile starting last night at 2000 hours 38.2, and she was febrile again this morning at 4 a.m. at 38.4, so those are the two fevers of her 36 hours or so in the hospital. Her pulse is 100, respiratory rate 18, blood pressure 106/65. She is saturating well on room air. On physical the most dramatic thing, of course, is the patient is deeply jaundiced with profound scleral icterus. No conjunctivitis is noted. Her conjunctivae are pale bilaterally. Head without trauma. No temporal wasting. Mental status is normal, and the patient is sharp and interactive in all ways. Oral cavity without thrush or hairy leukoplakia. Neck without adenopathy and supple. Lungs relatively clear. Cardiac tones with a 2+/6 systolic murmur heard across the precordium. She had multiple spider-type lesions over the anterior upper chest consistent with her diagnosis of cirrhosis. Her abdomen is distended with ascites but apparently much better than it was a few hours ago before the 3.3 L paracentesis. There is [id number] right upper quadrant tenderness which is not notable on the left side. She does not have appreciable splenomegaly that I can appreciate. She does not have suprapubic fullness and she does not have a Barron. No inguinal adenopathy is appreciated. The patient has no Barron catheter. No suprapubic tenderness. She does have diffuse edema of both legs all the way up really to the thighs consistent with anasarca. She does not have synovitis. Aside from the spiders and the deep jaundice, there is no skin rash. Neurologically, she is intact but a bit weak throughout. LABORATORIES: Include white count of 8100, hematocrit 18 this morning, platelets chronically low and are currently 80,000. Creatinine less than 0.3. LFTs notable for AST of 77, ALT is 24, albumin 2.3. Procalcitonin 0.59. Urinalysis without white cells. Peritoneal fluid today has 4775 white cells. Note that when she was here in June, a tap showed 71 white cells, and back in March/April admission 290 white cells, but this is the first time she has had over 250 neutrophils and she actually has 3000 neutrophils consistent with the diagnosis of SBP. Hepatitis C antibody is negative. Micro studies include pending blood cultures from yesterday; they are currently negative. Peritoneal fluid was just done and the Gram stain shows some polys but without organisms. IMAGING: Was reviewed. The patient had an abdominal CT scan done yesterday which shows a cirrhotic liver, portal hypertension with splenic varices, splenomegaly and large ascites, cholelithiasis is seen without evidence of cholecystitis, and there are areas of bowel wall thickening. An ultrasound was done, but just to facilitate paracentesis and, of course, it showed ascites. Gallbladder sludge was also seen and some gallbladder wall thickening with pericholecystic fluid which is suspicious for but not diagnostic of acute cholecystitis. IMPRESSION: This is a difficult and complex case of a young woman with far advanced cirrhosis who is on the transplant list. She presented here in March with right upper quadrant pain and extensive evaluation for possible cholecystitis or spontaneous bacterial peritonitis (SBP) ensued. There was no evidence of SBP by culture or cell criteria at that time, but there was enough consideration about acute cholecystitis that the patient was placed on broad-spectrum antibiotics and subsequently seen at the [facility]. There, they felt that cholecystitis was unlikely and surgery would be very high-risk, so surgery was deferred and she was treated with broad-spectrum antibiotics with a reasonably good outcome. In the intervening months, she has been "up and down" to use her phrase but, in general, has been reasonably healthy and, in fact, completed a trip between [place] and [facility] by car fairly recently. She is admitted again on this occasion with increasing right upper quadrant pain, nausea and vomiting. There was no fever at admission, but within 24 hours of admission she spiked to 38.4, which is very significant in a cirrhotic patient. The question now is whether this is a gallbladder problem, SBP, perforated bowel, or some other issue. The high cell count in her peritoneal fluid strongly suggests that this is peritonitis. Whether this is spontaneous bacterial peritonitis or secondary to some underlying bowel pathology is of yet unclear, but I think in the main we must go ahead and treat her for peritonitis. RECOMMENDATIONS: 1. I would discontinue the Cipro she has been receiving as prophylaxis. 2. Will start on meropenem 1 g q.8 as empiric coverage while we await the blood and SBP cultures. 3. We await the HIDA scan, but I suspect that this is not so much gallbladder and is more SBP or perhaps a translocation or perforation of bowel underneath the peritoneal fluid. 4. Will continue to very closely watch this very ill patient with you.
--- NOTE | 2016-09-05 19:26 | NUR ---
Blood Transfusion pt H/H 5.8 and 18.4 this am. order to transfuse 2units. Education provided to pt regarding transfusion procedure. Patient verbalized understanding. Consent obtained from patient. Transfusion initiated with nurse at bedside. Patient tolerated initiation well without any s/s of transfusion reaction. Total of 2 units given today without any s/s of complications.
[2016-09-05] MEDS: Octreotide Inj 500 MCG in 0.9% Sodium Chloride 99 ML IV SCH (19:46)
[2016-09-05 21:21] LABS: Mean Corpuscular Volume 111.3 fL (81-100)
[2016-09-05 22:16] LABS: Magnesium 1.8 mg/dL (1.6-2.6)
[2016-09-05] MEDS: Lactulose 20 Gm/30 mL 30 mL Syrup PO SCH (23:27)
[2016-09-06] VITALS (14 sets, daily range): BP systolic 101–119; BP diastolic 48–76; PULSE 91–99; RESP 16–20; O2SAT 92–99
--- NOTE | 2016-09-06 02:36 | NUR ---
Labs Labs ordered at start of shift resulted WNL and given lactulose per MD directions. Pt reports pain in abdomen, feels relief of pressure and easier breathing since paracentesis. Jaundiced. NPO starting at midnight for hida scan at 0730, pt aware of rules of NPO and 6 hr without narcotics as well. Two peripheral IVs in L arm, AC patent and used for ABX, hand is bruised and tender but patent also. Care Continues
[2016-09-06] MEDS: Octreotide Inj 500 MCG in 0.9% Sodium Chloride 99 ML IV SCH ×2 (03:35→09:28)
[2016-09-06] MEDS: Meropenem Inj 1,000 MG in 0.9% Sodium Chloride 100 ML IV SCH ×3 (04:18→21:03)
[2016-09-06] MEDS: 0.9% Sodium Chloride 1,000 ML IV SCH ×2 (04:21→18:05)
[2016-09-06] MEDS: 0.9% Sodium Chloride 250 ML IV SCH ×2 (06:10→22:14)
[2016-09-06 06:14] LABS: BASOPHILS % (AUTO) 1.4 % (0-3); MONOCYTES % (AUTO) 12.4 % (4-12); NEUTROPHILS % (AUTO) 59.5 % (40-74); Platelet Count 63 bil/L (150-400)
[2016-09-06 06:33] LABS: INR 1.99 ratio
[2016-09-06] MEDS: Pantoprazole 4 mg/mL 10 mL Inj IVPUSH SCH ×2 (07:30→16:30)
[2016-09-06] MEDS ORDERED: Potassium Phos (mEq) Inj 20 MEQ in Dextrose 5% 250 ML IV ONE (08:05)
[2016-09-06] MEDS: Lactulose 20 Gm/30 mL 30 mL Syrup PO SCH ×2 (09:20→21:03)
[2016-09-06] MEDS: Lactobacillus Rhamnosus 10 Bil Unit Capsule PO SCH (09:20)
[2016-09-06] MEDS: HYDROmorphone 1 mg/mL Inj IVPUSH PRN ×4 (09:32→22:59)
--- NOTE | 2016-09-06 10:22 | DRSVH ---
PROCEDURE: ME HIDA SCAN WITH CCK PHARMACEUTICAL: 5.4 mCi Tc-99m mebrofenin IV; 1.4 mcg CCK IV. INDICATIONS: placido. TECHNIQUE: Following intravenous administration of Tc-99m mebrofenin, sequential anterior abdominal images were obtained. To evaluate the contractile response of the gallbladder in response to Cholecystokinin (CC K), sincalide (0.02 g/kg) was administered by slow intravenous infusion approximately 60 minutes aft er the administration of the radiopharmaceutical. Sequential imaging was continued for [address] the start of CCK infusion. Gallbladder ejection fraction was calculated. COMPARISON: [facility], ME, ME HIDA SCAN W CCK STD, 05/03/2016, 9:13. FINDINGS: Biliary scan: There is normal tracer uptake and excretion by the liver. There is normal visualizati on of the intrahepatic ducts, common bile duct, and gallbladder. There is normal tracer transit into the duodenum. CCK stimulation: There is normal contractile response of the gallbladder to CCK infusion. The calcu lated gallbladder ejection fraction is 40.4 %; normal values are above 35%. It has been shown that any patient abdominal pain after CCK administration is related to the rate of CCK injection, rather than to any underlying gallbladder disease (Clinical Nuclear Medicine 2012; 37: 63-70. Journal of Nuclear Medicine 2014; 55: 1-9). IMPRESSION: Normal hepatocellular uptake and excretion of the radioisotope, normal gallbladder ejecti on fraction of 40.4%. Source of abdominal pain is not identified by this examination. Dictated by: Arley Glass M.D. on 09/06/2016 at 10:18 Approved by: Arley Glass M.D. on 09/06/2016 at 10:21
[2016-09-06] MEDS ORDERED: 0.9% Sodium Chloride 250 ML IV ONE ×2 (10:50→16:50)
--- NOTE | 2016-09-06 12:53 | PCM.PNMED ---
Subjective Date of Service Sep 06, 2016 Subjective transfused 2 PRBCs on 09/05. Hb did not respond appropriately to transfusion.pretx Hb 5.9,post 7.1 . will transfuse 2 more PRBCs Exam Vital Signs Vital Sign - Last Date Time Temp Pulse Resp B/P Pulse Ox O2 Delivery O2 Flow Rate FiO2 09/06/16 10:28 99 09/06/16 09:05 37.4 18 115/65 99 Room Air 09/04/16 14:43 2 Intake and Output 09/05/16 09/05/16 09/06/16 Cumulative From/Thru 15:00 23:00 07:00 09/04/16 11:37 - 09/06/16 06:04 Intake Total 1000 ml 790 ml 2249 ml 5864 ml Output Total 6260 ml 600 ml 500 ml 8210 ml Balance -5260 ml 190 ml 1749 ml -2346 ml Intake Oral 440 ml 1099 ml 2364 ml IV Total 1000 ml 50 ml 1150 ml 3200 ml Packed Cells 300 ml 300 ml Output Urine Total 600 ml 500 ml 1950 ml Other 6260 ml 6260 ml # Bowel Movements 1 1 Exam General: No acute distress, likely ill-appearing woman laying comfortably in hospital bed HEENT: Normocephalic, atraumatic. External ears without defect. Pupils equal, round, and reactive to light and accommodation. deeply Icteric sclerae, moist conjunctivae, and no lid lag. Oropharynx free of erythema, moist mucosa. Neck: Supple with full range of motion. No jugular venous distension. No bruits. No lymphadenopathy or thyromegaly. Cardiovascular: Regular rate and rhythm with III/ systolic murmur heard best at upper left sternal border. No rubs, or gallops appreciated Pulmonary: Clear to auscultation bilaterally with no crackles, wheezes, or rhonchi. Normal respiratory effort with no use of accessory muscles. Abdomen: Bowel tones present. Soft, mildly tender in lower quadrants bilaterally , significantly distended. No masses appreciated. diffuse tendness but marked at RUQ. Extremities: Pale bruises over upper and lower extremities bilaterally no clubbing, cyanosis, edema, or lymphadenopathy appreciated. Skin: Patient appears yellow from jaundice. Normal temperature, turgor, and texture; no rash, ulcers, or subcutaneous nodules appreciated. Neurological: Cranial nerves grossly intact. Coordination, and sensory function within normal limits. No known gait impairment. Psychiatric: Normal mood and affect. Alert and oriented to person, place, and time. IVs and Medications Medications Reviewed: Medications were reviewed in detail Lab and Diagnostics Result Diagram: 09/06/[id number] X-Rays, CTs and MRIs CT ABDOMEN AND PELVIS WITH CONTRAST IMPRESSION: 1. Nodular cirrhotic liver redemonstrated with a few small low-density foci which are too small to characterize but likely represents 2. Findings consistent with portal hypertension including gastroesophageal and splenic varices, splenomegaly, and large amount of ascites. 3. Cholelithiasis without definite CT evidence of cholecystitis. Evaluation is limited in the presence of ascites. Recommend correlation clinically and further evaluation with ultrasound if indicated. 4. Multiple segments of bowel wall thickening involving the small and large bowel. Findings may be reactive secondary to ascites versus sequelae of an infectious or inflammatory enterocolitis. 5. Small left pleural effusion with persistent bibasilar consolidation/ atelectasis. Dictated by: Huy Parson M.D. on 09/04/2016 at 14:43 PROCEDURE: US ABDOMEN DOPPLER INDICATIONS: portal thrombosis? TECHNIQUE: Real-time scanning was performed of the abdominal and retroperitoneal organs, with image documentation. . IMPRESSION: Gallbladder sludge with wall thickening and pericholecystic fluid, suspicious for acute cholecystitis. However no sonographic Enriquez sign or biliary ductal dilatation, therefore please correlate clinically and with LFTs. Main portal vein appears patent without intraluminal thrombus. Normal liver Doppler examination. Moderate ascites Splenomegaly. Dictated by: Jakub Watson M.D. on 09/05/2016 at 10:02 PROCEDURE: US GUIDED PARACENTESIS, PRIMARY ([id number]) INDICATIONS: ?SBP, liver failure. Fluid volume and description: 1700 yellow cloudy IMPRESSION: Successful ultrasound-guided paracentesis. Dictated by: Lacey Guzman M.D. on 09/05/2016 at 10:45 Additional Diagnostics US GUIDED PARACENTESIS, PRIMARY FINDINGS: Access site: Right lower quadrant Needle: One-Step centesis catheter with introducer needle. Fluid volume and description: 1700 yellow cloudy Fluid sent for diagnostic testing: Yes Medications: 1% lidocaine for local anaesthesia. Complications: None. IMPRESSION: Successful ultrasound-guided paracentesis. Dictated by: Lacey Guzman M.D. on 09/05/2016 at 10:45 US ABDOMEN DOPPLER IMPRESSION: Gallbladder sludge with wall thickening and pericholecystic fluid, suspicious for acute cholecystitis. However no sonographic Enriquez sign or biliary ductal dilatation, therefore please correlate clinically and with LFTs. Main portal vein appears patent without intraluminal thrombus. Normal liver Doppler examination. Moderate ascites Splenomegaly. Dictated by: Jakub Watson M.D. on 09/05/2016 at 10:02 Assessment & Plan Kristine Odell is a 35-year-old woman with past medical history significant for end-stage liver disease, Rajan-en-Y gastric bypass surgery over 10 years ago who presents to [facility] emergency department for several days worth of nausea and abdominal pain. # sepsis due to SBP and acute cholecystitis -albumin boluses ordered -Antibiotics meropenem started 09/05 -blood culture negative x2 -Paracentesis consistent with SBP ,ANC 3342 .US consistent with acute cholecystitis with pericholecystic fluid # suspected Acute cholecystitis -US consistent with acute cholecystitis with pericholecystic fluid -awaitng HIDA scan -discussed with surgery Dr Ramos. patient is high risk for surgery and needs to be transferred to [facility] if surgery indicated. call placed to her GI/ sewer connector Dr daylin robles at . Awaiting call back. Patient was managed conservatively with IV antibiotics on prior episode in March. She was discharged for elective cholecystectomy but deferred due to high risk for surgery # Acute SBP vs secondary peritonitis -Diagnostic paracenteses done. 1.7 L ascitic fluid removed 09/05. ANC 3342, cell count too high to be SBP . secondary peritonitis due to cholecystitis possible -Started on meropenem # Severe anemia due to non immune chronic hemolytic anemia due to chronic DIC , acute on chronic -patient was recently evaluated by Dr Hagen for hemolytic anemia. patient has low fibrinogen and high d-dimer consistent with non immune chronic hemolytic anemia due to chronic DIC -Due to suspected upper GI bleed. Patient states she had dark loose stool for the last few days but resolved now .stool occult negative 09/05 -Hb drop to 5.9 from 8.5 noted -transfused 2 PRBCs on 09/05. Hb did not respond appropriately to transfusion.pretx Hb 5.9,post 7.1 . will transfuse 2 more PRBCs . Patient currently on transplant list. Anemia severe and symptomatic. Benefit of transfusion outweighs risk of sensitization. Patient verbalize understanding -protonix switched to IV -GI on board .may need repeat EGD if Hb drops again -stool occult negative 09/05 -octreotide drip started 09/05 pending stool occult # Decompensated End-stage liver disease with portal hypertension, present on admission, acute on chronic -Decompensated due to multiple factors( severe anemia, acute cholecystitis,SBP) ,current MELD score 23 -initial bilirubin of 21.5 is significantly higher than has ever been noted previously. -Continue lactulose 10 g daily this could be increased up to 30 g daily if patient is having formed stools per outpatient recommendation -Continue rifaximin -Continue vitamin B 12 # Ascites, present on admission, acute on chronic -Per patient report a paracentesis in the past have been difficult and had only been able to gather a small amount of fluid -Continue furosemide, potassium, and spironolactone # Lactic acidosis, as on admission, resolved -Initial lactate 4.1.improved to 1.5 # Hypothyroidism -Continue levothyroxine High risk meds include IV Dilaudid DVT prophylaxis: SCDs, pharmacologic prophylaxis held due to advanced liver disease and impending When necessary GI, bowel, pain medications ordered CODE STATUS: FULL CODE disposition: 3-4 days Resuscitation Status: CPR: Attempt Resuscitation Maurice Ojeda MD Sep 06, 2016 12:53
[2016-09-06 14:06] LABS: D-Dimer 13.66 mg/L FEU (<0.50)
[2016-09-06] MEDS ORDERED: Furosemide 10 mg/mL 4 mL Inj IVPUSH ONE (15:40)
--- NOTE | 2016-09-06 15:44 | PROG NOTE ---
[address] [address] PROGRESS NOTE PATIENT: GAVI MARINELLI : 1980 MR#: [id number] ADMIT: 09/04/2016 JOB ID: [id number] DATE: 09/06/2016 INPATIENT HEMATOLOGY PROGRESS REPORT: DIAGNOSIS: 1. Current admission for spontaneous bacterial peritonitis. 2. Chronic DIC, secondary to underlying advanced liver disease. 3. Advanced liver cirrhosis associated with portal hypertension, ascites, encephalopathy and chronic DIC. HISTORY OF PRESENT ILLNESS: The patient is a pleasant 36-year-old female with history of excessive alcohol intake (she has been sober since February 2016 and is enrolled in liver transplant list), and consequent advanced liver cirrhosis. She was referred to me last week for evaluation of chronic anemia. Her labs showed chronic DIC in the setting of advanced liver cirrhosis. Her anemia is considered multifactorial, primarily related to microangiopathy due to DIC, but also other contributions by hypersplenism and chronic occult GI bleeding. The patient was admitted two days ago with worsening abdominal distention, pain, nausea and vomiting. She developed fever. Paracentesis yesterday is consistent with bacterial peritonitis. Leukocyte count is 4775 with 70% poly nuclears. Ultrasound yesterday was suggestive of cholecystitis but a HIDA scan is negative for cholecystitis. Currently her pain and nausea are quite better. She appears quite comfortable resting on her bed today. She is awake, alert and oriented x3. She has defervesced and her tachycardia has resolved. Current vitals include blood pressure 118/73, heart rate 97, temperature 37.1, O2 saturation 97% on room air. LABORATORIES: Hemoglobin dropped to 5.9 yesterday and she was transfused. Platelet count has dropped to 63,000. Fibrinogen is severely low. It was 85 four days ago in clinic and 64 today. D-dimer was 9.8 four days ago and has risen further to 13.7 today. INR has increased to 1.99. Bilirubin is 17.9, with predominantly indirect fraction. Albumin is 2.2. IMPRESSION AND RECOMMENDATIONS: 1. The patient clearly has chronic DIC due to her advanced liver disease. She probably has a component of acute on chronic DIC currently due to recent infection. Fortunately she does not show any hemorrhagic or thrombotic complications of DIC. Dr. Gonzalez plans to give her FFP today and that would help her INR and low fibrinogen. Continue daily monitoring of D-dimer and fibrinogen. If fibrinogen is under 80, even if no bleeding symptoms, I recommend 12 units of cryoprecipitate. 2. Chronic anemia. The main contributing factor to this is chronic DIC, and other contributing factors are hypersplenism and chronic occult GI blood loss. She is iron replete. I recommend 1 unit blood transfusion if hemoglobin drops to 6.4 or lower. I will followup with her tomorrow.
--- NOTE | 2016-09-06 15:57 | NUR ---
Social Work- Initial Assessment/ Multi-Disciplinary Rounds Data: See Initial Assessment. Pt is a 36 year old female admitted 09/04/16 for ESLD, Ascites, Abdominal Pain per H&P. Pt's insurance is [employer]. Pt's PCP is Michele Hernandez DO. Pt's readmit risk score is 4- high risk. Pt's NOK is mother Trinidad Speechly [phone]. Per multi-disciplinary rounds, ID is following pt and awaiting blood and SBP cultures. Pt will likely require abx at discharge, unknown if PO or IV. No social work needs identified in rounds. SW met with pt and mother Trinidad at bedside regarding discharge plan, SW role explained. Pt alert and oriented x3. Pt's capacity for self-care assessed. Pt resides with her mother on [place] where she is independent at baseline and her mother assists when pt is too tired. Pt's mother assists with chores and transportation to doctors appointments. Pt is in the process of moving from [place] to [facility] with her boyfriend to live independently. Pt is currently receiving IOP services for etoh abuse through an online program call [facility]. Pt participates in 3 hours of therapy each day 3 times per week. Pt is also receives homework and follow up services through [employer]. Pt's mother confirms this and states that pt is very involved in this program. Pt has been sober since February. No CD assessment warranted in this case as pt already has services. Pt reports that she is on the transplant list at [facility]. Pt's boyfriend, mother, and father are her primary supports. Pt's father is the one who will be providing all her care after her transplant. Pt is close with her parents and feels very supported by them. Pt's SO does not drink, which is a good support for pt's sobriety. Pt is comfortable returning home with her mother at discharge. No concerns related to pt's capacity for self-care identified at this time. SW will continue to follow for discharge planning needs, including abx needs at discharge. Assessment: Pt who is independent at baseline and resides with her mother. Plan: No concerns related to pt's capacity for self-care identified at this time. Pt is likely to return home with her mother at discharge. SW will continue to follow for discharge planning needs, including abx needs at discharge. Yakelin Yip HOSPITALITY ASSOCIATE Addendum: 09/06/16 at 1606 by ELVIA GRAY Amended: Links added.
[2016-09-06] MEDS ORDERED: Phytonadione (Adult) 10 mg/1 mL Inj PO ONE (19:40)
--- NOTE | 2016-09-06 19:55 | PCM.PNMED ---
Subjective Date of Service Sep 06, 2016 Subjective Patient feels better since paracentesis yesterday, she continues to have abdominal discomfort. Exam Vital Signs Vital Sign - Last Date Time Temp Pulse Resp B/P Pulse Ox O2 Delivery O2 Flow Rate FiO2 09/06/16 18:33 36.3 94 20 118/68 09/06/16 17:52 96 Room Air 09/04/16 14:43 2 Intake and Output 09/05/16 09/05/16 09/06/16 Cumulative From/Thru 15:00 23:00 07:00 09/04/16 11:37 - 09/06/16 06:04 Intake Total 1000 ml 790 ml 2249 ml 5864 ml Output Total 6260 ml 600 ml 500 ml 8210 ml Balance -5260 ml 190 ml 1749 ml -2346 ml Intake Oral 440 ml 1099 ml 2364 ml IV Total 1000 ml 50 ml 1150 ml 3200 ml Packed Cells 300 ml 300 ml Output Urine Total 600 ml 500 ml 1950 ml Other 6260 ml 6260 ml # Bowel Movements 1 1 Exam General: No acute distress, well-developed, well-nourished, jaundiced, appropriately interactive HEENT: Normocephalic, atraumatic. External ears without defect. Icteric sclerae , moist conjunctivae, and no lid lag. Neck: Supple with full range of motion. No jugular venous distension. No lymphadenopathy or thyromegaly. Cardiovascular: Regular rate and rhythm with III/ systolic murmur heard best at upper left sternal border, no rubs or gallops appreciated Pulmonary: Clear to auscultation bilaterally with no crackles, wheezes, or rhonchi. Normal respiratory effort with no use of accessory muscles. Abdomen: Bowel tones present. Soft, diffusely tender, mildly distended. No masses appreciated. Extremities: No clubbing, cyanosis, edema, or lymphadenopathy appreciated. Skin: Jaundice, normal temperature, turgor, and texture; no rash, ulcers, or subcutaneous nodules appreciated. Neurological: Cranial nerves grossly intact. Mild asterixis, Normal muscle strength, tone, and bulk. No gait impairment. Psychiatric: Normal mood and affect. Alert and oriented to person, place, and time. Lab and Diagnostics Result Diagram: 09/06/16 0545 09/06/16 0545 X-Rays, CTs and MRIs CT ABDOMEN AND PELVIS WITH CONTRAST IMPRESSION: 1. Nodular cirrhotic liver redemonstrated with a few small low-density foci which are too small to characterize but likely represents 2. Findings consistent with portal hypertension including gastroesophageal and splenic varices, splenomegaly, and large amount of ascites. 3. Cholelithiasis without definite CT evidence of cholecystitis. Evaluation is limited in the presence of ascites. Recommend correlation clinically and further evaluation with ultrasound if indicated. 4. Multiple segments of bowel wall thickening involving the small and large bowel. Findings may be reactive secondary to ascites versus sequelae of an infectious or inflammatory enterocolitis. 5. Small left pleural effusion with persistent bibasilar consolidation/ atelectasis. Dictated by: Huy Parson M.D. on 09/04/2016 at 14:43 PROCEDURE: US ABDOMEN DOPPLER INDICATIONS: portal thrombosis? TECHNIQUE: Real-time scanning was performed of the abdominal and retroperitoneal organs, with image documentation. . IMPRESSION: Gallbladder sludge with wall thickening and pericholecystic fluid, suspicious for acute cholecystitis. However no sonographic Enriquez sign or biliary ductal dilatation, therefore please correlate clinically and with LFTs. Main portal vein appears patent without intraluminal thrombus. Normal liver Doppler examination. Moderate ascites Splenomegaly. Dictated by: Jakub Watson M.D. on 09/05/2016 at 10:02 PROCEDURE: US GUIDED PARACENTESIS, PRIMARY ([id number]) INDICATIONS: ?SBP, liver failure. Fluid volume and description: 1700 yellow cloudy IMPRESSION: Successful ultrasound-guided paracentesis. Dictated by: Lacey Guzman M.D. on 09/05/2016 at 10:45 Additional Diagnostics US GUIDED PARACENTESIS, PRIMARY FINDINGS: Access site: Right lower quadrant Needle: One-Step centesis catheter with introducer needle. Fluid volume and description: 1700 yellow cloudy Fluid sent for diagnostic testing: Yes Medications: 1% lidocaine for local anaesthesia. Complications: None. IMPRESSION: Successful ultrasound-guided paracentesis. Dictated by: Lacey Guzman M.D. on 09/05/2016 at 10:45 US ABDOMEN DOPPLER IMPRESSION: Gallbladder sludge with wall thickening and pericholecystic fluid, suspicious for acute cholecystitis. However no sonographic Enriquez sign or biliary ductal dilatation, therefore please correlate clinically and with LFTs. Main portal vein appears patent without intraluminal thrombus. Normal liver Doppler examination. Moderate ascites Splenomegaly. Dictated by: Jakub Watson M.D. 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 1. I suspect the source of the infection is the gallbladder. Spontaneous bacterial peritonitis is still a possibility, but based on the CT scan, she also has thickened gallbladder wall as well as thickened small and large colon, but these could be secondary to ascites. Case discussed with infectious disease. Meropenem started after paracentesis 2. On admission she has some evidence of encephalopathy and an ammonia level of 134. I would continue the lactulose 10 cc twice a day and rifaximin 550 twice a day. 3. There is some pleural effusion on the CT scan. She is not coughing and she is not short of breath. However, would get full chest x-ray, PA and lateral , to make sure she does not have any underlying pneumonia. She has no chest pain or shortness of breath, but defer cardiopulmonary issue to the primary care service. 4. There is evidence of anemia. Likely hemolytic from chronic DIC Hemoglobin 8.5 on admission (09/04/16), decreased down to 5.9 the following morning (09/05/16) with one dark stool per nursing report. She has no hematemesis. Patient on IV Protonix 40 mg twice a day because of underlying portal hypertension. Recommend avoiding medications such as vitamin C multivitamin which could cause ulcers. So, in terms of the vitamins, I would hold off until she is improved. Also, would avoid oral potassium as well because of a potential that this could be causing ulcers. She is on Lasix and spironolactone. I think it is wilson to continue that for now with an increase tomorrow pending lab stability 5. She had therapeutic paracentesis showing 4775 white blood cells 70% PMN. Gram stain shows few polys, no organisms seen. Albumin 0.3 Culture pending. 6. If patient develops diarrhea threshold for stool PCR including C. difficile, especially because she has been on Cipro. 7. Ultrasound performed showing gallbladder sludge, thickened wall, pericholecystic fluid. Normal liver Doppler examination, moderate ascites, splenomegaly HIDA scan shows EF of 40%. 8. Recommend getting a chest x-ray, panculture including urine recommended. Blood cultures pending. 9. Albumin two bottles, 25% three times a day for three days. 10. Based on the imaging, there seems to be no evidence of Budd-Chiari or portal vein thrombosis. However, would recommend getting a Doppler ultrasound of the inferior vena cava as well as the portal veins. 11. Dr. Eckert from infectious disease is involved and meropenem was given after the paracentesis. 12. Recommend octreotide drip for 5 days. 13. Daily INR checks 14. We will hold off on EGD for the time being as patient is negative in stool with an INR of 1.9. 15. Fractionated bilirubin in a.m. 16. Patient will receive vitamin K. Dosing discussed with pharmacy 5 mg by mouth, 2 units fresh frozen plasma today 17. Therapeutic paracentesis with CBC, culture and Gram stain, total protein and albumin to be performed in the morning I saw and examined the patient. Agree with the patient. Resuscitation Status: CPR: Attempt Resuscitation copies to: Ceasar Gonzalez MD, Erika R DO Sep 06, 2016 19:55 Ceasar Gonzalez MD Sep 07, 2016 14:16
--- NOTE | 2016-09-06 20:25 | NUR ---
4 Units FFP MD contacted regarding concurrent orders for 4 Units FFP and 2 Units FFP. MD clarified 4 units to be given, not 6.
[2016-09-06 20:26] LABS: BASOPHILS % (AUTO) 1.7 % (0-3); MONOCYTES % (AUTO) 10.9 % (4-12); Mean Corpuscular Hemoglobin 36.1 pg (27.0-35.0); Mean Corpuscular Volume 103.3 fL (81-100); NEUTROPHILS % (AUTO) 65.3 % (40-74); Platelet Count 67 bil/L (150-400)
[2016-09-07] VITALS (15 sets, daily range): BP systolic 92–123; BP diastolic 46–76; PULSE 72–113; RESP 14–18; O2SAT 93–97
[2016-09-07] MEDS: Octreotide Inj 500 MCG in 0.9% Sodium Chloride 99 ML IV SCH ×3 (01:18→22:28)
[2016-09-07] MEDS: HYDROmorphone 1 mg/mL Inj IVPUSH PRN ×6 (01:49→21:57)
[2016-09-07] MEDS: Meropenem Inj 1,000 MG in 0.9% Sodium Chloride 100 ML IV SCH ×3 (06:14→20:38)
--- NOTE | 2016-09-07 06:26 | NUR ---
Itching/Low Grade Fever Pt c/o generalized itching this shift. States "I think it's due to the ascites and my skin feeling tight." giving 25mg Benadryl q6 Hr which pt states helps alleviate some of the itching. Pt also running low grade fever through the night, running low 99's. No SOB and not diaphoretic. Continue to monitor. Addendum: 09/07/16 at 0720 by BROCK CORDERO RN Pt has PIV in each arm. Right PIV used for FFP. Left PIV used for IV fluids/antibiotics.
[2016-09-07] MEDS: Lactobacillus Rhamnosus 10 Bil Unit Capsule PO SCH (08:55)
[2016-09-07] MEDS: Lactulose 20 Gm/30 mL 30 mL Syrup PO SCH ×2 (08:55→20:37)
[2016-09-07 09:27] LABS: BASOPHILS % (AUTO) 2.3 % (0-3); EOSINOPHILS % (AUTO) 2.9 % (0-5); MONOCYTES % (AUTO) 12.1 % (4-12); Mean Corpuscular Hemoglobin 35.6 pg (27.0-35.0); Mean Corpuscular Volume 105.7 fL (81-100); NEUTROPHILS % (AUTO) 58.7 % (40-74); Platelet Count 59 bil/L (150-400)
[2016-09-07 09:49] LABS: INR 1.46 ratio
[2016-09-07 09:57] LABS: Bilirubin, Direct 8.4 mg/dL (0.0-0.3)
--- NOTE | 2016-09-07 10:13 | NUR ---
Bilirubin Pt's total bilirubin was 18.5 this a.m. Cook page sent to hospitalist. No new orders at this time.
[2016-09-07] MEDS: Pantoprazole 4 mg/mL 10 mL Inj IVPUSH SCH ×2 (10:24→18:25)
[2016-09-07] MEDS ORDERED: KCl 40 mEq/D5W 500 mL 40 MEQ in IV Premix 1 EACH IV ONE (10:35)
--- NOTE | 2016-09-07 11:07 | DRSVH ---
PROCEDURE: US VENOUS LEG DUPLEX BILATERAL INDICATIONS: swelling TECHNIQUE: Real-time imaging, as well as color and pulse Doppler interrogation, were performed of the deep veins of both legs from the inguinal ligament to the popliteal fossa. COMPARISON: None. FINDINGS: The deep veins are normally compressible, and free of intraluminal thrombus. Color and pu lse Doppler demonstrate normal phasic intravascular flow. There is normal augmentation response to d istal compression maneuver. IMPRESSION: Both legs are negative for DVT Dictated by: Rory Sage M.D. on 09/07/2016 at 11:05 Approved by: Rory Sage M.D. on 09/07/2016 at 11:05
[2016-09-07] MEDS: 0.9% Sodium Chloride 1,000 ML IV SCH ×2 (11:19→20:45)
[2016-09-07 11:29] LABS: D-Dimer 13.94 mg/L FEU (<0.50)
--- NOTE | 2016-09-07 12:12 | PROG NOTE ---
[address] [address] PROGRESS NOTE PATIENT: GAVI MARINELLI : 1980 MR#: [id number] ADMIT: 09/04/2016 JOB ID: [id number] DATE: 09/07/2016 INFECTIOUS DISEASE FOLLOWUP NOTE: REASON FOR FOLLOWUP: Neutrophilic ascites with probable SBP. INTERVAL HISTORY: Overnight, the patient reports this morning she has been quite sleepy but otherwise feels okay. No fevers that she has noted. No chills or sweats. No significant cough. She still has dramatic abdominal distention as before. PHYSICAL EXAMINATION: Reveals an afebrile woman currently 36.9, but she was 38.1 very early this morning. Pulse 89, respiratory rate 14, blood pressure 112/50. She is saturating well on room air. She is deeply jaundiced, with spider telangiectasias over the upper chest as before. Lungs relatively clear, with decreased excursion. Abdomen grossly distended, reasonably nontender. LABORATORIES: Include a white count of 5200, hematocrit 27, platelet count 59, creatinine 0.3. AST 67. Recall that she had almost 5000 white cells on her last peritoneal tap, dominantly neutrophils. Culture from that, as well as blood cultures, are negative. Ultrasound of the leg showed no DVT. IMPRESSION: This is a complicated patient with end-stage liver disease and probable spontaneous bacterial peritonitis (SBP) based on the very high neutrophilic ascites. We been concerned about the liver, but the predominance of evidence suggests that she does not have acute cholecystitis. She is on meropenem because she failed Cipro prophylaxis apparently and we are forced to use broad spectrum coverage. She also has ongoing chronic disseminated intravascular coagulation (DIC) as was evaluated today by the pension consultant. RECOMMENDATIONS: 1. Continue with meropenem 1 g q.8 coverage. 2. We would like to see the patient afebrile for at least a day or two before we consider a reduction in antibiotic therapy or possible transition to oral agents. Thank you very much.
--- NOTE | 2016-09-07 13:18 | PCM.PNMED ---
Subjective Date of Service Sep 07, 2016 Subjective 2 more units of PRBCs transfused yesterday. 4 units of FFP transfused yesterday. Cryoprecipitate not given. Fibrinogen improved with FFP. Low- grade fever overnight temp 38.1. Tachycardic to 113. Exam Vital Signs Vital Sign - Last Date Time Temp Pulse Resp B/P Pulse Ox O2 Delivery O2 Flow Rate FiO2 09/07/16 08:46 36.9 89 14 112/50 09/07/16 07:54 95 Room Air 09/04/16 14:43 2 Intake and Output 09/06/16 09/06/16 09/07/16 Cumulative From/Thru 15:00 23:00 07:00 09/04/16 11:37 - 09/07/16 05:46 Intake Total 2120 ml 3796 ml 93050 ml Output Total 2950 ml 1450 ml 55146 ml Balance -830 ml 2346 ml -830 ml Intake Oral 1240 ml 1311 ml 4915 ml IV Total 200 ml 1585 ml 4985 ml Packed Cells 680 ml 980 ml FFP 900 ml 900 ml Output Urine Total 2950 ml 1450 ml 6350 ml Other 6260 ml # Bowel Movements 0 1 Exam General: No acute distress, likely ill-appearing woman laying comfortably in hospital bed HEENT: Normocephalic, atraumatic. External ears without defect. Pupils equal, round, and reactive to light and accommodation. deeply Icteric sclerae, moist conjunctivae, and no lid lag. Oropharynx free of erythema, moist mucosa. Neck: Supple with full range of motion. No jugular venous distension. No bruits. No lymphadenopathy or thyromegaly. Cardiovascular: Regular rate and rhythm with III/ systolic murmur heard best at upper left sternal border. No rubs, or gallops appreciated Pulmonary: Clear to auscultation bilaterally with no crackles, wheezes, or rhonchi. Normal respiratory effort with no use of accessory muscles. Abdomen: Bowel tones present. Soft, mildly tender in lower quadrants bilaterally , significantly distended. No masses appreciated.mild diffuse tenderness but marked at RUQ. Extremities: Pale bruises over upper and lower extremities bilaterally no clubbing, cyanosis, edema, or lymphadenopathy appreciated. Skin: Patient appears yellow from jaundice. Normal temperature, turgor, and texture; no rash, ulcers, or subcutaneous nodules appreciated. Neurological: Cranial nerves grossly intact. Coordination, and sensory function within normal limits. No known gait impairment. Psychiatric: Normal mood and affect. Alert and oriented to person, place, and time. IVs and Medications Medications Reviewed: Medications were reviewed in detail Lab and Diagnostics Result Diagram: 09/07/16 0905 09/07/16 0800 X-Rays, CTs and MRIs CT ABDOMEN AND PELVIS WITH CONTRAST IMPRESSION: 1. Nodular cirrhotic liver redemonstrated with a few small low-density foci which are too small to characterize but likely represents 2. Findings consistent with portal hypertension including gastroesophageal and splenic varices, splenomegaly, and large amount of ascites. 3. Cholelithiasis without definite CT evidence of cholecystitis. Evaluation is limited in the presence of ascites. Recommend correlation clinically and further evaluation with ultrasound if indicated. 4. Multiple segments of bowel wall thickening involving the small and large bowel. Findings may be reactive secondary to ascites versus sequelae of an infectious or inflammatory enterocolitis. 5. Small left pleural effusion with persistent bibasilar consolidation/ atelectasis. Dictated by: Huy Parson M.D. on 09/04/2016 at 14:43 PROCEDURE: US ABDOMEN DOPPLER INDICATIONS: portal thrombosis? TECHNIQUE: Real-time scanning was performed of the abdominal and retroperitoneal organs, with image documentation. . IMPRESSION: Gallbladder sludge with wall thickening and pericholecystic fluid, suspicious for acute cholecystitis. However no sonographic Enriquez sign or biliary ductal dilatation, therefore please correlate clinically and with LFTs. Main portal vein appears patent without intraluminal thrombus. Normal liver Doppler examination. Moderate ascites Splenomegaly. Dictated by: Jakub Watson M.D. on 09/05/2016 at 10:02 PROCEDURE: US GUIDED PARACENTESIS, PRIMARY ([id number]) INDICATIONS: ?SBP, liver failure. Fluid volume and description: 1700 yellow cloudy IMPRESSION: Successful ultrasound-guided paracentesis. Dictated by: Lacey Guzman M.D. on 09/05/2016 at 10:45 PROCEDURE: NM HIDA SCAN WITH CCK PHARMACEUTICAL: 5.4 mCi Tc-99m mebrofenin IV; 1.4 mcg CCK IV. IMPRESSION: Normal hepatocellular uptake and excretion of the radioisotope, normal gallbladder ejection fraction of 40.4%. Source of abdominal pain is not identified by this examination. Dictated by: Arley Glass M.D. on 09/06/2016 at 10:18 Additional Diagnostics US GUIDED PARACENTESIS, PRIMARY FINDINGS: Access site: Right lower quadrant Needle: One-Step centesis catheter with introducer needle. Fluid volume and description: 1700 yellow cloudy Fluid sent for diagnostic testing: Yes Medications: 1% lidocaine for local anaesthesia. Complications: None. IMPRESSION: Successful ultrasound-guided paracentesis. Dictated by: Lacey Guzman M.D. on 09/05/2016 at 10:45 US ABDOMEN DOPPLER IMPRESSION: Gallbladder sludge with wall thickening and pericholecystic fluid, suspicious for acute cholecystitis. However no sonographic Enriquez sign or biliary ductal dilatation, therefore please correlate clinically and with LFTs. Main portal vein appears patent without intraluminal thrombus. Normal liver Doppler examination. Moderate ascites Splenomegaly. Dictated by: Jakub Watson M.D. 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 # sepsis due to SBP and acute acalculous cholecystitis -albumin boluses given -Antibiotics meropenem started 09/05 -blood culture negative x2 -Paracentesis consistent with SBP ,ANC 3342 .US consistent with acute cholecystitis with pericholecystic fluid # suspected Acute cholecystitis -US consistent with acute cholecystitis with pericholecystic fluid but HIDA scan not consistent with cholecystitis. Normal gallbladder ejection fraction of 40% -discussed with surgery Dr Ramos. patient is high risk for surgery and needs to be transferred to [facility] if surgery indicated. Discussed with GI/ mold operator at and [facility] . they recommend conservative management with antibiotics. Patient was managed conservatively with IV antibiotics on prior episode in March. She was discharged for elective cholecystectomy but deferred due to high risk for surgery # Acute SBP vs secondary peritonitis -Diagnostic paracenteses done. 1.7 L ascitic fluid removed 09/05. ANC 3342, cell count too high to be SBP . secondary peritonitis due to cholecystitis possible but HIDA scan negative -on meropenem # Severe anemia due to non immune chronic hemolytic anemia due to chronic DIC , acute on chronic -patient was recently evaluated by Dr Hagen for hemolytic anemia. patient has low fibrinogen and high d-dimer consistent with non immune chronic hemolytic anemia due to chronic DIC -Due to suspected upper GI bleed. Patient states she had dark loose stool for the last few days but resolved now .stool occult negative 09/05 -Hb drop to 5.9 from 8.5 noted -transfused 2 PRBCs on 09/05. Hb did not respond appropriately to transfusion.pretx Hb 5.9,post 7.1 . transfused 2 more PRBCs 09/06 . Patient currently on transplant list. Anemia severe and symptomatic. Benefit of transfusion outweighs risk of sensitization. Patient verbalize understanding -Hematology recommended cryoprecipitate for initial fibrinogen of 64. Fibrinogen improved with FFP. Will check daily fibrinogen and d-dimer. will give cryoprecipitate if fibrinogen is less than 80 -protonix switched to IV -GI on board .may need repeat EGD if Hb drops again -stool occult negative 09/05 -octreotide drip started 09/05. Continue prior GI # Decompensated End-stage liver disease with portal hypertension, present on admission, acute on chronic -Decompensated due to multiple factors( severe anemia, acute cholecystitis,SBP) ,current MELD score 23 -initial bilirubin of 21.5 is significantly higher than has ever been noted previously. -Continue lactulose 10 g daily this could be increased up to 30 g daily if patient is having formed stools per outpatient recommendation -Continue rifaximin -Continue vitamin B 12 # hepatic coagulopathy -INR 2. Transfused 4 FFPs and vitamin k given 09/06. Improved 1.46 -Initial fibrinogen 64 and d-dimer 14. Improved with FFP's # Ascites, present on admission, acute on chronic -Per patient report a paracentesis in the past have been difficult and had only been able to gather a small amount of fluid -Continue furosemide, potassium, and spironolactone # Lactic acidosis, as on admission, resolved -Initial lactate 4.1.improved to 1.5 # Hypothyroidism -Continue levothyroxine High risk meds include IV Dilaudid DVT prophylaxis: SCDs, pharmacologic prophylaxis held due to advanced liver disease and thrombocytopenia of 59 When necessary GI, bowel, pain medications ordered CODE STATUS: FULL CODE disposition: 3-4 days VTE Mechanical Devices: Intermittant Pneumatic CD Resuscitation Status: CPR: Attempt Resuscitation Maurice Ojeda MD Sep 07, 2016 13:18
--- NOTE | 2016-09-07 14:13 | NUR ---
Pt off unit Pt to Radiology for a paracentesis at 1415 hrs. Addendum: 09/07/16 at 1504 by LISA LOVE RN Pt returned to [facility] at 1500 hrs. Addendum: 09/07/16 at 1511 by LISA LOVE RN Pt's weight post paracentesis is 81.2 kg.
--- NOTE | 2016-09-07 14:44 | NUR ---
Social Work- Multi-Disciplinary Rounds Pt is off unit receiving paracentesis. Per rounds, pt requires a transfusion. Per MD, pt will likely not require IV abx at discharge. Pt remains medically complex. No additional Social Work needs identified in rounds. SW will continue to follow. Yakelin Yip MSW
--- NOTE | 2016-09-07 15:01 | NUR ---
IV Potassium IV potassium administered via PIV; pt has no PICC. Orders were for Potassium to run at 125 mL/hr. Pt c/o discomfort in her arm just proximal to IV site immediately after infusion was started. Slowed rate to 100 mL/hr. Pt stated the discomfort was gone and had no further complaints.
--- NOTE | 2016-09-07 15:27 | DRSVH ---
PROCEDURE: US GUIDED PARACENTESIS, PRIMARY ([id number]) INDICATIONS: ascites, resolved infection? TECHNIQUE: The indications, alternatives, benefits, risks, and complications of the procedure were explained to the patient. Written informed consent was obtained and placed in the chart. The abdomen and pelvis were examined sonographically, and an appropriate site was chosen for paracentesis. The skin was pre pared and draped in the usual sterile fashion, and 1% lidocaine was infiltrated from the skin down th rough the peritoneal surface. A 19-gauge catheter-covered needle was then introduced into the perito arun space, the catheter was advanced and the needle was withdrawn, and thereafter peritoneal fluid w as withdrawn. The catheter was then removed and a dressing was applied. The fluid was discarded if the clinician did not order diagnostic testing of the fluid. COMPARISON: None. FINDINGS: Access site: Left lower quadrant Needle: One-Step centesis catheter with introducer needle. Fluid volume and description: Clear yellow fluid. 140 cc removed for analysis Fluid sent for diagnostic testing: As requested Medications: 1% lidocaine for local anaesthesia. Complications: None. IMPRESSION: Successful ultrasound-guided diagnostic paracentesis. Dictated by: Rory Sage M.D. on 09/07/2016 at 15:24 Approved by: Rory Sage M.D. on 09/07/2016 at 15:25
--- NOTE | 2016-09-07 16:38 | PCM.PNMED ---
Subjective Date of Service Sep 07, 2016 Subjective Patient feels more tired. However alert oriented 3. No fever the past 24 hours. Abdominal pain has not improved significantly versus yesterday. Exam Vital Signs Vital Sign - Last Date Time Temp Pulse Resp B/P Pulse Ox O2 Delivery O2 Flow Rate FiO2 09/07/16 16:30 36.9 79 18 110/66 95 Room Air 09/04/16 14:43 2 Intake and Output 09/06/16 09/06/16 09/07/16 Cumulative From/Thru 15:00 23:00 07:00 09/04/16 11:37 - 09/07/16 05:46 Intake Total 2120 ml 3796 ml 28674 ml Output Total 2950 ml 1450 ml 47345 ml Balance -830 ml 2346 ml -830 ml Intake Oral 1240 ml 1311 ml 4915 ml IV Total 200 ml 1585 ml 4985 ml Packed Cells 680 ml 980 ml FFP 900 ml 900 ml Output Urine Total 2950 ml 1450 ml 6350 ml Other 6260 ml # Bowel Movements 0 1 Exam Patient is alert oriented, but seems to be more fatigued. Head and neck icterus Lungs clear Cardia vascular regular rate rhythm slightly tachycardia with normal S1-S2 Abdomen soft diffuse tenderness moderately distended with decreased bowel sounds Skin shows jaundice Lab and Diagnostics Result Diagram: 09/07/16 0905 09/07/16 0800 X-Rays, CTs and MRIs CT ABDOMEN AND PELVIS WITH CONTRAST IMPRESSION: 1. Nodular cirrhotic liver redemonstrated with a few small low-density foci which are too small to characterize but likely represents 2. Findings consistent with portal hypertension including gastroesophageal and splenic varices, splenomegaly, and large amount of ascites. 3. Cholelithiasis without definite CT evidence of cholecystitis. Evaluation is limited in the presence of ascites. Recommend correlation clinically and further evaluation with ultrasound if indicated. 4. Multiple segments of bowel wall thickening involving the small and large bowel. Findings may be reactive secondary to ascites versus sequelae of an infectious or inflammatory enterocolitis. 5. Small left pleural effusion with persistent bibasilar consolidation/ atelectasis. Dictated by: Huy Parson M.D. on 09/04/2016 at 14:43 PROCEDURE: US ABDOMEN DOPPLER INDICATIONS: portal thrombosis? TECHNIQUE: Real-time scanning was performed of the abdominal and retroperitoneal organs, with image documentation. . IMPRESSION: Gallbladder sludge with wall thickening and pericholecystic fluid, suspicious for acute cholecystitis. However no sonographic Enriquez sign or biliary ductal dilatation, therefore please correlate clinically and with LFTs. Main portal vein appears patent without intraluminal thrombus. Normal liver Doppler examination. Moderate ascites Splenomegaly. Dictated by: Jakub Watson M.D. on 09/05/2016 at 10:02 PROCEDURE: US GUIDED PARACENTESIS, PRIMARY ([id number]) INDICATIONS: ?SBP, liver failure. Fluid volume and description: 1700 yellow cloudy IMPRESSION: Successful ultrasound-guided paracentesis. Dictated by: Lacey Guzman M.D. on 09/05/2016 at 10:45 PROCEDURE: NM HIDA SCAN WITH CCK PHARMACEUTICAL: 5.4 mCi Tc-99m mebrofenin IV; 1.4 mcg CCK IV. IMPRESSION: Normal hepatocellular uptake and excretion of the radioisotope, normal gallbladder ejection fraction of 40.4%. Source of abdominal pain is not identified by this examination. Dictated by: Arley Glass M.D. on 09/06/2016 at 10:18 Additional Diagnostics US GUIDED PARACENTESIS, PRIMARY FINDINGS: Access site: Right lower quadrant Needle: One-Step centesis catheter with introducer needle. Fluid volume and description: 1700 yellow cloudy Fluid sent for diagnostic testing: Yes Medications: 1% lidocaine for local anaesthesia. Complications: None. IMPRESSION: Successful ultrasound-guided paracentesis. Dictated by: Lacey Guzman M.D. on 09/05/2016 at 10:45 US ABDOMEN DOPPLER IMPRESSION: Gallbladder sludge with wall thickening and pericholecystic fluid, suspicious for acute cholecystitis. However no sonographic Enriquez sign or biliary ductal dilatation, therefore please correlate clinically and with LFTs. Main portal vein appears patent without intraluminal thrombus. Normal liver Doppler examination. Moderate ascites Splenomegaly. Dictated by: Jakub Watson M.D. 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 1. Spontaneous bacterial peritonitis vs intra abd process. Meropenem started and she has had another paracentesis to see if infection is under control. 2. On admission she has some evidence of encephalopathy and an ammonia level of 134. I would continue the lactulose 10 cc twice a day and rifaximin 550 twice a day. She has no asterixis today. She appears fatigued but she is oriented 3. 3. Defer cardiopulmonary issue to the primary care service. 4. There is evidence of anemia. Likely hemolytic from chronic DIC Hemoglobin 8.5 on admission (09/04/16), decreased down to 5.9 the following morning (09/05/16) with one dark stool per nursing report. She has no hematemesis. Patient on IV Protonix 40 mg twice a day because of underlying portal hypertension. Recommend avoiding medications such as vitamin C multivitamin which could cause ulcers. So, in terms of the vitamins, I would hold off until she is improved. Also, would avoid oral potassium as well because of a potential that this could be causing ulcers. She is on Lasix and spironolactone. 5. She had therapeutic paracentesis showing 4775 white blood cells 70% PMN. Gram stain shows few polys, no organisms seen. Albumin 0.3 Culture pending. Repeat paracentesis done. 6. I and O are very strongly positive for fluid retention. I am increasing the Lasix to 80 mg and increasing the spironolactone at 100 mg once a day starting tomorrow. Would keep a close eye on BUN and creatinine level. 7. Ultrasound performed showing gallbladder sludge, thickened wall, pericholecystic fluid. Normal liver Doppler examination, moderate ascites, splenomegaly HIDA scan shows EF of 40%. 8. Recommend getting a chest x-ray, panculture including urine recommended. Blood cultures pending. 9. Albumin two bottles, 25% three times a day for three days. 10. Based on the imaging, there seems to be no evidence of Budd-Chiari or portal vein thrombosis. However, would recommend getting a Doppler ultrasound of the inferior vena cava as well as the portal veins. 11. Dr. Eckert from infectious disease is involved and meropenem was given after the paracentesis. 12. Recommend octreotide drip for 5 days. 13. Daily INR checks 14. We will hold off on EGD for the time being as patient is negative in stool with an INR of 1.9. INR improved with FFP and vitamin K. We will keep an eye on the INR. 15. Fractionated bilirubin in a.m. bilirubin has increased slightly.Again mostly indirect bili elevation which is concerning but may also be due to hemolysis. VTE Mechanical Devices: Intermittant Pneumatic CD Resuscitation Status: CPR: Attempt Resuscitation Ceasar Gonzalez MD Sep 07, 2016 16:38 and albumin to be performed in the morning I saw and examined the patient. Agree with the patient. VTE Mechanical Devices: Intermittant Pneumatic CD Resuscitation Status: CPR: Attempt Resuscitation Ceasar Gonzalez MD Sep 07, 2016 16:38
[2016-09-07] MEDS: Albumin 25% 12.5 GM in IV Premix 1 EACH IV SCH ×2 (16:47→20:38)
[2016-09-07 18:50] LABS: BFWBC 495 /mm3; MONOCYTES,BODY FLUID 68 %; OTHER CELLS,BODY FLUID 10
[2016-09-08] VITALS (12 sets, daily range): BP systolic 106–120; BP diastolic 57–74; PULSE 60–88; RESP 14–18; O2SAT 92–96
[2016-09-08] MEDS: HYDROmorphone 1 mg/mL Inj IVPUSH PRN ×6 (01:12→21:35)
[2016-09-08] MEDS: Meropenem Inj 1,000 MG in 0.9% Sodium Chloride 100 ML IV SCH ×3 (04:07→20:22)
[2016-09-08 05:46] LABS: INR 1.65 ratio
[2016-09-08 06:00] LABS: D-Dimer 17.11 mg/L FEU (<0.50)
[2016-09-08] MEDS: 0.9% Sodium Chloride 250 ML IV SCH (06:10)
[2016-09-08] MEDS: Octreotide Inj 500 MCG in 0.9% Sodium Chloride 99 ML IV SCH (06:13)
[2016-09-08] MEDS ORDERED: 0.9% Sodium Chloride 250 ML IV ONE (07:25)
--- NOTE | 2016-09-08 07:28 | NUR ---
Pain Pt rates pain 8-10/10. requesting PRN dilaudid every 3hrs and pain is reduced to 7/10. Pt does appear comfortable and slept well. IV ABO's infusing, Pt rec'd albumin. C-diff PCR negative. Pt up with SBA to BR. Care continues
[2016-09-08] MEDS: Pantoprazole 4 mg/mL 10 mL Inj IVPUSH SCH ×2 (07:30→20:22)
--- NOTE | 2016-09-08 07:48 | PCM.PNMED ---
Subjective Date of Service Sep 08, 2016 Subjective Patient states that she is feeling pretty good this morning. She has not been feeling fevers or chills despite having an elevated temperature early this morning. She is not feeling nauseous and had no vomiting. She did not notice any black or blood in her stools. She states that her legs are less sore but more puffy than usual. Exam Vital Signs Vital Sign - Last Date Time Temp Pulse Resp B/P Pulse Ox O2 Delivery O2 Flow Rate FiO2 09/08/16 06:31 82 09/08/16 05:20 37.9 18 113/57 92 Room Air 09/04/16 14:43 2 Intake and Output 09/07/16 09/07/16 09/08/16 Cumulative From/Thru 15:00 23:00 07:00 09/04/16 11:37 - 09/08/16 06:17 Intake Total 779 ml 2759 ml 1090 ml 94406 ml Output Total 2500 ml 950 ml 46891 ml Balance 779 ml 259 ml 140 ml 348 ml Intake Oral 1202 ml 1090 ml 7207 ml IV Total 479 ml 1557 ml 7021 ml Packed Cells 980 ml FFP 300 ml 1200 ml Output Urine Total 2500 ml 950 ml 9800 ml Other 6260 ml # Bowel Movements 1 2 4 Exam General: No acute distress, well-developed, well-nourished, jaundiced, appropriately interactive HEENT: Normocephalic, atraumatic. External ears without defect. Icteric sclerae , moist conjunctivae, and no lid lag. Neck: Supple with full range of motion. No jugular venous distension. No lymphadenopathy or thyromegaly. Cardiovascular: Regular rate and rhythm with III/ systolic murmur heard best at upper left sternal border, no rubs or gallops appreciated Pulmonary: Clear to auscultation bilaterally with no crackles, wheezes, or rhonchi. Normal respiratory effort with no use of accessory muscles. Abdomen: Bowel tones present. Soft, diffusely tender, mildly distended. No masses appreciated. Extremities: mild-moderate pitting edema in bilateral lower extremeties. No clubbing, cyanosis, or lymphadenopathy appreciated. Skin: Jaundice, normal temperature, turgor, and texture; no rash, ulcers, or subcutaneous nodules appreciated. Neurological: Cranial nerves grossly intact. No asterixis detected, Normal muscle strength, tone, and bulk. No gait impairment. Psychiatric: Normal mood and affect. Alert and oriented to person, place, and time. Lab and Diagnostics Result Diagram: 09/07/16 0905 09/07/16 0800 X-Rays, CTs and MRIs CT ABDOMEN AND PELVIS WITH CONTRAST IMPRESSION: 1. Nodular cirrhotic liver redemonstrated with a few small low-density foci which are too small to characterize but likely represents 2. Findings consistent with portal hypertension including gastroesophageal and splenic varices, splenomegaly, and large amount of ascites. 3. Cholelithiasis without definite CT evidence of cholecystitis. Evaluation is limited in the presence of ascites. Recommend correlation clinically and further evaluation with ultrasound if indicated. 4. Multiple segments of bowel wall thickening involving the small and large bowel. Findings may be reactive secondary to ascites versus sequelae of an infectious or inflammatory enterocolitis. 5. Small left pleural effusion with persistent bibasilar consolidation/ atelectasis. Dictated by: Huy Parson M.D. on 09/04/2016 at 14:43 PROCEDURE: US ABDOMEN DOPPLER INDICATIONS: portal thrombosis? TECHNIQUE: Real-time scanning was performed of the abdominal and retroperitoneal organs, with image documentation. . IMPRESSION: Gallbladder sludge with wall thickening and pericholecystic fluid, suspicious for acute cholecystitis. However no sonographic Enriquez sign or biliary ductal dilatation, therefore please correlate clinically and with LFTs. Main portal vein appears patent without intraluminal thrombus. Normal liver Doppler examination. Moderate ascites Splenomegaly. Dictated by: Jakub Watson M.D. on 09/05/2016 at 10:02 PROCEDURE: US GUIDED PARACENTESIS, PRIMARY ([id number]) INDICATIONS: ?SBP, liver failure. Fluid volume and description: 1700 yellow cloudy IMPRESSION: Successful ultrasound-guided paracentesis. Dictated by: Lacey Guzman M.D. on 09/05/2016 at 10:45 PROCEDURE: NM HIDA SCAN WITH CCK PHARMACEUTICAL: 5.4 mCi Tc-99m mebrofenin IV; 1.4 mcg CCK IV. IMPRESSION: Normal hepatocellular uptake and excretion of the radioisotope, normal gallbladder ejection fraction of 40.4%. Source of abdominal pain is not identified by this examination. Dictated by: Arley Glass M.D. on 09/06/2016 at 10:18 Additional Diagnostics US GUIDED PARACENTESIS, PRIMARY FINDINGS: Access site: Left lower quadrant Needle: One-Step centesis catheter with introducer needle. Fluid volume and description: Clear yellow fluid. 140 cc removed for analysis Fluid sent for diagnostic testing: As requested Medications: 1% lidocaine for local anaesthesia. Complications: None. IMPRESSION: Successful ultrasound-guided diagnostic paracentesis. Dictated by: Rory Sage M.D. on 09/07/2016 at 15:24 US VENOUS LEG DUPLEX BILATERAL IMPRESSION: Both legs are negative for DVT Dictated by: Rory Sage M.D. on 09/07/2016 at 11:05 US GUIDED PARACENTESIS, PRIMARY FINDINGS: Access site: Right lower quadrant Needle: One-Step centesis catheter with introducer needle. Fluid volume and description: 1700 yellow cloudy Fluid sent for diagnostic testing: Yes Medications: 1% lidocaine for local anaesthesia. Complications: None. IMPRESSION: Successful ultrasound-guided paracentesis. Dictated by: Lacey Guzman M.D. on 09/05/2016 at 10:45 US ABDOMEN DOPPLER IMPRESSION: Gallbladder sludge with wall thickening and pericholecystic fluid, suspicious for acute cholecystitis. However no sonographic Enriquez sign or biliary ductal dilatation, therefore please correlate clinically and with LFTs. Main portal vein appears patent without intraluminal thrombus. Normal liver Doppler examination. Moderate ascites Splenomegaly. Dictated by: Jakub Watson M.D. 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 emergency department for several days worth of nausea and abdominal pain who is significantly more jaundice who presented with some encephalopathy. 1. Spontaneous bacterial peritonitis vs intra abd process. Meropenem day 4 2. On admission she has some evidence of encephalopathy and an ammonia level of 134. I would continue the lactulose 10 cc twice a day and rifaximin 550 twice a day. She has no asterixis today. She appears fatigued but she is oriented 3. 3. Defer cardiopulmonary issue to the primary care service. 4. There is evidence of anemia. Likely hemolytic from chronic DIC Hemoglobin 8.5 on admission (09/04/16), decreased down to 5.9 the following morning (09/05/16). She has no hematemesis. Patient on IV Protonix 40 mg twice a day because of underlying portal hypertension. Recommend avoiding medications such as vitamin C multivitamin which could cause ulcers. So, in terms of the vitamins, I would hold off until she is improved. Also, would avoid oral potassium as well because of a potential that this could be causing ulcers. 5. She had therapeutic paracentesis showing 4775 white blood cells 70% PMN. Gram stain shows few polys, no organisms seen. Albumin 0.3 Culture pending. Repeat paracentesis shows decrease from >3000 to 50 PMN. 6. I and O are very strongly positive for fluid retention. I am increasing the Lasix to 80 mg and increasing the spironolactone at 100 mg once a day starting today. Likely will decrease this to 40mg PO Lasix tomorrow depending on how patient does. Would keep a close eye on BUN and creatinine level. 7. Ultrasound performed showing gallbladder sludge, thickened wall, pericholecystic fluid. Normal liver Doppler examination, moderate ascites, splenomegaly HIDA scan shows EF of 40%. 8. Albumin two bottles, 25% three times a day for three days. 9. Based on the imaging, there seems to be no evidence of Budd-Chiari or portal vein thrombosis. However, would recommend getting a Doppler ultrasound of the inferior vena cava as well as the portal veins. 10. Dr. Eckert from infectious disease is involved and meropenem was given after the paracentesis. 11. Patient is exhibiting no signs of active bleeding, octreotide discontinued today. 12. Daily INR checks 13. We will hold off on EGD for the time being as patient is negative for blood in stool, showing no overt signs of intraluminal gastrointestinal bleed with an unstable INR ranging from 1.5-2. INR improved with FFP and vitamin K. 14. Bilirubin decreased to 14.9 from 18.5. 15. Called [facility] and spoke with skidder loader Cali Denton. He recommends not correcting INR unless patient is showing signs of a bleed, he agrees with 7 days of meropenem to treat infection. He can be reached at (mobile) The oncall skidder loader can be reached through the [facility] phone number [phone] They would like to be notified if patient has a MELD score >30 and when she discharges. MELD score today is 26. I have seen and examined this patient with Dr. Viera. Agree with above. VTE Mechanical Devices: Intermittant Pneumatic CD Resuscitation Status: CPR: Attempt Resuscitation copies to: Ceasar Gonzalez MD, Erika R DO Sep 08, 2016 07:47 Ceasar Gonzalez MD Sep 13, 2016 15:09
[2016-09-08 08:22] LABS: Magnesium 1.5 mg/dL (1.6-2.6); Phosphorus 2.7 mg/dL (2.5-4.9)
[2016-09-08 08:25] LABS: BASOPHILS % (AUTO) 2.3 % (0-3); EOSINOPHILS % (AUTO) 3.7 % (0-5); Mean Corpuscular Hemoglobin 35.6 pg (27.0-35.0); Mean Corpuscular Volume 107.3 fL (81-100); NEUTROPHILS % (AUTO) 48.6 % (40-74); Platelet Count 66 bil/L (150-400)
[2016-09-08] MEDS ORDERED: Magnesium Sulf 2 Gm/50mL Water 2 GM in IV Premix 1 EACH IV ONE (09:10)
[2016-09-08] MEDS: Albumin 25% 12.5 GM in IV Premix 1 EACH IV SCH ×3 (09:16→20:23)
[2016-09-08] MEDS: Lactobacillus Rhamnosus 10 Bil Unit Capsule PO SCH (09:17)
[2016-09-08] MEDS: Lactulose 20 Gm/30 mL 30 mL Syrup PO SCH ×3 (09:18→20:22)
[2016-09-08] MEDS ORDERED: 0.9% Sodium Chloride 100 ML ONE ×2 (11:12→14:27)
--- NOTE | 2016-09-08 12:29 | PROG NOTE ---
[address] [address] PROGRESS NOTE PATIENT: GAVI MARINELLI : 1980 MR#: [id number] ADMIT: 09/04/2016 JOB ID: [id number] DATE: 09/08/2016 REASON FOR FOLLOWUP: Peritonitis in a patient with cirrhosis. INTERVAL HISTORY: The patient has been gradually feeling better. She has noticed feeling warm a couple of times, but no overt chills, no pulmonary symptoms. She had additional paracentesis yesterday, which was successful, and her abdominal girth has decreased a bit, and she is more comfortable. No abdominal pain at all. PHYSICAL EXAMINATION: Reveals a woman who is afebrile, temp 36.8. Her highest temp in the past 24 hours 37.9, and that was early this morning. Pulse 67, respiratory rate 14, blood pressure 113/67. She is saturating well on room air, and is in no distress. Eyes with scleral icterus. Oral cavity: No change. Lungs: Clear. Cardiac tones still with unchanged murmur. Abdomen: Quite distended, but not tense, and not especially tender. LABORATORIES: Include white count 3800, platelet count 66,000. Basically normal diff on that white count. Creatinine 0.3, total bilirubin 15. AST 73, ammonia 149, albumin 2.6. Procalcitonin 0.16, down from 0.59 recently. The repeat paracentesis had 495 white cells, 10% polys. This is in contrast to the one earlier in the week, which had almost 5000 white cells, 70% polys; so total polys have gone from over 3000, down to about 50. Microbiology continues to be negative. That includes negative blood cultures, negative peritoneal fluid cultures. The negative peritoneal fluid cultures are from the 10th, which was the first done here, as well as the one done yesterday. IMPRESSION: This patient is clearly improving with respect to her peritonitis. It is still unclear as to whether this is a spontaneous bacterial peritonitis or secondary bacterial peritonitis related to the gallbladder, but I tend to favor the former as an explanation. In any event, she is getting meropenem, as she failed Cipro prophylaxis, and she is improving quite steadily. RECOMMENDATIONS: 1. I would continue the meropenem for a total course of 5-7 days, which will take us through, at the earliest, September 09, and at the latest, September 11. 2. I would prefer to see the patient afebrile for a day or two before we discontinue the progressive intravenous antibiotics. 3. If it became imperative to send the patient home in the near future, she could return daily to receive ertapenem, in lieu of the IV meropenem, but I think that, given the gravity of her situation, it is reasonable to keep her here and watch her closely as we finish up the course of meropenem and wait for a period of 24-48 hours of being completely afebrile.
--- NOTE | 2016-09-08 13:36 | PCM.PNMED ---
Subjective Date of Service Sep 08, 2016 Subjective temp 37.9 overnight. fibrinogen 69 ,will give cryoprecipitate .ammonia 149 , lactulose dose increased . Exam Vital Signs Vital Sign - Last Date Time Temp Pulse Resp B/P Pulse Ox O2 Delivery O2 Flow Rate FiO2 09/08/16 13:19 36.7 82 106/74 09/08/16 13:07 18 93 Room Air 09/04/16 14:43 2 Intake and Output 09/07/16 09/07/16 09/08/16 Cumulative From/Thru 15:00 23:00 07:00 09/04/16 11:37 - 09/08/16 06:17 Intake Total 779 ml 2759 ml 1090 ml 06391 ml Output Total 2500 ml 950 ml 88171 ml Balance 779 ml 259 ml 140 ml 348 ml Intake Oral 1202 ml 1090 ml 7207 ml IV Total 479 ml 1557 ml 7021 ml Packed Cells 980 ml FFP 300 ml 1200 ml Output Urine Total 2500 ml 950 ml 9800 ml Other 6260 ml # Bowel Movements 1 2 4 Exam General: No acute distress, likely ill-appearing woman laying comfortably in hospital bed HEENT: Normocephalic, atraumatic. External ears without defect. Pupils equal, round, and reactive to light and accommodation.deeply Icteric sclerae, moist conjunctivae, and no lid lag. Oropharynx free of erythema, moist mucosa. Neck: Supple with full range of motion. No jugular venous distension. No bruits. No lymphadenopathy or thyromegaly. Cardiovascular: Regular rate and rhythm with III/ systolic murmur heard best at upper left sternal border. No rubs, or gallops appreciated Pulmonary: Clear to auscultation bilaterally with no crackles, wheezes, or rhonchi. Normal respiratory effort with no use of accessory muscles. Abdomen: Bowel tones present. Soft, mildly tender in lower quadrants bilaterally , significantly distended. No masses appreciated.mild diffuse tenderness but marked at RUQ. Extremities: Pale bruises over upper and lower extremities bilaterally no clubbing, cyanosis, edema, or lymphadenopathy appreciated. Skin: Patient appears yellow from jaundice. Normal temperature, turgor, and texture; no rash, ulcers, or subcutaneous nodules appreciated. Neurological: Cranial nerves grossly intact. Coordination, and sensory function within normal limits. No known gait impairment. Psychiatric: Normal mood and affect. Alert and oriented to person, place, and time. IVs and Medications Medications Reviewed: Medications were reviewed in detail Lab and Diagnostics Result Diagram: 09/08/16 0508 09/08/16 0508 X-Rays, CTs and MRIs CT ABDOMEN AND PELVIS WITH CONTRAST IMPRESSION: 1. Nodular cirrhotic liver redemonstrated with a few small low-density foci which are too small to characterize but likely represents 2. Findings consistent with portal hypertension including gastroesophageal and splenic varices, splenomegaly, and large amount of ascites. 3. Cholelithiasis without definite CT evidence of cholecystitis. Evaluation is limited in the presence of ascites. Recommend correlation clinically and further evaluation with ultrasound if indicated. 4. Multiple segments of bowel wall thickening involving the small and large bowel. Findings may be reactive secondary to ascites versus sequelae of an infectious or inflammatory enterocolitis. 5. Small left pleural effusion with persistent bibasilar consolidation/ atelectasis. Dictated by: Huy Parson M.D. on 09/04/2016 at 14:43 PROCEDURE: US ABDOMEN DOPPLER INDICATIONS: portal thrombosis? TECHNIQUE: Real-time scanning was performed of the abdominal and retroperitoneal organs, with image documentation. . IMPRESSION: Gallbladder sludge with wall thickening and pericholecystic fluid, suspicious for acute cholecystitis. However no sonographic Enriquez sign or biliary ductal dilatation, therefore please correlate clinically and with LFTs. Main portal vein appears patent without intraluminal thrombus. Normal liver Doppler examination. Moderate ascites Splenomegaly. Dictated by: Jakub Watson M.D. on 09/05/2016 at 10:02 PROCEDURE: US GUIDED PARACENTESIS, PRIMARY ([id number]) INDICATIONS: ?SBP, liver failure. Fluid volume and description: 1700 yellow cloudy IMPRESSION: Successful ultrasound-guided paracentesis. Dictated by: Lacey Guzman M.D. on 09/05/2016 at 10:45 PROCEDURE: NM HIDA SCAN WITH CCK PHARMACEUTICAL: 5.4 mCi Tc-99m mebrofenin IV; 1.4 mcg CCK IV. IMPRESSION: Normal hepatocellular uptake and excretion of the radioisotope, normal gallbladder ejection fraction of 40.4%. Source of abdominal pain is not identified by this examination. Dictated by: Arley Glass M.D. on 09/06/2016 at 10:18 Additional Diagnostics US GUIDED PARACENTESIS, PRIMARY FINDINGS: Access site: Left lower quadrant Needle: One-Step centesis catheter with introducer needle. Fluid volume and description: Clear yellow fluid. 140 cc removed for analysis Fluid sent for diagnostic testing: As requested Medications: 1% lidocaine for local anaesthesia. Complications: None. IMPRESSION: Successful ultrasound-guided diagnostic paracentesis. Dictated by: Rory Sage M.D. on 09/07/2016 at 15:24 US VENOUS LEG DUPLEX BILATERAL IMPRESSION: Both legs are negative for DVT Dictated by: Rory Sage M.D. on 09/07/2016 at 11:05 US GUIDED PARACENTESIS, PRIMARY FINDINGS: Access site: Right lower quadrant Needle: One-Step centesis catheter with introducer needle. Fluid volume and description: 1700 yellow cloudy Fluid sent for diagnostic testing: Yes Medications: 1% lidocaine for local anaesthesia. Complications: None. IMPRESSION: Successful ultrasound-guided paracentesis. Dictated by: Lacey Guzman M.D. on 09/05/2016 at 10:45 US ABDOMEN DOPPLER IMPRESSION: Gallbladder sludge with wall thickening and pericholecystic fluid, suspicious for acute cholecystitis. However no sonographic Enriquez sign or biliary ductal dilatation, therefore please correlate clinically and with LFTs. Main portal vein appears patent without intraluminal thrombus. Normal liver Doppler examination. Moderate ascites Splenomegaly. Dictated by: Jakub Watson M.D. 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 # sepsis due to SBP and acute acalculous cholecystitis -albumin boluses given -Antibiotics meropenem started 09/05.will descalate to po abx once afebrile for 48h -blood culture negative x2 -Paracentesis consistent with SBP ,ANC 3342 .US consistent with acute cholecystitis with pericholecystic fluid # suspected Acute cholecystitis -US consistent with acute cholecystitis with pericholecystic fluid but HIDA scan not consistent with cholecystitis. Normal gallbladder ejection fraction of 40% -discussed with surgery Dr Ramos. patient is high risk for surgery and needs to be transferred to critical access hospital if surgery indicated. Discussed with GI/ nurse quality at and [facility] . they recommend conservative management with antibiotics. Patient was managed conservatively with IV antibiotics on prior episode in March. She was discharged for elective cholecystectomy but deferred due to high risk for surgery # Acute SBP vs secondary peritonitis -Diagnostic paracenteses done. 1.7 L ascitic fluid removed 09/05. ANC 3342, cell count too high to be SBP . secondary peritonitis due to cholecystitis possible but HIDA scan negative -repeat paracentesis 09/07,SBP resolved . repeat ANC 50 -on meropenem # Severe anemia due to non immune chronic hemolytic anemia due to chronic DIC , acute on chronic -patient was recently evaluated by Dr Hagen for hemolytic anemia. patient has low fibrinogen and high d-dimer consistent with non immune chronic hemolytic anemia due to chronic DIC -Due to suspected upper GI bleed. Patient states she had dark loose stool for the last few days but resolved now .stool occult negative 09/05 -Hb drop to 5.9 from 8.5 noted -transfused 2 PRBCs on 09/05. Hb did not respond appropriately to transfusion.pretx Hb 5.9,post 7.1 . transfused 2 more PRBCs 09/06 . Patient currently on transplant list. Anemia severe and symptomatic. Benefit of transfusion outweighs risk of sensitization. Patient verbalize understanding -Hematology recommended cryoprecipitate for initial fibrinogen of 64. Fibrinogen improved with FFP. Will check daily fibrinogen and d-dimer. fibrinogen 69 today . will give 12 units cryoprecipitate 09/08. will give cryoprecipitate if fibrinogen is less than 80 -protonix switched to IV -stool occult negative 09/05 -octreotide drip started 09/05. discontinued 09/08 # Decompensated End-stage liver disease with portal hypertension, present on admission, acute on chronic -Decompensated due to multiple factors( severe anemia, acute cholecystitis,SBP) ,current MELD score 23 -initial bilirubin of 21.5 is significantly higher than has ever been noted previously. -Continue lactulose 10 g tid increased to 20 g tid given high ammonia -Continue rifaximin -Continue vitamin B 12 -increased lasix to 80mg daily from 20 and spirinolactone to 100 from 50 due to worsening leg edema and fluid retention/positive fluid balance # hepatic coagulopathy -INR 2. Transfused 4 FFPs and vitamin k given 09/06. Improved 1.46 -Initial fibrinogen 64 and d-dimer 14. Improved with FFP's # Ascites, present on admission, acute on chronic -Per patient report a paracentesis in the past have been difficult and had only been able to gather a small amount of fluid -Continue furosemide, potassium, and spironolactone,dose increased # Lactic acidosis, as on admission, resolved -Initial lactate 4.1.improved to 1.5 # Hypothyroidism -Continue levothyroxine High risk meds include IV Dilaudid DVT prophylaxis: SCDs, pharmacologic prophylaxis held due to advanced liver disease and thrombocytopenia of 59 When necessary GI, bowel, pain medications ordered CODE STATUS: FULL CODE disposition: 2-3 days VTE Mechanical Devices: Intermittant Pneumatic CD Resuscitation Status: CPR: Attempt Resuscitation Maurice Ojeda MD Sep 08, 2016 13:36
--- NOTE | 2016-09-08 13:45 | NUR ---
Social Work- Multi-Disciplinary Rounds Pt continues to be medically complex. No changes from rounds 7/12. No acute SW needs identified. SW will continue to follow. Yakelin Yip MSW
--- NOTE | 2016-09-08 13:58 | NUR ---
NUTRITION ASSESSMENT: ASSESS: 36 YO female presents to the ED following several days worth of nausea and abdominal pain. She does chronically have some abdominal discomfort and nausea due to her end-stage liver disease, but she reports that it has worsened. The patient notes that the pain is worsened with any sort of movement. The etiology of her anterior liver disease is not clear. It is believed to be secondary to alcoholic liver disease in combination with hx gastric bypass surgery. She is currently on the liver transplant list. The patient noted that her abdominal distention has increased her last few days. She also noticed that her lower extremity edema has worsened as well. She was previously admitted in March 2016 for acute spontaneous bacteria peritonitis as well as acalculous cholecystitis. She is admitted with sepsis due to SBT and acalculous cholecystitis, severe anemia due to non immune chronic hemolytic anemia due to chronic DIC. PMHx: Decompensated ESLD, Ascites, hepatic encephalopathy, liver cirrhosis, naveen-en-y gastric bypass surgery in 2005. LABS: Reviewed. Na 132, Chloride 95, Cr 0.30, Ca 8.0, Mg 1.5, Total Bili 14.9, 73, Ammonia 149, Alb 2.6, Procalc 0.16. MEDS:Reviewed. Lasix, lactulose. GI: BM x 2 today. WT: 81.2 kg, BMI 28.0 kg/m2. Admit weight: 70.9 kg. Weight history: 69.2 kg 07/07/16. DIET: Soft. PO intake 25% - 50% trays. EST. NEEDS: 2127 - 2482 kcal (30-35 kcals/kg BW), 85 - 106 g protein (1.2-1.5 g/kg BW) NUTRITION DIAGNOSIS: 1) Increased nutrient needs related to increased demand for nutrients as evidenced by acute on chronic liver disease. 2) Inadequate oral intake related to decreased appetite as evidenced by PO intake of 25-50% of meals x 4 days. NUTRITION INTERVENTION: 1) Will start sending Ensure at breakfast, magic cup a lunch and Gelatein plus at dinner to encourage adequate po intake. MONITOR / EVAL: PO intake, labs, nutritional status. Follow per moderate nutritional risk guidelines.
--- NOTE | 2016-09-08 14:37 | PROG NOTE ---
[address] [address] PROGRESS NOTE PATIENT: GAVI MARINELLI : 1980 MR#: [id number] ADMIT: 09/04/2016 JOB ID: [id number] INPATIENT HEMATOLOGY PROGRESS REPORT: DATE: 09/08/2016 DIAGNOSES: 1. Current admission for spontaneous bacterial peritonitis (versus secondary bacterial peritonitis from gallbladder infection, less likely). 2. Advanced cirrhosis of the liver, associated with portal hypertension, chronic encephalopathy, ascites and chronic disseminated intravascular coagulation. 3. Chronic disseminated intravascular coagulation and consequent chronic nonimmune hemolytic anemia. SUBJECTIVE: Today the patient reports feeling better than yesterday. The pain in her right side has lessened. Her abdomen still feels bloated but not tight at all. She denies nausea and reports having a fair appetite. OBJECTIVE: She appears at times lethargic and distracted. Overall though she is awake, alert and oriented x3. Abdomen is moderately distended but soft and nontender. There is palpable ascites. Lower extremities with 2-3+ edema bilaterally. LABORATORY DATA: Today's labs, fibrinogen dropped to 69. D-dimer is higher today at 17. INR is higher today at 1.65. Bilirubin is lower at 14.9. Albumin 2.6. Renal function remains normal. Hemoglobin dropped to 8.8. Platelet count is stable at 66,000. IMPRESSION AND PLAN: 1. Acute on chronic disseminated intravascular coagulation. Continue daily monitoring of PT/INR, D-dimer and fibrinogen. Give cryoprecipitate x12 units if fibrinogen is under 80 (the usual threshold is 100, but in her case, I recommend 80 because she seems to have minimal to no bleeding symptoms even with severely low fibrinogen levels). 2. Chronic anemia, multifactorial. The primary etiology is chronic disseminated intravascular coagulation. This patient can probably very easily handle hemoglobin at 7 or higher. She probably can handle down to hemoglobin 6.5. At this point, I recommend transfusion only if hemoglobin dropped to 6.4 or lower. Later we may need to revise this threshold. It is very important to avoid excessive transfusions in this patient with already advanced cirrhosis who tries to survive until she is able to receive a liver transplant. Even small amounts of hepatic iron overload could be detrimental. I explained to the patient and her mother that her fatigue and lethargy are not just from chronic anemia, and other factors include chronic encephalopathy and having advanced liver cirrhosis.
--- NOTE | 2016-09-08 19:41 | NUR ---
Pain / Ambulation Pain continues 09/05 continues in ABD. Pt also c/o a new pain in right lower groin area. Will monitor. 1mg Dilaudid Q3 works well for pain. Pt doesn't appear to be in any distress. Ambulating well in halls with steady gait. SBA with staff or family for safety of lines.
[2016-09-09] VITALS (7 sets, daily range): BP systolic 97–113; BP diastolic 55–68; PULSE 66–88; RESP 16–18; O2SAT 91–98
[2016-09-09] MEDS: HYDROmorphone 1 mg/mL Inj IVPUSH PRN ×7 (01:19→20:52)
--- NOTE | 2016-09-09 02:57 | NUR ---
Pain/Ambulation Pt continues to report pain 7/10, IV dilaudid 1mg Q3hrs is effective to decrease pain to 5/10. Pt states she had a new pain in her groin area today. She said it is mostly gone. Encouraged to get up and ambulate. After dinner and pain meds rec'd Pt ambulated halls with SBA and tolerated well, steady gait. IV's patent. Fluids infusing at TKO. Care continues
[2016-09-09] MEDS: Meropenem Inj 1,000 MG in 0.9% Sodium Chloride 100 ML IV SCH ×3 (03:59→20:17)
[2016-09-09 05:56] LABS: BASOPHILS % (AUTO) 2.2 % (0-3); EOSINOPHILS % (AUTO) 2.5 % (0-5); MONOCYTES % (AUTO) 14.7 % (4-12); Mean Corpuscular Hemoglobin 35.6 pg (27.0-35.0); Mean Corpuscular Volume 107.5 fL (81-100); NEUTROPHILS % (AUTO) 47.5 % (40-74); Platelet Count 58 bil/L (150-400)
[2016-09-09 06:03] LABS: INR 1.65 ratio
[2016-09-09] MEDS: 0.9% Sodium Chloride 250 ML IV SCH (06:10)
[2016-09-09 06:12] LABS: Magnesium 1.9 mg/dL (1.6-2.6)
[2016-09-09 06:24] LABS: D-Dimer 12.55 mg/L FEU (<0.50)
[2016-09-09] MEDS ORDERED: Potassium Chloride 20 mEq SR Tablet PO ONE (07:20)
[2016-09-09] MEDS: Pantoprazole 4 mg/mL 10 mL Inj IVPUSH SCH ×2 (08:21→17:46)
[2016-09-09] MEDS: Lactulose 20 Gm/30 mL 30 mL Syrup PO SCH ×3 (08:27→20:21)
[2016-09-09] MEDS: Albumin 25% 12.5 GM in IV Premix 1 EACH IV SCH ×2 (08:29→14:25)
[2016-09-09] MEDS: Lactobacillus Rhamnosus 10 Bil Unit Capsule PO SCH (10:03)
--- NOTE | 2016-09-09 13:25 | PROG NOTE ---
[address] [address] PROGRESS NOTE PATIENT: GAVI MARINELLI : 1980 MR#: [id number] ADMIT: 09/04/2016 JOB ID: [id number] DATE: 09/09/2016 INFECTIOUS DISEASE FOLLOWUP NOTE: REASON FOR FOLLOWUP: Peritonitis in a cirrhotic patient. INTERVAL HISTORY: The patient is feeling much better. More energy. No fevers, no chills. No cough, shortness of breath. She notes her right upper quadrant pain is essentially gone. PHYSICAL EXAMINATION: Reveals an afebrile woman in no acute distress. Temp 36.7; she has now been really afebrile for almost two days. Other vital signs include a pulse 72, respiratory rate 17, blood pressure 97/58. She is saturating 91% on room air. She looks quite well. Eyes with scleral icterus still, but less so. Oral cavity benign. No thrush or pharyngitis. Lungs very clear. Right upper quadrant tenderness is gone. Still has ascites obviously. LABORATORY STUDIES: White count 3600 today, platelets of 58,000. Creatinine less than 0.3. AST is 59, ALT 17. Procalcitonin 2.9. Bilirubin is down to 12.4, which is high, but excellent when compared to 22 earlier in this admission. Micro studies include the negative blood cultures and negative peritoneal fluid cultures. IMPRESSION: This patient is rapidly improving with respect to her peritonitis. This is day five of therapy and she has had a single low-grade fever about 24 hours ago. Otherwise she has been afebrile for 48 hours. At this point she is nearing the end of antibiotic therapy. RECOMMENDATIONS: 1. I would continue the meropenem through tomorrow morning. If the patient remains afebrile I think sometime tomorrow morning she could receive a single dose of 1 g of ertapenem which would carry her through Monday and basically complete a seven day course of therapy for this episode. 2. This recommendation discussed in person with the GI team. 3. ID will go ahead and sign off on this complex case which is now nearly ready for discharge. Thank you very much.
--- NOTE | 2016-09-09 13:44 | PCM.PNMED ---
Subjective Date of Service Sep 09, 2016 Subjective Remains afebrile. Did not require cryoprecipitate today. Patient states lass abdominal pain and distention. Exam Vital Signs Vital Sign - Last Date Time Temp Pulse Resp B/P Pulse Ox O2 Delivery O2 Flow Rate FiO2 09/09/16 10:25 36.7 72 17 97/56 91 Room Air 09/04/16 14:43 2 Intake and Output 09/08/16 09/08/16 09/09/16 Cumulative From/Thru 15:00 23:00 07:00 09/04/16 11:37 - 09/09/16 06:50 Intake Total 313 ml 2120 ml 1440 ml 08937 ml Output Total 4000 ml 1100 ml 77009 ml Balance 313 ml -1880 ml 340 ml -879 ml Intake Oral 1520 ml 800 ml 9527 ml IV Total 263 ml 600 ml 640 ml 8524 ml Packed Cells 980 ml FFP 1200 ml Cryoprecipitate 50 ml 50 ml Output Urine Total 4000 ml 1100 ml 07152 ml Other 6260 ml # Voids 2 2 # Bowel Movements 1 1 6 Exam General: No acute distress, likely ill-appearing woman laying comfortably in hospital bed HEENT: Normocephalic, atraumatic. External ears without defect. Pupils equal, round, and reactive to light and accommodation.deeply Icteric sclerae, moist conjunctivae, and no lid lag. Oropharynx free of erythema, moist mucosa. Neck: Supple with full range of motion. No jugular venous distension. No bruits. No lymphadenopathy or thyromegaly. Cardiovascular: Regular rate and rhythm with III/ systolic murmur heard best at upper left sternal border. No rubs, or gallops appreciated Pulmonary: Clear to auscultation bilaterally with no crackles, wheezes, or rhonchi. Normal respiratory effort with no use of accessory muscles. Abdomen: Bowel tones present. Soft, mildly tender in lower quadrants bilaterally , significantly distended. No masses appreciated.mild diffuse tenderness but marked at RUQ. Extremities: Pale bruises over upper and lower extremities bilaterally no clubbing, cyanosis, edema, or lymphadenopathy appreciated. Skin: Patient appears yellow from jaundice. Normal temperature, turgor, and texture; no rash, ulcers, or subcutaneous nodules appreciated. Neurological: Cranial nerves grossly intact. Coordination, and sensory function within normal limits. No known gait impairment. Psychiatric: Normal mood and affect. Alert and oriented to person, place, and time. IVs and Medications Medications Reviewed: Medications were reviewed in detail Lab and Diagnostics Result Diagram: 09/09/1644609/09/16446 X-Rays, CTs and MRIs CT ABDOMEN AND PELVIS WITH CONTRAST IMPRESSION: 1. Nodular cirrhotic liver redemonstrated with a few small low-density foci which are too small to characterize but likely represents 2. Findings consistent with portal hypertension including gastroesophageal and splenic varices, splenomegaly, and large amount of ascites. 3. Cholelithiasis without definite CT evidence of cholecystitis. Evaluation is limited in the presence of ascites. Recommend correlation clinically and further evaluation with ultrasound if indicated. 4. Multiple segments of bowel wall thickening involving the small and large bowel. Findings may be reactive secondary to ascites versus sequelae of an infectious or inflammatory enterocolitis. 5. Small left pleural effusion with persistent bibasilar consolidation/ atelectasis. Dictated by: Huy Parson M.D. on 09/04/2016 at 14:43 PROCEDURE: US ABDOMEN DOPPLER INDICATIONS: portal thrombosis? TECHNIQUE: Real-time scanning was performed of the abdominal and retroperitoneal organs, with image documentation. . IMPRESSION: Gallbladder sludge with wall thickening and pericholecystic fluid, suspicious for acute cholecystitis. However no sonographic Enriquez sign or biliary ductal dilatation, therefore please correlate clinically and with LFTs. Main portal vein appears patent without intraluminal thrombus. Normal liver Doppler examination. Moderate ascites Splenomegaly. Dictated by: Jakub Watson M.D. on 09/05/2016 at 10:02 PROCEDURE: US GUIDED PARACENTESIS, PRIMARY ([id number]) INDICATIONS: ?SBP, liver failure. Fluid volume and description: 1700 yellow cloudy IMPRESSION: Successful ultrasound-guided paracentesis. Dictated by: Lacey Guzman M.D. on 09/05/2016 at 10:45 PROCEDURE: NM HIDA SCAN WITH CCK PHARMACEUTICAL: 5.4 mCi Tc-99m mebrofenin IV; 1.4 mcg CCK IV. IMPRESSION: Normal hepatocellular uptake and excretion of the radioisotope, normal gallbladder ejection fraction of 40.4%. Source of abdominal pain is not identified by this examination. Dictated by: Arley Glass M.D. on 09/06/2016 at 10:18 Additional Diagnostics US GUIDED PARACENTESIS, PRIMARY FINDINGS: Access site: Left lower quadrant Needle: One-Step centesis catheter with introducer needle. Fluid volume and description: Clear yellow fluid. 140 cc removed for analysis Fluid sent for diagnostic testing: As requested Medications: 1% lidocaine for local anaesthesia. Complications: None. IMPRESSION: Successful ultrasound-guided diagnostic paracentesis. Dictated by: Rory Sage M.D. on 09/07/2016 at 15:24 US VENOUS LEG DUPLEX BILATERAL IMPRESSION: Both legs are negative for DVT Dictated by: Rory Sage M.D. on 09/07/2016 at 11:05 US GUIDED PARACENTESIS, PRIMARY FINDINGS: Access site: Right lower quadrant Needle: One-Step centesis catheter with introducer needle. Fluid volume and description: 1700 yellow cloudy Fluid sent for diagnostic testing: Yes Medications: 1% lidocaine for local anaesthesia. Complications: None. IMPRESSION: Successful ultrasound-guided paracentesis. Dictated by: Lacey Guzman M.D. on 09/05/2016 at 10:45 US ABDOMEN DOPPLER IMPRESSION: Gallbladder sludge with wall thickening and pericholecystic fluid, suspicious for acute cholecystitis. However no sonographic Enriquez sign or biliary ductal dilatation, therefore please correlate clinically and with LFTs. Main portal vein appears patent without intraluminal thrombus. Normal liver Doppler examination. Moderate ascites Splenomegaly. Dictated by: Jakub Watson M.D. 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 # sepsis due to SBP and acute acalculous cholecystitis -albumin boluses given -Antibiotics meropenem started 09/05.will give a dose of ertapenem tomorrow. Will discharge on ciprofloxacin prophylaxis -blood culture negative x2 -Paracentesis consistent with SBP ,ANC 3342 .US consistent with acute cholecystitis with pericholecystic fluid # suspected Acute cholecystitis -US consistent with acute cholecystitis with pericholecystic fluid but HIDA scan not consistent with cholecystitis. Normal gallbladder ejection fraction of 40% -discussed with surgery Dr Ramos. patient is high risk for surgery and needs to be transferred to critical access hospital if surgery indicated. Discussed with GI/ railroad carman at and [place] . they recommend conservative management with antibiotics. Patient was managed conservatively with IV antibiotics on prior episode in March. She was discharged for elective cholecystectomy but deferred due to high risk for surgery # Acute SBP vs secondary peritonitis -Diagnostic paracenteses done. 1.7 L ascitic fluid removed 09/05. ANC 3342, cell count too high to be SBP . secondary peritonitis due to cholecystitis possible but HIDA scan negative -repeat paracentesis 09/07,SBP resolved . repeat ANC 50 -on meropenem # Severe anemia due to non immune chronic hemolytic anemia due to chronic DIC , acute on chronic -patient was recently evaluated by Dr Hagen for hemolytic anemia. patient has low fibrinogen and high d-dimer consistent with non immune chronic hemolytic anemia due to chronic DIC -Due to suspected upper GI bleed. Patient states she had dark loose stool for the last few days but resolved now .stool occult negative 09/05 -Hb drop to 5.9 from 8.5 noted -transfused 2 PRBCs on 09/05. Hb did not respond appropriately to transfusion.pretx Hb 5.9,post 7.1 . transfused 2 more PRBCs 09/06 . Patient currently on transplant list. Anemia severe and symptomatic. Benefit of transfusion outweighs risk of sensitization. Patient verbalize understanding -Hematology recommended cryoprecipitate for initial fibrinogen of 64. Fibrinogen improved with FFP. . fibrinogen 69 on 09/08 . gave 12 units cryoprecipitate 09/08. will give cryoprecipitate if fibrinogen is less than 80 -Hematology recommended higher threshold for transfusion due to concern for iron overload.New Transfusion threshold hemoglobin 6.4 or less per hematology -protonix switched to IV -stool occult negative 09/05 -octreotide drip started 09/05. discontinued 09/08 # Decompensated End-stage liver disease with portal hypertension, present on admission, acute on chronic -Decompensated due to multiple factors( severe anemia, acute cholecystitis,SBP) ,current MELD score 23 -initial bilirubin of 21.5 is significantly higher than has ever been noted previously. -Continue lactulose 10 g tid increased to 20 g tid given high ammonia -Continue rifaximin -Continue vitamin B 12 -increased lasix to 80mg daily from 20 and spirinolactone to 100 from 50 due to worsening leg edema and fluid retention/positive fluid balance # hepatic coagulopathy -INR 2. Transfused 4 FFPs and vitamin k given 09/06. Improved 1.46 -Initial fibrinogen 64 and d-dimer 14. Improved with FFP's # Ascites, present on admission, acute on chronic -Per patient report a paracentesis in the past have been difficult and had only been able to gather a small amount of fluid -Continue furosemide, potassium, and spironolactone,doses increased # Lactic acidosis, as on admission, resolved -Initial lactate 4.1.improved to 1.5 # Hypothyroidism -Continue levothyroxine High risk meds include IV Dilaudid DVT prophylaxis: SCDs, pharmacologic prophylaxis held due to advanced liver disease and thrombocytopenia of 59 When necessary GI, bowel, pain medications ordered CODE STATUS: FULL CODE disposition: Discharge tomorrow if remains afebrile VTE Mechanical Devices: Intermittant Pneumatic CD Resuscitation Status: CPR: Attempt Resuscitation Maurice Ojeda MD Sep 09, 2016 13:43
--- NOTE | 2016-09-09 15:41 | PCM.PNMED ---
Subjective Date of Service Sep 09, 2016 Subjective Patient reports feeling tired and thirsty this morning. She is otherwise doing okay. Her abdominal pain is localized in her right upper quadrant. Exam Vital Signs Vital Sign - Last Date Time Temp Pulse Resp B/P Pulse Ox O2 Delivery O2 Flow Rate FiO2 09/09/16 10:25 36.7 72 17 97/56 91 Room Air 09/04/16 14:43 2 Intake and Output 09/08/16 09/08/16 09/09/16 Cumulative From/Thru 15:00 23:00 07:00 09/04/16 11:37 - 09/09/16 06:50 Intake Total 313 ml 2120 ml 1440 ml 38913 ml Output Total 4000 ml 1100 ml 52452 ml Balance 313 ml -1880 ml 340 ml -879 ml Intake Oral 1520 ml 800 ml 9527 ml IV Total 263 ml 600 ml 640 ml 8524 ml Packed Cells 980 ml FFP 1200 ml Cryoprecipitate 50 ml 50 ml Output Urine Total 4000 ml 1100 ml 89980 ml Other 6260 ml # Voids 2 2 # Bowel Movements 1 1 6 Exam General: No acute distress, well-developed, well-nourished, jaundiced, appropriately interactive HEENT: Normocephalic, atraumatic. External ears without defect. Icteric sclerae , moist conjunctivae, and no lid lag. Neck: Supple with full range of motion. No jugular venous distension. No lymphadenopathy or thyromegaly. Cardiovascular: Regular rate and rhythm with III/ systolic murmur heard best at upper left sternal border, no rubs or gallops appreciated Pulmonary: Clear to auscultation bilaterally with no crackles, wheezes, or rhonchi. Normal respiratory effort with no use of accessory muscles. Abdomen: Bowel tones present. Soft, diffusely tender, mildly distended. No masses appreciated. Extremities: mild-moderate pitting edema in bilateral lower extremities up to groin. No clubbing, cyanosis, or lymphadenopathy appreciated. Skin: Jaundice, normal temperature, turgor, and texture; no rash, ulcers, or subcutaneous nodules appreciated. Neurological: Cranial nerves grossly intact. No asterixis detected, Normal muscle strength, tone, and bulk. No gait impairment. Psychiatric: Normal mood and affect. Alert and oriented to person, place, and time. Lab and Diagnostics Result Diagram: 09/09/16 0447 09/09/16 0447 X-Rays, CTs and MRIs CT ABDOMEN AND PELVIS WITH CONTRAST IMPRESSION: 1. Nodular cirrhotic liver redemonstrated with a few small low-density foci which are too small to characterize but likely represents 2. Findings consistent with portal hypertension including gastroesophageal and splenic varices, splenomegaly, and large amount of ascites. 3. Cholelithiasis without definite CT evidence of cholecystitis. Evaluation is limited in the presence of ascites. Recommend correlation clinically and further evaluation with ultrasound if indicated. 4. Multiple segments of bowel wall thickening involving the small and large bowel. Findings may be reactive secondary to ascites versus sequelae of an infectious or inflammatory enterocolitis. 5. Small left pleural effusion with persistent bibasilar consolidation/ atelectasis. Dictated by: Huy Parson M.D. on 09/04/2016 at 14:43 PROCEDURE: US ABDOMEN DOPPLER INDICATIONS: portal thrombosis? TECHNIQUE: Real-time scanning was performed of the abdominal and retroperitoneal organs, with image documentation. . IMPRESSION: Gallbladder sludge with wall thickening and pericholecystic fluid, suspicious for acute cholecystitis. However no sonographic Enriquez sign or biliary ductal dilatation, therefore please correlate clinically and with LFTs. Main portal vein appears patent without intraluminal thrombus. Normal liver Doppler examination. Moderate ascites Splenomegaly. Dictated by: Jakub Watson M.D. on 09/05/2016 at 10:02 PROCEDURE: US GUIDED PARACENTESIS, PRIMARY ([id number]) INDICATIONS: ?SBP, liver failure. Fluid volume and description: 1700 yellow cloudy IMPRESSION: Successful ultrasound-guided paracentesis. Dictated by: Lacey Guzman M.D. on 09/05/2016 at 10:45 PROCEDURE: NM HIDA SCAN WITH CCK PHARMACEUTICAL: 5.4 mCi Tc-99m mebrofenin IV; 1.4 mcg CCK IV. IMPRESSION: Normal hepatocellular uptake and excretion of the radioisotope, normal gallbladder ejection fraction of 40.4%. Source of abdominal pain is not identified by this examination. Dictated by: Arley Glass M.D. on 09/06/2016 at 10:18 Additional Diagnostics US GUIDED PARACENTESIS, PRIMARY FINDINGS: Access site: Left lower quadrant Needle: One-Step centesis catheter with introducer needle. Fluid volume and description: Clear yellow fluid. 140 cc removed for analysis Fluid sent for diagnostic testing: As requested Medications: 1% lidocaine for local anaesthesia. Complications: None. IMPRESSION: Successful ultrasound-guided diagnostic paracentesis. Dictated by: Rory Sage M.D. on 09/07/2016 at 15:24 US VENOUS LEG DUPLEX BILATERAL IMPRESSION: Both legs are negative for DVT Dictated by: Rory Sage M.D. on 09/07/2016 at 11:05 US GUIDED PARACENTESIS, PRIMARY FINDINGS: Access site: Right lower quadrant Needle: One-Step centesis catheter with introducer needle. Fluid volume and description: 1700 yellow cloudy Fluid sent for diagnostic testing: Yes Medications: 1% lidocaine for local anaesthesia. Complications: None. IMPRESSION: Successful ultrasound-guided paracentesis. Dictated by: Lacey Guzman M.D. on 09/05/2016 at 10:45 US ABDOMEN DOPPLER IMPRESSION: Gallbladder sludge with wall thickening and pericholecystic fluid, suspicious for acute cholecystitis. However no sonographic Enriquez sign or biliary ductal dilatation, therefore please correlate clinically and with LFTs. Main portal vein appears patent without intraluminal thrombus. Normal liver Doppler examination. Moderate ascites Splenomegaly. Dictated by: Jakub Watson M.D. 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 emergency department for several days worth of nausea and abdominal pain who is significantly more jaundice who presented with some encephalopathy. 1. Spontaneous bacterial peritonitis vs intra abd process. Meropenem day 5 2. On admission she had some evidence of encephalopathy and an ammonia level of 134. Today ammonia is 149. I would continue the lactulose 10 cc three times a day and rifaximin 550 twice a day. She has no asterisks today. She appears fatigued but she is oriented 3. 3. Defer cardiopulmonary issue to the primary care service. 4. There is evidence of anemia. Likely hemolytic from chronic DIC transfusion threshold is hgb <6.[address] Hagen of hematology. 5. Patient on IV Protonix 40 mg twice a day because of underlying portal hypertension. Recommend avoiding medications such as vitamin C multivitamin which could cause ulcers. So, in terms of the vitamins, I would hold off until she is improved. Also, would avoid oral potassium as well because of a potential that this could be causing ulcers. 6. Increasing the Lasix to 80 mg and spironolactone to 100 mg once a day again today. Likely will decrease this to 40mg PO Lasix at discharge tomorrow depending on how patient does. Would keep a close eye on BUN and creatinine level. 7. Ultrasound performed showing gallbladder sludge, thickened wall, pericholecystic fluid. Normal liver Doppler examination, moderate ascites, splenomegaly, HIDA scan shows EF of 40%. 8. Continue to monitor bilirubin, Decreased to 12.4 today (21.4 on admission 9. Based on the imaging, there seems to be no evidence of Budd-Chiari or portal vein thrombosis. However, would recommend getting a Doppler ultrasound of the inferior vena cava as well as the portal veins. 10. Dr. Eckert from infectious disease is involved and meropenem was given after the paracentesis. Day 5 today. ID recommends single dose of ertapenem prior to discharge home to give longer coverage with IV antibiotics before returning to prophylaxis. 11. Patient is exhibiting no signs of active bleeding, octreotide discontinued. 12. Daily INR checks 13. We will hold off on EGD for the time being as patient is negative for blood in stool, showing no overt signs of intraluminal gastrointestinal bleed. 14. Called [facility] and spoke with senior applications engineer Cali Denton. He recommends not further correcting INR unless patient is showing signs of a bleed, he agrees with 7 days of broad spectrum antibiotics to treat infection. He can be reached at [phone] (mobile) The oncall senior applications engineer can be reached through the [facility] phone number [phone] They would like to be notified if patient has a MELD score >30 and when she discharges. MELD score today is 23. Pain Evaluation: Adequate Pain Control VTE Mechanical Devices: Intermittant Pneumatic CD Resuscitation Status: CPR: Attempt Resuscitation Attending Statement Patient seen and examined with Dr. Viera Agree with her assessment and plan as outlined above copies to: Perry Lowry MD, Erika R DO Sep 09, 2016 15:41 Perry Lowry MD Sep 14, 2016 13:32
--- NOTE | 2016-09-09 17:10 | NUR ---
Pain, Activity Patient continues to have some pain to the abdomen this shift, treated to a tolerable level per patient with ordered pain medication. Patient alert and oriented, ambulating halls without difficulty. Care is ongoing.
--- NOTE | 2016-09-09 22:20 | NUR ---
Transfer of care patient rating pain consistently at 7, but states improvement after 1mg IV dilaudid. Sitting at bedside eating evening snack. Reports poor appetite. Care transfer to Juan Barriga RN @ [id number].
[2016-09-10] MEDS: HYDROmorphone 1 mg/mL Inj IVPUSH PRN ×4 (00:02→12:57)
[2016-09-10] MEDS: Albumin 25% 12.5 GM in IV Premix 1 EACH IV SCH ×2 (00:06→08:40)
[2016-09-10 00:25] VITALS: BP 116/67; PULSE 81; RESP 20; O2SAT 94
[2016-09-10] MEDS: Meropenem Inj 1,000 MG in 0.9% Sodium Chloride 100 ML IV SCH (03:53)
[2016-09-10 04:50] VITALS: BP 103/58; PULSE 84; RESP 20; O2SAT 92
[2016-09-10] MEDS: 0.9% Sodium Chloride 250 ML IV SCH (06:10)
--- NOTE | 2016-09-10 06:25 | NUR ---
Pain c/o abd pain x2 this shift. Prn Dilaudid IVP administered and effective. Currently resting w/o any complaints.
[2016-09-10 06:46] LABS: BASOPHILS % (AUTO) 2.3 % (0-3); EOSINOPHILS % (AUTO) 2.6 % (0-5); MONOCYTES % (AUTO) 17.5 % (4-12); Mean Corpuscular Hemoglobin 35.5 pg (27.0-35.0); Mean Corpuscular Volume 108.7 fL (81-100); NEUTROPHILS % (AUTO) 43.5 % (40-74); Platelet Count 58 bil/L (150-400)
[2016-09-10 06:54] VITALS: PULSE 72
[2016-09-10 07:05] LABS: INR 1.71 ratio
[2016-09-10] MEDS ORDERED: Ertapenem Inj 1,000 MG in 0.9% Sodium Chloride 50 ML IV ONE (07:10)
[2016-09-10 07:13] LABS: D-Dimer 12.27 mg/L FEU (<0.50)
[2016-09-10 07:16] LABS: Magnesium 1.9 mg/dL (1.6-2.6)
[2016-09-10 07:53] VITALS: BP 107/63; PULSE 84; RESP 18; O2SAT 95
[2016-09-10 08:00] VITALS: PULSE 85
[2016-09-10] MEDS ORDERED: Potassium Chloride 20 mEq SR Tablet PO SCH (08:00)
[2016-09-10] MEDS: Lactobacillus Rhamnosus 10 Bil Unit Capsule PO SCH (08:41)
[2016-09-10] MEDS: Lactulose 20 Gm/30 mL 30 mL Syrup PO SCH (08:42)
--- NOTE | 2016-09-10 10:05 | PCM.DIMED ---
Discharge Instructions Date of Service Sep 10, 2016 Dates of Hospitalization Sep 04, 2016 at 14:55 Discharge Diagnosis Discharge Diagnosis # sepsis due to SBP and acute acalculous cholecystitis # suspected Acute cholecystitis # Acute SBP vs secondary peritonitis # Severe anemia due to non immune chronic hemolytic anemia due to chronic DIC , acute on chronic # Decompensated End-stage liver disease with portal hypertension, present on admission, acute on chronic # hepatic coagulopathy # Ascites, present on admission, acute on chronic # Lactic acidosis, as on admission, resolved # Hypothyroidism Diet Discharge Diet: Low fat, Low Sodium, Heart Healthy Activity Discharge Activity: Limited until seen by PCP Call your provider Call your provider for: Fever or Chills, Shortness of breath, Bleeding, Chest pain, Vomitting, Excessive diarrhea, Weakness (unilateral) Patient Instructions Patient Instructions You were hospitalized due to sepsis secondary to SBP and suspected calculus cholecystitis. Completed meropenem. Please continue ciprofloxacin 500 mg by mouth daily prophylaxis.You also had hemolytic anemia due to chronic DIC requiring transfusion and cryoprecipitate. Please follow-up with your ethnology teacher [facility]. We has increased her spironolactone from 50 mg 100 mg daily. Follow-up Provider: Michele Hernandez DO Follow-up with PCP in: 1 week Maurice Ojeda MD Sep 10, 2016 10:05
[2016-09-10] MEDS ORDERED: SPIR50TA2 PO (10:15)
[2016-09-10] MEDS: Pantoprazole 4 mg/mL 10 mL Inj IVPUSH SCH (10:50)
--- NOTE | 2016-09-10 10:54 | PCM.DC.MED ---
Discharge Summary Date of Service Sep 10, 2016 Dates of Hospitalization Date of Hospital Admission Sep 04, 2016 at 14:55 Date of Discharge: Sep 10, 2016 Providers: Admitting Physician: John Huber MD Primary Care Physician: Michele Hernandez DO Attending Physician: Maurice Willingham MD Diagnosis at Time of Discharge Diagnosis at Time of Discharge # sepsis due to SBP and acute acalculous cholecystitis # suspected Acute cholecystitis # Acute SBP vs secondary peritonitis # Severe anemia due to non immune chronic hemolytic anemia due to chronic DIC , acute on chronic # Decompensated End-stage liver disease with portal hypertension, present on admission, acute on chronic # hepatic coagulopathy # Ascites, present on admission, acute on chronic # Lactic acidosis, as on admission, resolved # Hypothyroidism Consultations ID Dr Eckert GI Dr Gonzalez hematology Dr Hagen Procedures XRay, CTs & MRIs CT ABDOMEN AND PELVIS WITH CONTRAST IMPRESSION: 1. Nodular cirrhotic liver redemonstrated with a few small low-density foci which are too small to characterize but likely represents 2. Findings consistent with portal hypertension including gastroesophageal and splenic varices, splenomegaly, and large amount of ascites. 3. Cholelithiasis without definite CT evidence of cholecystitis. Evaluation is limited in the presence of ascites. Recommend correlation clinically and further evaluation with ultrasound if indicated. 4. Multiple segments of bowel wall thickening involving the small and large bowel. Findings may be reactive secondary to ascites versus sequelae of an infectious or inflammatory enterocolitis. 5. Small left pleural effusion with persistent bibasilar consolidation/ atelectasis. Dictated by: Huy Parson M.D. on 09/04/2016 at 14:43 PROCEDURE: US ABDOMEN DOPPLER INDICATIONS: portal thrombosis? TECHNIQUE: Real-time scanning was performed of the abdominal and retroperitoneal organs, with image documentation. . IMPRESSION: Gallbladder sludge with wall thickening and pericholecystic fluid, suspicious for acute cholecystitis. However no sonographic Enriquez sign or biliary ductal dilatation, therefore please correlate clinically and with LFTs. Main portal vein appears patent without intraluminal thrombus. Normal liver Doppler examination. Moderate ascites Splenomegaly. Dictated by: Jakub Watson M.D. on 09/05/2016 at 10:02 PROCEDURE: US GUIDED PARACENTESIS, PRIMARY ([id number]) INDICATIONS: ?SBP, liver failure. Fluid volume and description: 1700 yellow cloudy IMPRESSION: Successful ultrasound-guided paracentesis. Dictated by: Lacey Guzman M.D. on 09/05/2016 at 10:45 PROCEDURE: NM HIDA SCAN WITH CCK PHARMACEUTICAL: 5.4 mCi Tc-99m mebrofenin IV; 1.4 mcg CCK IV. IMPRESSION: Normal hepatocellular uptake and excretion of the radioisotope, normal gallbladder ejection fraction of 40.4%. Source of abdominal pain is not identified by this examination. Dictated by: Arley Glass M.D. on 09/06/2016 at 10:18 Other Diagnostics US GUIDED PARACENTESIS, PRIMARY FINDINGS: Access site: Left lower quadrant Needle: One-Step centesis catheter with introducer needle. Fluid volume and description: Clear yellow fluid. 140 cc removed for analysis Fluid sent for diagnostic testing: As requested Medications: 1% lidocaine for local anaesthesia. Complications: None. IMPRESSION: Successful ultrasound-guided diagnostic paracentesis. Dictated by: Rory Sage M.D. on 09/07/2016 at 15:24 US VENOUS LEG DUPLEX BILATERAL IMPRESSION: Both legs are negative for DVT Dictated by: Rory Sage M.D. on 09/07/2016 at 11:05 US GUIDED PARACENTESIS, PRIMARY FINDINGS: Access site: Right lower quadrant Needle: One-Step centesis catheter with introducer needle. Fluid volume and description: 1700 yellow cloudy Fluid sent for diagnostic testing: Yes Medications: 1% lidocaine for local anaesthesia. Complications: None. IMPRESSION: Successful ultrasound-guided paracentesis. Dictated by: Lacey Guzman M.D. on 09/05/2016 at 10:45 US ABDOMEN DOPPLER IMPRESSION: Gallbladder sludge with wall thickening and pericholecystic fluid, suspicious for acute cholecystitis. However no sonographic Enriquez sign or biliary ductal dilatation, therefore please correlate clinically and with LFTs. Main portal vein appears patent without intraluminal thrombus. Normal liver Doppler examination. Moderate ascites Splenomegaly. Dictated by: Jakub Watson M.D. 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 She does chronically have some abdominal discomfort and nausea due to her end-stage liver disease but this is worsened per heard. The patient notes that the pain is worsened with any sort of movement. She denies any fevers, chills, sugars of breath, chest pain. The etiology of her anterior liver disease is not entirely clear at this point. It is believed to be secondary to alcoholic liver disease in combination with her gastric bypass surgery. The patient is followed by [facility] with Dr Luly Sheriff and is on the transplant list for her liver. The patient noted that her abdominal distention has increased her last few days. She also noticed that her lower extremity edema has worsened as well. Her global category manager is Dr. Real at [facility] in [place]. He was previously admitted in March 2016 for acute spontaneous bacteria peritonitis as well as acalculous cholecystitis. During the prior admission for SBP the patient was afebrile and her main complaints were nausea, increased abdominal girth, and abdominal pain. In the emergency department her vital signs were stable she was afebrile. She was treated with pain medications and antiemetics but no antibiotics were given. Patient underwent CT scan which showed a large amount of ascites however upon ultrasound no safe pocket was found by ED physician to attempt a paracentesis. She is being admitted for a diagnostic paracentesis that you performed by radiology. 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 # sepsis due to SBP and acute acalculous cholecystitis -albumin boluses given -Antibiotics meropenem started 09/05. gave a dose of ertapenem 09/10. Will discharge on ciprofloxacin prophylaxis -blood culture negative x2 -Paracentesis consistent with SBP ,ANC 3342 .US consistent with acute cholecystitis with pericholecystic fluid # suspected Acute cholecystitis -US consistent with acute cholecystitis with pericholecystic fluid but HIDA scan not consistent with cholecystitis. Normal gallbladder ejection fraction of 40% -discussed with surgery Dr Ramos. patient is high risk for surgery and needs to be transferred to [facility] if surgery indicated. Discussed with GI/ valve pipe irrigator at and [facility] . they recommend conservative management with antibiotics. Patient was managed conservatively with IV antibiotics on prior episode in March. She was discharged for elective cholecystectomy but deferred due to high risk for surgery # Acute SBP vs secondary peritonitis -Diagnostic paracenteses done. 1.7 L ascitic fluid removed 09/05. ANC 3342, cell count too high to be SBP . secondary peritonitis due to cholecystitis possible but HIDA scan negative -repeat paracentesis 09/07,SBP resolved . repeat ANC 50 -on meropenem -Discharged on ciprofloxacin prophylaxis # Severe anemia due to non immune chronic hemolytic anemia due to chronic DIC , acute on chronic -patient was recently evaluated by Dr Hagen for hemolytic anemia. patient has low fibrinogen and high d-dimer consistent with non immune chronic hemolytic anemia due to chronic DIC -.stool occult negative 09/05 -Hb drop to 5.9 from 8.5 noted. Transfused 4 PRBCs during hospitalization -transfused 2 PRBCs on 09/05. Hb did not respond appropriately to transfusion.pretx Hb 5.9,post 7.1 . transfused 2 more PRBCs 09/06 . Patient currently on transplant list. Anemia severe and symptomatic. Benefit of transfusion outweighs risk of sensitization. Patient verbalize understanding -Hematology recommended cryoprecipitate for initial fibrinogen of 64. Fibrinogen improved with FFP. . fibrinogen 69 on 09/08 . gave 12 units cryoprecipitate 09/08. fibrinogen 90 on day of discharge -Hematology recommended higher threshold for transfusion due to concern for iron overload.New Transfusion threshold hemoglobin 6.4 or less per hematology -protonix switched to IV. No PPI upon discharge due to increased risk of mortality with PPI.. Stool occult negative -stool occult negative 09/05 -octreotide drip started 09/05. discontinued 09/08 # Decompensated End-stage liver disease with portal hypertension, present on admission, acute on chronic -Decompensated due to multiple factors( severe anemia, acute cholecystitis,SBP) ,current MELD score 23 -initial bilirubin of 21.5 is significantly higher than has ever been noted previously. -Continue lactulose 10 g tid increased to 20 g tid given high ammonia -Continue rifaximin -Continue vitamin B 12 -increased lasix to 80mg daily from 20 and spirinolactone to 100 from 50 due to worsening leg edema and fluid retention/positive fluid balance . Discharge on home Lasix 40 mg by mouth daily and increased spironolactone 100 mg by mouth daily # hepatic coagulopathy -INR 2. Transfused 4 FFPs and vitamin k given 09/06 per GI. Improved 1.46 -Initial fibrinogen 64 and d-dimer 14. Improved with FFP's and cryoprecipitate # Ascites, present on admission, acute on chronic -Per patient report a paracentesis in the past have been difficult and had only been able to gather a small amount of fluid -Continue furosemide, potassium, and spironolactone,doses increased as above # Lactic acidosis, as on admission, resolved -Initial lactate 4.1.improved to 1.5 # Hypothyroidism -Continue levothyroxine disposition: Discharge home Condition ON discharge improved Exam Vital Signs (Last) Date Time Temp Pulse Resp B/P Pulse Ox O2 Delivery O2 Flow Rate FiO2 09/10/16 07:53 36.7 84 18 107/63 95 Room Air 09/04/16 14:43 2 Exam General: No acute distress, likely ill-appearing woman laying comfortably in hospital bed HEENT: Normocephalic, atraumatic. External ears without defect. Pupils equal, round, and reactive to light and accommodation.deeply Icteric sclerae, moist conjunctivae, and no lid lag. Oropharynx free of erythema, moist mucosa. Neck: Supple with full range of motion. No jugular venous distension. No bruits. No lymphadenopathy or thyromegaly. Cardiovascular: Regular rate and rhythm with III/ systolic murmur heard best at upper left sternal border. No rubs, or gallops appreciated Pulmonary: Clear to auscultation bilaterally with no crackles, wheezes, or rhonchi. Normal respiratory effort with no use of accessory muscles. Abdomen: Bowel tones present. Soft, mildly tender in lower quadrants bilaterally , significantly distended. No masses appreciated.mild diffuse tenderness but marked at RUQ. Extremities: Pale bruises over upper and lower extremities bilaterally no clubbing, cyanosis, edema, or lymphadenopathy appreciated. Skin: Patient appears yellow from jaundice. Normal temperature, turgor, and texture; no rash, ulcers, or subcutaneous nodules appreciated. Neurological: Cranial nerves grossly intact. Coordination, and sensory function within normal limits. No known gait impairment. Psychiatric: Normal mood and affect. Alert and oriented to person, place, and time. Test 09/04/16 11:40 09/04/16 16:05 09/05/16 05:00 09/05/16 10:52 Lipase 27U/L (13-60) Urine Color Reagan (YELLOW) Urine Appearance Hazy (CLEAR,HAZY) Urine pH (5.0-8.0) Urine Specific [place] >1.050 (1.003-1.035) Urine Protein mg/dL (NEG,TRACE) Urine Glucose (UA) mg/dL (NEGATIVE) Urine Ketones mg/dL (NEGATIVE) Urine Occult Blood (NEGATIVE) Urine Nitrite (NEGATIVE) Urine Bilirubin Positive (NEGATIVE) Urine Ictotest Positive (Negative) Urine Urobilinogen mg/dL (NORMAL) Urine Leukocyte Esterase (NEGATIVE) Urine RBC 0-2/hpf (0-2) Urine WBC 0-5/hpf (0-5) Urine Epithelial Cells Few/hpf (NONE-MOD) Urine Crystals None seen (NONE SEEN) Urine Bacteria Few/hpf (NONE-FEW) Urine Hyaline Casts None/lpf (NONE) Urine Granular Casts None seen (NONE SEEN) Urine Waxy Casts None seen (NONE SEEN) Urine Red Blood Cell Casts None seen (NONE SEEN) Urine White Blood Cell Casts None seen (NONE SEEN) Urine Mucus Present (None Seen) Urine Trichomonas None seen (NONE SEEN) Urine Yeast None (NONE SEEN) Urinalysis Comment Color interference Urine Culture Reflexed Not indicated Band Neutrophils % 1% (1-5) Lactic Acid Level 1.5mmol/L (0.4-2.0) Body Fluid Comment Test 09/06/16 05:45 09/07/16 08:00 09/07/16 15:48 09/08/16 05:08 Reticulocyte Count,Calculated 14.4% (0.6-2.6) Haptoglobin < 10mg/dL (34-200) Lactate Dehydrogenase 381U/L (100-190) Direct Bilirubin 8.4mg/dL (0.0-0.3) Body Fluid Source Peritoneal fluid Body Fluid Color Yellow (Clear) Body Fluid Appearance Hazy Body Fluid WBC 495/mm3 Body Fluid RBC 195/mm3 Body Fluid Polynuclear WBCs 10% Body Fluid Lymphocytes 12% Body Fluid Monocytes 68% Body Fluid Eosinophils 0% Body Fluid Basophils 0% Body Fluid Total Protein 1.2g/dL Body Fluid Albumin 0.5g/dL (.) Hematology Comments Phosphorus Level 2.7mg/dL (2.5-4.9) Procalcitonin 0.16ng/mL (0.00-0.08) Test 09/08/16 08:24 09/10/16 06:00 Ammonia 149ug/dL (18-53) White Blood Count 3.5th/mm3 (3.8-10.1) Red Blood Count 2.31mil/mm3 (3.90-5.20) Hemoglobin 8.2g/dL (12.0-15.6) Hematocrit 25.1% (35.0-46.0) Mean Corpuscular Volume 108.7fL (81-100) Mean Corpuscular Hemoglobin 35.5pg (27.0-35.0) Mean Corpuscular Hemoglobin Concent 32.7% (32.0-37.0) Red Cell Distribution Width 24.3% (12.3-15.4) Platelet Count 58bil/L (150-400) Neutrophils (%) (Auto) 43.5% (40-74) Lymphocytes (%) (Auto) 33.8% (14-46) Monocytes (%) (Auto) 17.5% (4-12) Eosinophils (%) (Auto) 2.6% (0-5) Basophils (%) (Auto) 2.3% (0-3) Prothrombin Time 18.5sec (8.1-12.5) Prothromb Time International Ratio 1.71ratio Fibrinogen 90mg/dL (157-380) D-Dimer 12.27mg/L FEU (<0.50) Sodium Level 139mEq/L (134-144) Potassium Level 3.3mEq/L (3.5-5.2) Chloride Level 98mEq/L (97-108) Carbon Dioxide Level 28mmol/L (18-29) Blood Urea Nitrogen 7mg/dL (6-20) Creatinine < 0.30mg/dL (0.57-1.00) Estimat Glomerular Filtration Rate 365mL/min (>59) Glucose Level 89mg/dL (60-99) Calcium Level 8.2mg/dL (8.5-10.1) Magnesium Level 1.9mg/dL (1.6-2.6) Total Bilirubin 11.0mg/dL (0.0-1.2) Aspartate Amino Transf (AST/SGOT) 55U/L (0-50) Alanine Aminotransferase (ALT/SGPT) 16U/L (0-32) Alkaline Phosphatase 59U/L (25-150) Total Protein 5.3g/dL (6.4-8.4) Albumin 2.8g/dL (3.4-5.0) Discharge Medications Discharge Medications Ascorbic Acid (Vitamin C) 500 Mg Capsule.er 500 MG PO QAM (Reported) Cholecalciferol (Vitamin D3) (Vitamin D3) 5,000 Unit Tablet 5,000 UNIT PO QAM ( Reported) Ciprofloxacin (Ciprofloxacin) 500 Mg Tablet 500 MG PO DAILY Prescribed by: MAURICE WILLINGHAM MD Cyanocobalamin (Vitamin B-12) (Vitamin B-12) 1,000 Mcg/1 Ml Drops 1,000 MCG PO QAM (Reported) Furosemide (Lasix) 40 Mg Tablet 40 MG PO QAM (Reported) L. Rhamnosus GG/Inulin (Culturelle Capsule) 10 Billion Cell-200 Mg Cap.sprink 1 EACH PO DAILY (Reported) Lactulose (Lactulose) 10 Gm/15 Ml Solution 10 GM PO BID (Reported) Levothyroxine (Levothyroxine) 25 Mcg Tablet 25 MCG PO QAM (Reported) Multivitamin (Multivitamins) 1 Each Capsule 1 EACH PO DAILY (Reported) Potassium Chloride (Potassium Chloride) 20 Meq Tab.er.prt 40 MEQ PO DAILYWM ( Reported) TAKE WITH FOOD Rifaximin (Xifaxan) 550 Mg Tablet 550 MG PO DAILY (Reported) Spironolactone (Spironolactone) 50 Mg Tablet 100 MG PO QAM Prescribed by: MAURICE WILLINGHAM MD As needed Ondansetron (Ondansetron) 4 Mg Tablet 4 MG PO Q12H PRN PRN For Nausea/Vomiting ( Reported) Followup Plan Disposition: Home Discharge Diet: Low fat, Low Sodium, Heart Healthy Discharge Activity: Limited until seen by PCP Patient Instructions You were hospitalized due to sepsis secondary to SBP and suspected calculus cholecystitis. Completed meropenem. Please continue ciprofloxacin 500 mg by mouth daily prophylaxis.You also had hemolytic anemia due to chronic DIC requiring transfusion and cryoprecipitate. Please follow-up with your valve pipe irrigator [facility]. We has increased her spironolactone from 50 mg 100 mg daily. Follow-up Provider: Michele Hernandez DO Follow-up with PCP in: 1 week Time spent 40 minutes copies to: Ceasar Gonzalez MD; Michele Hernandez DO; Charli Eckert MD, Melaku MD Sep 10, 2016 10:54
[2016-09-10] MEDS ORDERED: CIPR-231 PO (11:08)
[2016-09-10] MEDS ORDERED: OXYC-474 PO (11:08)
--- NOTE | 2016-09-10 11:54 | NUR ---
Social Work: Readiness for Discharge/Multidisciplinary Rounds D: EMR reviewed. Pt is a 36 y/o female on day 6 of hospitalization for ESLD, ascites, and abdominal pain. Per MD in AM rounds, pt will receive last troponin test today, and pending results, pt will likely discharge today. MD confirmed that pt does not have any SW needs at this time. Pt up ambulating in hallway with SO. Pt likely to transport home with mother via POV today. SW will continue to follow. A: Pt who is independent at baseline. P: confirmed that pt does not have any SW needs at this time. Pt up ambulating in hallway with SO. Pt likely to transport home with mother via POV today. SW will continue to follow. ADA Camarena
--- NOTE | 2016-09-10 14:02 | NUR ---
Discharge Orders for discharge were received. The patient was made aware of the plan for discharge and was agreeable to go. The patient was given information and teaching on her diagnosis and treatment, signs and symptoms to be aware of, follow up instructions, scripts and information on new medications, activity restrictions and teaching on pain management. The patient signified understanding of this information, verified using the teach back method. The patient's asymptomatic IV was then removed intact and the patient's belongings gathered. The patient was then wheeled to the main entrance in a wheelchair where she ambulated into a private family vehicle. At the time of discharge the patient was alert and oriented, with no complaint of shortness of breath, out of control pain, nausea or other difficulty. Patient family member then drove patient off hospital property.
--- NOTE | 2016-09-10 17:19 | PCM.PNMED ---
Subjective Date of Service Sep 10, 2016 Subjective Patient reports feeling good today. She continues to have diffuse abdominal pain worse in the right upper quadrant that is no greater than her baseline. She does not feel any increasing abdominal distention. She is looking forward to going home today. Exam Vital Signs Vital Sign - Last Date Time Temp Pulse Resp B/P Pulse Ox O2 Delivery O2 Flow Rate FiO2 09/10/16 07:53 36.7 84 18 107/63 95 Room Air 09/04/16 14:43 2 Intake and Output 09/09/16 09/09/16 09/10/16 Cumulative From/Thru 15:00 23:00 07:00 09/04/16 11:37 - 09/10/16 07:00 Intake Total 1290 ml 837 ml 81185 ml Output Total 2000 ml 1100 ml 83365 ml Balance -710 ml -263 ml -1852 ml Intake Oral 1200 ml 837 ml 15282 ml IV Total 90 ml 8614 ml Packed Cells 980 ml FFP 1200 ml Cryoprecipitate 50 ml Output Urine Total 2000 ml 1100 ml 56087 ml Other 6260 ml # Voids 2 4 # Bowel Movements 2 0 8 Exam General: No acute distress, well-developed, jaundiced, appropriately interactive HEENT: Normocephalic, atraumatic. External ears without defect. Icteric sclerae , moist conjunctivae, and no lid lag. Neck: Supple with full range of motion. No jugular venous distension. No lymphadenopathy or thyromegaly. Cardiovascular: Regular rate and rhythm with III/ systolic murmur heard best at upper left sternal border, no rubs or gallops appreciated Pulmonary: Clear to auscultation bilaterally with no crackles, wheezes, or rhonchi. Normal respiratory effort with no use of accessory muscles. Abdomen: Bowel tones present. Soft, diffusely tender, mildly distended. No masses appreciated. Extremities: mild-moderate pitting edema in bilateral lower extremities up to groin. No clubbing, cyanosis, or lymphadenopathy appreciated. Skin: Jaundice, normal temperature, turgor, and texture; no rash, ulcers, or subcutaneous nodules appreciated. Neurological: Cranial nerves grossly intact. No asterixis detected, Normal muscle strength, tone, and bulk. No gait impairment. Psychiatric: Normal mood and affect. Alert and oriented to person, place, and time. Lab and Diagnostics Result Diagram: 09/10/16 0609/10/16 0600 Microbiology 09/07/2016 Acetic fluid shows no growth at 48 hours 09/07/2016 acid fast bacilli smear of peritoneal fluid is negative, culture shows no growth of arobes or anaerobes in 48 hours Blood culture shows no growth after 5 days X-Rays, CTs and MRIs CT ABDOMEN AND PELVIS WITH CONTRAST IMPRESSION: 1. Nodular cirrhotic liver redemonstrated with a few small low-density foci which are too small to characterize but likely represents 2. Findings consistent with portal hypertension including gastroesophageal and splenic varices, splenomegaly, and large amount of ascites. 3. Cholelithiasis without definite CT evidence of cholecystitis. Evaluation is limited in the presence of ascites. Recommend correlation clinically and further evaluation with ultrasound if indicated. 4. Multiple segments of bowel wall thickening involving the small and large bowel. Findings may be reactive secondary to ascites versus sequelae of an infectious or inflammatory enterocolitis. 5. Small left pleural effusion with persistent bibasilar consolidation/ atelectasis. Dictated by: Huy Parson M.D. on 09/04/2016 at 14:43 PROCEDURE: US ABDOMEN DOPPLER INDICATIONS: portal thrombosis? TECHNIQUE: Real-time scanning was performed of the abdominal and retroperitoneal organs, with image documentation. . IMPRESSION: Gallbladder sludge with wall thickening and pericholecystic fluid, suspicious for acute cholecystitis. However no sonographic Enriquez sign or biliary ductal dilatation, therefore please correlate clinically and with LFTs. Main portal vein appears patent without intraluminal thrombus. Normal liver Doppler examination. Moderate ascites Splenomegaly. Dictated by: Jakub Watson M.D. on 09/05/2016 at 10:02 PROCEDURE: US GUIDED PARACENTESIS, PRIMARY ([id number]) INDICATIONS: ?SBP, liver failure. Fluid volume and description: 1700 yellow cloudy IMPRESSION: Successful ultrasound-guided paracentesis. Dictated by: Lacey Guzman M.D. on 09/05/2016 at 10:45 PROCEDURE: NM HIDA SCAN WITH CCK PHARMACEUTICAL: 5.4 mCi Tc-99m mebrofenin IV; 1.4 mcg CCK IV. IMPRESSION: Normal hepatocellular uptake and excretion of the radioisotope, normal gallbladder ejection fraction of 40.4%. Source of abdominal pain is not identified by this examination. Dictated by: Arley Glass M.D. on 09/06/2016 at 10:18 Additional Diagnostics US GUIDED PARACENTESIS, PRIMARY FINDINGS: Access site: Left lower quadrant Needle: One-Step centesis catheter with introducer needle. Fluid volume and description: Clear yellow fluid. 140 cc removed for analysis Fluid sent for diagnostic testing: As requested Medications: 1% lidocaine for local anaesthesia. Complications: None. IMPRESSION: Successful ultrasound-guided diagnostic paracentesis. Dictated by: Rory Sage M.D. on 09/07/2016 at 15:24 US VENOUS LEG DUPLEX BILATERAL IMPRESSION: Both legs are negative for DVT Dictated by: Rory Sage M.D. on 09/07/2016 at 11:05 US GUIDED PARACENTESIS, PRIMARY FINDINGS: Access site: Right lower quadrant Needle: One-Step centesis catheter with introducer needle. Fluid volume and description: 1700 yellow cloudy Fluid sent for diagnostic testing: Yes Medications: 1% lidocaine for local anaesthesia. Complications: None. IMPRESSION: Successful ultrasound-guided paracentesis. Dictated by: Lacey Guzman M.D. on 09/05/2016 at 10:45 US ABDOMEN DOPPLER IMPRESSION: Gallbladder sludge with wall thickening and pericholecystic fluid, suspicious for acute cholecystitis. However no sonographic Enriquez sign or biliary ductal dilatation, therefore please correlate clinically and with LFTs. Main portal vein appears patent without intraluminal thrombus. Normal liver Doppler examination. Moderate ascites Splenomegaly. Dictated by: Jakub Watson M.D. 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 1. Spontaneous bacterial peritonitis vs intra abd process. Meropenem day 6 2. On admission she had some evidence of encephalopathy and an ammonia level of 134. I would continue the lactulose 10 cc three times a day and rifaximin 550 twice a day. She has no asterisks today. She appears fatigued but she is oriented 3. 3. Defer cardiopulmonary issue to the primary care service. 4. There is evidence of anemia. Likely hemolytic from chronic DIC transfusion threshold is hgb <6.[address] Hagen of hematology. 5. Patient on IV Protonix 40 mg twice a day because of underlying portal hypertension. Recommend avoiding medications such as vitamin C multivitamin which could cause ulcers. So, in terms of the vitamins, I would hold off until she is improved. Also, would avoid oral potassium as well because of a potential that this could be causing ulcers. 6. Patient to discharge on Lasix to 40 mg daily and spironolactone to 100 mg once a day. 7. Ultrasound performed showing gallbladder sludge, thickened wall, pericholecystic fluid. Normal liver Doppler examination, moderate ascites, splenomegaly, HIDA scan shows EF of 40%. 8. Continue to monitor bilirubin, Decreased to 11.0 today (21.4 on admission ) 9. Based on the imaging, there seems to be no evidence of Budd-Chiari or portal vein thrombosis. 10. Dr. Eckert from infectious disease is involved and meropenem was given after the paracentesis. Day 6 today. Patient to discharge on one daily 500 mg ciprofloxacin for prophylaxis 11. Patient is exhibiting no signs of active bleeding. 12. INR increased slightly today to 1.71 13. We will hold off on EGD for the time being as patient is negative for blood in stool, showing no overt signs of intraluminal gastrointestinal bleed. 14. Called [facility] and spoke with slab inspector Cali Denton who is informed of patient's discharge. He can be reached at [phone] ( mobile) The oncall slab inspector can be reached through the [facility] phone number [phone] They would like to be notified if patient has a MELD score >30 and when she discharges. MELD score today is 21. VTE Mechanical Devices: Intermittant Pneumatic CD Resuscitation Status: CPR: Attempt Resuscitation Attending Statement Patient seen and examined with Dr. Viera Agree with assessment and plan as outlined above copies to: Ceasar Gonzalez MD, Erika R DO Sep 10, 2016 08:45 Perry Lowry MD Sep 14, 2016 13:35
== END 2016-09-10 13:31 | disposition home or self-care (01) | DRG 871 ==
LOC: SED 11:23 → OSC 14:55
PROVIDERS: ADMIT Internal Medicine; ATTEND Internal Medicine
PROC: 0W9G3ZX Drainage of Peritoneal Cavity, Percutaneous Approach, Diagnostic (ICD-10-PCS; principal; 2016-09-05)
PROC: 30233N1 Transfusion of Nonautologous Red Blood Cells into Peripheral Vein, Percutaneous Approach (ICD-10-PCS; 2016-09-05)
PROC: 30233N1 Transfusion of Nonautologous Red Blood Cells into Peripheral Vein, Percutaneous Approach (ICD-10-PCS; 2016-09-06)
PROC: 30233K1 Transfusion of Nonautologous Frozen Plasma into Peripheral Vein, Percutaneous Approach (ICD-10-PCS; 2016-09-06)
PROC: 30233K1 Transfusion of Nonautologous Frozen Plasma into Peripheral Vein, Percutaneous Approach (ICD-10-PCS; 2016-09-07)
PROC: 30233M1 Transfusion of Nonautologous Plasma Cryoprecipitate into Peripheral Vein, Percutaneous Approach (ICD-10-PCS; 2016-09-08)
DX: A41.9 Sepsis, unspecified organism (principal); K65.2 Spontaneous bacterial peritonitis; G93.40 Encephalopathy, unspecified; D65 Disseminated intravascular coagulation [defibrination syndrome]; K76.6 Portal hypertension; E87.2 Acidosis; J90 Pleural effusion, not elsewhere classified; K81.0 Acute cholecystitis; D68.4 Acquired coagulation factor deficiency; K70.40 Alcoholic hepatic failure without coma; K70.31 Alcoholic cirrhosis of liver with ascites; E03.9 Hypothyroidism, unspecified; Z98.84 Bariatric surgery status; B96.89 Other specified bacterial agents as the cause of diseases classified elsewhere; E80.6 Other disorders of bilirubin metabolism; F10.21 Alcohol dependence, in remission; D50.0 Iron deficiency anemia secondary to blood loss (chronic)

== ENCOUNTER 2016-11-16 17:09 | Emergency (ER) | payer OTHER ==
[~2016-11-16] VITALS: Ht 167.6 cm; Wt 57.3 kg
[~2016-11-16 17:09] MED LIST changes: -CIPR-198 PO; -FISH12002 PO; +FURO-128 PO; -FURO40TA4 PO; -IRON 18 MG PO; -LIPOIC ACID PO; -OMEP20CA11 PO; -OXYC5TAB72 PO; -POTA-62 PO; +POTA20TA16 PO
[2016-11-16 17:12] VITALS: BP 132/82; PULSE 107; RESP 20; O2SAT 100
--- NOTE | 2016-11-16 17:26 | ED.REPORT ---
HPI-Abd Pain F Under 40 Date of Service Nov 16, 2016 ED Provider: Samantha Rios MD Kristine is a 36-year-old female with a history of alcoholic liver cirrhosis is here for abdominal pain. Her abdominal pain started at 45 minutes ago during plasma transfusion. Patient notes that her pain is generalized in her abdomen and low back and describes as "just hurts" she rates her pain as 9 out of 10. Ativan was able to decrease her pain to a 7 out of 10. Warm blankets or heat packs also makes the pain better. She denies noting anything that makes the pain worse. Currently she is very anxious. Mom notes subjective fever while at the transfusion clinic. Patient notes that she is also due for her dose of lactulose. Mom notes mental status changes within this past week. Patient notes that she noticed some balance issues. Dr. Ford is worried about SBP due to her history of previous SBP. She has an appointment with Dr. Vazquez liver specialists scheduled for Monday11/21/16 (5 days). Nursing Notes Stated Complaint: PARACENTESIS/DR FORD Chief Complaint: Female Abdominal Pain Allergies: Coded Allergies: No Known Allergies (Verified Allergy, Unknown, 07/07/16) Scheduled Ascorbic Acid (Vitamin C) 500 Mg Capsule.er 500 MG PO QAM Cholecalciferol (Vitamin D3) (Vitamin D3) 5,000 Unit Tablet 5,000 UNIT PO QAM Cyanocobalamin (Vitamin B-12) (Vitamin B-12) 1,000 Mcg/1 Ml Drops 1,000 MCG PO QAM Furosemide (Lasix) 40 Mg Tablet 40 MG PO QAM L. Rhamnosus GG/Inulin (Culturelle Capsule) 10 Billion Cell-200 Mg Cap.sprink 1 EACH PO DAILY Lactulose (Lactulose) 10 Gm/15 Ml Solution 10 GM PO BID Levothyroxine (Levothyroxine) 25 Mcg Tablet 25 MCG PO QAM Multivitamin (Multivitamins) 1 Each Capsule 1 EACH PO DAILY Potassium Chloride (Potassium Chloride) 20 Meq Tab.er.prt 40 MEQ PO DAILYWM TAKE WITH FOOD Rifaximin (Xifaxan) 550 Mg Tablet 550 MG PO DAILY Spironolactone (Spironolactone) 50 Mg Tablet 100 MG PO QAM Scheduled PRN Ondansetron (Ondansetron) 4 Mg Tablet 4 MG PO Q12H PRN PRN For Nausea/Vomiting Oxycodone (Roxicodone) 5 Mg Tablet 5 MG PO Q4H PRN PRN For Pain General Time Seen by MD: 17:18 Chief Complaint Abdominal pain Hx Obtained From: Patient, Other family... (Mother) Arrived By: Walk-in Sudden in Onset?: Yes Onset Occurred: 31 - 45 minutes ago Context of Onset: Other (plasma transfusion) Symptom Duration: Constant Progression since Onset: Constant Location: : Diffuse Quality: Pressure Radiation: : Back Severity: Current: Pain level 7 out of 10 Severity: Maximum: Pain level 9 out of 10 Associated with: Reports: Back pain, Denies: Chills Pertinent Negative: Pt denies other symptoms Relieved by: Prescription meds (Ativan) Past Medical History Past Medical History Notes: Fax for [facility]: Dr. 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: [facility] Past Medical History Liver cirrhosis Anemia hyporthyrodism alcoholic hepatitis Past Surgical History Gastric bypass Smoking History Never Smoker Social History Alcohol Use: Denies alcohol use Other Social History: Good social support Ambulatory Status Independent Review of Systems Basic Review of Systems Eyes: Vision NL, No discharge ENT: Hearing NL, No pain, No nasal congestion, No pharyngeal pain Hematologic: No bleeding, No bruising Endocrine: No cold intolerance, No heat intolerance, No weight gain, No weight loss Skin: No rash, No itch Constitutional: Denies: Chills, Fever Respiratory: Denies: Dyspnea on exertion, Shortness of breath, Wheezing Cardiovascular: Reports: Edema, Denies: Chest pain GI: Reports: Abdominal pain, Nausea Musculoskeletal: Reports: Back pain Complete sys rev & neg: except as marked. Physical Exam Initial Vital Signs Vital Signs (First) Date Time Temp Pulse Resp B/P Pulse Ox O2 Delivery O2 Flow Rate FiO2 11/16/16 17:12 37.2 107 20 132/82 100 Room Air Initial VS: Reviewed Neurologic: Alert, Oriented, Nonfocal General/Constitutional: Awake, Alert Distress / Hydration: Positive: Distress mild Behavior: Positive: Anxious Respiratory / Chest: Breath sounds NL, Breath sounds = bilat, No respiratory distress, No rales, No rhonchi, No wheezing Cardiovascular: Heart rate NL, Regular rhythm, Heart sounds NL, Peripheral circulation NL Lower Ext Edema: Positive: Left 2+, Pitting, Right 2+ Abdomen: Soft, No guarding, No rebound, BS normoactive Organomegaly / Mass / Hernia: Positive: Hepatomegaly Mild distention of the abdomen Color / Condition: Positive: Jaundice present Interpretation & Diagnostics Lab Results Interpretation Test 11/16/16 19:00 Body Fluid Source Peritoneal fluid Body Fluid Color [place] (Clear) Body Fluid Appearance Cloudy Body Fluid WBC 13/mm3 Body Fluid RBC 8400/mm3 Body Fluid Polynuclear WBCs 3% Body Fluid Lymphocytes 22% Body Fluid Monocytes 3% Body Fluid Eosinophils 0% Body Fluid Basophils 0% Lab Results Interpretation: Labs done at the [facility] earlier this morning indicate a sodium 133, creatinine 0.3 glucose 134 Ferritin, total bili, direct bili all elevated as had been previously. Ammonia of 164 WBC 4.2 chronic anemia: h/h 8.6/26.1 Platelets 95, no significant left shift Procedures Procedure Notes: This procedure: Diagnostic paracentesis Indication: Acute abdominal pain, ascites, concern for SBP Verbal informed consent is obtained Ultrasound is performed at bedside, pocket of fluid is identified Using sterile technique and Z technique to the skin paracentesis catheter is introduced into the peritoneum. Approximately 1 mL of very viscous yellow ascites fluid is removed Patient tolerated procedure well Minimal blood loss Re-Eval/Medical Decision Med Decision/Clinical Course Patient's labs done at Dr. Ford's office did not show an elevated WBC. There are no signs of infection. We will do a paracentesis and send fluid to confirm. Discharge & Departure Primary Impression: Abdominal pain Additional Impressions: Ascites End stage liver disease Ruled Out: Spontaneous bacterial peritonitis Additional Instructions: Thank you for coming over to the emergency department for further evaluation this afternoon I suspect that this significant abdominal pain you had was somehow related to the blood product that you were receiving. It got better with a very small dose of Dilaudid. We did do a diagnostic paracentesis and got a very small amount of thick fluid that did not seem to be infected Please follow-up with all of your regular doctors. I wish you the best Referrals: Michele Hernandez DO (PCP) Attending Statment Patient seen and examined with Dr. Gary Agree with documentation as above. No evidence of spontaneous bacterial peritonitis. Documentation of paracentesis is done by me and the procedure is performed by me. Delmis Gary DO Nov 16, 2016 17:26 Samantha Rios MD Nov 16, 2016 21:39
[2016-11-16] MEDS ORDERED: HYDROmorphone 0.5 mg/0.5 mL iSecure Syringe IVPUSH ONE (18:35)
[2016-11-16] MEDS ORDERED: Lactulose 20 Gm/30 mL 30 mL Syrup PO ONE (18:35)
[2016-11-16 18:55] VITALS: BP 116/88; PULSE 108; RESP 14; O2SAT 98
[2016-11-16 19:34] VITALS: BP 118/55; PULSE 103; RESP 20; O2SAT 96
[2016-11-16 20:43] LABS: BFWBC 13 /mm3; MONOCYTES,BODY FLUID 3 %; OTHER CELLS,BODY FLUID 72
[2016-11-16 21:56] VITALS: BP 122/55; PULSE 116; RESP 18; O2SAT 99
[2016-11-22] MEDS ORDERED: GABA-502 PO (13:55)
== END 2016-11-16 21:57 | disposition home or self-care (01) ==
LOC: SED 17:09
DX: K70.31 Alcoholic cirrhosis of liver with ascites (principal); K72.90 Hepatic failure, unspecified without coma; E03.9 Hypothyroidism, unspecified; Z98.84 Bariatric surgery status
CPT/HCPCS: 49083; 87070; 87075; 87205; 89051; 96374; 99285; J1170